=== PATIENT | female | born 1955 | race Caucasian/White ===

== ENCOUNTER 2017-01-07 10:55 | Inpatient (IN) | payer MEDICAID, MEDICARE ==
--- NOTE | 2017-01-07 12:43 | RAD ---
HISTORY: Weakness COMPARISONS: May 29, 2015 VIEWS:1: Single frontal portable view of the chest at 12:20 PM FINDINGS: LINES AND TUBES: None. CARDIOMEDIASTINAL SILHOUETTE: The cardiomediastinal silhouette is normal for portable technique. PLEURA: The costophrenic angles are sharp. No pleural abnormalities are noted. LUNG PARENCHYMA: There is minimal linear opacification of the right lung base ABDOMEN: The upper abdomen is clear. There is no subphrenic gas. BONES AND SOFT TISSUES: No bone or soft tissue abnormalities are noted. IMPRESSION: MINIMAL LINEAR ATELECTASIS OF THE RIGHT LUNG BASE
--- NOTE | 2017-01-07 12:48 | ED ---
Micky Childress Rebecca, scribed for Axel Bañuelos MD on 01/07/17 at 1130 . Complex/Multi-Sys Presentation - HPI Summary HPI Summary: Pt is a 61 y/o F BIBA who presents to ED after being [place] [facility] [place]. Karoline Capellan to r/o malnourishment. Pt reports she has been experiencing generalized weakness since July which has been worsening. Denies fever, chills. Pt believes her sx may have been aggravated by her decreased PO intake, alleviated by nothing. Pt reports that she has been hardly eating and reports spending "about 99% of my time in my hospital bed at home." Pt lives with 2 of her daughters. PMHx lymphedema, DM. - History Of Current Complaint Chief Complaint: EDWeakness Time Seen by Provider: 01/07/17 11:10 Hx Obtained From: Patient Onset/Duration: Lasting Weeks - Since July, Still Present Aggravating Factor(s): Decreased PO intake. Alleviating Factor(s): Nothing Associated Signs And Symptoms: Positive: Weakness - generalized. Negative: Fever - Allergies/Home Medications Allergies/Adverse Reactions: Allergies Allergy/AdvReac Type Severity Reaction Status Date / Time Ibuprofen Allergy Severe Anaphylatic Verified 05/11/16 14:17 Shock Levofloxacin [From Levaquin] Allergy Severe Joint Pain Verified 05/11/16 14:17 Sulfamethoxazole Allergy Severe Anaphylatic Verified 05/11/16 14:17 w/Trimethoprim Shock [From Bactrim] Ceftriaxone [From Rocephin] Allergy Intermediate Swelling Verified 05/11/16 14: 17 Ondansetron [From Zofran] Allergy Intermediate Nausea And Verified 05/11/16 14: 17 Vomiting Adhesive Tape Allergy Rash Verified 05/11/16 14:17 Morphine [From MS Contin] Allergy See Comment Verified 05/11/16 14:17 neo Allergy Mild Rash Uncoded 05/28/15 16:47 PMH/Surg Hx/FS Hx/Imm Hx Endocrine/Hematology History: Reports: Hx Blood Disorders - Factor V Leiden, Hx Diabetes, Hx Thyroid Disease, Other Endocrine/Hematological Disorders Denies: Hx Anticoagulant Therapy, Hx Blood Transfusions, Hx Bone Marrow Disease, Hx Systemic Lupus Erythematosus, Hx Sickle Cell Disease, Hx Anemia, Hx Unexplained Bleeding Cardiovascular History: Reports: Hx Deep Vein Thrombosis, Hx Embolism - PE, Hx Hypercholesterolemia, Hx Hypertension, Other Cardiovascular Problems/Disorders - Idiopathic Thrombocytopenia; Factor 5 Leiden, lymphedema Denies: Hx Aneurysm, Hx Angina, Hx Angioplasty, Hx Auto Implanted Cardiovert Defib, Hx Cardiac Arrest, Hx Cardiomegaly, Hx Congenital Heart Disease, Hx Congestive Heart Failure, Hx Coronary Artery Disease, Hx Hypotension, Hx Pacemaker/ICD, Hx Peripheral Vascular Disease, Hx Rheumatic Fever, Hx Syncope, Hx Valvular Heart Disease Respiratory History: Reports: Hx Chronic Bronchitis, Hx Chronic Obstructive Pulmonary Disease (COPD), Hx Pneumonia, Hx Pulmonary Edema, Hx Pulmonary Embolism, Hx Sleep Apnea - obstructive sleep apnea (does not use CPAP), Other Respiratory Problems/Disorders - h/o pneumonia, HX PE Denies: Hx Seasonal Allergies Comment Only: Hx Asthma - denies but uses Albuterol GI History: Reports: Hx Gastroesophageal Reflux Disease, Hx Hiatal Hernia - 2006 HAD SURGERY, repair with mesh, Other GI Disorders - Hernia repair with mesh , pt reports acid reflux Denies: Hx Jaundice History: Reports: Hx Kidney Infection - severe when 11 years old, Hx Kidney Stones, Other Problems/Disorders - recurrent UTIs Denies: Hx Dialysis, Hx Renal Disease Musculoskeletal History: Reports: Hx Arthritis - hands, lower joints, Hx Back Problems, Hx Bursitis - RIGHT SHOULDER, Other Musculoskeletal History - bursitis right shoulder Sensory History: Reports: Hx Cataracts - 2012, Hx Contacts or Glasses, Hx Vision Problem Denies: Hx Eye Injury, Hx Eye Prosthesis, Hx Glaucoma, Hx Macular Degeneration, Hx Deafness, Hx Hearing Aid, Hx Hearing Problem, Other Sensory Impairments Opthamlomology History: Reports: Hx Cataracts - 2013, Hx Contacts or Glasses, Hx Vision Problem Denies: Hx Eye Injury, Hx Eye Prosthesis, Hx Glaucoma, Hx Macular Degeneration, Other Sensory Impairments Neurological History: Reports: Hx Migraine - once in a while Denies: Hx Dementia, Hx Developmental Delay, Hx Headaches, Hx Seizures, Hx Spinal Cord Injury, Hx Transient Ischemic Attacks (TIA), Other Neuro Impairments /Disorders Psychiatric History: Reports: Hx Depression Denies: Hx Anxiety, Hx Attention Deficit Hyperactivity Disorder, Hx Autism, Hx Eating Disorder, Hx Oppositional [place] Disorder, Hx Panic Disorder, Hx Post Traumatic Stress Disorder, Hx Community Mental Health Tx, Hx Schizophrenia , Hx Bipolar Disorder, Hx Substance Abuse, Other Psychiatric Issues/Disorders - Surgical History Surgery Procedure, Year, and Place: hernia repair, vena cava filter placement, r /t wound in left lower extremity (Leg debridement). 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 MD Fartun Capellan denies Hx 11/17/15, Traveled Outside the [place] in Last 30 Days - Family History Known Family History: Positive: Hypertension, Diabetes - Social History Alcohol Use: None Hx Substance Use: No Substance Use Type: Reports: None Hx Tobacco Use: Yes Smoking Status (MU): Former Smoker Type: eCigarettes Length of Time of Smoking/Using Tobacco: off and on 40 years (probably a total of 15 years) Have You Smoked in the Last Year: No Review of Systems Negative: Fever, Chills Positive: Weakness - generalized All Other Systems Reviewed And Are Negative: Yes Physical Exam - Summary Physical Exam Summary: General: well-appearing, no pain distress Skin: warm, color reflects adequate perfusion, dry Head: normal Eyes: EOMI, LUCI ENT: normal Neck: supple, nontender Respiratory: CTA, breath sounds present Cardiovascular: RRR Abdomen: soft, nontender Bowel: present Musculoskeletal: bilateral edema and is able to move the lower extremities, she has generalized weakness Neurological: normal, A&O x3, generalized weakness Psychological: affect/mood appropriate Triage Information Reviewed: Yes Vital Signs On Initial Exam: Initial Vitals Temp Pulse Resp BP Pulse Ox 97.6 F 108 18 107/82 96 01/07/17 11:09 01/07/17 11:09 01/07/17 11:09 01/07/17 11:09 01/07/17 11:09 Vital Signs Reviewed: Yes - Max Coma Scale Coma Scale Total: 15 Diagnostics - Vital Signs Vital Signs Temp Pulse Resp BP Pulse Ox 01/07/17 11:09 97.6 F 108 18 107/82 96 - Laboratory Lab Statement: Any lab studies that have been ordered have been reviewed, and results considered in the medical decision making process. Complex Multi-Symp Course/Dx Course Of Treatment: ADMIT DR CAPELLAN - Diagnoses Provider Diagnoses: Weakness Discharge - Discharge Plan Condition: Stable Disposition: ADMITTED TO [facility] Referrals: Karoline Capellan MD [Primary Care Provider] - The documentation as recorded by the Micky tao Rebecca accurately reflects the service I personally performed and the decisions made by me, Axel Bañuelos MD.
[2017-01-07 13:27] LABS: Hematocrit 45 % (35-47); Hemoglobin 15.2 g/dl (12.0-16.0); Mean Corpuscular HGB Conc 34 g/dl (31-36); Mean Corpuscular Hemoglobin 32 pg (27-31); Mean Corpuscular Volume 95 fL (80-97); Mean Platelet Volume 11 um3 (7.4-10.4); Red Blood Count 4.74 10^6/ul (4.0-5.4); Red Cell Distribution Width 13 % (10.5-15); White Blood Count 7.1 10^3/ul (3.5-10.8)
[2017-01-07 13:29] LABS: Comments Flag Yes
[2017-01-07 13:30] LABS: Add Diff/Slide Review? Slide Review Added
[2017-01-07 13:41] LABS: Albumin 3.5 g/dL (3.2-5.2); BUN/Creatinine Ratio 17.8 (8-20); C Reactive Protein 2.29 mg/L (< 5.00); Calcium 10.2 mg/dL (8.6-10.3); EGFR African American 104.9 (>60); EGFR Non-African American 81.6 (>60); Globulin 3.2 g/dL (2-4); Magnesium 1.9 mg/dL (1.9-2.7); Phosphorus 4.3 mg/dL (2.5-5.0); Potassium 4.3 mmol/L (3.5-5.0); Total Bilirubin 0.5 mg/dL (0.2-1.0); Total Protein 6.7 g/dL (6.4-8.9)
[2017-01-07] MEDS ORDERED: oxyCODONE TAB* 5 MG TAB PO ONE (13:49)
[2017-01-07 14:29] LABS: TSH (Thyroid Stimulating Horm) 0.05 mcIU/mL (0.34-5.60)
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
[2017-01-07] MEDS: oxyCODONE TAB* 5 MG TAB PO PRN ×2 (16:49→21:26)
[2017-01-07] MEDS: Gabapentin CAP(*) 300 MG PO SCH ×3 (16:49→23:51)
[2017-01-07] MEDS ORDERED: HYDROmorphone* 1 MG/ML 1 ML SYR IV PRN (17:29)
[2017-01-07 18:02] LABS: Urine Bacteria 2+ (Absent); Urine Bilirubin Negative (Negative); Urine Glucose Negative (Negative); Urine Nitrite Negative (Negative)
[2017-01-07] MEDS: DULoxetine DR CAP* 30 MG CAP.DR PO SCH (21:10)
[2017-01-07] MEDS: oxyCODONE SR TAB(*) 20 MG TAB.SR PO SCH (21:12)
[2017-01-07] MEDS: Oxybutynin XL TAB* 5 MG PO SCH (21:12)
[2017-01-08] MEDS ORDERED: HYDROmorphone* 1 MG/ML 1 ML SYR IV PRN (04:41)
[2017-01-08] MEDS: Atorvastatin* 40 MG TAB PO SCH (07:52)
[2017-01-08] MEDS: DULoxetine DR CAP* 30 MG CAP.DR PO SCH ×2 (07:52→21:11)
[2017-01-08] MEDS: Gabapentin CAP(*) 300 MG PO SCH ×4 (07:52→21:35)
[2017-01-08] MEDS: Cholecalciferol TAB* 1000 UNITS PO SCH (07:52)
[2017-01-08] MEDS: Potassium Chloride LIQUID* 20 MEQ PACKET PO SCH (07:53)
[2017-01-08] MEDS: oxyCODONE SR TAB(*) 20 MG TAB.SR PO SCH (07:54)
[2017-01-08] MEDS: oxyCODONE TAB* 5 MG TAB PO PRN (07:55)
[2017-01-08] MEDS ORDERED: predniSONE TAB* 10 MG PO SCH (09:00)
[2017-01-08] MEDS ORDERED: Methimazole TAB* 5 MG PO SCH (09:00)
[2017-01-08 10:01] LABS: Free T3 3.6 pg/mL (2.5-3.9); Free T4 0.8 ng/dL (0.61-1.12)
[2017-01-08] MEDS ORDERED: NS 0.9% 500 ML BAG* 500 ML IV ONE (12:00)
[2017-01-08] MEDS ORDERED: Methimazole TAB* 5 MG PO ONE (12:00)
[2017-01-08] MEDS ORDERED: Naloxone* 0.4 MG/ML 1 ML VIAL ONE ×2 (13:26→15:02)
[2017-01-08] MEDS ORDERED: PROCHLORPERAZINE INJ 5 MG/ML 2 ML VIAL ONE (13:48)
[2017-01-08] MEDS ORDERED: PROCHLORPERAZINE INJ 5 MG/ML 2 ML VIAL IV PRN (14:05)
[2017-01-08] MEDS: Nitrofurantoin Macrocrystals* 100 MG CAP PO SCH ×2 (14:06→22:51)
[2017-01-08] MEDS ORDERED: Naloxone* 0.4 MG/ML 1 ML VIAL IV ONE (15:00)
[2017-01-08] MEDS: Oxybutynin XL TAB* 5 MG PO SCH (16:13)
[2017-01-09] MEDS: Gabapentin CAP(*) 300 MG PO SCH ×6 (04:50→21:55)
[2017-01-09 05:37] LABS: Hematocrit 37 % (35-47); Hemoglobin 12.4 g/dl (12.0-16.0); Mean Corpuscular HGB Conc 33 g/dl (31-36); Mean Corpuscular Hemoglobin 32 pg (27-31); Mean Corpuscular Volume 95 fL (80-97); Mean Platelet Volume 10 um3 (7.4-10.4); Red Blood Count 3.89 10^6/ul (4.0-5.4); Red Cell Distribution Width 13 % (10.5-15); White Blood Count 7.6 10^3/ul (3.5-10.8)
[2017-01-09 05:45] LABS: Comments Flag Yes
[2017-01-09] MEDS: Acetaminophen TAB* 325 MG PO PRN (05:46)
[2017-01-09 05:58] LABS: Calcium 8.8 mg/dL (8.6-10.3); EGFR African American 94.4 (>60); EGFR Non-African American 73.4 (>60); Globulin 2.8 g/dL (2-4); Potassium 4.3 mmol/L (3.5-5.0); Total Bilirubin 0.5 mg/dL (0.2-1.0); Total Protein 5.8 g/dL (6.4-8.9)
[2017-01-09 06:08] LABS: TSH (Thyroid Stimulating Horm) 0.04 mcIU/mL (0.34-5.60)
[2017-01-09] MEDS ORDERED: predniSONE TAB* 5 MG PO SCH (09:00)
[2017-01-09] MEDS: Potassium Chloride LIQUID* 20 MEQ PACKET PO SCH (09:49)
[2017-01-09] MEDS: Methimazole TAB* 5 MG PO SCH (09:51)
[2017-01-09] MEDS: Cholecalciferol TAB* 1000 UNITS PO SCH (09:51)
[2017-01-09] MEDS: Atorvastatin* 40 MG TAB PO SCH (09:51)
[2017-01-09] MEDS: DULoxetine DR CAP* 30 MG CAP.DR PO SCH ×2 (09:51→21:57)
[2017-01-09] MEDS: Nitrofurantoin Macrocrystals* 100 MG CAP PO SCH ×2 (09:52→21:57)
[2017-01-09] MEDS: oxyCODONE TAB* 5 MG TAB PO PRN ×4 (09:56→22:39)
--- NOTE | 2017-01-09 14:28 | RAD ---
INDICATION: Urinary tract infection evaluate for urinary retention. COMPARISON: Comparison is made with a prior renal ultrasound from October 03, [address] of the abdomen and pelvis from January 14, 2015. TECHNIQUE: Multiple real-time images of the kidneys and urinary bladder were obtained. FINDINGS: The kidneys are normal in size shape and echogenicity. The right kidney measured 12.2 x 4.7 x 5.1 cm and the left kidney measured 9.1 x 4.8 x 3.9 cm. No significant focal abnormality or hydronephrosis was present. The bladder is normal in contour. No intraluminal abnormalities are seen. No bladder wall thickening is noted. There are bilateral ureteral jets present within the urinary bladder. The bladder volume measured 218 mL. The patient was unable to void. IMPRESSION: 1. NORMAL EXAM OF THE KIDNEYS. 2. THE BLADDER VOLUME WAS 218 ML, THE PATIENT WAS UNABLE TO VOID AT THE END OF THE STUDY.
[2017-01-09] MEDS: Oxybutynin XL TAB* 5 MG PO SCH (16:46)
--- NOTE | 2017-01-09 18:24 | PN ---
Progress Note - Progress Note Date of Service: 01/09/17 SOAP: Subjective: []Had not been seen in clinic since June. Has been bed bound essentially after breakdown of family support and function. Lives with daughter who has ADHD and Asperger's syndrome. Had been bed bound for several months. Incontinent with no clean sheets, limited aces to food. Found at home when Dr. Ruiz's BULLET MAKER went for home visit. Weight loss of approximately 150 lbs over past year in a half. Has been taking Prednisone 5 mg M-F and 10 mg [place] for ITP. Pain remains sever, decreased strength and mobility over time. Acetaminophen (Tylenol Tab*) 650 mg PO Q4H PRN PRN Reason: PAIN Last Admin: 01/09/17 05:46 Dose: 650 mg Atorvastatin Calcium (Lipitor*) 40 mg PO DAILY [facility] Last Admin: 01/09/17 09:51 Dose: 40 mg Cholecalciferol (Vitamin D Tab*) 1,000 units PO DAILY [facility] Last Admin: 01/09/17 09:51 Dose: 1,000 units Duloxetine HCl (Cymbalta Cap*) 30 mg PO BID [facility] Last Admin: 01/09/17 09:51 Dose: 30 mg Gabapentin (Neurontin Cap(*)) 600 mg PO Q4H [facility] Last Admin: 01/09/17 16:46 Dose: 600 mg Methimazole (Tapazole Tab*) 5 mg PO DAILY [facility] Last Admin: 01/09/17 09:51 Dose: 5 mg Nitrofurantoin Macrocrystals (Macrodantin*) 100 mg PO BID [facility] Last Admin: 01/09/17 09:52 Dose: 100 mg Oxybutynin Chloride (Ditropan Xl Tab*) 10 mg PO 1800 [facility] Last Admin: 01/09/17 16:46 Dose: 10 mg Oxycodone HCl (Roxycodone Tab*) 10 mg PO Q4H PRN PRN Reason: PAIN - SEVERE Oxycodone HCl (Roxycodone Tab*) 5 mg PO Q4H PRN PRN Reason: PAIN - MODERATE Last Admin: 01/09/17 14:21 Dose: 5 mg Potassium Chloride (Klor-Con Liquid*) 40 meq PO DAILY [facility] Last Admin: 01/09/17 09:49 Dose: 40 meq Prednisone (Deltasone Tab*) 5 mg PO DAILY [facility] Prochlorperazine Edisylate (Compazine Inj*) 10 mg IV Q6H PRN PRN Reason: NAUSEA/VOMITING Objective: [] Vital Signs Temp Pulse Resp BP Pulse Ox 97.5 F 88 12 103/56 97 01/09/17 15:29 01/09/17 15:29 01/09/17 16:46 01/09/17 15:29 01/09/17 16:00 Limited exam HEENT - no thrush, poor dentition. CTA RRR S1S2 +BS and obese but sitting up, could not feel for spleen Ext with less edema, no infection, improved skin from June, did not look at toes Laboratory Results - last 24 hr 01/08/17 01/09/17 01/09/17 20:54 05:23 05:23 WBC 7.6 RBC 3.89 L Hgb 12.4 Hct 37 MCV 95 MCH 32 H MCHC 33 RDW 13 Plt Count 67 L MPV 10 Neut % (Auto) 69.1 Lymph % (Auto) 20.2 L Moody % (Auto) 9.0 Eos % (Auto) 1.2 Baso % (Auto) 0.5 Absolute Neuts (auto) 5.2 Absolute Lymphs (auto) 1.5 Absolute Monos (auto) 0.7 Absolute Eos (auto) 0.1 Absolute Basos (auto) 0 Absolute Nucleated RBC 0 Nucleated RBC % 0 Sodium Potassium Chloride Carbon Dioxide Anion Gap BUN Creatinine Est GFR ( Amer) Est GFR (Non-Af Amer) BUN/Creatinine Ratio Glucose POC Glucose (mg/dL) 77 Hemoglobin A1c 5.4 Calcium Total Bilirubin AST ALT Alkaline Phosphatase Total Protein Albumin Globulin Albumin/Globulin Ratio TSH 01/09/17 01/09/17 01/09/17 05:24 07:25 16:45 WBC RBC Hgb Hct MCV MCH MCHC RDW Plt Count MPV Neut % (Auto) Lymph % (Auto) Moody % (Auto) Eos % (Auto) Baso % (Auto) Absolute Neuts (auto) Absolute Lymphs (auto) Absolute Monos (auto) Absolute Eos (auto) Absolute Basos (auto) Absolute Nucleated RBC Nucleated RBC % Sodium 133 Potassium 4.3 Chloride 102 Carbon Dioxide 28 Anion Gap 3 BUN 24 Creatinine 0.80 Est GFR ( Amer) 94.4 Est GFR (Non-Af Amer) 73.4 BUN/Creatinine Ratio 30.0 H Glucose 94 POC Glucose (mg/dL) 104 H 124 H Hemoglobin A1c Calcium 8.8 Total Bilirubin 0.50 AST 12 L ALT 6 L Alkaline Phosphatase 55 Total Protein 5.8 L Albumin 3.0 L Globulin 2.8 Albumin/Globulin Ratio 1.1 TSH 0.04 L Assessment: []61 year old with multiple medical problems including chronic ZACHARY, chronic pain syndrome. Has been on Prednisone for ITP wit platelet harini under 20K in past. Plan: []1. Will be working with discharge planning for NH with Rehab. 2. Social work consult for assistance to children. 3. Platelets stable, decrease Prednisone to 5 mg daily and follow.
[2017-01-10] MEDS: Gabapentin CAP(*) 300 MG PO SCH ×6 (02:10→21:30)
[2017-01-10] MEDS: oxyCODONE TAB* 5 MG TAB PO PRN ×5 (06:06→21:31)
[2017-01-10] MEDS: Atorvastatin* 40 MG TAB PO SCH (10:17)
[2017-01-10] MEDS: predniSONE TAB* 5 MG PO SCH (10:17)
[2017-01-10] MEDS: Potassium Chloride LIQUID* 20 MEQ PACKET PO SCH (10:17)
[2017-01-10] MEDS: DULoxetine DR CAP* 30 MG CAP.DR PO SCH ×2 (10:17→21:30)
[2017-01-10] MEDS: Nitrofurantoin Macrocrystals* 100 MG CAP PO SCH ×2 (10:18→21:31)
[2017-01-10] MEDS: Methimazole TAB* 5 MG PO SCH (10:18)
[2017-01-10] MEDS: Cholecalciferol TAB* 1000 UNITS PO SCH (10:19)
--- NOTE | 2017-01-10 15:38 | RAD ---
INDICATION: Pain and swelling. COMPARISON: None TECHNIQUE: Duplex interrogation of the Lowerextremity was performed. FINDINGS: Deep veins: The common femoral, great saphenous, profunda femoris, proximal, mid, and distal deep femoral, popliteal, and posterior tibial veins are patent. The peroneal veins are not seen. This is likely technical in nature related to the dependent edema. There is normal compressibility, augmentation, and phasic flow. Superficial veins: There are no findings of superficial thrombophlebitis. Popliteal fossa:There is no evidence of a popliteal cyst. Soft tissues: There is subcutaneous edema.. IMPRESSION: NONVISUALIZATION OF THE PERONEAL VEINS LIKELY RELATED TO TECHNICAL FACTORS/DEPENDENT EDEMA. NO EVIDENCE OF DEEP VENOUS THROMBOSIS
[2017-01-10] MEDS: Oxybutynin XL TAB* 5 MG PO SCH (16:43)
--- NOTE | 2017-01-10 22:32 | CONS ---
INPATIENT PAIN CONSULTATION: DATE OF CONSULT: 01/10/17 REASON FOR REFERRAL: Pain in legs and arms. HISTORY OF PRESENT ILLNESS: Saima Juares is a 61-year-old female. She has a medical history significant for type 2 diabetes mellitus and has a painful peripheral neuropathy. In addition, the patient has a history of chronic immune thrombocytopenia. She was treated with a drug called Promacta, which caused her to have severe limb pain. In addition, she has a history of chronic lymphedema in her lower extremities. She has had a history of wound infections in both legs. She also has a history of factor V Leiden. The patient, because of her chronic pain, had been managed with OxyContin 20 mg twice a day and oxycodone 20 mg every 4 hours. This was prescribed by her primary care doctor. The patient, however, missed several appointments with her primary care doctor. Her OxyContin and oxycodone prescriptions ran out and were not refilled because of the missed appointment. Eventually, a nurse practitioner was sent into the home to visit with the patient, because the patient felt like she could not get into the office. The patient was found to be living in a situation where she was having difficulty getting out of b+ed and had not been washed or cleaned in several weeks. Her mattress in her hospital bed appeared to have been ruined because of incontinence. The patient was admitted to the hospital. She had a medical workup. Over the weekend, her pain medications were resumed, but the patient had to get Narcan because her respiratory rate went down to 4. The patient is now on oxycodone 5 to 10 mg every 4 hours as needed. She states she is still in pain. I am asked to see her in consultation. PAST MEDICAL HISTORY: As noted above. In addition, she has obstructive sleep apnea. She has had a [place] filter placed. She has chronic low back pain, depression, hypertension. MEDICATIONS: Current medications include: 1. Lipitor. 2. Cymbalta 30 mg twice a day. 3. Neurontin 600 mg 6 times a day. 4. She is on Tapazole. 5. Macrodantin for urinary tract infection. 6. Ditropan. 7. Oxycodone. 8. Potassium. 9. Prednisone for her ITP. ALLERGIES: The patient has allergies listed to IBUPROFEN, LEVAQUIN, and BACTRIM. SOCIAL HISTORY: She is a nonsmoker. Does not drink alcohol. She is a previous smoker and uses nicotine cartridges. PHYSICAL EXAM: In brief, the patient's temperature is 99.5, blood pressure is 116/43, pulse is 100, respirations 22. HEENT: Her extraocular movements are intact. Tongue is midline. Lungs: Sounded clear to auscultation bilaterally. Heart sounds are regular. S1 and S2 are audible. Abdomen is soft and nontender. Her extremities were examined. She had lymphedema in both lower extremities which appears to be chronic. No open wounds were seen. Muscle strength in her upper extremities appear to be 4/5, lower extremities was about 3/5. ASSESSMENT: Chronic pain secondary to a combination of peripheral neuropathy and lymphedema. PLAN: At present, I would avoid long-acting opioids given the events of last weekend. I would continue her on oxycodone 10 mg every 4 hours. If she continues to tolerate this fairly well, we could increase it to oxycodone 15 mg every 4 hours as needed. I will continue to follow her periodically while she is here in the hospital. It seems like she will not be going back home and will need to go to a subacute rehab setting for ongoing strengthening. Thank you for the consultation. [id number]/[facility]IN[facility] #: [id number] WHITNEY
[2017-01-11] MEDS: Gabapentin CAP(*) 300 MG PO SCH ×6 (04:17→20:33)
[2017-01-11] MEDS: Cholecalciferol TAB* 1000 UNITS PO SCH (08:13)
[2017-01-11] MEDS: Potassium Chloride LIQUID* 20 MEQ PACKET PO SCH (08:13)
[2017-01-11] MEDS: DULoxetine DR CAP* 30 MG CAP.DR PO SCH ×2 (08:13→20:33)
[2017-01-11] MEDS: Atorvastatin* 40 MG TAB PO SCH (08:14)
[2017-01-11] MEDS: Nitrofurantoin Macrocrystals* 100 MG CAP PO SCH ×2 (08:15→20:34)
[2017-01-11] MEDS: Acetaminophen TAB* 325 MG PO PRN ×2 (08:15→12:54)
[2017-01-11] MEDS: predniSONE TAB* 5 MG PO SCH (08:15)
[2017-01-11] MEDS: Methimazole TAB* 5 MG PO SCH (08:24)
[2017-01-11] MEDS ORDERED: ZOSYN 3.375 GM x ONE DOSE over 30 miuntes IVPB ×2 (11:00)
[2017-01-11 11:18] LABS: ALT 5 U/L (7-52); Albumin 3.4 g/dL (3.2-5.2); Alkaline Phosphatase 65 U/L (34-104); BUN/Creatinine Ratio 21.3 (8-20); Blood Urea Nitrogen 13 mg/dL (6-24); C Reactive Protein 96.41 mg/L (< 5.00); CO2 Carbon Dioxide 24 mmol/L (22-32); Calcium 9.5 mg/dL (8.6-10.3); Chloride 104 mmol/L (101-111); EGFR African American 129.1 (>60); EGFR Non-African American 100.4 (>60); Globulin 3.6 g/dL (2-4); Glucose 151 mg/dL (70-100); Sodium 134 mmol/L (133-145)
[2017-01-11 11:31] LABS: Anion Gap 6 mmol/L (2-11)
[2017-01-11 11:34] LABS: Comments Flag Yes; Hematocrit 43 % (35-47); Hemoglobin 14.3 g/dl (12.0-16.0); Mean Corpuscular HGB Conc 33 g/dl (31-36); Mean Corpuscular Hemoglobin 32 pg (27-31); Mean Corpuscular Volume 97 fL (80-97); Mean Platelet Volume 10 um3 (7.4-10.4); Red Blood Count 4.43 10^6/ul (4.0-5.4); Red Cell Distribution Width 14 % (10.5-15); White Blood Count 6.8 10^3/ul (3.5-10.8)
[2017-01-11] MEDS: Cyanocobalamin INJ * 1,000 MCG/ML VIAL 1 ML VIAL IM SCH (13:13)
[2017-01-11] MEDS: ZOSYN 3.375 GM Q8H per EXTENDED INFUSION IVPB SCH ×2 (16:12)
[2017-01-11] MEDS: oxyCODONE TAB* 5 MG TAB PO PRN ×2 (16:16→20:36)
[2017-01-12] MEDS: ZOSYN 3.375 GM Q8H per EXTENDED INFUSION IVPB SCH ×6 (00:02→16:36)
[2017-01-12] MEDS: oxyCODONE TAB* 5 MG TAB PO PRN ×6 (00:40→21:00)
[2017-01-12] MEDS: Gabapentin CAP(*) 300 MG PO SCH ×6 (00:40→21:00)
[2017-01-12 05:17] LABS: Comments Flag Yes; Hematocrit 35 % (35-47); Hemoglobin 11.9 g/dl (12.0-16.0); Mean Corpuscular HGB Conc 34 g/dl (31-36); Mean Corpuscular Hemoglobin 32 pg (27-31); Mean Corpuscular Volume 95 fL (80-97); Mean Platelet Volume 10 um3 (7.4-10.4); Red Blood Count 3.69 10^6/ul (4.0-5.4); Red Cell Distribution Width 13 % (10.5-15); White Blood Count 5.1 10^3/ul (3.5-10.8)
[2017-01-12] MEDS: Atorvastatin* 40 MG TAB PO SCH (08:25)
[2017-01-12] MEDS: Nitrofurantoin Macrocrystals* 100 MG CAP PO SCH ×2 (08:25→21:00)
[2017-01-12] MEDS: DULoxetine DR CAP* 30 MG CAP.DR PO SCH ×2 (08:25→21:00)
[2017-01-12] MEDS: Cyanocobalamin INJ * 1,000 MCG/ML VIAL 1 ML VIAL IM SCH (08:26)
[2017-01-12] MEDS: Cholecalciferol TAB* 1000 UNITS PO SCH (08:26)
[2017-01-12] MEDS: Methimazole TAB* 5 MG PO SCH (08:26)
[2017-01-12] MEDS: predniSONE TAB* 5 MG PO SCH (08:26)
[2017-01-12] MEDS: Potassium Chloride LIQUID* 20 MEQ PACKET PO SCH (08:26)
[2017-01-12 09:04] LABS: Albumin 2.9 g/dL (3.2-5.2); BUN/Creatinine Ratio 24.6 (8-20); Calcium 8.7 mg/dL (8.6-10.3); EGFR African American 129.1 (>60); EGFR Non-African American 100.4 (>60); Globulin 3.1 g/dL (2-4); Potassium 3.7 mmol/L (3.5-5.0); Total Bilirubin 0.4 mg/dL (0.2-1.0)
[2017-01-13] MEDS: Gabapentin CAP(*) 300 MG PO SCH ×6 (01:02→22:18)
[2017-01-13] MEDS: ZOSYN 3.375 GM Q8H per EXTENDED INFUSION IVPB SCH ×6 (01:05→16:15)
[2017-01-13 05:41] LABS: Comments Flag Yes; Hematocrit 36 % (35-47); Hemoglobin 12.1 g/dl (12.0-16.0); Mean Corpuscular HGB Conc 34 g/dl (31-36); Mean Corpuscular Hemoglobin 32 pg (27-31); Mean Corpuscular Volume 95 fL (80-97); Mean Platelet Volume 10 um3 (7.4-10.4); Red Blood Count 3.79 10^6/ul (4.0-5.4); Red Cell Distribution Width 13 % (10.5-15); White Blood Count 5.2 10^3/ul (3.5-10.8)
[2017-01-13 05:55] LABS: BUN/Creatinine Ratio 25.5 (8-20); C Reactive Protein 32.14 mg/L (< 5.00); Calcium 9.1 mg/dL (8.6-10.3); EGFR African American 145.5 (>60); EGFR Non-African American 113.1 (>60); Potassium 3.7 mmol/L (3.5-5.0)
[2017-01-13] MEDS: Potassium Chloride LIQUID* 20 MEQ PACKET PO SCH (08:38)
[2017-01-13] MEDS: predniSONE TAB* 5 MG PO SCH (08:39)
[2017-01-13] MEDS: Nitrofurantoin Macrocrystals* 100 MG CAP PO SCH ×2 (08:39→22:19)
[2017-01-13] MEDS: Atorvastatin* 40 MG TAB PO SCH (08:39)
[2017-01-13] MEDS: Methimazole TAB* 5 MG PO SCH (08:39)
[2017-01-13] MEDS: oxyCODONE TAB* 5 MG TAB PO PRN ×4 (08:39→22:18)
[2017-01-13] MEDS: DULoxetine DR CAP* 30 MG CAP.DR PO SCH ×2 (08:39→22:19)
[2017-01-13] MEDS: Cholecalciferol TAB* 1000 UNITS PO SCH (08:39)
[2017-01-13] MEDS: Cyanocobalamin INJ * 1,000 MCG/ML VIAL 1 ML VIAL IM SCH (08:41)
[2017-01-13] MEDS: Polyethylene Glycol 3350* 17 GM PACKET PO PRN (11:51)
[2017-01-13] MEDS: Senna TAB PO PRN (11:51)
[2017-01-13] MEDS: Acetaminophen TAB* 325 MG PO PRN (11:51)
[2017-01-14] MEDS: ZOSYN 3.375 GM Q8H per EXTENDED INFUSION IVPB SCH ×4 (00:30→08:34)
[2017-01-14] MEDS: Gabapentin CAP(*) 300 MG PO SCH ×6 (01:06→21:00)
[2017-01-14] MEDS: oxyCODONE TAB* 5 MG TAB PO PRN ×5 (02:46→22:27)
[2017-01-14] MEDS: Methimazole TAB* 5 MG PO SCH (09:45)
[2017-01-14] MEDS: Polyethylene Glycol 3350* 17 GM PACKET PO PRN (09:45)
[2017-01-14] MEDS: Cholecalciferol TAB* 1000 UNITS PO SCH (09:46)
[2017-01-14] MEDS: predniSONE TAB* 5 MG PO SCH (09:46)
[2017-01-14] MEDS: DULoxetine DR CAP* 30 MG CAP.DR PO SCH ×2 (09:46→21:00)
[2017-01-14] MEDS: Nitrofurantoin Macrocrystals* 100 MG CAP PO SCH (09:46)
[2017-01-14] MEDS: Atorvastatin* 40 MG TAB PO SCH (09:46)
[2017-01-14] MEDS: Senna TAB PO PRN (09:47)
[2017-01-14] MEDS: Cyanocobalamin INJ * 1,000 MCG/ML VIAL 1 ML VIAL IM SCH (09:47)
[2017-01-14] MEDS: Potassium Chloride LIQUID* 20 MEQ PACKET PO SCH (09:49)
[2017-01-14] MEDS: Amoxicillin/Clavulanate TAB* 875 MG PO SCH ×2 (13:31→21:01)
[2017-01-15] MEDS: Gabapentin CAP(*) 300 MG PO SCH ×4 (01:43→13:26)
[2017-01-15] MEDS: oxyCODONE TAB* 5 MG TAB PO PRN ×3 (03:08→13:26)
[2017-01-15 06:43] LABS: Comments Flag Yes; Hematocrit 36 % (35-47); Hemoglobin 12.2 g/dl (12.0-16.0); Mean Corpuscular HGB Conc 34 g/dl (31-36); Mean Corpuscular Hemoglobin 32 pg (27-31); Mean Corpuscular Volume 96 fL (80-97); Mean Platelet Volume 11 um3 (7.4-10.4); Red Blood Count 3.79 10^6/ul (4.0-5.4); Red Cell Distribution Width 13 % (10.5-15); White Blood Count 5.4 10^3/ul (3.5-10.8)
[2017-01-15] MEDS: Atorvastatin* 40 MG TAB PO SCH (09:10)
[2017-01-15] MEDS: predniSONE TAB* 5 MG PO SCH (09:10)
[2017-01-15] MEDS: Cholecalciferol TAB* 1000 UNITS PO SCH (09:10)
[2017-01-15] MEDS: DULoxetine DR CAP* 30 MG CAP.DR PO SCH (09:10)
[2017-01-15] MEDS: Amoxicillin/Clavulanate TAB* 875 MG PO SCH (09:10)
[2017-01-15] MEDS: Potassium Chloride LIQUID* 20 MEQ PACKET PO SCH (09:11)
[2017-01-15] MEDS: Acetaminophen TAB* 325 MG PO PRN (09:11)
[2017-01-15] MEDS: Methimazole TAB* 5 MG PO SCH (09:20)
[2017-01-15] MEDS: Cyanocobalamin INJ * 1,000 MCG/ML VIAL 1 ML VIAL IM SCH (09:21)
--- NOTE | 2017-01-15 13:07 | TRS ---
CC: Dr. Janice Santos; Dr. Venkata Bustamante; [facility] TRANSFER SUMMARY: DATE OF ADMISSION: 01/07/17 DATE OF TRANSFER: 01/15/17 DISCHARGE DIAGNOSES: 1. Weakness due to inactivity. 2. Cellulitis, right lower leg. 3. Urinary tract infection. 4. Chronic lymphedema. 5. Immune thrombocytopenia. 6. Type 2 diabetes mellitus with peripheral neuropathy. 7. Morbid obesity. 8. History of factor V Leiden mutation. 9. History of [place] filter. 10. Osteoarthritis. 11. Depression. 12. History of hypertension. 13. History of sleep apnea, not currently using CPAP. 14. Gastroesophageal reflux disease. 15. History of DVT and pulmonary emboli. 16. History of MRSA. 17. Hyperthyroidism with thyroid nodule, on methimazole. 18. Lumbar spondylosis and levoscoliosis with history of low back pain and sciatica. 19. History of nonobstructing kidney stone, left kidney. 20. Chronic steroid therapy for thrombocytopenia. 21. Poor personal hygiene due to living circumstances. 22. Urinary retention, resolved. 23. B12 deficiency. 24. Oversedation due to hydromorphone and long-acting opioids during the hospitalization. 25. IV phlebitis due to midline catheter. 26. B12 deficiency with low normal B12, elevated homocysteine and methylmalonic acid. HISTORY: Saima Juares is a 61-year-old female admitted because of weakness, not getting out of bed at home, poor personal hygiene, not eating properly. Please see the dictated admission note for details of the present illness, past medical history, family history, social and personal history, review of systems , and physical examination. DIAGNOSTIC STUDIES/LABORATORY DATA: CBC on admission, WBC 7.1, H and H 15.2/45 , MCV 95, PLT 79K, MCV 95, ESR 5. Subsequent white count remained normal, was 5.4 on 01/15/17. Platelet count stayed low, ranged from 67-80, was 78 on . Laboratory on 01/07/17, sodium 132, potassium 4.3, chloride 100, CO2 of 27, BUN and creatinine 13/0.73, glucose 100. Comprehensive metabolic panel within normal limits. Hemoglobin A1c was 5.5%, phosphorus 4.3, magnesium 1.9. Lipids , triglycerides 214, cholesterol 152, LDL 72, HDL 37. Methylmalonic acid was elevated at 0.51. TSH was low at 0.05 on 01/07/17, was 0.4 on 01/09/17. Free T4 0.80 (normal), free T3 normal at 3.60. B12 level was low normal at 231. 25 - hydroxyvitamin D was normal at 33.4. Homocysteine was elevated at 15. Urinalysis: Yellow, clear, specific gravity 1.005, dipstick is positive for trace leukocyte esterase, epithelial cells present, bacteria 2+, hyaline casts present on admission. Microbiology showed urine culture positive for E. coli on 01/07/17, sensitive to all antibiotics tested. C-reactive protein 2.29 on , 96.41 on 01/11/17, 73.22 on 01/12/17, 32.14 on 01/13/17, and 13.90 on . Point-of- care glucoses ranged from 51 to 138. Imaging: Chest x-ray on 01/07/17 showed minimal linear atelectasis of the right lung base. Kidney and bladder ultrasound on 01/09/17 showed normal exam of the kidneys, bladder volume was 218 with the patient being unable to void at the end of the study. Venous Doppler study on 01/10/17 was negative for DVT of the right lower extremity. It was a difficult study technically. The peroneal veins were not seen. EKG on 01/07/17 showed sinus tachycardia, borderline LAD, axis more leftward compared to previous EKG of 11/16/15. CONSULTATIONS: 1. Dr. Khang Mireles for inpatient pain consultation. He felt that she had a combination of peripheral neuropathy and lymphedema. He recommended avoiding long- acting opioids. He recommended rehab after acute hospitalization. 2. Hematology, Dr. Venkata Bustamante, recommended decreasing her chronic steroids from 5 mg 5 days a week and 10 mg 2 days a week to 5 mg daily. HOSPITAL COURSE: The patient was initially admitted. It was felt that she had extreme weakness in a socially poor setting. She had not been eating properly and not getting out of bed. She had been lying on wet sheets. Her urinary tract infection was treated with nitrofurantoin. During her hospitalization, she developed cellulitis of her right leg, which was treated initially with Zosyn. When she developed a phlebitis and infiltration of the midline catheter, she was switched to Augmentin. This is improving. During her hospitalization, she had urinary retention, required intermittent straight catheterization. This appears to be resolving at this point. She had a physical therapy evaluation while she was here. She initially was not walking. She did take some steps with a walker prior to discharge. I ordered an occupational therapy evaluation. This did not occur during her hospitalization, however. I had also ordered a social work consultation. She was seen by social work for intermediate placement. Social work consultation will need to continue in order to provide a safe discharge for her with regards to her home situation after she leaves the intermediate which is the plan. We discussed possibly getting meals delivered by [employer] With regards to her diabetes, her metformin was initially stopped, but as she is eating better, I will be resuming it to prevent worsening of her diabetes in view of her peripheral neuropathy. With regards to her hyperthyroidism, with the suppressed TSH, I increased her methimazole from 2.5 to 5 mg daily and this will need to be followed as an outpatient. She was a full code. Because of her chronic thrombocytopenia, heparin was not used for DVT prophylaxis. She has a [place] filter. During her hospitalization, she was on a consistent carbohydrate diet, ate well. Her weights did go up during her hospitalization. I am not sure how accurate they were. They were initially bed weights. On 01/08/17, her weight was 194 pounds 9 ounces. On 01/15/17, her weight was 206 pounds 12.8 ounces, which was on a regular scale. Her BMI is 40.4. She has lost a considerable amount of weight, however, from what she was a few years ago when she was more than 100 pounds more than what she is now. At the time of discharge, she has cleaned up considerably well from admission when she was quite dirty. She has been having daily baths or showers. PHYSICAL EXAMINATION: She is alert, oriented. Her chest is clear. Heart is regular. She is complaining of some pain in the right leg due to the cellulitis , some pain in the left buttock and leg due to sciatic pain and her right arm remains sore with swelling of the right cephalic vein. Vital signs are blood pressure 123/82, pulse 84, respirations 16, temperature 97.7, O2 sat 97% on room air. Labs: CBC, WBC 5.2, H and H 12.1/36, MCV 95, PLT 77K. Chemistries, CRP is 13.9. DIET: At the time of discharge, her diet is consistent carbohydrate. ALLERGIES: ADHESIVE TAPE, IBUPROFEN, LEVOFLOXACIN, PROMACTA, SULFA, CEFTRIAXONE , MORPHINE, NICKEL, ZOFRAN. DISCHARGE MEDICATIONS: 1. Acetaminophen 650 p.o. q.4 h. p.r.n. mild pain. 2. Atorvastatin 40 mg p.o. daily. 3. Vitamin D3 1000 units daily. 4. Duloxetine 30 mg b.i.d. 5. Gabapentin 600 mg q.4 h. 6. KCl packets 40 mEq daily. 7. Methimazole 5 mg daily. 8. Oxycodone 5-10 mg q.4 h. p.r.n. pain, 5 mg for moderate, 10 mg for severe. 9. Prednisone 5 mg p.o. daily. 10. Vitamin B12 1000 mcg IM daily x4, weekly x4, then monthly. 11. Metformin 500 mg p.o. b.i.d. 12. Augmentin 875 mg p.o. b.i.d. for 3 more days. DISCHARGE INSTRUCTIONS: It should be noted that when she was first admitted, she requested strong pain medication, requested Dilaudid. She was put back on a regimen of oxycodone, which she had been previously, but had not been taking consistently recently. She became oversedated. Long-acting opiates should be avoided in her and she does not want them at this time. If she needs increase in pain medication, consideration could be given to increasing her oxycodone dose to 15 mg. Lab orders have been written, should be done in 2 weeks, free T4, free T3, TSH, CBC, CRP, BMP. She should have physical therapy, occupational therapy. Please call me if you have any questions. [id number]/[facility] #: [id number] [facility] CENTERMima
[2017-01-15 13:33] VITALS: BP 108/61
== END 2017-01-15 14:40 | DRG 690 ==
LOC: ED 10:55 → MED 13:00 → OBSVTOIN 01-09 09:30
PROVIDERS: ADMIT Internal Medicine Geriatric Medicine; ATTEND Internal Medicine Geriatric Medicine
DX: N39.0 Urinary tract infection, site not specified (principal); D68.51 Activated protein C resistance; T82.898A Other specified complication of vascular prosthetic devices, implants and grafts, initial encounter; E11.42 Type 2 diabetes mellitus with diabetic polyneuropathy; D69.6 Thrombocytopenia, unspecified; L03.115 Cellulitis of right lower limb; R33.9 Retention of urine, unspecified; E03.9 Hypothyroidism, unspecified; G89.29 Other chronic pain; G47.33 Obstructive sleep apnea (adult) (pediatric); F32.9 Major depressive disorder, single episode, unspecified; E53.8 Deficiency of other specified B group vitamins; E66.01 Morbid (severe) obesity due to excess calories; I89.0 Lymphedema, not elsewhere classified; B96.20 Unspecified Escherichia coli [E. coli] as the cause of diseases classified elsewhere; K21.9 Gastro-esophageal reflux disease without esophagitis; X58.XXXA Exposure to other specified factors, initial encounter; I10 Essential (primary) hypertension; F17.290 Nicotine dependence, other tobacco product, uncomplicated; M17.0 Bilateral primary osteoarthritis of knee; M19.012 Primary osteoarthritis, left shoulder; M19.011 Primary osteoarthritis, right shoulder; M19.042 Primary osteoarthritis, left hand; M19.041 Primary osteoarthritis, right hand; E04.1 Nontoxic single thyroid nodule; Z68.39 Body mass index [BMI] 39.0-39.9, adult; Z79.84 Long term (current) use of oral hypoglycemic drugs; Z86.711 Personal history of pulmonary embolism; Z86.718 Personal history of other venous thrombosis and embolism; Z79.52 Long term (current) use of systemic steroids; Z79.891 Long term (current) use of opiate analgesic; Z79.899 Other long term (current) drug therapy; Z88.6 Allergy status to analgesic agent; Z88.1 Allergy status to other antibiotic agents; Z88.5 Allergy status to narcotic agent; Z88.2 Allergy status to sulfonamides; Z88.8 Allergy status to other drugs, medicaments and biological substances; Z91.048 Other nonmedicinal substance allergy status; Z83.2 Family history of diseases of the blood and blood-forming organs and certain disorders involving the immune mechanism
CPT/HCPCS: 36415; 71010; 76770; 80048; 80053; 80061; 81003; 81015; 82306; 82550; 82607; 83036; 83090; 83735; 83921; 84100; 84439; 84443; 84481; 85025; 85027; 85652; 86140; 87077; 87086; 87186; 87641; 93005; 99232; A9270-GY; G0378; G8978-GP-CM; G8979-GP-CK; J0780; J1170; J2310; J2543; J3420; J7512

== ENCOUNTER 2017-02-21 21:35 | Inpatient (IN) | payer MEDICARE ==
[2017-02-21] MEDS ORDERED: NS 0.9% 1000 ML* 1,000 ML IV ONE (22:36)
[2017-02-21 23:04] LABS: Hematocrit 43 % (35-47); Mean Corpuscular HGB Conc 32 g/dl (31-36); Mean Corpuscular Hemoglobin 31 pg (27-31); Mean Corpuscular Volume 94 fL (80-97); Mean Platelet Volume 12 um3 (7.4-10.4); Red Blood Count 4.59 10^6/ul (4.0-5.4); Red Cell Distribution Width 14 % (10.5-15); White Blood Count 14.9 10^3/ul (3.5-10.8)
[2017-02-21 23:12] LABS: Comments Flag Yes
[2017-02-21 23:13] LABS: Add Diff/Slide Review? Slide Review Added
[2017-02-21 23:17] LABS: Albumin 3.4 g/dL (3.2-5.2); C Reactive Protein 3.31 mg/L (< 5.00); Calcium 9.9 mg/dL (8.6-10.3); EGFR African American 54.4 (>60); EGFR Non-African American 42.3 (>60); Globulin 3.4 g/dL (2-4); Potassium 4.1 mmol/L (3.5-5.0); Total Bilirubin 0.4 mg/dL (0.2-1.0); Total Protein 6.8 g/dL (6.4-8.9)
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
[2017-02-21] MEDS ORDERED: NS 0.9% 1000 ML* 2,000 ML IV ONE (23:43)
--- NOTE | 2017-02-22 00:42 | ED ---
Nasir Childress Alfonso, scribed for Nicolette Babb MD on 02/21/17 at 2248 . Lower Extremity - HPI Summary HPI Summary: This patient is a 61 year old obese F BIBA BLS to [facility] with a chief complaint of LLE injuries earlier today. The first injury was getting her leg between a motor scooter and wall. The second injury made her left big toe bleed when her left foot got caught under a shelf at [facility]. The third injury was from hitting her LLE again. She hit her left leg against a table in a [employer] restaurant. The patient rates the pain 9/10 in severity. Symptoms aggravated by touch. Symptoms alleviated by nothing. Patient reports dizziness, LLE swelling, LLE bruising, left big toe bleeding, and SOB. EMS reports a pressure of 132/78. Pressure on arrival to ED was 73/40 with pulse 85, BP later confirmed with a second monitor, and manually. Pt was sitting upright, alert, giving a coherent , detailed history with this blood pressure. Reports her usual BP is 112 systolic. Pt is morbidly obese, DM and has difficulty ambulating, has a scooter and uses a hospital bed at home. EMS reports she takes oxycodone (20 mg), gabapentin, Lisinopril, metformin, prednisone, and Ditropan. PMHx includes DM, PE, HTN, HLD, DVT, and Factor V Leiden. - History of Current Complaint Chief Complaint: EDExtremityLower Stated Complaint: BRUISED LT LEG Hx Obtained From: Patient, EMS Mechanism Of Injury: Blunt Trauma - crush injury between scooter and wall of van for left thigh, contusion to left foot. Onset of Pain: Prior to Arrival Onset/Duration: Still Present Severity Initially: Moderate Severity Currently: Severe Pain Intensity: 9 Pain Scale Used: 0-10 Numeric Timing: Constant Location: Is Discrete @ - LLE Character Of Pain: Aching Associated Signs And Symptoms: Positive: Other - dizziness, LLE swelling, LLE bruising, left big toe bleeding now resolved, and SOB. Aggravating Factor(s): Other - touch Alleviating Factor(s): Nothing Able to Bear Weight: No - Risk Factors DVT Risk Factors: Prior DVT, Recent Trauma - Allergies/Home Medications Allergies/Adverse Reactions: Allergies Allergy/AdvReac Type Severity Reaction Status Date / Time Ibuprofen Allergy Severe Anaphylatic Verified 05/11/16 14:17 Shock Levofloxacin [From Levaquin] Allergy Severe Joint Pain Verified 05/11/16 14:17 Sulfamethoxazole Allergy Severe Anaphylatic Verified 05/11/16 14:17 w/Trimethoprim Shock [From Bactrim] Ceftriaxone [From Rocephin] Allergy Intermediate Swelling Verified 05/11/16 14: 17 Adhesive Tape Allergy Rash Verified 05/11/16 14:17 Eltrombopag Allergy See Comment Verified 01/11/17 10:28 Morphine [From MS Contin] Allergy See Comment Verified 05/11/16 14:17 Nickel Allergy Rash Verified 01/08/17 11:54 Ondansetron [From Zofran] AdvReac Intermediate Nausea And Verified 01/08/17 11: 53 Vomiting PMH/Surg Hx/FS Hx/Imm Hx Endocrine/Hematology History: Reports: Hx Blood Disorders - Factor V Leiden, Hx Diabetes, Hx Thyroid Disease Denies: Hx Anticoagulant Therapy, Hx Blood Transfusions, Hx Bone Marrow Disease, Hx Systemic Lupus Erythematosus, Hx Sickle Cell Disease, Hx Anemia, Hx Unexplained Bleeding Cardiovascular History: Reports: Hx Deep Vein Thrombosis, Hx Embolism - PE, Hx Hypercholesterolemia, Hx Hypertension, Other Cardiovascular Problems/Disorders - Idiopathic Thrombocytopenia; Factor 5 Leiden, lymphedema Denies: Hx Aneurysm, Hx Angina, Hx Angioplasty, Hx Auto Implanted Cardiovert Defib, Hx Cardiac Arrest, Hx Cardiomegaly, Hx Congenital Heart Disease, Hx Congestive Heart Failure, Hx Coronary Artery Disease, Hx Hypotension, Hx Pacemaker/ICD, Hx Peripheral Vascular Disease, Hx Rheumatic Fever, Hx Syncope, Hx Valvular Heart Disease Respiratory History: Reports: Hx Chronic Bronchitis, Hx Chronic Obstructive Pulmonary Disease (COPD), Hx Pneumonia, Hx Pulmonary Edema, Hx Pulmonary Embolism, Hx Sleep Apnea - obstructive sleep apnea (does not use CPAP) Denies: Hx Seasonal Allergies Comment Only: Hx Asthma - denies but uses Albuterol GI History: Reports: Hx Gastroesophageal Reflux Disease, Hx Hiatal Hernia - 2006 HAD SURGERY, repair with mesh Denies: Hx Jaundice History: Reports: Hx Kidney Infection - severe when 11 years old, Hx Kidney Stones, Other Problems/Disorders - recurrent UTIs Denies: Hx Dialysis, Hx Renal Disease Musculoskeletal History: Reports: Hx Arthritis - hands, lower joints, Hx Back Problems, Hx Bursitis - RIGHT SHOULDER Sensory History: Reports: Hx Cataracts - 2013, Hx Contacts or Glasses, Hx Vision Problem Denies: Hx Eye Injury, Hx Eye Prosthesis, Hx Glaucoma, Hx Macular Degeneration, Hx Deafness, Hx Hearing Aid, Hx Hearing Problem, Other Sensory Impairments Opthamlomology History: Reports: Hx Cataracts - 2013, Hx Contacts or Glasses, Hx Vision Problem Denies: Hx Eye Injury, Hx Eye Prosthesis, Hx Glaucoma, Hx Macular Degeneration, Other Sensory Impairments Neurological History: Reports: Hx Migraine - once in a while Denies: Hx Dementia, Hx Developmental Delay, Hx Headaches, Hx Seizures, Hx Spinal Cord Injury, Hx Transient Ischemic Attacks (TIA), Other Neuro Impairments /Disorders Psychiatric History: Reports: Hx Depression Denies: Hx Anxiety, Hx Attention Deficit Hyperactivity Disorder, Hx Autism, Hx Eating Disorder, Hx Oppositional [place] Disorder, Hx Panic Disorder, Hx Post Traumatic Stress Disorder, Hx Community Mental Health Tx, Hx Schizophrenia , Hx Bipolar Disorder, Hx Substance Abuse, Other Psychiatric Issues/Disorders - Surgical History Surgery Procedure, Year, and Place: hernia repair, vena cava filter placement, r /t wound in left lower extremity (Leg debridement). Hx Anesthesia Reactions: No - Immunization History Date of Tetanus Vaccine: unsure Date of Influenza Vaccine: 2011 Infectious Disease History: No Infectious Disease History: Reports: Hx Shingles Denies: Hx Clostridium Difficile, Hx Hepatitis, Hx Human Immunodeficiency Virus (HIV), Hx of Known/Suspected MRSA - MRSA neg swab 11/17/15, Hx Tuberculosis , Hx Known/Suspected VRE - records indicated Yes per PCP office. MD Fartun Ruiz denies Hx 11/17/15, Traveled Outside the [place] in Last 30 Days - Family History Known Family History: Positive: Hypertension, Diabetes - Social History Occupation: Disabled Lives: With Family Alcohol Use: None Hx Substance Use: No Substance Use Type: Reports: None Hx Tobacco Use: Yes Smoking Status (MU): Former Smoker Type: eCigarettmoe Length of Time of Smoking/Using Tobacco: off and on 40 years (probably a total of 15 years) Have You Smoked in the Last Year: No Review of Systems Negative: Fever Positive: Shortness Of Breath Positive: Other - LLE injuries, LLE swelling, LLE bruising Positive: Other - left big toe bleeding now resolved, ecchymosis and hematoma left thigh and left foot Neurological: Other - dizziness Psychological: Normal All Other Systems Reviewed And Are Negative: Yes Physical Exam Triage Information Reviewed: Yes Vital Signs On Initial Exam: Initial Vitals Temp Pulse Resp BP Pulse Ox 97.9 F 85 16 73/40 82 02/21/17 22:03 02/21/17 22:03 02/21/17 22:03 02/21/17 22:03 02/21/17 22:03 Vital Signs Reviewed: Yes Appearance: Positive: No Pain Distress, Ill-Appearing, Obese Skin: Positive: Warm, Skin Color Reflects Adequate Perfusion, Other - Dried blood under the left great toe nail. Fish scaling chronic changes of the RLE. chronic bilat lymphedema, brawny changes, hematoma left thigh, ecchymosis ( purple) dorsum left foot. Head/Face: Positive: Normal Head/Face Inspection Eyes: Positive: Conjunctiva Clear ENT: Positive: Normal ENT inspection Neck: Positive: Supple Respiratory/Lung Sounds: Positive: Clear to Auscultation, Breath Sounds Present , Other - No respiratory distress Cardiovascular: Positive: RRR, Pulses are Symmetrical in both Upper and Lower Extremities, Other - Brisk capillary refill. Negative: Murmur Abdomen Description: Positive: Nontender, Soft, Other: - Large ventral hernia Bowel Sounds: Positive: Present Musculoskeletal: Positive: Other - Marked swelling and ecchymosis of her lower LLE. Hematoma 13 cm in diameter, tender to touch. Ecchymosis and swelling at dorsum of left foot 9 cm x 7 cm. Chronic venous stasis changes at bilateral LE. Neurological: Positive: Sensory/Motor Intact, Alert, Oriented to Person Place, Time, Facial Symmetry, Speech Normal Psychiatric: Positive: Normal Diagnostics - Vital Signs Vital Signs Temp Pulse Resp BP Pulse Ox 02/21/17 22:03 97.9 F 85 16 73/40 82 - Laboratory Lab Results: Lab Results 02/21/17 02/21/17 02/21/17 Range/Units 22:52 22:52 22:52 WBC 14.9 H (3.5-10.8) 10^3/ul RBC 4.59 (4.0-5.4) 10^6/ul Hgb 14.0 (12.0-16.0) g/dl Hct 43 (35-47) % MCV 94 (80-97) fL MCH 31 (27-31) pg MCHC 32 (31-36) g/dl RDW 14 (10.5-15) % Plt Count 62 L (150-450) 10^3/ul MPV 12 H (7.4-10.4) um3 Neut % (Auto) 82.5 (38-83) % Lymph % (Auto) 8.9 L (25-47) % [place] % (Auto) 8.0 (1-9) % Eos % (Auto) 0.1 (0-6) % Baso % (Auto) 0.5 (0-2) % Absolute Neuts (auto) 12.3 H (1.5-7.7) 10^3/ul Absolute Lymphs (auto) 1.3 (1.0-4.8) 10^3/ul Absolute Monos (auto) 1.2 H (0-0.8) 10^3/ul Absolute Eos (auto) 0 (0-0.6) 10^3/ul Absolute Basos (auto) 0.1 (0-0.2) 10^3/ul Absolute Nucleated RBC 0.04 10^3/ul Nucleated RBC % 0.3 INR (Anticoag Therapy) 0.88 L (0.89-1.11) Sodium 135 (133-145) mmol/L Potassium 4.1 (3.5-5.0) mmol/L Chloride 100 L (101-111) mmol/L Carbon Dioxide 29 (22-32) mmol/L Anion Gap 6 (2-11) mmol/L BUN 18 (6-24) mg/dL Creatinine 1.29 H (0.51-0.95) mg/dL Est GFR ( Amer) 54.4 (>60) Est GFR (Non-Af Amer) 42.3 (>60) BUN/Creatinine Ratio 14.0 (8-20) Glucose 91 (70-100) mg/dL Lactic Acid (0.5-2.0) mmol/L Calcium 9.9 (8.6-10.3) mg/dL Total Bilirubin 0.40 (0.2-1.0) mg/dL AST 14 (13-39) U/L ALT 7 (7-52) U/L Alkaline Phosphatase 73 (34-104) U/L C-Reactive Protein 3.31 (< 5.00) mg/L Total Protein 6.8 (6.4-8.9) g/dL Albumin 3.4 (3.2-5.2) g/dL Globulin 3.4 (2-4) g/dL Albumin/Globulin Ratio 1.0 (1-3) 02/21/17 Range/Units 22:52 WBC (3.5-10.8) 10^3/ul RBC (4.0-5.4) 10^6/ul Hgb (12.0-16.0) g/dl Hct (35-47) % MCV (80-97) fL MCH (27-31) pg MCHC (31-36) g/dl RDW (10.5-15) % Plt Count (150-450) 10^3/ul MPV (7.4-10.4) um3 Neut % (Auto) (38-83) % Lymph % (Auto) (25-47) % [place] % (Auto) (1-9) % Eos % (Auto) (0-6) % Baso % (Auto) (0-2) % Absolute Neuts (auto) (1.5-7.7) 10^3/ul Absolute Lymphs (auto) (1.0-4.8) 10^3/ul Absolute Monos (auto) (0-0.8) 10^3/ul Absolute Eos (auto) (0-0.6) 10^3/ul Absolute Basos (auto) (0-0.2) 10^3/ul Absolute Nucleated RBC 10^3/ul Nucleated RBC % INR (Anticoag Therapy) (0.89-1.11) Sodium (133-145) mmol/L Potassium (3.5-5.0) mmol/L Chloride (101-111) mmol/L Carbon Dioxide (22-32) mmol/L Anion Gap (2-11) mmol/L BUN (6-24) mg/dL Creatinine (0.51-0.95) mg/dL Est GFR ( Amer) (>60) Est GFR (Non-Af Amer) (>60) BUN/Creatinine Ratio (8-20) Glucose (70-100) mg/dL Lactic Acid 2.6 H* (0.5-2.0) mmol/L Calcium (8.6-10.3) mg/dL Total Bilirubin (0.2-1.0) mg/dL AST (13-39) U/L ALT (7-52) U/L Alkaline Phosphatase (34-104) U/L C-Reactive Protein (< 5.00) mg/L Total Protein (6.4-8.9) g/dL Albumin (3.2-5.2) g/dL Globulin (2-4) g/dL Albumin/Globulin Ratio (1-3) Result Diagrams: 02/21/17 22:52 02/21/17 22:52 Lab Statement: Any lab studies that have been ordered have been reviewed, and results considered in the medical decision making process. - Radiology VL LOWER EXT VEINS Radiology Interpretation Completed By: Radiologist - pending at this time - CT CT lower extremity CT Interpretation Completed By: Radiologist - pending at this time Re-Evaluation - Re-Evaluation First Eval Re-Evaluation Time: 23:00 - Pt is still mentating. BP's remain below 80 systolic. IV infusing. Change: Unchanged Lower Extremity Course/Dx - Course Assessment/Plan: This patient is a 61 year old F BIBA to [facility] with a chief complaint of LLE injuries earlier today. The first injury was getting her leg between a motor scooter and wall. The second injury made her left big toe bleed and occured when her foot got caught under a shelf at [employer]. The third injury was from hitting her LLE against a table in a [employer] restaurant. The patient rates the pain 9/10 in severity. Symptoms aggravated by touch. Symptoms alleviated by nothing. Patient reports dizziness, LLE swelling, LLE bruising, left big toe bleeding, and SOB. EMS reports a pressure of 132/78. EMS reports she takes oxycodone (20 mg), gabapentin, Lisinopril, metformin, prednisone, and Ditropan. PMHx includes DM, PE, HTN, HLD, DVT, and Factor V Leiden. Patient was laid flat in the stretcher and IV access was obtained with difficulty. CT lower extremity pending at this time. VL LOWER EXT VEINS pending at this time. Patient will be signed out a shift change to Dr. Samaniego. CT lower extremity was done without IV contrast due to pt's hx anaphylaxis to ibuprofen and hx DM. - Diagnoses Differential Diagnosis/HQI/PQRI: Positive: Compartment Syndrome, Contusion, DVT , Fracture (Closed), Other - hematoma, arterial injury Provider Diagnoses: Traumatic hematoma of left lower leg, Contusion of left foot, initial encounter Discharge - Discharge Plan Condition: Stable Disposition: OTHER Discharge Disposition Comment: Patient is signed out to Dr. Samaniego at shift change at 2300 02/21/17. The documentation as recorded by the Nasir tao Alfonso accurately reflects the service I personally performed and the decisions made by me, Nicolette Babb MD.
[2017-02-22] MEDS ORDERED: HYDROmorphone INJ* 1 MG/ML CARPUJECT SYRINGE IV SLOW PU ONE (01:14)
[2017-02-22 01:54] LABS: Urine Bacteria 2+ (Absent); Urine Bilirubin Negative (Negative); Urine Glucose Negative (Negative); Urine Nitrite Negative (Negative)
[2017-02-22 02:04] LABS: Troponin I 0.01 ng/mL (<0.04)
[2017-02-22 02:23] LABS: Magnesium 1.9 mg/dL (1.9-2.7)
[2017-02-22] MEDS ORDERED: NS 0.9% 1000 ML* 1,000 ML IV ONE (03:06)
[2017-02-22] MEDS ORDERED: methylPREDNISolone 125 MG* 2 ML VIAL IV ONE (03:08)
[2017-02-22] MEDS ORDERED: Ondansetron INJ* 2 MG/ML VIAL IV PRN (03:13)
[2017-02-22] MEDS: Amoxicillin/Clavulanate TAB* 875 MG PO SCH ×3 (04:27→22:55)
[2017-02-22] MEDS: oxyCODONE TAB* 5 MG TAB PO PRN ×4 (06:22→20:34)
--- NOTE | 2017-02-22 06:26 | HP ---
CC: Karoline Ruiz MD * HISTORY AND PHYSICAL: DATE OF ADMISSION: 02/21/17 PRIMARY CARE PROVIDER: Karoline Ruiz MD SOURCE OF INFORMATION: History obtained from interview with the patient and review of past medical records. RELIABILITY: Fair. CHIEF COMPLAINT: Injury to the left lower leg. HISTORY OF PRESENT ILLNESS: This is a 62-year-old female, recent hospital stay from 01/07/17 to 01/15/17, who had been in her usual state of health, went to [facility] [place], used a scooter for mobilization and felt that she "squashed my left leg " between her scooter and the [employer] van upon arrival. She noticed immediate pain and swelling. She proceeded into the store where she caught her left foot under a shelf in the electronics section. On the way out to meet her daughter, she again got stuck and had a table fall on her left leg for a third time. She was seen by [facility] [place] staff who encouraged her to present to the emergency room via an ambulance; however, she declined out of fear that she will lose her scooter or that it would be left at [facility] [place] unattended. When she returned home , she had continued pain and therefore activated the EMS and presented to the hospital. She denies any shortness of breath, cough, recent fevers, chills, nausea, vomiting, although does report dysuria several days prior that has since resolved. In the emergency room, she was found on presentation with a blood pressure of 73/40, which improved to 110/62, status post 2 L of normal saline. When seen by this author, however, she was reporting lightheadedness if she attempts to sit up, although no chest pain, shortness of breath, or other symptoms other than pain on her left leg. PAST MEDICAL HISTORY: Includes: 1. Type 2 diabetes. 2. Peripheral neuropathy. 3. Stress incontinence. 4. Frequent urinary tract infection. 5. Osteoarthritis. 6. Hypertension. 7. Depression. 8. Chronic immune thrombocytopenia, on chronic steroids. 9. Chronic lymphedema of the lower extremities. 10. Hyperthyroidism. 11. Obstructive sleep apnea, not on CPAP. 12. Factor V Leiden. 13. History of DVT and PE, status post [place] filter. 14. GERD. 15. Thyroid nodule noted to be benign on previous FNA. 16. Chronic lower back pain. 17. History of abdominal hernia repair. 18. . 19. Cataract extraction. SOCIAL HISTORY: Lives at home. Denies current tobacco and alcohol. FAMILY HISTORY: Positive for past venous thromboembolism including pulmonary embolism and lymphedema. Positive family history of factor V Leiden. ALLERGIES: Include IBUPROFEN, LEVAQUIN, BACTRIM, CEFTRIAXONE, ADHESIVE TAPE, ELTROMBOPAG, MORPHINE, NICKEL, and ZOFRAN. MEDICATIONS: 1. Prednisone 5 mg daily. 2. Metformin 500 mg twice daily. 3. Oxybutynin 10 mg daily. 4. Methimazole 2.5 mg daily. 5. Atorvastatin 40 mg daily. 6. Acetaminophen 500 mg every 8 hours as needed for pain. 7. Gabapentin 600 mg 6 times a day. 8. Esomeprazole 40 mg daily. 9. Cymbalta 30 mg twice daily. 10. Potassium chloride 40 mEq daily. 11. Oxycodone 20 mg every 4 hours as needed for pain. Please note, medication reconciliation taken from the chart. The patient unable to adequately confirm. REVIEW OF SYSTEMS: As per HPI. Otherwise, all other systems negative. PHYSICAL EXAMINATION GENERAL: Obese female, sitting up 30 degrees in bed, interactive, in no apparent distress. VITAL SIGNS: When seen by this author, 83/41, heart rate 105, respiratory rate is 14, 95% on room air, T-max in the emergency room 97.9. HEENT: Oropharynx is clear. She has dry mucous membranes. She has poor dentition. NECK: She has non-elevated JVD. No cervical or supraclavicular lymphadenopathy. LUNGS: Her lungs are decreased in the bases with trace rales in the bases. HEART: Tachycardic heart rate with a regular rhythm. ABDOMEN: Soft, nontender, nondistended. EXTREMITIES: Warm, less than 2-second cap refill in the hands. She has lymphedema in the legs. There is an area over the left medial calf, an area of swelling, exquisitely tender to palpation. NEUROLOGIC: She is alert and oriented x3. Cranial nerves are intact. DIAGNOSTIC STUDIES/LAB DATA: Data reviewed. Sodium 135, potassium 4.1, chloride 100, bicarb 29, BUN 18, creatinine 1.29. Glucose 91, lactic acid 2.6, troponin I 0.01. CRP 3.31. White blood cell count 14.9, 82% neutrophils, hemoglobin 14, platelets 62. Urine is positive for 2+ blood, leuk esterase, white blood cells, red blood cells, and urine bacteria, also present is squamous epithelial cells. Data reviewed. Preliminary read per ultrasound, lower extremity venous Doppler. There is no deep venous thrombosis; however, present is 10.4 x 3.[address] lower extremity, again present is hematoma and subcutaneous fat, medial calf , left leg. EKG: Normal sinus rhythm on presentation, normal limit and axis. Normal R- wave progression. No ST or T-wave changes. ASSESSMENT AND PLAN: This is a 62-year-old female with complex past medical history, presenting with increased pain on the left leg after 3 traumatic incidents while shopping at [employer] complicated by hypotension in the emergency room. 1. Hypotension. There is concern for hypovolemic etiology in the setting of blood loss as well as evidence of dehydration based on acute kidney injury. The patient received 2 L of normal saline, given another liter of normal saline now and check, repeat hemoglobin and hematocrit. If there is evidence of continued blood loss, we will treat with packed red blood cells. Additionally, she is experiencing stress in the setting of chronic long-term steroid use with a suspected adrenal insufficiency. We will give 125 mg of methylprednisolone now, can reevaluate for continued need of increased doses tomorrow. There is also the potential of superimposed infection, in the form of recurrent urinary tract infection, which the patient is susceptible to. She tolerated oral antibiotics during her last hospital stay despite noted CEPHALOSPORIN allergy. We will give Augmentin now, continue b.i.d. 2. Injured left leg. Pain control, no evidence of compartment syndrome. At this time, total CK is 82, continue to monitor. Follow hemoglobin and hematocrit as indicated above. 3. Increased lactic acidosis in the setting of injury. Repeat now with a repeat hemoglobin and hematocrit. 4. Concern for urinary tract infection based on urinalysis. Urinalysis is also noted to be dirty, contaminant was squamous epithelial cells. However, in the setting of hypotension as noted above, we will treat with Augmentin now, reevaluate after culture returns. 5. Chronic thrombocytopenia. Continue steroids at home doses. 6. Diabetes, continue metformin. 7. DVT prophylaxis. Brooke filter is present. Hold on heparin products in the setting of chronic thrombocytopenia. [id number]/[facility] #: [id number] [facility]
--- NOTE | 2017-02-22 07:40 | RAD ---
INDICATION: Screening COMPARISON: January 07, 2017 TECHNIQUE: An AP supine portable view obtained at 2318 hours is submitted. FINDINGS: Bones/Soft Tissues: There are no acute bony findings. Cardiomediastinal: The cardiomediastinal silhouette is normal. Interstitium is mildly prominent. This could be related to supine technique. Lungs: There is mild linear change in both lung bases most consistent with atelectasis. The findings are left are new. On the right findings are unchanged.. Pleura: There are no pleural effusions. Other: None IMPRESSION: SUSPECT MILD BIBASILAR ATELECTASIS.
--- NOTE | 2017-02-22 07:43 | RAD ---
INDICATION: Crush injury, large hematoma left lower leg. COMPARISON: There are no prior studies available for comparison. TECHNIQUE: Contiguous axial sections were obtained of the left lower leg. Images were reconstructed in the sagittal and coronal planes. FINDINGS: There is diffuse soft tissue swelling with stranding and fluid tracking in the subcutaneous tissues. In addition there is a large hyperdense lesion present within the subcutaneous tissues present along the medial aspect of the mid calf. This measures 10.7 x 4.6 x 10.0 cm in size and would be most consistent with a hematoma. No fracture is seen. IMPRESSION: FINDINGS MOST CONSISTENT WITH A LARGE HEMATOMA PRESENT IN THE SUBCUTANEOUS TISSUES IN THE MEDIAL ASPECT OF THE LEFT CALF.
--- NOTE | 2017-02-22 07:47 | RAD ---
INDICATION: Hematoma left lower extremity, crush injury, history of DVT. COMPARISON: Comparison is made with a prior study from April 04, 2005. TECHNIQUE: Multiple real-time, color flow and Doppler tracings of the left lower extremity were obtained. FINDINGS: The common femoral, femoral, profunda femoral and popliteal veins all demonstrate normal compressibility, augmentation with compression and phasic response with respiration. The posterior tibial veins demonstrate normal compressibility and augmentation with compression. The peroneal veins were not visualized. The study is limited due to edema in the patient's body habitus. There is a large area of decreased echogenicity present in the medial mid calf measuring 10.4 x 3.5 x 9.5 cm most consistent with a hematoma. IMPRESSION: 1. NO EVIDENCE FOR DEEP VENOUS THROMBOSIS. 2. LARGE HEMATOMA IN THE MEDIAL CALF.
[2017-02-22 08:08] LABS: Hematocrit 39 % (35-47); Hemoglobin 12.6 g/dl (12.0-16.0); Mean Corpuscular HGB Conc 33 g/dl (31-36); Mean Corpuscular Hemoglobin 31 pg (27-31); Mean Corpuscular Volume 94 fL (80-97); Mean Platelet Volume 11 um3 (7.4-10.4); Red Blood Count 4.13 10^6/ul (4.0-5.4); Red Cell Distribution Width 14 % (10.5-15); White Blood Count 8.9 10^3/ul (3.5-10.8)
[2017-02-22 08:11] LABS: Comments Flag Yes
[2017-02-22 08:13] LABS: BUN/Creatinine Ratio 22.2 (8-20); Calcium 8.6 mg/dL (8.6-10.3); EGFR African American 106.3 (>60); EGFR Non-African American 82.6 (>60)
[2017-02-22 08:53] LABS: TSH (Thyroid Stimulating Horm) 0.26 mcIU/mL (0.34-5.60)
[2017-02-22] MEDS ORDERED: Methimazole TAB* 5 MG PO SCH (09:00)
[2017-02-22] MEDS: Potassium Chloride LIQUID* 20 MEQ PACKET PO SCH (09:08)
[2017-02-22] MEDS: Omeprazole CAP* 20 MG PO SCH (09:10)
[2017-02-22] MEDS: Atorvastatin* 40 MG TAB PO SCH (09:11)
[2017-02-22] MEDS: DULoxetine DR CAP* 30 MG CAP.DR PO SCH ×2 (09:12→22:55)
[2017-02-22] MEDS: metFORMIN* 500 MG TAB PO SCH ×2 (09:13→22:55)
[2017-02-22] MEDS: predniSONE TAB* 5 MG PO SCH (09:13)
[2017-02-22] MEDS: Oxybutynin XL TAB* 5 MG PO SCH (09:13)
[2017-02-22] MEDS: Gabapentin CAP(*) 300 MG PO SCH ×6 (09:14→22:55)
[2017-02-23] MEDS: oxyCODONE TAB* 5 MG TAB PO PRN ×7 (01:13→23:16)
[2017-02-23] MEDS: Amoxicillin/Clavulanate TAB* 875 MG PO SCH ×2 (09:40→20:51)
[2017-02-23] MEDS: metFORMIN* 500 MG TAB PO SCH ×2 (09:40→20:51)
[2017-02-23] MEDS: Oxybutynin XL TAB* 5 MG PO SCH (09:40)
[2017-02-23] MEDS: Atorvastatin* 40 MG TAB PO SCH (09:40)
[2017-02-23] MEDS: Methimazole TAB* 5 MG PO SCH (09:41)
[2017-02-23] MEDS: predniSONE TAB* 5 MG PO SCH (09:41)
[2017-02-23] MEDS: Omeprazole CAP* 20 MG PO SCH (09:41)
[2017-02-23] MEDS: DULoxetine DR CAP* 30 MG CAP.DR PO SCH ×2 (09:41→20:51)
[2017-02-23] MEDS: Potassium Chloride LIQUID* 20 MEQ PACKET PO SCH (09:44)
[2017-02-23] MEDS: Gabapentin CAP(*) 300 MG PO SCH ×6 (09:49→23:15)
[2017-02-23] MEDS ORDERED: HYDROmorphone TAB* 2 MG PO PRN (13:30)
[2017-02-23 14:55] LABS: Hematocrit 36 % (35-47); Hemoglobin 11.6 g/dl (12.0-16.0); Mean Corpuscular HGB Conc 33 g/dl (31-36); Mean Corpuscular Hemoglobin 31 pg (27-31); Mean Corpuscular Volume 94 fL (80-97); Mean Platelet Volume 11 um3 (7.4-10.4); Red Blood Count 3.79 10^6/ul (4.0-5.4); Red Cell Distribution Width 14 % (10.5-15); White Blood Count 8.2 10^3/ul (3.5-10.8)
[2017-02-23 14:56] LABS: Comments Flag Yes
[2017-02-23 15:08] LABS: BUN/Creatinine Ratio 24.3 (8-20); C Reactive Protein 4.52 mg/L (< 5.00); Calcium 8.6 mg/dL (8.6-10.3); EGFR Non-African American 80.1 (>60); Potassium 4.8 mmol/L (3.5-5.0)
[2017-02-24 09:31] LABS: Hematocrit 40 % (35-47); Hemoglobin 12.6 g/dl (12.0-16.0); Mean Corpuscular HGB Conc 32 g/dl (31-36); Mean Corpuscular Hemoglobin 31 pg (27-31); Mean Corpuscular Volume 97 fL (80-97); Mean Platelet Volume 10 um3 (7.4-10.4); Red Blood Count 4.12 10^6/ul (4.0-5.4); Red Cell Distribution Width 14 % (10.5-15); White Blood Count 7.4 10^3/ul (3.5-10.8)
[2017-02-24 09:33] LABS: Comments Flag Yes
[2017-02-24 09:46] LABS: BUN/Creatinine Ratio 25.4 (8-20); Calcium 8.5 mg/dL (8.6-10.3); EGFR Non-African American 96.4 (>60); Potassium 4.2 mmol/L (3.5-5.0)
[2017-02-24] MEDS: Atorvastatin* 40 MG TAB PO SCH (10:25)
[2017-02-24] MEDS: DULoxetine DR CAP* 30 MG CAP.DR PO SCH ×2 (10:26→20:18)
[2017-02-24] MEDS: Oxybutynin XL TAB* 5 MG PO SCH (10:26)
[2017-02-24] MEDS: metFORMIN* 500 MG TAB PO SCH ×2 (10:26→20:19)
[2017-02-24] MEDS: Omeprazole CAP* 20 MG PO SCH (10:26)
[2017-02-24] MEDS: Methimazole TAB* 5 MG PO SCH (10:27)
[2017-02-24] MEDS: Amoxicillin/Clavulanate TAB* 875 MG PO SCH ×2 (10:27→20:19)
[2017-02-24] MEDS: oxyCODONE TAB* 5 MG TAB PO PRN ×3 (10:27→20:17)
[2017-02-24] MEDS: Potassium Chloride LIQUID* 20 MEQ PACKET PO SCH (10:27)
[2017-02-24] MEDS: predniSONE TAB* 5 MG PO SCH (10:28)
[2017-02-24] MEDS: Gabapentin CAP(*) 300 MG PO SCH ×6 (11:04→23:25)
[2017-02-25] MEDS: oxyCODONE TAB* 5 MG TAB PO PRN ×5 (02:49→20:15)
[2017-02-25] MEDS ORDERED: Influenza VAC *QUAD* 2017-18* 0.5 ML SYRINGE IM ONE (08:00)
[2017-02-25] MEDS: Omeprazole CAP* 20 MG PO SCH (09:23)
[2017-02-25] MEDS: predniSONE TAB* 5 MG PO SCH (09:23)
[2017-02-25] MEDS: Amoxicillin/Clavulanate TAB* 875 MG PO SCH ×2 (09:23→20:15)
[2017-02-25] MEDS: Atorvastatin* 40 MG TAB PO SCH (09:23)
[2017-02-25] MEDS: DULoxetine DR CAP* 30 MG CAP.DR PO SCH ×2 (09:23→20:15)
[2017-02-25] MEDS: Oxybutynin XL TAB* 5 MG PO SCH (09:23)
[2017-02-25] MEDS: Potassium Chloride LIQUID* 20 MEQ PACKET PO SCH (09:23)
[2017-02-25] MEDS: metFORMIN* 500 MG TAB PO SCH ×2 (09:24→20:15)
[2017-02-25] MEDS: Methimazole TAB* 5 MG PO SCH (09:24)
[2017-02-25] MEDS: Gabapentin CAP(*) 300 MG PO SCH ×6 (09:27→23:14)
[2017-02-26] MEDS: oxyCODONE TAB* 5 MG TAB PO PRN ×5 (01:21→21:41)
[2017-02-26] MEDS: Potassium Chloride LIQUID* 20 MEQ PACKET PO SCH (09:59)
[2017-02-26] MEDS: Amoxicillin/Clavulanate TAB* 875 MG PO SCH ×2 (10:00→21:41)
[2017-02-26] MEDS: Atorvastatin* 40 MG TAB PO SCH (10:00)
[2017-02-26] MEDS: Omeprazole CAP* 20 MG PO SCH (10:00)
[2017-02-26] MEDS: Oxybutynin XL TAB* 5 MG PO SCH (10:00)
[2017-02-26] MEDS: Gabapentin CAP(*) 300 MG PO SCH ×6 (10:01→22:57)
[2017-02-26] MEDS: predniSONE TAB* 5 MG PO SCH (10:01)
[2017-02-26] MEDS: Methimazole TAB* 5 MG PO SCH (10:01)
[2017-02-26] MEDS: DULoxetine DR CAP* 30 MG CAP.DR PO SCH ×2 (10:01→21:41)
[2017-02-26] MEDS: metFORMIN* 500 MG TAB PO SCH ×2 (10:02→21:41)
[2017-02-27] MEDS: oxyCODONE TAB* 5 MG TAB PO PRN ×2 (01:19→14:06)
[2017-02-27 06:54] LABS: Hematocrit 39 % (35-47); Hemoglobin 12.8 g/dl (12.0-16.0); Mean Corpuscular HGB Conc 33 g/dl (31-36); Mean Corpuscular Hemoglobin 31 pg (27-31); Mean Corpuscular Volume 93 fL (80-97); Mean Platelet Volume 11 um3 (7.4-10.4); Red Blood Count 4.17 10^6/ul (4.0-5.4); Red Cell Distribution Width 14 % (10.5-15); White Blood Count 5.6 10^3/ul (3.5-10.8)
[2017-02-27 06:56] LABS: C Reactive Protein 24.2 mg/L (< 5.00)
[2017-02-27] MEDS: Atorvastatin* 40 MG TAB PO SCH (07:30)
[2017-02-27] MEDS: Amoxicillin/Clavulanate TAB* 875 MG PO SCH (07:30)
[2017-02-27] MEDS: DULoxetine DR CAP* 30 MG CAP.DR PO SCH (07:30)
[2017-02-27] MEDS: metFORMIN* 500 MG TAB PO SCH (07:30)
[2017-02-27] MEDS: predniSONE TAB* 5 MG PO SCH (07:30)
[2017-02-27] MEDS: Methimazole TAB* 5 MG PO SCH (07:30)
[2017-02-27] MEDS: Omeprazole CAP* 20 MG PO SCH (07:30)
[2017-02-27] MEDS: Potassium Chloride LIQUID* 20 MEQ PACKET PO SCH (07:31)
[2017-02-27] MEDS: Oxybutynin XL TAB* 5 MG PO SCH (07:31)
[2017-02-27 07:35] LABS: TSH (Thyroid Stimulating Horm) 1.2 mcIU/mL (0.34-5.60)
[2017-02-27] MEDS: Gabapentin CAP(*) 300 MG PO SCH ×3 (07:35→14:01)
[2017-02-27 07:36] LABS: Free T3 3.4 pg/mL (2.5-3.9)
[2017-02-27 07:37] LABS: Free T4 0.66 ng/dL (0.61-1.12)
[2017-02-27] MEDS ORDERED: Clindamycin CAP* 150 MG PO ONE (11:00)
[2017-02-27] MEDS ORDERED: Cyanocobalamin INJ * 1,000 MCG/ML VIAL 1 ML VIAL IM ONE (11:00)
[2017-02-27 11:27] VITALS: BP 136/60
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
== END 2017-02-27 14:25 | DRG 605 ==
LOC: ED 21:35 → MED 02-22 03:13 → OBSVTOIN 02-23 12:50
PROVIDERS: ADMIT Internal Medicine; ATTEND Internal Medicine Geriatric Medicine
DX: S80.12XA Contusion of left lower leg, initial encounter (principal); N17.9 Acute kidney failure, unspecified; D68.51 Activated protein C resistance; D69.6 Thrombocytopenia, unspecified; E11.42 Type 2 diabetes mellitus with diabetic polyneuropathy; I95.9 Hypotension, unspecified; E66.01 Morbid (severe) obesity due to excess calories; L03.116 Cellulitis of left lower limb; E87.2 Acidosis; Z68.41 Body mass index [BMI] 40.0-44.9, adult; G89.29 Other chronic pain; M19.90 Unspecified osteoarthritis, unspecified site; M54.5 Low back pain; G47.33 Obstructive sleep apnea (adult) (pediatric); K21.9 Gastro-esophageal reflux disease without esophagitis; I10 Essential (primary) hypertension; I89.0 Lymphedema, not elsewhere classified; S90.32XA Contusion of left foot, initial encounter; E55.9 Vitamin D deficiency, unspecified; M47.9 Spondylosis, unspecified; M54.30 Sciatica, unspecified side; M41.9 Scoliosis, unspecified; E86.0 Dehydration; E86.1 Hypovolemia; E05.90 Thyrotoxicosis, unspecified without thyrotoxic crisis or storm; E78.00 Pure hypercholesterolemia, unspecified; J44.9 Chronic obstructive pulmonary disease, unspecified; M13.0 Polyarthritis, unspecified; G43.909 Migraine, unspecified, not intractable, without status migrainosus; F32.9 Major depressive disorder, single episode, unspecified; Z86.711 Personal history of pulmonary embolism; Z88.6 Allergy status to analgesic agent; Z88.1 Allergy status to other antibiotic agents; Z88.2 Allergy status to sulfonamides; Z88.8 Allergy status to other drugs, medicaments and biological substances; Y93.89 Activity, other specified; Z98.42 Cataract extraction status, left eye; Z98.41 Cataract extraction status, right eye; Z87.442 Personal history of urinary calculi; Z86.19 Personal history of other infectious and parasitic diseases; Z86.718 Personal history of other venous thrombosis and embolism; Z82.49 Family history of ischemic heart disease and other diseases of the circulatory system; Z83.3 Family history of diabetes mellitus; Z87.891 Personal history of nicotine dependence; Z23 Encounter for immunization; Y93.I9 Activity, other involving external motion; Z86.14 Personal history of Methicillin resistant Staphylococcus aureus infection; Z79.84 Long term (current) use of oral hypoglycemic drugs; Z79.52 Long term (current) use of systemic steroids
CPT/HCPCS: 36415; 71010; 80048; 80053; 81003; 81015; 82550; 83605; 83735; 84439; 84443; 84481; 84484; 85025; 85027; 85610; 86140; 87086; 90686; 93005; A9270-GY; G0378; G8978-GP-CN; G8979-GP-CL; G8979-GP-CM; J1170; J2930; J3420; J7512

== ENCOUNTER 2017-08-07 12:52 | Observation (INO) | payer MEDICARE, MEDICAID ==
[2017-08-07] MEDS ORDERED: oxyCODONE TAB* 5 MG TAB PO ONE ×2 (14:04→19:30)
[2017-08-07] MEDS ORDERED: NS 0.9% 1000 ML* 1,000 ML IV ONE (14:04)
[2017-08-07 17:53] LABS: ABS Basophils 0 10^3/ul (0-0.2); ABS Eosinophils 0 10^3/ul (0-0.6); ABS Lymphocytes 1.2 10^3/ul (1.0-4.8); ABS Monocytes 0.6 10^3/ul (0-0.8); ABS Neutrophils 2.7 10^3/ul (1.5-7.7); ABS Nucleated RBC 0 10^3/ul; Eosinophil % 0.5 % (0-6); Hematocrit 40 % (35-47); Hemoglobin 13.2 g/dl (12.0-16.0); Lymphocyte % 27.1 % (25-47); Mean Corpuscular HGB Conc 33 g/dl (31-36); Mean Corpuscular Hemoglobin 29 pg (27-31); Mean Corpuscular Volume 89 fL (80-97); Mean Platelet Volume 10 um3 (7.4-10.4); Nucleated Red Blood Cells % 0; Platelet Count 68 10^3/ul (150-450); Red Blood Count 4.52 10^6/ul (4.0-5.4); Red Cell Distribution Width 15 % (10.5-15); White Blood Count 4.5 10^3/ul (3.5-10.8)
[2017-08-07 18:02] LABS: EGFR Non-African American 91.4 (>60)
[2017-08-07 18:06] LABS: INR 0.94 (0.77-1.02)
[2017-08-07 19:29] LABS: Urine Appearance Clear; Urine Blood Negative (Negative); Urine Color Yellow; Urine Ketones 1+ (Negative); Urine Protein Negative (Negative); Urine Specific Gravity 1.006 (1.010-1.030); Urine Urobilinogen Negative (Negative)
--- NOTE | 2017-08-07 19:36 | ED ---
Shorty Childress Angela, scribed for Axel Bañuelos MD on 08/07/17 at 1318 . Complex/Multi-Sys Presentation - HPI Summary HPI Summary: This pt is a 62 y/o female presenting to [facility] via EMS c/o generalized illness for the past week. Pt reports she is just not feeling well. Pt states diarrhea, nausea, decreased PO intake, body aches. She describes diarrhea as watery, non- bloody. Pt notes she has had 6-7 episodes of diarrhea a day. The last time she had diarrhea was last night. The last time she had a bowel movement was today and notes it was small. Denies vomiting, fever, sore throat, rhinorrhea, chest congestion, cough, abd pain. She believes she is dehydrated. Pt notes she has baseline body aches. She uses a scooter to get around due to chronic lymphaedema and kyphoscoliosis. PMHx includes frequent cellulitis. Pt reports she hurt her left leg in 2016 and since then it "has not healed." Denies hx of CHF. She does not take any diuretics. Pt's allergies include ibrupofen. Pt takes 20 mg oxycodone [id number] with Tylenol. - History Of Current Complaint Chief Complaint: EDGeneral Time Seen by Provider: 08/07/17 13:07 Hx Obtained From: Patient Onset/Duration: Lasting Days, Still Present Timing: Days Severity Initially: Moderate Location: Pain At: - generalized, all over body Aggravating Factor(s): nothing Alleviating Factor(s): nothing Associated Signs And Symptoms: Positive: Edema - chronic, Nausea, Diarrhea, Other - POS: body aches, decreased PO intake. NEG: chest congestion, sore throat.. Negative: Cough, Vomiting, Abdominal Pain - Allergies/Home Medications Allergies/Adverse Reactions: Allergies Allergy/AdvReac Type Severity Reaction Status Date / Time MS Ibuprofen [Ibuprofen] Allergy Severe Anaphylatic Verified 05/11/16 14:17 Shock MS Levofloxacin Allergy Severe Joint Pain Verified 05/11/16 14:17 [From Levaquin] MS Sulfamethoxazole Allergy Severe Anaphylatic Verified 05/11/16 14:17 w/Trimethoprim Shock [From Bactrim] MS Ceftriaxone Allergy Intermediate Swelling Verified 05/11/16 14:17 [From Rocephin] Adhesive Tape Allergy Rash Verified 05/11/16 14:17 MS Eltrombopag [Eltrombopag] Allergy See Comment Verified 01/11/17 10:28 MS Morphine [From MS Contin] Allergy See Comment Verified 05/11/16 14:17 MS Nickel [Nickel] Allergy Rash Verified 01/08/17 11:54 MS Ondansetron [From Zofran] AdvReac Intermediate Nausea And Verified 01/08/17 11:53 Vomiting PMH/Surg Hx/FS Hx/Imm Hx Endocrine/Hematology History: Reports: Hx Blood Disorders - Factor V Leiden, Hx Diabetes, Hx Thyroid Disease, Other Endocrine/Hematological Disorders Denies: Hx Anticoagulant Therapy, Hx Blood Transfusions, Hx Bone Marrow Disease, Hx Systemic Lupus Erythematosus, Hx Sickle Cell Disease, Hx Anemia, Hx Unexplained Bleeding Cardiovascular History: Reports: Hx Deep Vein Thrombosis, Hx Embolism - PE, Hx Hypercholesterolemia, Hx Hypertension, Other Cardiovascular Problems/Disorders - Idiopathic Thrombocytopenia; Factor V Leiden, lymphedema, thrombocytopenia Denies: Hx Aneurysm, Hx Angina, Hx Angioplasty, Hx Auto Implanted Cardiovert Defib, Hx Cardiac Arrest, Hx Cardiomegaly, Hx Congenital Heart Disease, Hx Congestive Heart Failure, Hx Coronary Artery Disease, Hx Hypotension, Hx Pacemaker/ICD, Hx Peripheral Vascular Disease, Hx Rheumatic Fever, Hx Syncope, Hx Valvular Heart Disease Respiratory History: Reports: Hx Chronic Bronchitis, Hx Chronic Obstructive Pulmonary Disease (COPD), Hx Pneumonia, Hx Pulmonary Edema, Hx Pulmonary Embolism, Hx Sleep Apnea - obstructive sleep apnea (does not use CPAP), Other Respiratory Problems/Disorders - h/o pneumonia, HX PE Denies: Hx Seasonal Allergies Comment Only: Hx Asthma - denies but uses Albuterol GI History: Reports: Hx Gastroesophageal Reflux Disease, Hx Hiatal Hernia - 2006 HAD SURGERY, repair with mesh, Other GI Disorders - Hernia repair with mesh , pt reports acid reflux Denies: Hx Jaundice History: Reports: Hx Kidney Infection - severe when 11 years old, Hx Kidney Stones, Other Problems/Disorders - recurrent UTIs Denies: Hx Dialysis, Hx Renal Disease Musculoskeletal History: Reports: Hx Arthritis - hands, lower joints, Hx Back Problems, Hx Bursitis - RIGHT SHOULDER, Hx Scoliosis, Other Musculoskeletal History - spinal spondylosis Sensory History: Reports: Hx Cataracts - 2013, Hx Contacts or Glasses, Hx Vision Problem Denies: Hx Eye Injury, Hx Eye Prosthesis, Hx Glaucoma, Hx Macular Degeneration, Hx Deafness, Hx Hearing Aid, Hx Hearing Problem, Other Sensory Impairments Opthamlomology History: Reports: Hx Cataracts - 2013, Hx Contacts or Glasses, Hx Vision Problem Denies: Hx Eye Injury, Hx Eye Prosthesis, Hx Glaucoma, Hx Macular Degeneration, Other Sensory Impairments Neurological History: Reports: Hx Migraine - once in a while, Other Neuro Impairments/Disorders - scoliosis, kyposcoliosis Denies: Hx Dementia, Hx Developmental Delay, Hx Headaches, Hx Seizures, Hx Spinal Cord Injury, Hx Transient Ischemic Attacks (TIA) Psychiatric History: Reports: Hx Anxiety, Hx Depression Denies: Hx Attention Deficit Hyperactivity Disorder, Hx Autism, Hx Eating Disorder, Hx Oppositional [place] Disorder, Hx Panic Disorder, Hx Post Traumatic Stress Disorder, Hx Community Mental Health Tx, Hx Schizophrenia, Hx Bipolar Disorder, Hx Substance Abuse, Other Psychiatric Issues/Disorders - Surgical History Surgery Procedure, Year, and Place: hernia repair, vena cava filter placement, r /t wound in left lower extremity (Leg debridement). 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 MD Fartun Ruiz denies Hx 11/17/15, Traveled Outside the [place] in Last 30 Days - Family History Known Family History: Positive: Hypertension, Diabetes - Social History Alcohol Use: None Hx Substance Use: No Substance Use Type: Reports: None Hx Tobacco Use: Yes Smoking Status (MU): Former Smoker Type: eCigarettmoe Length of Time of Smoking/Using Tobacco: off and on 40 years (probably a total of 15 years) Have You Smoked in the Last Year: No Review of Systems Constitutional: Other - decreased PO intake Negative: Fever ENT: Other - chest congestion Negative: Sore Throat, Nasal Discharge Negative: Cough Positive: Diarrhea, Nausea. Negative: Abdominal Pain, Vomiting Positive: Myalgia, Edema - chronic All Other Systems Reviewed And Are Negative: Yes Physical Exam - Summary Physical Exam Summary: General: well-appearing, no pain distress Skin: warm, color reflects adequate perfusion, dry Head: normal Eyes: EOMI, LUCI ENT: Oral mucosa is dry Neck: supple, nontender Respiratory: CTA, breath sounds present Cardiovascular: RRR Abdomen: soft, nontender Bowel: present Musculoskeletal: strength/ROM intact. Bilateral pedal edema. Chronic looking erythema in both lower extremities. Neurological: normal, sensory/motor intact, A&O x3 Psychological: affect/mood appropriate Triage Information Reviewed: Yes Vital Signs On Initial Exam: Initial Vitals Temp Pulse Resp BP Pulse Ox 97.6 F 86 18 160/93 95 08/07/17 12:58 08/07/17 12:58 08/07/17 12:58 08/07/17 12:58 08/07/17 12:58 Vital Signs Reviewed: Yes Diagnostics - Vital Signs Vital Signs Temp Pulse Resp BP Pulse Ox 08/07/17 12:58 97.6 F 86 18 160/93 95 - Laboratory Lab Results: Lab Results 08/07/17 08/07/17 08/07/17 Range/Units 17:36 17:36 17:36 WBC (3.5-10.8) 10^3/ul RBC (4.0-5.4) 10^6/ul Hgb (12.0-16.0) g/dl Hct (35-47) % MCV (80-97) fL MCH (27-31) pg MCHC (31-36) g/dl RDW (10.5-15) % Plt Count (150-450) 10^3/ul MPV (7.4-10.4) um3 Neut % (Auto) (38-83) % Lymph % (Auto) (25-47) % [place] % (Auto) (0-7) % Eos % (Auto) (0-6) % Baso % (Auto) (0-2) % Absolute Neuts (auto) (1.5-7.7) 10^3/ul Absolute Lymphs (auto) (1.0-4.8) 10^3/ul Absolute Monos (auto) (0-0.8) 10^3/ul Absolute Eos (auto) (0-0.6) 10^3/ul Absolute Basos (auto) (0-0.2) 10^3/ul Absolute Nucleated RBC 10^3/ul Nucleated RBC % INR (Anticoag Therapy) 0.94 (0.77-1.02) APTT 31.8 (26.0-36.3) seconds Sodium 133 (133-145) mmol/L Potassium 3.4 L (3.5-5.0) mmol/L Chloride 101 (101-111) mmol/L Carbon Dioxide 27 (22-32) mmol/L Anion Gap 5 (2-11) mmol/L BUN 7 (6-24) mg/dL Creatinine 0.66 (0.51-0.95) mg/dL Est GFR ( Amer) 117.5 (>60) Est GFR (Non-Af Amer) 91.4 (>60) BUN/Creatinine Ratio 10.6 (8-20) Glucose 126 H (70-100) mg/dL Lactic Acid (0.5-2.0) mmol/L Calcium 9.2 (8.6-10.3) mg/dL Magnesium 1.9 (1.9-2.7) mg/dL Total Bilirubin 0.50 (0.2-1.0) mg/dL AST 13 (13-39) U/L ALT 8 (7-52) U/L Alkaline Phosphatase 83 (34-104) U/L C-Reactive Protein 3.81 (< 5.00) mg/L B-Natriuretic Peptide 49 ( - 100) pg/mL Total Protein 6.7 (6.4-8.9) g/dL Albumin 3.5 (3.2-5.2) g/dL Globulin 3.2 (2-4) g/dL Albumin/Globulin Ratio 1.1 (1-3) Lipase < 10 L (11.0-82.0) U/L Urine Color Urine Appearance Urine pH (5-9) Ur Specific [place] (1.010-1.030) Urine Protein (Negative) Urine Ketones (Negative) Urine Blood (Negative) Urine Nitrate (Negative) Urine Bilirubin (Negative) Urine Urobilinogen (Negative) Ur Leukocyte Esterase (Negative) Urine WBC (Auto) (Absent) Urine RBC (Auto) (Absent) Ur Squamous Epith Cells (Absent) Urine Bacteria (Absent) Urine Glucose (Negative) Acetaminophen < 15 mcg/mL 08/07/17 08/07/17 08/07/17 Range/Units 17:36 17:36 19:11 WBC 4.5 (3.5-10.8) 10^3/ul RBC 4.52 (4.0-5.4) 10^6/ul Hgb 13.2 (12.0-16.0) g/dl Hct 40 (35-47) % MCV 89 (80-97) fL MCH 29 (27-31) pg MCHC 33 (31-36) g/dl RDW 15 (10.5-15) % Plt Count 68 L (150-450) 10^3/ul MPV 10 (7.4-10.4) um3 Neut % (Auto) 58.6 (38-83) % Lymph % (Auto) 27.1 (25-47) % [place] % (Auto) 12.7 H (0-7) % Eos % (Auto) 0.5 (0-6) % Baso % (Auto) 1.1 (0-2) % Absolute Neuts (auto) 2.7 (1.5-7.7) 10^3/ul Absolute Lymphs (auto) 1.2 (1.0-4.8) 10^3/ul Absolute Monos (auto) 0.6 (0-0.8) 10^3/ul Absolute Eos (auto) 0 (0-0.6) 10^3/ul Absolute Basos (auto) 0 (0-0.2) 10^3/ul Absolute Nucleated RBC 0 10^3/ul Nucleated RBC % 0 INR (Anticoag Therapy) (0.77-1.02) APTT (26.0-36.3) seconds Sodium (133-145) mmol/L Potassium (3.5-5.0) mmol/L Chloride (101-111) mmol/L Carbon Dioxide (22-32) mmol/L Anion Gap (2-11) mmol/L BUN (6-24) mg/dL Creatinine (0.51-0.95) mg/dL Est GFR ( Amer) (>60) Est GFR (Non-Af Amer) (>60) BUN/Creatinine Ratio (8-20) Glucose (70-100) mg/dL Lactic Acid 1.3 (0.5-2.0) mmol/L Calcium (8.6-10.3) mg/dL Magnesium (1.9-2.7) mg/dL Total Bilirubin (0.2-1.0) mg/dL AST (13-39) U/L ALT (7-52) U/L Alkaline Phosphatase (34-104) U/L C-Reactive Protein (< 5.00) mg/L B-Natriuretic Peptide ( - 100) pg/mL Total Protein (6.4-8.9) g/dL Albumin (3.2-5.2) g/dL Globulin (2-4) g/dL Albumin/Globulin Ratio (1-3) Lipase (11.0-82.0) U/L Urine Color Yellow Urine Appearance Clear Urine pH 7.0 (5-9) Ur Specific [place] 1.006 L (1.010-1.030) Urine Protein Negative (Negative) Urine Ketones 1+ A (Negative) Urine Blood Negative (Negative) Urine Nitrate Negative (Negative) Urine Bilirubin Negative (Negative) Urine Urobilinogen Negative (Negative) Ur Leukocyte Esterase Trace A (Negative) Urine WBC (Auto) Trace(0-5/hpf) (Absent) Urine RBC (Auto) Trace(0-2/hpf) (Absent) Ur Squamous Epith Cells Present A (Absent) Urine Bacteria 1+ A (Absent) Urine Glucose Negative (Negative) Acetaminophen mcg/mL Result Diagrams: 08/07/17 17:36 08/07/17 17:36 Lab Statement: Any lab studies that have been ordered have been reviewed, and results considered in the medical decision making process. Re-Evaluation - Re-Evaluation First Eval Re-Evaluation Time: 17:30 Comment: ash pit worker in with pt. Complex Multi-Symp Course/Dx Course Of Treatment: Medications reviewed. Allergies noted. ash pit worker consulted with pt. DISCUSSED RESULTS WITH PATIENT. PATIENT DOES NOT FEEL SAFE GOING HOME. ADMIT HOSPITALIST. - Diagnoses Provider Diagnoses: Weakness, Diarrhea, Dehydration Discharge - Discharge Plan Condition: Stable Disposition: HOME Referrals: Karoline Ruiz MD [Primary Care Provider] - The documentation as recorded by the Shorty tao Angela accurately reflects the service I personally performed and the decisions made by me, Axel Bañuelos MD.
[2017-08-07] MEDS ORDERED: Heparin VIAL(*) 5000 UNITS/ML VIAL (FIVE THOUSAND) SUBCUT SCH (22:00)
[2017-08-07] MEDS: Gabapentin CAP(*) 300 MG PO SCH (23:34)
--- NOTE | 2017-08-07 23:48 | HP ---
CC: Dr. Karoline Ruiz * HISTORY AND PHYSICAL: DATE OF ADMISSION: 08/07/17 PRIMARY CARE PHYSICIAN: Dr. Karoline Ruiz. ATTENDING FOR THIS ADMISSION: Dr. Donna Adnrade.* (DICTATED BY ZAHRA GODINEZ, TEX0 CHIEF COMPLAINT: Weakness and failure to thrive. HISTORY OF PRESENT ILLNESS: This is a 62-year-old female patient who came to the emergency department via EMS services with a complaint of generalized weakness and diarrhea for a week. The patient states that she is just feeling ill. She has had some anorexia and body aches. She does seem to have chronic pain at baseline; however, she states she is feeling more achy. She thinks she is dehydrated because she is unable to take care of herself at home. She has significant chronic lymphedema and some wounds on the left lower extremity for which she received nursing services. She has had many bouts of cellulitis in the past. She denies any history of infection in that wound. She just has regular wound care. She denies any MRSA in the past. Essentially, her main complaint is that she is unable to take care of herself and she has weakness along with this, report of new onset diarrhea. PAST MEDICAL HISTORY: Significant for diabetes mellitus type 2; peripheral neuropathy; incontinence; asymptomatic bacteriuria; osteoarthritis of the spine ; hypertension; depression; chronic immune thrombocytopenia, on steroid treatment; chronic lymphedema of the bilateral lower extremities with a left leg wound; hyperthyroidism; obstructive sleep apnea, does not use CPAP; factor V Leiden deficiency; history of DVT and PE, currently with [place] filter; GERD; chronic pain. PAST SURGICAL HISTORY: Abdominal hernia repair, x2, and cataracts. MEDICATIONS: At home include: 1. Prednisone 5 mg daily. 2. Metformin 500 mg 2 times a day. 3. Oxybutynin 10 mg daily. 4. Methimazole 2.5 mg daily. 5. Atorvastatin 40 mg daily. 6. Acetaminophen 500 mg extra strength every 8 hours p.r.n. 7. Gabapentin 600 mg 3 times a day. 8. Nexium 40 mg daily. 9. Cymbalta 30 mg twice a day. 10. K-Chlor 40 mEq daily. 11. Oxycodone 20 mg every 4 hours as needed for pain. ALLERGIES: Include ZOFRAN, LEVAQUIN, BACTRIM, CEFTRIAXONE, IBUPROFEN, MORPHINE , ADHESIVE TAPE, NICKEL and NICKEL-BASED PRODUCTS, and ELTROMBOPAG. FAMILY HISTORY: Has positive family history for factor V Leiden. SOCIAL HISTORY: The patient lives at home with her 2 daughters, aged 18 and 23. She is not working. She denies any current tobacco use or any current alcohol use or drug use. REVIEW OF SYSTEMS: The patient is complaining of weakness. She is complaining of inability to care for herself and diarrhea. She denies any chest pain. No fever, no headache. No nausea, no vomiting. No urinary complaints. She has chronic wide spread pain particularly in the spine and the lower extremities. This is her baseline and she has no further constitutional complaints. PHYSICAL EXAMINATION GENERAL: The patient is alert, appears tired and disheveled. VITAL SIGNS: Currently, blood pressure 144/69, heart rate 76, respiratory rate 18, satting at 95% on room air, temperature is 97.6. HEENT: The patient is atraumatic and normocephalic. PERRLA with nonicteric sclerae. Extraocular movements are intact. Oral mucosa is moist. Dentition is extremely poor. NECK: Supple, nontender. No carotid bruits auscultated. No thyromegaly appreciated. LUNGS: Clear bilaterally to auscultation with no wheezing, rhonchi, or rales. CARDIOVASCULAR: S1, S2 are present. Rate and rhythm are regular. No murmurs, gallops, or rubs. ABDOMEN: Soft, nontender, nondistended. Positive bowel sounds in all 4 quadrants, slightly hypoactive in nature. : Deferred. MUSCULOSKELETAL: There is no clubbing and no cyanosis. She has significant lymphedema bilaterally of the lower extremities with a wound in the left lateral calf currently dressed. NEUROLOGIC: She is grossly intact with no focal deficits, although she does appear to be somewhat of a poor historian. PSYCHIATRIC: She is cooperative and appropriate but does appear to have a flat affect. LABORATORY DATA/DIAGNOSTIC STUDIES: WBC 4.5, RBC 4.52, hemoglobin 13.2, hematocrit 40, platelets 68. Chemistries: Sodium 133, potassium 3.4, chloride 101, CO2 27, BUN 7, creatinine 0.66, GFR is 91.4, glucose 126, lactic acid 1.3 , calcium 9.2, magnesium 1.9, bilirubin 0.5. AST 13, ALT 8, alk phos 83. CRP 3.81. BNP 49. Protein 6.7, albumin 3.5, globulin 3.2, lipase is less than 10. Urinalysis shows 1+ bacteria with some squamous epithelial cells, negative for nitrites, negative for blood, negative for protein and it is clear and yellow. Toxicology: Acetaminophen level is less than 15. Coags: INR is 0.94 and APTT is 31.8. She has not had a chest x-ray for this admission. No recent imaging noted. IMPRESSION: This is a 62-year-old female with some comorbidities; however, no clear diagnosis today other than some weakness and inability to ambulate secondary to her lymphedema, also subjective history of diarrhea, although she has not had diarrhea here in the emergency department. PLAN: Apparently, social service assistant has already been involved in this case and discussed usp admission with the patient as she did not meet criteria for admission or observation admission. The plan I guess at this time is to see if she can be placed in some sort of either skilled rehab or halfway facility. The patient did tell me that APS is involved. She has a daughter with Asperger's, who is 23 years old and another daughter, who is 18 years old. She is concerned for the plan of care for them as well as for her herself, so essentially I think oncology social work needs to be involved to employee resources for rehabilitative or halfway care for this patient and ensure that her daughters even though they are of legal age, her one daughter is still in high school and she is concerned about her care at this point. The patient has a chronically low potassium. She is getting her K-Chlor every day, this will be continued. We will continue her regular home medications. She has received a liter of fluid in the emergency department and she has responded well to that. She can have a diabetic diet. I do not feel she needs to be on insulin sliding scale. The patient states her glucose is well controlled at home with diet and metformin, these will be continued. The rest of the patient's course will be determined by further diagnostics, laboratories, or any other input from other providers as warranted during this admission. I have discussed this plan of care with both the emergency physician and Dr. Andrade. They are both in agreement with this plan of care. The patient should be seen by her primary care provider, Dr. Karoline Ruiz, tomorrow to further define what would be best and safest for her. Of note, the patient is a full code and DVT prophylaxis will be with heparin subcu 5000 units every 8 hours. ZAHRA GODINEZ, SOFTWARE ADMINISTRATOR [id number]/[facility] #: [id number] [place]
[2017-08-08] MEDS: oxyCODONE TAB* 5 MG TAB PO PRN ×5 (00:01→21:32)
[2017-08-08] MEDS: Potassium Chloride LIQUID* 20 MEQ PACKET PO SCH (07:58)
[2017-08-08] MEDS: Oxybutynin XL TAB* 5 MG PO SCH (07:58)
[2017-08-08] MEDS: Gabapentin CAP(*) 300 MG PO SCH ×6 (07:58→23:47)
[2017-08-08] MEDS: DULoxetine DR CAP* 30 MG CAP.DR PO SCH ×2 (07:58→21:31)
[2017-08-08] MEDS: Omeprazole CAP* 20 MG PO SCH (07:59)
[2017-08-08] MEDS: Methimazole TAB* 5 MG PO SCH (07:59)
[2017-08-08] MEDS: metFORMIN* 500 MG TAB PO SCH ×2 (07:59→21:31)
[2017-08-08] MEDS: predniSONE TAB* 5 MG PO SCH (07:59)
[2017-08-09] MEDS: oxyCODONE TAB* 5 MG TAB PO PRN ×2 (01:29→10:23)
[2017-08-09 07:06] LABS: ABS Basophils 0.1 10^3/ul (0-0.2); ABS Eosinophils 0.1 10^3/ul (0-0.6); ABS Lymphocytes 1.7 10^3/ul (1.0-4.8); ABS Neutrophils 3.7 10^3/ul (1.5-7.7); ABS Nucleated RBC 0 10^3/ul; Eosinophil % 1.4 % (0-6); Hematocrit 41 % (35-47); Hemoglobin 13.5 g/dl (12.0-16.0); Lymphocyte % 26.4 % (25-47); Mean Corpuscular HGB Conc 33 g/dl (31-36); Mean Corpuscular Hemoglobin 30 pg (27-31); Mean Corpuscular Volume 91 fL (80-97); Mean Platelet Volume 10 um3 (7.4-10.4); Nucleated Red Blood Cells % 0; Platelet Count 60 10^3/ul (150-450); Red Blood Count 4.53 10^6/ul (4.0-5.4); Red Cell Distribution Width 15 % (10.5-15); White Blood Count 6.5 10^3/ul (3.5-10.8)
[2017-08-09 07:18] LABS: EGFR Non-African American 60.7 (>60)
[2017-08-09 07:55] VITALS: BP 129/66
[2017-08-09] MEDS: DULoxetine DR CAP* 30 MG CAP.DR PO SCH (10:24)
[2017-08-09] MEDS: Potassium Chloride LIQUID* 20 MEQ PACKET PO SCH (10:24)
[2017-08-09] MEDS: Methimazole TAB* 5 MG PO SCH (10:24)
[2017-08-09] MEDS: Gabapentin CAP(*) 300 MG PO SCH ×3 (10:24→13:13)
[2017-08-09] MEDS: metFORMIN* 500 MG TAB PO SCH (10:24)
[2017-08-09] MEDS: Oxybutynin XL TAB* 5 MG PO SCH (10:24)
[2017-08-09] MEDS: predniSONE TAB* 5 MG PO SCH (10:24)
[2017-08-09] MEDS: Omeprazole CAP* 20 MG PO SCH (10:24)
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
[2017-08-09 12:53] LABS: Urine Appearance Clear; Urine Blood Negative (Negative); Urine Color Yellow; Urine Ketones Negative (Negative); Urine Protein Negative (Negative); Urine Specific Gravity 1.016 (1.010-1.030); Urine Urobilinogen Negative (Negative)
== END 2017-08-09 14:47 ==
LOC: ED 12:52 → MED 20:59
PROVIDERS: ADMIT Nurse Practitioner Adult Health; ATTEND Internal Medicine Geriatric Medicine
DX: R53.1 Weakness (principal); R62.7 Adult failure to thrive; E11.9 Type 2 diabetes mellitus without complications; I10 Essential (primary) hypertension; D69.6 Thrombocytopenia, unspecified; E05.90 Thyrotoxicosis, unspecified without thyrotoxic crisis or storm; G47.33 Obstructive sleep apnea (adult) (pediatric); D68.51 Activated protein C resistance; Z86.711 Personal history of pulmonary embolism; Z86.718 Personal history of other venous thrombosis and embolism; G89.29 Other chronic pain; M47.9 Spondylosis, unspecified; G62.9 Polyneuropathy, unspecified; Z79.84 Long term (current) use of oral hypoglycemic drugs; Z79.899 Other long term (current) drug therapy; Z88.1 Allergy status to other antibiotic agents; Z88.5 Allergy status to narcotic agent; Z88.8 Allergy status to other drugs, medicaments and biological substances; Z79.52 Long term (current) use of systemic steroids; R19.7 Diarrhea, unspecified
CPT/HCPCS: 36415; 80048; 80053; 80329; 81003; 81015; 82550; 82728; 83605; 83690; 83735; 83880; 85025; 85610; 85730; 86140; 87077; 87086; 96360; 96372; 99285; A9270-GY; G0378; G0480; G8978-GP-CI; G8979-GP-CI; G8980-GP-CI; G8987-GO-CJ; G8988-GO-CI; J1644; J7512

== ENCOUNTER 2017-12-26 23:38 | Inpatient (IN) | payer MEDICAID, MEDICARE ==
[2017-12-27] MEDS ORDERED: HYDROmorphone INJ* 1 MG/ML CARPUJECT SYRINGE IV ONE (00:30)
[2017-12-27] MEDS ORDERED: NS 0.9% 1000 ML* 1,000 ML IV ONE (00:30)
--- NOTE | 2017-12-27 00:38 | ED ---
Abdominal Pain/Female - HPI Summary HPI Summary: Patient has multiple complaints. Complains of intermittent bilateral lower abdominal pain, diarrhea, chills, sweats 2 weeks. Complains of wound to left medial leg with foul odor and redness to left lower extremity x a couple days. Patient wound has been followed by wound care, but patient has not been seen for 2 weeks, has been changing the dressing herself. Not currently on antibiotics. Also complains of running out of her oxycodone prescription 2 days ago. Patient normally takes oxycodone 20 mg every 4H for chronic pain.. Denies fever, cough, sore throat, CP, SOB, N/V, change in urine, vaginal symptoms. Medical history is DM 2, diabetic neuropathy, lymph edema, sleep apnea, factor V Leiden, ITP, vena cava filter, urinary incontinence, venous insufficiency. Abdominal/pelvic surgical history , hernia repair 2. - History of Current Complaint Chief Complaint: EDAbdPain Stated Complaint: N/V Time Seen by Provider: 12/26/17 23:49 Hx Obtained From: Patient Onset/Duration: Gradual Onset Timing: Intermittent Episode Lasting Severity Initially: Moderate Severity Currently: Moderate Pain Intensity: 8 Pain Scale Used: 0-10 Numeric Location: Diffuse, Discrete At: RLQ, Discrete At: LLQ Radiates: No Character: Sharp, Dull, Cramping Aggravating Factor(s): Nothing Alleviating Factor(s): Nothing Associated Signs and Symptoms: Positive: Diarrhea Allergies/Adverse Reactions: Allergies Allergy/AdvReac Type Severity Reaction Status Date / Time ibuprofen Allergy Severe Anaphylatic Verified 08/07/17 21:22 Shock sulfamethoxazole Allergy Severe Anaphylatic Verified 08/07/17 21:23 [From Bactrim] Shock trimethoprim [From Bactrim] Allergy Severe Anaphylatic Verified 08/07/17 21:23 Shock ceftriaxone Allergy Intermediate Swelling Verified 08/07/17 21:23 Adhesive Tape Allergy Rash Verified 05/11/16 14:17 eltrombopag Allergy Unknown Verified 08/07/17 21:25 Reaction Details morphine Allergy sedation/hypoxia Verified 12/27/17 03:31 >16H after 30mg MS Contin nickel Allergy Rash Verified 08/07/17 21:25 levofloxacin AdvReac Joint Pain Verified 12/27/17 03:30 ondansetron AdvReac Nausea And Verified 12/27/17 03:30 Vomiting PMH/Surg Hx/FS Hx/Imm Hx Endocrine/Hematology History: Reports: Hx Blood Disorders - Factor V Leiden, Hx Diabetes - peripheral neuropathy, Hx Thyroid Disease, Other Endocrine/ Hematological Disorders Denies: Hx Anticoagulant Therapy, Hx Blood Transfusions, Hx Bone Marrow Disease, Hx Systemic Lupus Erythematosus, Hx Sickle Cell Disease, Hx Anemia, Hx Unexplained Bleeding Cardiovascular History: Reports: Hx Deep Vein Thrombosis, Hx Embolism - PE, Hx Hypercholesterolemia, Hx Hypertension, Other Cardiovascular Problems/Disorders - Idiopathic Thrombocytopenia; Factor V Leiden, lymphedema, thrombocytopenia Denies: Hx Aneurysm, Hx Angina, Hx Angioplasty, Hx Auto Implanted Cardiovert Defib, Hx Cardiac Arrest, Hx Cardiomegaly, Hx Congenital Heart Disease, Hx Congestive Heart Failure, Hx Coronary Artery Disease, Hx Hypotension, Hx Pacemaker/ICD, Hx Peripheral Vascular Disease, Hx Rheumatic Fever, Hx Syncope, Hx Valvular Heart Disease Respiratory History: Reports: Hx Chronic Bronchitis, Hx Chronic Obstructive Pulmonary Disease (COPD), Hx Pneumonia, Hx Pulmonary Edema, Hx Pulmonary Embolism, Hx Sleep Apnea - obstructive sleep apnea (does not use CPAP), Other Respiratory Problems/Disorders - h/o pneumonia, HX PE Denies: Hx Seasonal Allergies Comment Only: Hx Asthma - denies but uses Albuterol GI History: Reports: Hx Gastroesophageal Reflux Disease, Hx Hiatal Hernia - 2006 HAD SURGERY, repair with mesh, Other GI Disorders - Hernia repair with mesh , pt reports acid reflux Denies: Hx Jaundice History: Reports: Hx Kidney Infection - severe when 11 years old, Hx Kidney Stones, Other Problems/Disorders - recurrent UTIs Denies: Hx Dialysis, Hx Renal Disease Musculoskeletal History: Reports: Hx Arthritis - hands, lower joints, Hx Back Problems, Hx Bursitis - RIGHT SHOULDER, Hx Scoliosis, Other Musculoskeletal History - spinal spondylosis Sensory History: Reports: Hx Cataracts - 2012, Hx Contacts or Glasses, Hx Vision Problem Denies: Hx Eye Injury, Hx Eye Prosthesis, Hx Glaucoma, Hx Macular Degeneration, Hx Deafness, Hx Hearing Aid, Hx Hearing Problem, Other Sensory Impairments Opthamlomology History: Reports: Hx Cataracts - 2012, Hx Contacts or Glasses, Hx Vision Problem Denies: Hx Eye Injury, Hx Eye Prosthesis, Hx Glaucoma, Hx Macular Degeneration, Other Sensory Impairments Neurological History: Reports: Hx Migraine - once in a while, Other Neuro Impairments/Disorders - scoliosis, kyposcoliosis Denies: Hx Dementia, Hx Developmental Delay, Hx Headaches, Hx Seizures, Hx Spinal Cord Injury, Hx Transient Ischemic Attacks (TIA) Psychiatric History: Reports: Hx Anxiety, Hx Depression Denies: Hx Attention Deficit Hyperactivity Disorder, Hx Autism, Hx Eating Disorder, Hx Oppositional [place] Disorder, Hx Panic Disorder, Hx Post Traumatic Stress Disorder, Hx Community Mental Health Tx, Hx Schizophrenia, Hx Bipolar Disorder, Hx Substance Abuse, Other Psychiatric Issues/Disorders - Surgical History Surgery Procedure, Year, and Place: hernia repair, vena cava filter placement, r /t wound in left lower extremity (Leg debridement). Hx Anesthesia Reactions: No - Immunization History Date of Tetanus Vaccine: unsure Date of Influenza Vaccine: 2011 Infectious Disease History: Yes Infectious Disease History: Reports: Hx of Known/Suspected MRSA - MRSA neg swab 11/17/15, Hx Shingles Denies: Hx Clostridium Difficile, Hx Hepatitis, Hx Human Immunodeficiency Virus (HIV), Hx Tuberculosis, Hx Known/Suspected VRE - records indicated Yes per PCP office. MD Fartun Ruiz denies Hx 11/17/15, Traveled Outside the [place] in Last 30 Days - Family History Known Family History: Positive: Hypertension, Diabetes - Social History Alcohol Use: None Hx Substance Use: No Substance Use Type: Reports: None Hx Tobacco Use: Yes Smoking Status (MU): Former Smoker Type: eCigarettes Length of Time of Smoking/Using Tobacco: off and on 40 years (probably a total of 15 years) Have You Smoked in the Last Year: No Review of Systems Positive: Chills Eyes: Negative ENT: Negative Cardiovascular: Negative Respiratory: Negative Positive: Abdominal Pain, Diarrhea Genitourinary: Negative Musculoskeletal: Negative Skin: Other Neurological: Negative Psychological: Normal All Other Systems Reviewed And Are Negative: Yes Physical Exam - Summary Physical Exam Summary: Patient abdomen diffusely tender. Wound on left medial lower extremity likely necrotic ulcer, has foul odor with purulent discharge. No evidence of crepitus. Circumferential erythema and extra warmth on left lower extremity from ankle to knee. Bilateral lymphedema. Triage Information Reviewed: Yes Vital Signs On Initial Exam: Initial Vitals Temp Pulse Resp BP Pulse Ox 98.3 F 67 18 140/86 95 12/26/17 23:44 12/26/17 23:44 12/26/17 23:44 12/26/17 23:44 12/26/17 23:44 Vital Signs Reviewed: Yes Appearance: Positive: Well-Appearing Skin: Positive: Warm Head/Face: Positive: Normal Head/Face Inspection Eyes: Positive: Normal Neck: Positive: Supple Respiratory/Lung Sounds: Positive: Clear to Auscultation Cardiovascular: Positive: Normal Abdomen Description: Positive: Other: Musculoskeletal: Positive: Normal Neurological: Positive: Normal Psychiatric: Positive: Normal AVPU Assessment: Alert - [place] Coma Scale Best Eye Response: 4 - Spontaneous Best Motor Response: 6 - Obeys Commands Best Verbal Response: 5 - Oriented Coma Scale Total: 15 Diagnostics - Vital Signs Vital Signs Temp Pulse Resp BP Pulse Ox 12/26/17 23:44 98.3 F 67 18 140/86 95 - Laboratory Result Diagrams: 12/27/17 01:03 12/27/17 01:03 Lab Statement: Any lab studies that have been ordered have been reviewed, and results considered in the medical decision making process. Abdominal Pain Fem Course/Dx - Course Course Of Treatment: Patient has multiple complaints. Complains of intermittent bilateral lower abdominal pain, diarrhea, chills, sweats 2 weeks. Complains of wound to left medial leg with foul odor and redness to left lower extremity x a couple days. Patient wound has been followed by wound care, but patient has not been seen for 2 weeks, has been changing the dressing herself. Not currently on antibiotics. Also complains of running out of her oxycodone prescription 2 days ago. Patient normally takes oxycodone 20 mg every 4H for chronic pain.. Denies fever, cough, sore throat, CP, SOB, N/V, change in urine, vaginal symptoms. Medical history is DM 2, diabetic neuropathy , lymph edema, sleep apnea, factor V Leiden, ITP, vena cava filter, urinary incontinence, venous insufficiency. Abdominal/pelvic surgical history , hernia repair 2. Physical exam: Patient abdomen diffusely tender. Wound on left medial lower extremity likely gangrenous, purulent discharge. Circumferential erythema and extra warmth on left lower extremity from ankle to knee. Bilateral lymphedema. Vital signs within normal limits and stable. Low platelets at 88. Elevated CRP. Labs otherwise unremarkable. Discussed patient with Dr. Valle hospitalist. Admission for IV antibiotics for cellulitis and gangrene. - Diagnoses Provider Diagnoses: Cellulitis, Gangrene, Diarrhea, Abdominal pain Discharge - Sign-Out/Discharge Documenting (check all that apply): Patient Departure - Discharge Plan Condition: Fair Disposition: ADMITTED TO [facility] Referrals: Karoline Ruiz MD [Primary Care Provider] - - Billing Disposition and Condition Condition: FAIR Disposition: Admitted to [facility]
[2017-12-27] MEDS ORDERED: Vancomycin(*) 1,000 MG in NS 0.9% 250 ML* 250 ML IVPB ONE (01:22)
[2017-12-27 01:27] LABS: ABS Basophils 0 10^3/ul (0-0.2); ABS Eosinophils 0.1 10^3/ul (0-0.6); ABS Lymphocytes 1.2 10^3/ul (1.0-4.8); ABS Monocytes 0.6 10^3/ul (0-0.8); ABS Neutrophils 5.9 10^3/ul (1.5-7.7); ABS Nucleated RBC 0 10^3/ul; Eosinophil % 0.9 % (0-6); Hematocrit 42 % (35-47); Hemoglobin 13.8 g/dl (12.0-16.0); Mean Corpuscular HGB Conc 33 g/dl (31-36); Mean Corpuscular Hemoglobin 30 pg (27-31); Mean Corpuscular Volume 92 fL (80-97); Mean Platelet Volume 10.6 um3 (7.4-10.4); Nucleated Red Blood Cells % 0; Platelet Count 88 10^3/ul (150-450); Red Blood Count 4.59 10^6/ul (4.00-5.40); Red Cell Distribution Width 15 % (10.5-15); White Blood Count 7.8 10^3/ul (3.5-10.8)
[2017-12-27 01:33] LABS: EGFR Non-African American 96.4 (>60)
[2017-12-27] MEDS ORDERED: Iodixanol* (CONTRAST) 320 MG/ML 100 ML SDV IV ONE (01:49)
--- NOTE | 2017-12-27 02:50 | HP ---
H&P (Free Text) History and Physical: PCP: Carmela Ruiz MD Date/Time: 12/27/2017 0245 CC: malaise HPI: Mrs Juares is 62YO morbidly obese female HX DM2, HTN, chronic immune thrombocytopenia, chronic BLE lymphedema, chronic LLE wound, hyperthyroidism, EMMANUEL, factor V leiden deficiency, DVT/PE, chronic pain syndrome who reports malaise w/ intermittent F/C, sweats, lethargy, and N/V for the past 2 weeks which came to include watery diarrhea with fecal incontinence starting last . She denies black or bloody content to either emesis or diarrhea. She reports increased generalize pain "everywhere, even my eyes". She has had no N/ V for several days. She has had poor PO intake for the past 2 days related to fear of fecal incontinence. She has been following weekly with her PCP for a chronic LLE wound until she fell ill. Her PCP has been contacting her encouraging presentation for evaluation to which she conceded tonight. ED work up is most notable for an unstageable anterior LLE wound with necrotic ulcer associated with circumferential erythema and warmth. The leg is tender, but not more so than the right. There is a scant amount of bleeding from the ulcer base. At the end of the visit despite not appearing to be in any objective pain at baseline, she requests to only receive IV pain medications during her stay. She was informed that I planned to continue her outpatient pain regimen with the exception of IV dosing prior to any procedures such as debridement. PMedHx DM2 w/ neuropathy DVT/PE s/p IVC filter HTN chronic immune thombocytopenia chronic primary BLE lymphedema chronic LLE wound arising from an injury 02/2017 hyperthyroidism EMMANUEL non-adherent with CPAP factor V leiden deficiency urolithiasis GERD urinary incontinence chronic pain syndrome depression generalized OA Ambulatory Orders DULoxetine DR CAP* [Cymbalta CAP*] 30 mg PO BID 05/28/15 Gabapentin CAP(*) [Neurontin CAP(*)] 600 mg PO .SIX TIMES DAILY 05/28/15 Methimazole TAB* [Tapazole TAB*] 5 mg PO DAILY 11/17/15 metFORMIN* [Glucophage*] 500 mg PO BID 11/17/15 predniSONE TAB* [Deltasone TAB*] 5 mg PO DAILY 11/17/15 Oxycodone TAB(NF) [Oxycodone HCl 10 MG] 20 mg PO Q4HR PRN 01/07/17 Acetaminophen [Acetaminophen Extra Strength] 500 mg PO Q8H PRN MDD 6 tablets Calcium Carbonate [Tums] 300 mg PO DAILY PRN 12/27/17 Allergies ibuprofen Allergy (Severe, Verified 08/07/17 21:22) Anaphylatic Shock sulfamethoxazole [From Bactrim] Allergy (Severe, Verified 08/07/17 21:23) Anaphylatic Shock trimethoprim [From Bactrim] Allergy (Severe, Verified 08/07/17 21:23) Anaphylatic Shock ceftriaxone Allergy (Intermediate, Verified 08/07/17 21:23) Swelling Adhesive Tape Allergy (Verified 05/11/16 14:17) Rash eltrombopag Allergy (Verified 08/07/17 21:25) Unknown Reaction Details morphine Allergy (Verified 12/27/17 03:31) sedation/hypoxia >16H after 30mg MS Contin nickel Allergy (Verified 08/07/17 21:25) Rash levofloxacin Adverse Reaction (Verified 12/27/17 03:30) Joint Pain ondansetron Adverse Reaction (Verified 12/27/17 03:30) Nausea And Vomiting PSurgHx abdominal hernia repair hiatal hernia repair section x2 cataract extraction IVC filter placement SocHx: no tobacco, alcohol, or recreational drugs; , lives with 2 daughters; unemployed; full FamHx: strongly positive for DVT/PE; positive for factor V leiden deficiency & lymphedema ROS: as above, otherwise reviewed and all were negative vitals: Vital Signs Temp 36.8 C 12/26/17 23:44 Pulse 67 12/26/17 23:44 Resp 18 12/27/17 01:23 BP 140/86 12/26/17 23:44 Pulse Ox 95 12/26/17 23:44 Intake & Output 12/26/17 12/26/17 12/27/17 11:59 23:59 11:59 Weight 90.718 kg 90.718 kg Constitutional: NAD, normally developed, malodorous morbidly obese white female appearing much older than her reported age HEENM: atraumatic; sclera/conjunctiva: anicteric/clear; hearing: clinically intact; oropharynx: clear, mucosa tacky Neck: soft tissue: non-tender; thyroid: non-tender Pulmonary: diminished 2nd body habitus, fair to good aeration, no accessory muscle use CV: RR/RR, normal S1S2, no carotid bruit, no jugular venous distention, 2+ B DP/ PT, severe LE lymphedema Abdominal: soft, non-distended, non-tender, no rebound/guarding/rigidity, normoactive bowel sounds, no hepatosplenomegaly or masses, no costovertebral angle tenderness Musculoskeletal: general: grossly intact, tender to palpation BLE Integumental: BLE with severe lymphedema; LLE anterior mid-gonzalez with ~6cm black eschar covered unstageable ulcer with associated circumferential erythema, warmth, & edema; trace amount of fresh blood in center of eschar, no purulence Psychiatric orientation: AA&O to PPS affect: calm mood: cooperative eye contact: fair to good content: reliable responses: tangential insight: poor Testing: Lab Results 12/27/17 12/27/17 12/27/17 Range/Units 01:03 01:03 01:03 WBC 7.8 (3.5-10.8) 10^3/ul RBC 4.59 (4.00-5.40) 10^6/ul Hgb 13.8 (12.0-16.0) g/dl Hct 42 (35-47) % MCV 92 (80-97) fL MCH 30 (27-31) pg MCHC 33 (31-36) g/dl RDW 15 (10.5-15) % Plt Count 88 L (150-450) 10^3/ul MPV 10.6 H (7.4-10.4) um3 Neut % (Auto) 75.9 (38-83) % Lymph % (Auto) 15.0 L (25-47) % [place] % (Auto) 7.8 H (0-7) % Eos % (Auto) 0.9 (0-6) % Baso % (Auto) 0.4 (0-2) % Absolute Neuts (auto) 5.9 (1.5-7.7) 10^3/ul Absolute Lymphs (auto) 1.2 (1.0-4.8) 10^3/ul Absolute Monos (auto) 0.6 (0-0.8) 10^3/ul Absolute Eos (auto) 0.1 (0-0.6) 10^3/ul Absolute Basos (auto) 0 (0-0.2) 10^3/ul Absolute Nucleated RBC 0 10^3/ul Nucleated RBC % 0 Large Platelets Present Sodium 137 (135-145) mmol/L Potassium 3.4 L (3.5-5.0) mmol/L Chloride 105 (101-111) mmol/L Carbon Dioxide 24 (22-32) mmol/L Anion Gap 8 (2-11) mmol/L BUN 9 (6-24) mg/dL Creatinine 0.63 (0.51-0.95) mg/dL Est GFR ( Amer) 116.6 (>60) Est GFR (Non-Af Amer) 96.4 (>60) BUN/Creatinine Ratio 14.3 (8-20) Glucose 75 (70-100) mg/dL Lactic Acid 1.0 (0.5-2.0) mmol/L Calcium 9.6 (8.6-10.3) mg/dL Total Bilirubin 0.70 (0.2-1.0) mg/dL AST 11 L (13-39) U/L ALT 3 L (7-52) U/L Alkaline Phosphatase 80 (34-104) U/L C-Reactive Protein 149.01 H (<8.01) mg/L Total Protein 7.4 (6.4-8.9) g/dL Albumin 3.8 (3.2-5.2) g/dL Globulin 3.6 (2-4) g/dL Albumin/Globulin Ratio 1.1 (1-3) Lipase 13 (11.0-82.0) U/L CT abd/pel, personally reviewed: IMPRESSION: No CT findings to correlate with patient's symptomotology Impression: 62F HX DM2, HTN, chronic immune thrombocytopenia, chronic BLE lymphedema, chronic LLE wound, hyperthyroidism, EMMANUEL, factor V leiden deficiency , DVT/PE, chronic pain syndrome presents with 2 weeks generalized malaise w/ cellulitis chronic LLE unstageable ulcer DIAGNOSIS & PLAN Primary chronic LLE ulcer w/ acute cellulitis, CRP 149 chronic primary BLE lymphedema : consider referral to lymphedema clinic upon discharge : IV vancomycin started in ED, will continue pending further bacterial characterization : blood & wound CXs : consider surgical consult in AM for debridement : will likely need correction placement upon discharge as she has not been managing well at home : supportive care Secondary DM2 w/ neuropathy : update A1c : continue metformin, duloxetine, & gabapentin : consistent carb diet : correctional lispro w/ ACHS glucometry HX DVT/PE : s/p IVC filter : SCD to RLE : no heparin 2nd thrombocytopenia HTN : not on anti-hypertensive meds, monitor chronic immune thombocytopenia : continue prednisone hyperthyroidism : continue methimazole EMMANUEL : non-adherent with CPAP factor V leiden deficiency : not acute issues GERD : omeprazole chronic pain syndrome : continue acetaminophen, oxycodone, gabapentin, & duloxetine depression : continue duloxetine generalized OA : continue oxycodone Admission Rational: inpatient for for LLE chronic ulcer w/ acute cellulitis requiring ABX & IVFs failed outpatient management DVTp: SCD to RLE, no heparin 2nd thrombocytopenia Code Status: full
[2017-12-27] MEDS ORDERED: Vancomycin per Pharmacy* NOTE FOLLOW UP SCH (05:00)
[2017-12-27] MEDS: oxyCODONE TAB* 5 MG TAB PO PRN (06:39)
[2017-12-27] MEDS: Acetaminophen TAB* 325 MG PO PRN ×3 (06:41→19:33)
[2017-12-27] MEDS: Omeprazole CAP* 20 MG PO SCH (06:44)
[2017-12-27] MEDS: Gabapentin CAP(*) 300 MG PO SCH ×5 (06:51→21:17)
[2017-12-27] MEDS: NS 0.9% 1000 ML* 1,000 ML IV SCH (07:03)
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
[2017-12-27 08:12] LABS: ABS Basophils 0 10^3/ul (0-0.2); ABS Eosinophils 0.1 10^3/ul (0-0.6); ABS Lymphocytes 1.2 10^3/ul (1.0-4.8); ABS Monocytes 0.6 10^3/ul (0-0.8); ABS Neutrophils 3.5 10^3/ul (1.5-7.7); ABS Nucleated RBC 0 10^3/ul; Eosinophil % 2.4 % (0-6); Hematocrit 38 % (35-47); Hemoglobin 12.7 g/dl (12.0-16.0); Lymphocyte % 21.8 % (25-47); Mean Corpuscular HGB Conc 34 g/dl (31-36); Mean Corpuscular Hemoglobin 31 pg (27-31); Mean Corpuscular Volume 91 fL (80-97); Mean Platelet Volume 10.3 um3 (7.4-10.4); Nucleated Red Blood Cells % 0.1; Platelet Count 67 10^3/ul (150-450); Red Blood Count 4.18 10^6/ul (4.00-5.40); Red Cell Distribution Width 15 % (10.5-15); White Blood Count 5.5 10^3/ul (3.5-10.8)
[2017-12-27 09:05] LABS: Urine Appearance Clear; Urine Blood Negative (Negative); Urine Color Yellow; Urine Ketones Trace (Negative); Urine Protein Negative (Negative); Urine Specific Gravity 1.054 (1.010-1.030); Urine Urobilinogen Negative (Negative)
[2017-12-27] MEDS: Vancomycin(*) 750 MG in NS 0.9% 250 ML* 250 ML IVPB SCH ×2 (09:12→16:00)
[2017-12-27] MEDS: DULoxetine DR CAP* 30 MG CAP.DR PO SCH (09:16)
[2017-12-27] MEDS: Methimazole TAB* 5 MG PO SCH (09:16)
[2017-12-27] MEDS: metFORMIN* 500 MG TAB PO SCH ×2 (09:16→19:34)
[2017-12-27] MEDS: predniSONE TAB* 5 MG PO SCH (09:16)
[2017-12-27] MEDS: Docusate CAP* 100 MG PO SCH ×2 (09:18→19:34)
[2017-12-27] MEDS: HYDROmorphone INJ* 0.5 MG/0.5 ML SYRINGE IV SLOW PU PRN ×4 (09:20→21:15)
[2017-12-27] MEDS: ZOSYN 3.375 GM Q8H per EXTENDED INFUSION IVPB SCH ×4 (11:06→17:58)
[2017-12-27] MEDS ORDERED: Piperacillin/Tazobactam VIAL*) 3.375 GM/15 ML VIAL IVPB SCH (12:00)
--- NOTE | 2017-12-27 18:26 | CONS ---
CC: Dr. Lauro Nair; [facility]; Dr. Karoline Ruiz; [facility] * SURGICAL CONSULTATION REPORT AND PROCEDURE NOTE: DATE OF CONSULT: The patient was seen in room at 04:14, on 12/27/17. HISTORY OF PRESENT ILLNESS: I was contacted by Dr. Nair to evaluate Ms. Juares , a 62-year-old female known to me for bilateral lower extremity lymphedema and chronic cellulitis, who had undergone wound care in the past, who was admitted to the emergency room earlier today with a chief complaint of malaise and complaints of diarrhea. She was admitted, noted to have cellulitis in the left lower extremity along with a wound. She was treated with antibiotics and admitted for observation. The patient states she has had a wound at the left lower leg since February when she suffered a trauma to the site. The patient initially underwent evaluation at the wound center on multiple visits along with debridement with Dr. York, she did ultimately stopped going and followed up with her primary care physician on an intermittent basis where she underwent serial debridement there as well. The patient had not followed up in the course of the last couple of weeks with regards to that because she was having diarrhea and malaise. The patient was evaluated by Dr. Nair, his covering physician today, and was noted to have persistent left lower leg pain along with a wound. Antibiotics were continued and an MRI was considered along with leg elevation. The patient had vancomycin and Zosyn running. When I saw her, the patient is complaining of pain at the lower extremities, but this is a typical thing, as long as the areas are not touched, she is okay. She cannot get up. She does need a walker. She does describe losing approximately 100 pounds in the course of the last 2 or 3 years, certainly I have not seen her for about 3 years and she lost a significant amount of weight. PHYSICAL EXAM: Focussed examination of her left lower extremity reveals the dermatitis and skin changes consistent with her chronic lymphedema. It is mostly dry with mild cellulitis and a 2.5 x 2.5 cm irregular-shaped, almost parallelogram shaped wound, that consists of necrotic skin with a small patch of scant drainage. It is tender to the touch, but so is her feet, posterior legs , bilateral legs and even lower thighs. IMPRESSION: Longstanding left lower leg wound, complicated with lymphedema, obesity, and likely stasis disease. RECOMMENDATIONS: My recommendation is lifting off the eschar and better assessing this unstageable ulcer at this time. I outlined the details of the procedure to Ms. Juares. She agreed and signed consent. PROCEDURE NOTE: The area was prepped and time-out was performed. Sharply, I lifted up the necrotic skin to explore the underlying wound. Almost 40% of the underlying wound was actually intact skin leaving the final wound a mixed partial thickness/full thickness wound that was only about 2 cm x 1.5 cm x 0.1 cm deep. It did not tunnel. I was not able to take any cultures as there was no drainage, no fluctuance. It is all intact with some expose of cutaneous fat that is minimally granulating. A wet-to-dry dressing was applied. The patient tolerated the procedure well. PLAN: Wet-to-dry dressing while hospitalized. She can go home on every other day collagen dressing and she can follow up with the wound center or with her primary care doctor. [id number]/CPS #: [id number] [place]
[2017-12-27] MEDS: Melatonin 3 MG TAB PO PRN (21:17)
[2017-12-27] MEDS ORDERED: Heparin VIAL(*) 5000 UNITS/ML VIAL (FIVE THOUSAND) SUBCUT SCH (22:00)
[2017-12-28] MEDS: Vancomycin(*) 750 MG in NS 0.9% 250 ML* 250 ML IVPB SCH ×2 (01:23→08:52)
[2017-12-28] MEDS: HYDROmorphone INJ* 0.5 MG/0.5 ML SYRINGE IV SLOW PU PRN ×6 (01:23→21:31)
[2017-12-28] MEDS: Gabapentin CAP(*) 300 MG PO SCH ×6 (01:32→21:33)
[2017-12-28] MEDS: ZOSYN 3.375 GM Q8H per EXTENDED INFUSION IVPB SCH ×6 (04:50→17:18)
[2017-12-28] MEDS: Omeprazole CAP* 20 MG PO SCH (05:04)
[2017-12-28] MEDS ORDERED: Vancomycin Trough Check NOTE FOLLOW UP ONE (06:00)
--- NOTE | 2017-12-28 07:33 | PN ---
Subjective - Subjective Reason for Note: Progress Note History: She has had good relief of pain with the IV hydromorphone. Her left leg remains painful and she has difficulty moving. She tolerated the debridement yesterday. She has had no return of the diarrhea that first bought her to the ED, and her appetite has returned. Thus far, she has had no untoward effects from the antibacterial therapy. SH: Her 24 year old daughter has moved out of her trailer, something planned for the end of this month, leaving Saima Juares uncertain about how she is going to manage without her primary caregiver. She spoke to the social worker psychiatric yesterday. Active Problems: Active Problems Cellulitis of left lower leg (Acute) L03.116 Diarrhea (Acute) R19.7 Leg pain (Acute 12/27/17) Ulcer of left lower leg (Acute) L97.929 Depression (Chronic) F32.9 Diabetes mellitus type 2 in obese (Chronic) E11.9, E66.9 Essential hypertension (Chronic) I10 Factor V Leiden mutation (Chronic) D68.51 History of MRSA infection (Chronic) Z86.14 History of pulmonary embolism (Chronic) Z86.711 Hyperthyroidism, subclinical (Chronic) E05.90 Idiopathic thrombocytopenic purpura (Chronic) D69.3 Kidney stone on left side (Chronic) N20.0 Lymphedema of both lower extremities (Chronic) I89.0 Multinodular goiter (Chronic) E04.2 Osteoarthritis of both knees (Chronic) M17.0 Osteoarthritis of shoulders, bilateral (Chronic) M19.011, M19.012 Osteoarthritis, hip, bilateral (Chronic) M16.0 S/P IVC filter (Chronic) Z95.828 Sleep apnea (Chronic) G47.30 Urinary incontinence (Chronic) R32 Current Medications: Current Medications Acetaminophen (Tylenol Tab*) 650 mg PO Q6H PRN PRN Reason: FEVER/PAIN Last Admin: 12/27/17 19:33 Dose: 650 mg Docusate Sodium (Colace Cap*) 200 mg PO BID [facility] Last Admin: 12/27/17 19:34 Dose: Not Given Duloxetine HCl (Cymbalta Cap*) 30 mg PO DAILY [facility] Last Admin: 12/27/17 09:16 Dose: 30 mg Gabapentin (Neurontin Cap(*)) 600 mg PO Q4H [facility] Last Admin: 12/28/17 06:39 Dose: 600 mg Hydromorphone HCl (Dilaudid Inj*) 1 mg IV SLOW PU Q4H PRN PRN Reason: PAIN Last Admin: 12/28/17 05:25 Dose: 1 mg Sodium Chloride (Ns 0.9% 1000 Ml*) 1,000 mls @ 75 mls/hr IV PER RATE [facility] Last Admin: 12/27/17 07:03 Dose: 75 mls/hr Vancomycin HCl 750 mg/ Sodium (Chloride) 250 mls @ 166.667 mls/hr IVPB Q8H [facility] Last Admin: 12/28/17 01:23 Dose: 166.667 mls/hr Piperacillin Sod/Tazobactam (Sod 3.375 gm/ Sodium Chloride) 100 mls @ 25 mls/ hr IVPB Q8H [facility] Last Admin: 12/28/17 04:50 Dose: 25 mls/hr Melatonin (Melatonin) 3 mg PO BEDTIME PRN; Protocol PRN Reason: Sleep Last Admin: 12/27/17 21:17 Dose: 3 mg Metformin HCl (Glucophage*) 500 mg PO BID [facility] Last Admin: 12/27/17 19:34 Dose: 500 mg Methimazole (Tapazole Tab*) 5 mg PO DAILY [facility] Last Admin: 12/27/17 09:16 Dose: 5 mg Omeprazole (Prilosec Cap*) 20 mg PO DAILY@0600 [facility] Last Admin: 12/28/17 05:04 Dose: Not Given Oxycodone HCl (Roxycodone Tab*) 20 mg PO Q4HR PRN PRN Reason: PAIN Last Admin: 12/27/17 06:39 Dose: 20 mg Pharmacy Consult (Vancomycin Per Pharmacy*) 1 note FOLLOW UP .VANC PER PHARMACY [facility] Prednisone (Deltasone Tab*) 5 mg PO DAILY [facility] Last Admin: 12/27/17 09:16 Dose: 5 mg Home Medications: Home Medications Medication Instructions Recorded Confirmed Type DULoxetine DR CAP* [Cymbalta CAP*] 30 mg PO DAILY 05/28/15 12/27/17 History Gabapentin CAP(*) [Neurontin 600 mg PO .SIX TIMES DAILY 05/28/15 12/27/17 History CAP(*)] Methimazole TAB* [Tapazole TAB*] 5 mg PO DAILY 11/17/15 12/27/17 History metFORMIN* [Glucophage*] 500 mg PO BID 11/17/15 12/27/17 History predniSONE TAB* [Deltasone TAB*] 5 mg PO DAILY 11/17/15 12/27/17 History Oxycodone TAB(NF) [Oxycodone HCl 20 mg PO Q4HR PRN 01/07/17 12/27/17 History 10 MG] Acetaminophen [Acetaminophen Extra 500 mg PO Q8H PRN MDD 6 tablets 08/07/1701/06 History Strength] Calcium Carbonate [Tums] 300 mg PO DAILY PRN 12/27/17 12/27/17 History Allergies: Allergies Allergy/AdvReac Type Severity Reaction Status Date / Time ibuprofen Allergy Severe Anaphylatic Verified 12/27/17 04:15 Shock sulfamethoxazole Allergy Severe Anaphylatic Verified 12/27/17 04:15 [From Bactrim] Shock trimethoprim [From Bactrim] Allergy Severe Anaphylatic Verified 12/27/17 04:15 Shock ceftriaxone Allergy Intermediate Swelling Verified 12/27/17 04:15 Adhesive Tape Allergy Rash Verified 12/27/17 04:15 eltrombopag Allergy Unknown Verified 12/27/17 04:15 Reaction Details morphine Allergy sedation/hypoxia Verified 12/27/17 04:15 >16H after 30mg MS Contin nickel Allergy Rash Verified 12/27/17 04:15 levofloxacin AdvReac Joint Pain Verified 12/27/17 04:15 ondansetron AdvReac Nausea And Verified 12/27/17 04:15 Vomiting Objective - Vital Signs Vital Signs: Vital Signs 12/27/17 12/27/17 12/27/17 07:32 08:00 09:18 Temperature 98.1 F Pulse Rate 64 Respiratory 18 18 16 Rate Blood Pressure 127/73 (mmHg) O2 Sat by Pulse 98 Oximetry 12/27/17 12/27/17 12/27/17 09:20 10:15 11:06 Temperature 98.0 F Pulse Rate 62 Respiratory 16 16 18 Rate Blood Pressure 107/56 (mmHg) O2 Sat by Pulse 98 Oximetry 12/27/17 12/27/17 12/27/17 13:28 14:15 14:55 Temperature Pulse Rate Respiratory 18 18 18 Rate Blood Pressure (mmHg) O2 Sat by Pulse Oximetry 08/08/18 08/08/18 08/08/18 15:19 17:00 18:36 Temperature 98.0 F 98.0 F Pulse Rate 76 69 Respiratory 18 18 16 Rate Blood Pressure 106/62 118/65 (mmHg) O2 Sat by Pulse 97 95 Oximetry 12/27/17 12/27/17 12/27/17 18:58 20:00 21:14 Temperature Pulse Rate Respiratory 18 16 16 Rate Blood Pressure (mmHg) O2 Sat by Pulse Oximetry 12/27/17 12/27/17 12/27/17 21:15 21:17 22:18 Temperature Pulse Rate Respiratory 16 16 16 Rate Blood Pressure (mmHg) O2 Sat by Pulse Oximetry 12/27/17 12/27/17 12/28/17 22:19 23:05 01:23 Temperature 98.0 F Pulse Rate 58 Respiratory 16 16 18 Rate Blood Pressure 120/65 (mmHg) O2 Sat by Pulse 98 Oximetry 12/28/17 12/28/17 12/28/17 01:32 05:03 05:25 Temperature Pulse Rate Respiratory 18 18 18 Rate Blood Pressure (mmHg) O2 Sat by Pulse Oximetry 12/28/17 12/28/17 06:39 06:45 Temperature Pulse Rate Respiratory 16 16 Rate Blood Pressure (mmHg) O2 Sat by Pulse Oximetry - Intake and Output Intake and Output: Intake & Output 12/25/17 12/26/17 12/27/17 12/28/17 11:59 11:59 11:59 11:59 Intake Total 1370 3321 Output Total 500 850 Balance 870 2471 Weight 224 lb 12.8 oz 225 lb 6.4 oz Intake: IV Fluids 1250 IVPB 2241 ABX - VANCOMYCIN 2141 ABX - ZOSYN 100 Oral 120 1080 Output: Urine 500 850 Other: Estimated Void Medium # Bowel Movements 0 # Voids 0 ADLs: Meal Record Start: 12/27/17 05: 31 Freq: DAILY@0900,1400,1800 Status: Active Protocol: Created 12/27/17 05:31 System (Rec: 12/27/17 05:31 System [id number]) Document 12/27/17 09:00 [id number] (Rec: 12/27/17 09:31 [id number] MED-C02) Document 12/27/17 14:00 [id number] (Rec: 12/27/17 14:15 [id number] MED-C02) Document 12/27/17 15:47 [id number] (Rec: 12/27/17 15:47 [id number] MED-C09) Document 12/27/17 18:00 [id number] (Rec: 12/27/17 19:11 [id number] MED-C26) Intake and Output Start: 12/26/17 23: 55 Freq: Status: Active Protocol: Created 12/26/17 23:55 System (Rec: 12/26/17 23:55 System [id number]) Intake and Output Start: 12/27/17 05: 31 Freq: DAILY@0600,1400,2200 Status: Active Protocol: Created 12/27/17 05:31 System (Rec: 12/27/17 05:31 System MED-C42) Document 12/27/17 14:00 [id number] (Rec: 12/27/17 14:15 [id number] MED-C02) Document 12/27/17 16:10 [id number] (Rec: 12/27/17 16:10 [id number] MED-C09) Document 12/27/17 22:00 [id number] (Rec: 12/27/17 22:27 [id number] MED-C11) Document 12/28/17 06:00 [id number] (Rec: 12/28/17 06:02 [id number] MED-C11) - Physical Exam General Physical Exam Comment: Left lower leg has a dressing - the areas exposed of the cellulitis are less red and hot. General: No Cyanosis, No Anemia, No Jaundice, No Clubbing Skin: Abnormal: Rash - left lower leg. Lungs and Chest: Yes: Chest Expansion Full, Chest Expansion Symetrica, Percussion Note Resonant, Vessicular Breath Sounds. No: Crackles, Wheezes Heart Rate and Rhythm: Regular Additional Cardiovascular: Yes: Normal Heart Sounds. No: Heart Murmur Abdominal Exam: Yes: Soft, Bowel Sounds Present. No: Distention, Abdominal Tenderness Results - Results Lab Results: Laboratory Results - last 24 hr 12/27/17 12/27/17 12/27/17 00:54 01:03 07:54 WBC RBC Hgb Hct MCV MCH MCHC RDW Plt Count MPV Neut % (Auto) Lymph % (Auto) [place] % (Auto) Eos % (Auto) Baso % (Auto) Absolute Neuts (auto) Absolute Lymphs (auto) Absolute Monos (auto) Absolute Eos (auto) Absolute Basos (auto) Absolute Nucleated RBC Nucleated RBC % Sodium 138 Potassium 3.3 L Chloride 107 Carbon Dioxide 26 Anion Gap 5 BUN 9 Creatinine 0.61 Est GFR ( Amer) 121.1 Est GFR (Non-Af Amer) 100.0 BUN/Creatinine Ratio 14.8 Glucose 110 H POC Glucose (mg/dL) Hemoglobin A1c 5.2 Calcium 8.8 TSH 0.64 Urine Color Urine Appearance Urine pH Ur Specific Mccall Urine Protein Urine Ketones Urine Blood Urine Nitrate Urine Bilirubin Urine Urobilinogen Ur Leukocyte Esterase Urine Glucose 12/27/17 12/27/17 12/28/17 07:54 08:52 00:02 WBC 5.5 RBC 4.18 Hgb 12.7 Hct 38 MCV 91 MCH 31 MCHC 34 RDW 15 Plt Count 67 L MPV 10.3 Neut % (Auto) 63.5 Lymph % (Auto) 21.8 L [place] % (Auto) 11.6 H Eos % (Auto) 2.4 Baso % (Auto) 0.7 Absolute Neuts (auto) 3.5 Absolute Lymphs (auto) 1.2 Absolute Monos (auto) 0.6 Absolute Eos (auto) 0.1 Absolute Basos (auto) 0 Absolute Nucleated RBC 0 Nucleated RBC % 0.1 Sodium Potassium Chloride Carbon Dioxide Anion Gap BUN Creatinine Est GFR ( Amer) Est GFR (Non-Af Amer) BUN/Creatinine Ratio Glucose POC Glucose (mg/dL) 80 Hemoglobin A1c Calcium TSH Urine Color Yellow Urine Appearance Clear Urine pH 5.0 Ur Specific Mccall 1.054 H Urine Protein Negative Urine Ketones Trace A Urine Blood Negative Urine Nitrate Negative Urine Bilirubin Negative Urine Urobilinogen Negative Ur Leukocyte Esterase Negative Urine Glucose Negative Assessment - Problem List Assessment: Patient Problems Cellulitis of left lower leg (Acute) Diarrhea (Acute) Leg pain (Acute 12/27/17) Ulcer of left lower leg (Acute) Depression (Chronic) Diabetes mellitus type 2 in obese (Chronic) Essential hypertension (Chronic) Factor V Leiden mutation (Chronic) History of MRSA infection (Chronic) History of pulmonary embolism (Chronic) Hyperthyroidism, subclinical (Chronic) Idiopathic thrombocytopenic purpura (Chronic) Kidney stone on left side (Chronic) Lymphedema of both lower extremities (Chronic) Multinodular goiter (Chronic) Osteoarthritis of both knees (Chronic) Osteoarthritis of shoulders, bilateral (Chronic) Osteoarthritis, hip, bilateral (Chronic) S/P IVC filter (Chronic) Sleep apnea (Chronic) Urinary incontinence (Chronic) Family history of VRE (vancomycin resistant Enterococcus) infection (Chronic) Plan: Cellulitis of left lower leg (Acute) Leg pain (Acute 12/27/17) Ulcer of left lower leg (Acute) I spoke with Dr. Ricardo Kim and read his note. The ulcer beneath the eschar is much smaller and less infected than expected. There was no evidence of any deeper infection. The primary aim of treatment is to manage the cellulitis. She appears to be responding to IV antibacterials. I will add probiotics. Her pain control is adequate Diarrhea (Acute) This is resolved Depression (Chronic) stable Diabetes mellitus type 2 in obese (Chronic) A1c 5.2% - she has lost weight over the past year or so and this has contributed to a great improvement in her glycemic control Essential hypertension (Chronic) Her BP is on target Secondary diagnoses. Factor V Leiden mutation (Chronic) History of MRSA infection (Chronic) History of pulmonary embolism (Chronic) Idiopathic thrombocytopenic purpura (Chronic) Kidney stone on left side (Chronic) Lymphedema of both lower extremities (Chronic) Multinodular goiter (Chronic) Hyperthyroidism, subclinical (Chronic) Her TSH is on target. Osteoarthritis of both knees (Chronic) Osteoarthritis of shoulders, bilateral (Chronic) Osteoarthritis, hip, bilateral (Chronic) S/P IVC filter (Chronic) Sleep apnea (Chronic) Urinary incontinence (Chronic) Family history of VRE (vancomycin resistant Enterococcus) infection (Chronic) I spoke with the patient about the above and she agrees with further IV antibacterial treatment. I am concerned about her developing a decubitus ulcer and will have the nursing staff consider an air mattress. I have read the meeting planner's note - clearly she will need a safe plan of discharge. Given she has lost her primary caregiver has left home and her home is considered a hazard, we will have to decide upon a plan.
[2017-12-28 07:40] LABS: ABS Basophils 0 10^3/ul (0-0.2); ABS Eosinophils 0.1 10^3/ul (0-0.6); ABS Monocytes 0.5 10^3/ul (0-0.8); ABS Nucleated RBC 0 10^3/ul; Eosinophil % 3.1 % (0-6); Hematocrit 41 % (35-47); Hemoglobin 13.5 g/dl (12.0-16.0); Lymphocyte % 21.6 % (25-47); Mean Corpuscular HGB Conc 33 g/dl (31-36); Mean Corpuscular Hemoglobin 31 pg (27-31); Mean Corpuscular Volume 92 fL (80-97); Mean Platelet Volume 10.4 um3 (7.4-10.4); Nucleated Red Blood Cells % 0.1; Platelet Count 75 10^3/ul (150-450); Red Blood Count 4.44 10^6/ul (4.00-5.40); Red Cell Distribution Width 15 % (10.5-15); White Blood Count 4.7 10^3/ul (3.5-10.8)
[2017-12-28 07:41] LABS: EGFR Non-African American 88.3 (>60)
[2017-12-28 08:07] LABS: Vancomycin Trough 14.1 mcg/mL
[2017-12-28] MEDS: Acetaminophen TAB* 325 MG PO PRN ×2 (08:26→20:04)
[2017-12-28] MEDS ORDERED: NS 0.9% 250 ML* 250 ML ONE (08:41)
[2017-12-28] MEDS: Docusate CAP* 100 MG PO SCH ×2 (08:45→20:06)
[2017-12-28] MEDS: Methimazole TAB* 5 MG PO SCH (08:45)
[2017-12-28] MEDS: Lactobacillus Acidophilus* 1 TAB PO SCH ×2 (08:47→20:05)
[2017-12-28] MEDS: predniSONE TAB* 5 MG PO SCH (08:47)
[2017-12-28] MEDS: metFORMIN* 500 MG TAB PO SCH ×2 (08:48→20:05)
[2017-12-28] MEDS: DULoxetine DR CAP* 30 MG CAP.DR PO SCH (08:48)
--- NOTE | 2017-12-28 12:21 | PN ---
Progress Note - Progress Note Date of Service: 12/28/17 Note: Surgery Progress: S: still some pain LLE, but less. O: dressing changed: wound is clean without evidence of active infection ( serous drainage only on dsg). Measures ~ 2.5 x 2 cm; no sig depth. Saline moistened dsg replaced. A/P: LLE anterior gonzalez wound; improved s/p debridement Per Dr. Kim, cont NS moist dsg q day while inpatient; may change to Santyl q other day upon discharge, with f/u in wound clinic.
--- NOTE | 2017-12-28 16:45 | RAD ---
Indication: Abdominal pain. Contrast: Administered 100.0 ml of VISIPAQUE 320 mg/ml CT of the abdomen and pelvis was performed after IV contrast administration. Coronal and sagittal reconstructed images were obtained. No oral contrast was administered. The lung bases demonstrate atelectasis. No pleural fluid, pneumonia or pneumothorax. The heart demonstrates no pericardial effusion. The liver is normal in size. No focal lesions or intrahepatic duct dilatation is noted. The gallbladder demonstrates no calcified gallstones. No pericholecystic fluid or wall thickening is identified. The common duct is not dilated. The pancreas demonstrates no mass or pancreatic duct dilatation, although appears to be somewhat atrophic. The spleen is normal in size without focal lesions. No adrenal masses are noted. The kidneys demonstrate symmetric nephrograms without hydronephrosis or focal masses. Small bowel demonstrates no abnormal dilatation. The appendix is visualized and demonstrates no evidence of appendicitis. The urinary bladder is unremarkable. The uterus and ovaries are grossly unremarkable. There is marked levoscoliosis of the lower thoracic spine. No fracture is identified. Multilevel degenerative disc disease is noted. There is an inferior vena cava filter in place. The aorta demonstrates no evidence of aneurysmal dilatation. No pelvic adenopathy is noted. IMPRESSION: Marked scoliosis is noted. Inferior vena cava filter is in place. No abnormal masses or fluid collections are noted.
[2017-12-28] MEDS: Melatonin 3 MG TAB PO PRN (21:33)
[2017-12-29] MEDS: HYDROmorphone INJ* 0.5 MG/0.5 ML SYRINGE IV SLOW PU PRN ×6 (01:48→22:01)
[2017-12-29] MEDS: Gabapentin CAP(*) 300 MG PO SCH ×6 (01:49→22:00)
[2017-12-29] MEDS: ZOSYN 3.375 GM Q8H per EXTENDED INFUSION IVPB SCH ×6 (01:51→18:07)
[2017-12-29] MEDS: NS 0.9% 1000 ML* 1,000 ML IV SCH (02:00)
[2017-12-29] MEDS: Omeprazole CAP* 20 MG PO SCH (05:29)
[2017-12-29] MEDS: Acetaminophen TAB* 325 MG PO PRN (05:31)
[2017-12-29 06:49] LABS: ABS Basophils 0.1 10^3/ul (0-0.2); ABS Eosinophils 0.2 10^3/ul (0-0.6); ABS Lymphocytes 1.2 10^3/ul (1.0-4.8); ABS Monocytes 0.6 10^3/ul (0-0.8); ABS Neutrophils 2.9 10^3/ul (1.5-7.7); ABS Nucleated RBC 0 10^3/ul; Eosinophil % 3.3 % (0-6); Hematocrit 38 % (35-47); Hemoglobin 12.7 g/dl (12.0-16.0); Lymphocyte % 23.8 % (25-47); Mean Corpuscular HGB Conc 34 g/dl (31-36); Mean Corpuscular Hemoglobin 31 pg (27-31); Mean Corpuscular Volume 92 fL (80-97); Nucleated Red Blood Cells % 0.1; Platelet Count 93 10^3/ul (150-450); Red Blood Count 4.12 10^6/ul (4.00-5.40); Red Cell Distribution Width 15 % (10.5-15)
[2017-12-29 07:09] LABS: EGFR Non-African American 88.3 (>60)
--- NOTE | 2017-12-29 07:33 | PN ---
Subjective - Subjective Reason for Note: Progress Note History: She continues to have pain in her left lower leg from the cellulitis. She is tolerating the zosyn - we stopped the vancomycin as PCR revealed no Staph aureus on her wound. She has a perineal yeast infection, but no diarrhea from her broad spectrum IV antibacterials. The pain is severe enough to require parenteral opioid. She has no clear plan for discharge. She denies cough, sputum or dyspnea. She has no chest pain or palpitations. Her appetited is good. Active Problems: Active Problems Cellulitis of left lower leg (Acute) L03.116 Leg pain (Acute 12/27/17) Ulcer of left lower leg (Acute) L97.929 Depression (Chronic) F32.9 Diabetes mellitus type 2 in obese (Chronic) E11.9, E66.9 Essential hypertension (Chronic) I10 Factor V Leiden mutation (Chronic) D68.51 History of MRSA infection (Chronic) Z86.14 History of pulmonary embolism (Chronic) Z86.711 Hyperthyroidism, subclinical (Chronic) E05.90 Idiopathic thrombocytopenic purpura (Chronic) D69.3 Kidney stone on left side (Chronic) N20.0 Lymphedema of both lower extremities (Chronic) I89.0 Multinodular goiter (Chronic) E04.2 Osteoarthritis of both knees (Chronic) M17.0 Osteoarthritis of shoulders, bilateral (Chronic) M19.011, M19.012 Osteoarthritis, hip, bilateral (Chronic) M16.0 S/P IVC filter (Chronic) Z95.828 Sleep apnea (Chronic) G47.30 Urinary incontinence (Chronic) R32 Current Medications: Current Medications Acetaminophen (Tylenol Tab*) 650 mg PO Q6H PRN PRN Reason: FEVER/PAIN Last Admin: 12/29/17 05:31 Dose: 650 mg Docusate Sodium (Colace Cap*) 200 mg PO BID [facility] Last Admin: 12/28/17 20:06 Dose: Not Given Duloxetine HCl (Cymbalta Cap*) 30 mg PO DAILY [facility] Last Admin: 12/28/17 08:48 Dose: 30 mg Gabapentin (Neurontin Cap(*)) 600 mg PO Q4H [facility] Last Admin: 12/29/17 05:28 Dose: 600 mg Hydromorphone HCl (Dilaudid Inj*) 1 mg IV SLOW PU Q4H PRN PRN Reason: PAIN Last Admin: 12/29/17 05:58 Dose: 1 mg Sodium Chloride (Ns 0.9% 1000 Ml*) 1,000 mls @ 75 mls/hr IV PER RATE [facility] Last Admin: 12/29/17 02:00 Dose: 75 mls/hr Piperacillin Sod/Tazobactam (Sod 3.375 gm/ Sodium Chloride) 100 mls @ 25 mls/ hr IVPB Q8H [facility] Last Admin: 12/29/17 01:51 Dose: 25 mls/hr Lactobacillus Rhamnosus (Lactobacillus Acidophilus*) 1 tab PO BID [facility] Last Admin: 12/28/17 20:05 Dose: 1 tab Melatonin (Melatonin) 3 mg PO BEDTIME PRN; Protocol PRN Reason: Sleep Last Admin: 12/28/17 21:33 Dose: 3 mg Metformin HCl (Glucophage*) 500 mg PO BID [facility] Last Admin: 12/28/17 20:05 Dose: 500 mg Methimazole (Tapazole Tab*) 5 mg PO DAILY [facility] Last Admin: 12/28/17 08:45 Dose: 5 mg Omeprazole (Prilosec Cap*) 20 mg PO DAILY@0600 [facility] Last Admin: 12/29/17 05:29 Dose: Not Given Oxycodone HCl (Roxycodone Tab*) 20 mg PO Q4HR PRN PRN Reason: PAIN Last Admin: 12/27/17 06:39 Dose: 20 mg Prednisone (Deltasone Tab*) 5 mg PO DAILY [facility] Last Admin: 12/28/17 08:47 Dose: 5 mg Home Medications: Home Medications Medication Instructions Recorded Confirmed Type DULoxetine DR CAP* [Cymbalta CAP*] 30 mg PO DAILY 05/28/15 12/27/17 History Gabapentin CAP(*) [Neurontin 600 mg PO .SIX TIMES DAILY 05/28/15 12/27/17 History CAP(*)] Methimazole TAB* [Tapazole TAB*] 5 mg PO DAILY 11/17/15 12/27/17 History metFORMIN* [Glucophage*] 500 mg PO BID 11/17/15 12/27/17 History predniSONE TAB* [Deltasone TAB*] 5 mg PO DAILY 11/17/15 12/27/17 History Oxycodone TAB(NF) [Oxycodone HCl 20 mg PO Q4HR PRN 01/07/17 12/27/17 History 10 MG] Acetaminophen [Acetaminophen Extra 500 mg PO Q8H PRN MDD 6 tablets 08/07/1701/06 History Strength] Calcium Carbonate [Tums] 300 mg PO DAILY PRN 12/27/17 12/27/17 History Allergies: Allergies Allergy/AdvReac Type Severity Reaction Status Date / Time ibuprofen Allergy Severe Anaphylatic Verified 12/27/17 04:15 Shock sulfamethoxazole Allergy Severe Anaphylatic Verified 12/27/17 04:15 [From Bactrim] Shock trimethoprim [From Bactrim] Allergy Severe Anaphylatic Verified 12/27/17 04:15 Shock ceftriaxone Allergy Intermediate Swelling Verified 12/27/17 04:15 Adhesive Tape Allergy Rash Verified 12/27/17 04:15 eltrombopag Allergy Unknown Verified 12/27/17 04:15 Reaction Details morphine Allergy sedation/hypoxia Verified 12/27/17 04:15 >16H after 30mg MS Contin nickel Allergy Rash Verified 12/27/17 04:15 levofloxacin AdvReac Joint Pain Verified 12/27/17 04:15 ondansetron AdvReac Nausea And Verified 12/27/17 04:15 Vomiting Objective - Vital Signs Vital Signs: Vital Signs 12/28/17 12/28/17 12/28/17 07:27 08:00 09:28 Temperature 98.0 F Pulse Rate 78 Respiratory 18 16 16 Rate Blood Pressure 106/60 (mmHg) O2 Sat by Pulse 99 Oximetry 12/28/17 12/28/17 12/28/17 10:50 10:51 11:35 Temperature Pulse Rate Respiratory 18 16 16 Rate Blood Pressure (mmHg) O2 Sat by Pulse Oximetry 12/28/17 12/28/17 12/28/17 11:36 12:40 12:55 Temperature 97.6 F Pulse Rate 63 Respiratory 16 16 16 Rate Blood Pressure 118/64 (mmHg) O2 Sat by Pulse 98 Oximetry 12/28/17 12/28/17 12/28/17 13:29 13:30 15:01 Temperature Pulse Rate Respiratory 16 16 16 Rate Blood Pressure (mmHg) O2 Sat by Pulse Oximetry 12/28/17 12/28/17 12/28/17 15:50 17:19 17:34 Temperature 99.0 F Pulse Rate 70 Respiratory 16 16 16 Rate Blood Pressure 137/65 (mmHg) O2 Sat by Pulse 98 Oximetry 12/28/17 12/28/17 12/28/17 18:49 20:00 20:03 Temperature 98.1 F Pulse Rate 69 Respiratory 18 16 16 Rate Blood Pressure 123/70 (mmHg) O2 Sat by Pulse 99 Oximetry 12/28/17 12/28/17 12/28/17 20:05 21:31 21:33 Temperature 98.1 F Pulse Rate 72 Respiratory 16 16 16 Rate Blood Pressure 105/68 (mmHg) O2 Sat by Pulse 99 Oximetry 12/28/17 12/29/17 12/29/17 23:32 01:48 01:49 Temperature 97.7 F Pulse Rate 66 Respiratory 18 16 16 Rate Blood Pressure 130/66 (mmHg) O2 Sat by Pulse 99 Oximetry 12/29/17 12/29/17 12/29/17 02:31 03:48 03:49 Temperature 98.1 F Pulse Rate 64 Respiratory 16 16 16 Rate Blood Pressure 130/81 (mmHg) O2 Sat by Pulse 99 Oximetry 12/29/17 12/29/17 05:28 05:58 Temperature Pulse Rate Respiratory 18 16 Rate Blood Pressure (mmHg) O2 Sat by Pulse Oximetry - Intake and Output Intake and Output: Intake & Output 12/26/17 12/27/17 12/28/17 12/29/17 11:59 11:59 11:59 11:59 Intake Total 1370 3801 2915 Output Total 500 1250 2200 Balance 870 2551 715 Weight 224 lb 12.8 oz 225 lb 6.4 oz 243 lb 14.4 oz Intake: IV Fluids 1250 690 ABX - ZOSYN 72 NS (0.9%) 618 IVPB 2241 475 ABX - VANCOMYCIN 2141 250 ABX - ZOSYN 100 225 Oral 120 1560 1750 Output: Urine 500 1250 2200 Other: Estimated Void Large Medium # Bowel Movements 0 0 # Voids 1 2 ADLs: Meal Record Start: 12/27/17 05: 31 Freq: DAILY@0900,1400,1800 Status: Active Protocol: Created 12/27/17 05:31 System (Rec: 12/27/17 05:31 System MED-C42) Document 12/27/17 09:00 [id number] (Rec: 12/27/17 09:31 [id number] MED-C02) Document 12/27/17 14:00 [id number] (Rec: 12/27/17 14:15 [id number] MED-C02) Document 12/27/17 15:47 [id number] (Rec: 12/27/17 15:47 [id number] MED-C09) Document 12/27/17 18:00 [id number] (Rec: 12/27/17 19:11 [id number] MED-C26) Document 12/28/17 09:00 [id number] (Rec: 12/28/17 09:32 [id number] MED-C09) Document 12/28/17 13:29 [id number] (Rec: 12/28/17 13:30 [id number] MED-C09) Document 12/28/17 18:00 [id number] (Rec: 12/28/17 18:43 [id number] MED-C11) Intake and Output Start: 12/26/17 23: 55 Freq: Status: Active Protocol: Created 12/26/17 23:55 System (Rec: 12/26/17 23:55 System [id number]) Intake and Output Start: 12/27/17 05: 31 Freq: DAILY@0600,1400,2200 Status: Active Protocol: Created 12/27/17 05:31 System (Rec: 12/27/17 05:31 System MED-C42) Document 12/27/17 14:00 [id number] (Rec: 12/27/17 14:15 [id number] MED-C02) Document 12/27/17 16:10 [id number] (Rec: 12/27/17 16:10 [id number] MED-C09) Document 12/27/17 22:00 [id number] (Rec: 12/27/17 22:27 [id number] MED-C11) Document 12/28/17 06:00 [id number] (Rec: 12/28/17 06:02 [id number] MED-C11) Document 12/28/17 13:29 [id number] (Rec: 12/28/17 13:30 [id number] MED-C09) Document 12/28/17 22:00 [id number] (Rec: 12/28/17 22:14 [id number] MED-C11) Document 12/28/17 22:48 [id number] (Rec: 12/28/17 22:48 [id number] MED-C11) Document 12/29/17 06:00 [id number] (Rec: 12/29/17 06:10 [id number] MED-C11) - Physical Exam General Physical Exam Comment: Left lower leg - She continues to have erythema and tenderness, warmth General: No Cyanosis, No Anemia, No Jaundice, No Clubbing Skin: Abnormal: Rash Lungs and Chest: Yes: Chest Expansion Full, Chest Expansion Symetrica, Percussion Note Resonant, Vessicular Breath Sounds, Wheezes. No: Crackles Heart Rate and Rhythm: Regular Additional Cardiovascular: Yes: Normal Heart Sounds. No: Heart Murmur Abdominal Exam: Yes: Soft, Bowel Sounds Present. No: Distention, Abdominal Tenderness Results - Results Lab Results: Laboratory Results - last 24 hr 12/28/17 12/28/17 12/28/17 06:56 06:56 07:24 WBC 4.7 RBC 4.44 Hgb 13.5 Hct 41 MCV 92 MCH 31 MCHC 33 RDW 15 Plt Count 75 L MPV 10.4 Neut % (Auto) 63.7 Lymph % (Auto) 21.6 L [place] % (Auto) 10.9 H Eos % (Auto) 3.1 Baso % (Auto) 0.7 Absolute Neuts (auto) 3.0 Absolute Lymphs (auto) 1.0 Absolute Monos (auto) 0.5 Absolute Eos (auto) 0.1 Absolute Basos (auto) 0 Absolute Nucleated RBC 0 Nucleated RBC % 0.1 Sodium 142 Potassium 3.9 Chloride 107 Carbon Dioxide 30 Anion Gap 5 BUN 16 Creatinine 0.68 Est GFR ( Amer) 106.8 Est GFR (Non-Af Amer) 88.3 BUN/Creatinine Ratio 23.5 H Glucose 88 POC Glucose (mg/dL) 83 Calcium 9.2 C-Reactive Protein 83.23 H Vancomycin Trough 14.1 12/28/17 12/29/17 12/29/17 21:31 06:30 06:30 WBC 5.0 RBC 4.12 Hgb 12.7 Hct 38 MCV 92 MCH 31 MCHC 34 RDW 15 Plt Count 93 L MPV 10.0 Neut % (Auto) 59.1 Lymph % (Auto) 23.8 L [place] % (Auto) 12.7 H Eos % (Auto) 3.3 Baso % (Auto) 1.1 Absolute Neuts (auto) 2.9 Absolute Lymphs (auto) 1.2 Absolute Monos (auto) 0.6 Absolute Eos (auto) 0.2 Absolute Basos (auto) 0.1 Absolute Nucleated RBC 0 Nucleated RBC % 0.1 Sodium 140 Potassium 4.3 Chloride 108 Carbon Dioxide 29 Anion Gap 3 BUN 23 Creatinine 0.68 Est GFR ( Amer) 106.8 Est GFR (Non-Af Amer) 88.3 BUN/Creatinine Ratio 33.8 H Glucose 95 POC Glucose (mg/dL) 113 H Calcium 8.8 C-Reactive Protein 36.09 H Vancomycin Trough Assessment - Problem List Assessment: Patient Problems Cellulitis of left lower leg (Acute) Leg pain (Acute 12/27/17) Ulcer of left lower leg (Acute) Depression (Chronic) Diabetes mellitus type 2 in obese (Chronic) Essential hypertension (Chronic) Factor V Leiden mutation (Chronic) History of MRSA infection (Chronic) History of pulmonary embolism (Chronic) Hyperthyroidism, subclinical (Chronic) Idiopathic thrombocytopenic purpura (Chronic) Kidney stone on left side (Chronic) Lymphedema of both lower extremities (Chronic) Multinodular goiter (Chronic) Osteoarthritis of both knees (Chronic) Osteoarthritis of shoulders, bilateral (Chronic) Osteoarthritis, hip, bilateral (Chronic) S/P IVC filter (Chronic) Sleep apnea (Chronic) Urinary incontinence (Chronic) Family history of VRE (vancomycin resistant Enterococcus) infection (Chronic) Plan: Her cellulitis is improving dramatically. Her CRP has come down from 149 to 36. She requires further parenteral antibacterials owing to the lymphedema/ venous insufficiency in her legs. Her hypertension and diabetes are under control She needs a safe plan of discharge. She is not keen on the idea of a SNF. She will continue to receive PT/OT.
[2017-12-29] MEDS: DULoxetine DR CAP* 30 MG CAP.DR PO SCH (10:12)
[2017-12-29] MEDS: Lactobacillus Acidophilus* 1 TAB PO SCH ×2 (10:12→20:28)
[2017-12-29] MEDS: metFORMIN* 500 MG TAB PO SCH ×2 (10:12→20:28)
[2017-12-29] MEDS: predniSONE TAB* 5 MG PO SCH (10:12)
[2017-12-29] MEDS: Methimazole TAB* 5 MG PO SCH (10:12)
[2017-12-29] MEDS: Docusate CAP* 100 MG PO SCH ×2 (11:11→20:28)
[2017-12-29] MEDS: Melatonin 3 MG TAB PO PRN (22:01)
[2017-12-29] MEDS: Nystatin CREAM* 15 GM TUBE TOPICAL SCH ×2 (23:23→23:34)
[2017-12-30] MEDS: NS 0.9% 1000 ML* 1,000 ML IV SCH (02:03)
[2017-12-30] MEDS: ZOSYN 3.375 GM Q8H per EXTENDED INFUSION IVPB SCH ×6 (02:03→17:00)
[2017-12-30] MEDS: HYDROmorphone INJ* 0.5 MG/0.5 ML SYRINGE IV SLOW PU PRN ×5 (03:20→21:26)
[2017-12-30] MEDS: Gabapentin CAP(*) 300 MG PO SCH ×6 (03:20→21:35)
[2017-12-30] MEDS: Acetaminophen TAB* 325 MG PO PRN (05:24)
[2017-12-30] MEDS: Omeprazole CAP* 20 MG PO SCH (05:27)
[2017-12-30] MEDS: metFORMIN* 500 MG TAB PO SCH ×2 (08:04→21:35)
[2017-12-30] MEDS: Docusate CAP* 100 MG PO SCH ×2 (08:04→21:36)
[2017-12-30] MEDS: predniSONE TAB* 5 MG PO SCH (08:05)
[2017-12-30] MEDS: Lactobacillus Acidophilus* 1 TAB PO SCH ×2 (08:05→21:36)
[2017-12-30] MEDS: DULoxetine DR CAP* 30 MG CAP.DR PO SCH (08:05)
[2017-12-30] MEDS: Methimazole TAB* 5 MG PO SCH (08:05)
[2017-12-30] MEDS: Nystatin CREAM* 15 GM TUBE TOPICAL SCH ×2 (08:06→22:21)
--- NOTE | 2017-12-30 09:51 | PN ---
Subjective - Subjective Reason for Note: Progress Note History: She continues to have 8/10 pain in her left leg. She has been out of bed and using a chair. Her appetite is good and the antibiotics have not caused her diarrhea. She is aware she is improving, but she is not ready for independence. Active Problems: Active Problems Cellulitis of left lower leg (Acute) L03.116 Leg pain (Acute 12/27/17) Ulcer of left lower leg (Acute) L97.929 Depression (Chronic) F32.9 Diabetes mellitus type 2 in obese (Chronic) E11.9, E66.9 Essential hypertension (Chronic) I10 Factor V Leiden mutation (Chronic) D68.51 History of MRSA infection (Chronic) Z86.14 History of pulmonary embolism (Chronic) Z86.711 Hyperthyroidism, subclinical (Chronic) E05.90 Idiopathic thrombocytopenic purpura (Chronic) D69.3 Kidney stone on left side (Chronic) N20.0 Lymphedema of both lower extremities (Chronic) I89.0 Multinodular goiter (Chronic) E04.2 Osteoarthritis of both knees (Chronic) M17.0 Osteoarthritis of shoulders, bilateral (Chronic) M19.011, M19.012 Osteoarthritis, hip, bilateral (Chronic) M16.0 S/P IVC filter (Chronic) Z95.828 Sleep apnea (Chronic) G47.30 Urinary incontinence (Chronic) R32 Current Medications: Current Medications Acetaminophen (Tylenol Tab*) 650 mg PO Q6H PRN PRN Reason: FEVER/PAIN Last Admin: 12/30/17 05:24 Dose: 650 mg Docusate Sodium (Colace Cap*) 200 mg PO BID [facility] Last Admin: 12/30/17 08:04 Dose: 100 mg Duloxetine HCl (Cymbalta Cap*) 30 mg PO DAILY [facility] Last Admin: 12/30/17 08:05 Dose: 30 mg Gabapentin (Neurontin Cap(*)) 600 mg PO Q4H [facility] Last Admin: 12/30/17 09:40 Dose: 600 mg Hydromorphone HCl (Dilaudid Inj*) 1 mg IV SLOW PU Q4H PRN PRN Reason: PAIN Last Admin: 12/30/17 08:08 Dose: 1 mg Sodium Chloride (Ns 0.9% 1000 Ml*) 1,000 mls @ 75 mls/hr IV PER RATE [facility] Last Admin: 12/30/17 02:03 Dose: 75 mls/hr Piperacillin Sod/Tazobactam (Sod 3.375 gm/ Sodium Chloride) 100 mls @ 25 mls/ hr IVPB Q8H [facility] Last Admin: 12/30/17 09:40 Dose: 25 mls/hr Lactobacillus Rhamnosus (Lactobacillus Acidophilus*) 1 tab PO BID [facility] Last Admin: 12/30/17 08:05 Dose: 1 tab Melatonin (Melatonin) 3 mg PO BEDTIME PRN; Protocol PRN Reason: Sleep Last Admin: 12/29/17 22:01 Dose: 3 mg Metformin HCl (Glucophage*) 500 mg PO BID [facility] Last Admin: 12/30/17 08:04 Dose: 500 mg Methimazole (Tapazole Tab*) 5 mg PO DAILY [facility] Last Admin: 12/30/17 08:05 Dose: 5 mg Nystatin (Nystatin Cream*) 1 applic TOPICAL BID [facility] Last Admin: 12/30/17 08:06 Dose: 1 applic Omeprazole (Prilosec Cap*) 20 mg PO DAILY@0600 [facility] Last Admin: 12/30/17 05:27 Dose: Not Given Oxycodone HCl (Roxycodone Tab*) 20 mg PO Q4HR PRN PRN Reason: PAIN Last Admin: 12/27/17 06:39 Dose: 20 mg Prednisone (Deltasone Tab*) 5 mg PO DAILY [facility] Last Admin: 12/30/17 08:05 Dose: 5 mg Home Medications: Home Medications Medication Instructions Recorded Confirmed Type DULoxetine DR CAP* [Cymbalta CAP*] 30 mg PO DAILY 05/28/15 12/27/17 History Gabapentin CAP(*) [Neurontin 600 mg PO .SIX TIMES DAILY 05/28/15 12/27/17 History CAP(*)] Methimazole TAB* [Tapazole TAB*] 5 mg PO DAILY 11/17/15 12/27/17 History metFORMIN* [Glucophage*] 500 mg PO BID 11/17/15 12/27/17 History predniSONE TAB* [Deltasone TAB*] 5 mg PO DAILY 11/17/15 12/27/17 History Oxycodone TAB(NF) [Oxycodone HCl 20 mg PO Q4HR PRN 01/07/17 12/27/17 History 10 MG] Acetaminophen [Acetaminophen Extra 500 mg PO Q8H PRN MDD 6 tablets 08/07/1701/06 History Strength] Calcium Carbonate [Tums] 300 mg PO DAILY PRN 12/27/17 12/27/17 History Allergies: Allergies Allergy/AdvReac Type Severity Reaction Status Date / Time ibuprofen Allergy Severe Anaphylatic Verified 12/27/17 04:15 Shock sulfamethoxazole Allergy Severe Anaphylatic Verified 12/27/17 04:15 [From Bactrim] Shock trimethoprim [From Bactrim] Allergy Severe Anaphylatic Verified 12/27/17 04:15 Shock ceftriaxone Allergy Intermediate Swelling Verified 12/27/17 04:15 Adhesive Tape Allergy Rash Verified 12/27/17 04:15 eltrombopag Allergy Unknown Verified 12/27/17 04:15 Reaction Details morphine Allergy sedation/hypoxia Verified 12/27/17 04:15 >16H after 30mg MS Contin nickel Allergy Rash Verified 12/27/17 04:15 levofloxacin AdvReac Joint Pain Verified 12/27/17 04:15 ondansetron AdvReac Nausea And Verified 12/27/17 04:15 Vomiting Objective - Vital Signs Vital Signs: Vital Signs 12/29/17 12/29/17 12/29/17 10:11 10:12 12:09 Temperature 98.1 F Pulse Rate 66 Respiratory 16 16 16 Rate Blood Pressure 113/59 (mmHg) O2 Sat by Pulse 96 Oximetry 12/29/17 12/29/17 12/29/17 12:27 13:42 14:10 Temperature Pulse Rate Respiratory 18 16 20 Rate Blood Pressure (mmHg) O2 Sat by Pulse Oximetry 12/29/17 12/29/17 12/29/17 14:11 15:35 15:49 Temperature 97.5 F Pulse Rate 70 Respiratory 20 16 18 Rate Blood Pressure 119/62 (mmHg) O2 Sat by Pulse 100 Oximetry 12/29/17 12/29/17 12/29/17 18:06 18:07 19:17 Temperature 98.1 F Pulse Rate 74 Respiratory 18 18 20 Rate Blood Pressure 120/69 (mmHg) O2 Sat by Pulse 98 Oximetry 12/29/17 12/29/17 12/29/17 19:29 19:30 19:38 Temperature Pulse Rate Respiratory 18 18 18 Rate Blood Pressure (mmHg) O2 Sat by Pulse Oximetry 12/29/17 12/29/17 12/29/17 20:00 22:00 22:01 Temperature Pulse Rate Respiratory 12 18 14 Rate Blood Pressure (mmHg) O2 Sat by Pulse Oximetry 12/29/17 12/29/17 12/30/17 22:53 23:35 00:00 Temperature 98.0 F Pulse Rate 65 Respiratory 20 15 15 Rate Blood Pressure 133/72 (mmHg) O2 Sat by Pulse 99 Oximetry 12/30/17 12/30/17 12/30/17 02:50 03:20 05:25 Temperature 97.4 F Pulse Rate 71 Respiratory 20 15 15 Rate Blood Pressure 140/89 (mmHg) O2 Sat by Pulse 100 Oximetry 12/30/17 12/30/17 12/30/17 05:27 05:52 07:16 Temperature 98.0 F Pulse Rate 70 Respiratory 15 15 16 Rate Blood Pressure 111/63 (mmHg) O2 Sat by Pulse 97 Oximetry 12/30/17 12/30/17 08:08 09:40 Temperature Pulse Rate Respiratory 16 16 Rate Blood Pressure (mmHg) O2 Sat by Pulse Oximetry - Intake and Output Intake and Output: Intake & Output 12/27/17 12/28/17 12/29/17 12/30/17 11:59 11:59 11:59 11:59 Intake Total 1370 3801 2915 3557 Output Total 500 1250 2200 3325 Balance 870 2551 715 232 Weight 224 lb 12.8 oz 225 lb 6.4 oz 243 lb 14.4 oz 230 lb 3.2 oz Intake: IV Fluids 1250 690 686 ABX - VANCOMYCIN 100 ABX - ZOSYN 72 NS (0.9%) 618 586 IVPB 2241 475 211 ABX - VANCOMYCIN 2141 250 ABX - ZOSYN 100 225 NS (0.9%) 211 Oral 120 1560 1750 2660 Output: Urine 500 1250 2200 3325 Other: Estimated Void Large Medium # Bowel Movements 0 0 0 # Voids 1 2 ADLs: Meal Record Start: 12/27/17 05: 31 Freq: DAILY@0900,1400,1800 Status: Active Protocol: Created 12/27/17 05:31 System (Rec: 12/27/17 05:31 System MED-C42) Document 12/27/17 09:00 [id number] (Rec: 12/27/17 09:31 [id number] MED-C02) Document 12/27/17 14:00 [id number] (Rec: 12/27/17 14:15 [id number] MED-C02) Document 12/27/17 15:47 [id number] (Rec: 12/27/17 15:47 [id number] MED-C09) Document 12/27/17 18:00 [id number] (Rec: 12/27/17 19:11 [id number] MED-C26) Document 12/28/17 09:00 [id number] (Rec: 12/28/17 09:32 [id number] MED-C09) Document 12/28/17 13:29 [id number] (Rec: 12/28/17 13:30 [id number] MED-C09) Document 12/28/17 18:00 [id number] (Rec: 12/28/17 18:43 [id number] MED-C11) Document 12/29/17 09:00 [id number] (Rec: 12/29/17 12:55 [id number] MED-C11) Document 12/29/17 14:00 [id number] (Rec: 12/29/17 14:24 [id number] MED-C11) Document 12/29/17 18:00 [id number] (Rec: 12/29/17 18:21 [id number] MED-C09) Document 12/30/17 09:00 [id number] (Rec: 12/30/17 09:34 [id number] MED-C11) Intake and Output Start: 12/26/17 23: 55 Freq: Status: Active Protocol: Created 12/26/17 23:55 System (Rec: 12/26/17 23:55 System EDRM-C03) Intake and Output Start: 12/27/17 05: 31 Freq: DAILY@0600,1400,2200 Status: Active Protocol: Created 12/27/17 05:31 System (Rec: 12/27/17 05:31 System MED-C42) Document 12/27/17 14:00 [id number] (Rec: 12/27/17 14:15 [id number] MED-C02) Document 12/27/17 16:10 [id number] (Rec: 12/27/17 16:10 [id number] MED-C09) Document 12/27/17 22:00 [id number] (Rec: 12/27/17 22:27 [id number] MED-C11) Document 12/28/17 06:00 [id number] (Rec: 12/28/17 06:02 [id number] MED-C11) Document 12/28/17 13:29 [id number] (Rec: 12/28/17 13:30 [id number] MED-C09) Document 12/28/17 22:00 [id number] (Rec: 12/28/17 22:14 [id number] MED-C11) Document 12/28/17 22:48 [id number] (Rec: 12/28/17 22:48 [id number] MED-C11) Document 12/29/17 06:00 [id number] (Rec: 12/29/17 06:10 [id number] MED-C11) Document 12/29/17 13:52 [id number] (Rec: 12/29/17 13:52 [id number] MED-C11) Document 12/29/17 20:54 [id number] (Rec: 12/29/17 20:55 [id number] MED-C11) Document 12/30/17 04:13 [id number] (Rec: 12/30/17 04:14 [id number] MED-C11) - Physical Exam General: No Cyanosis, No Anemia, No Jaundice, No Clubbing Lungs and Chest: Yes: Chest Expansion Full, Chest Expansion Symetrica, Percussion Note Resonant, Vessicular Breath Sounds. No: Crackles, Wheezes Heart Rate and Rhythm: Regular Additional Cardiovascular: Yes: Normal Heart Sounds. No: Heart Murmur Assessment - Problem List Assessment: Patient Problems Cellulitis of left lower leg (Acute) Leg pain (Acute 12/27/17) Ulcer of left lower leg (Acute) Depression (Chronic) Diabetes mellitus type 2 in obese (Chronic) Essential hypertension (Chronic) Factor V Leiden mutation (Chronic) History of MRSA infection (Chronic) History of pulmonary embolism (Chronic) Hyperthyroidism, subclinical (Chronic) Idiopathic thrombocytopenic purpura (Chronic) Kidney stone on left side (Chronic) Lymphedema of both lower extremities (Chronic) Multinodular goiter (Chronic) Osteoarthritis of both knees (Chronic) Osteoarthritis of shoulders, bilateral (Chronic) Osteoarthritis, hip, bilateral (Chronic) S/P IVC filter (Chronic) Sleep apnea (Chronic) Urinary incontinence (Chronic) Family history of VRE (vancomycin resistant Enterococcus) infection (Chronic) Plan: She is afebrile. Her left leg is improving. She requires prolonged IV antibacterials in view of her severe lymphedema/venous insufficiency. Her diabetes and hypertension are under control. SH: She needs a safe plan of discharge. I discussed this with her at length. Short term, she does not want to be in a chcf facility, but her home situation is unstable. Snf, I discussed assisted living - she is open to the idea. The main barriers are her 19 year old daughter who is completing her high school certificate and also cost. The social studies teacher needs to discuss this with her.
[2017-12-30] MEDS: Melatonin 3 MG TAB PO PRN (21:41)
[2017-12-31] MEDS: HYDROmorphone INJ* 0.5 MG/0.5 ML SYRINGE IV SLOW PU PRN ×6 (01:34→22:12)
[2017-12-31] MEDS: ZOSYN 3.375 GM Q8H per EXTENDED INFUSION IVPB SCH ×6 (01:43→18:10)
[2017-12-31] MEDS: Gabapentin CAP(*) 300 MG PO SCH ×6 (01:52→22:12)
[2017-12-31] MEDS: Acetaminophen TAB* 325 MG PO PRN (03:58)
[2017-12-31] MEDS: Omeprazole CAP* 20 MG PO SCH (04:49)
--- NOTE | 2017-12-31 07:48 | PN ---
Subjective - Subjective Reason for Note: Progress Note History: She had some pain in her lower leg overnight - her dressing hasn't been changed yet. She is sweaty at night, but this is usual for her. She only slept 4 hours and woke early, unable to return to sleep. She took colace and had x 2 bowel formed bowel movements. Active Problems: Active Problems Cellulitis of left lower leg (Acute) L03.116 Leg pain (Acute 12/27/17) Ulcer of left lower leg (Acute) L97.929 Depression (Chronic) F32.9 Diabetes mellitus type 2 in obese (Chronic) E11.9, E66.9 Essential hypertension (Chronic) I10 Factor V Leiden mutation (Chronic) D68.51 History of MRSA infection (Chronic) Z86.14 History of pulmonary embolism (Chronic) Z86.711 Hyperthyroidism, subclinical (Chronic) E05.90 Idiopathic thrombocytopenic purpura (Chronic) D69.3 Kidney stone on left side (Chronic) N20.0 Lymphedema of both lower extremities (Chronic) I89.0 Multinodular goiter (Chronic) E04.2 Osteoarthritis of both knees (Chronic) M17.0 Osteoarthritis of shoulders, bilateral (Chronic) M19.011, M19.012 Osteoarthritis, hip, bilateral (Chronic) M16.0 S/P IVC filter (Chronic) Z95.828 Sleep apnea (Chronic) G47.30 Urinary incontinence (Chronic) R32 Current Medications: Current Medications Acetaminophen (Tylenol Tab*) 650 mg PO Q6H PRN PRN Reason: FEVER/PAIN Last Admin: 12/31/17 03:58 Dose: 650 mg Docusate Sodium (Colace Cap*) 200 mg PO BID SHAGGY Last Admin: 12/30/17 21:36 Dose: 100 mg Duloxetine HCl (Cymbalta Cap*) 30 mg PO DAILY [facility]AG[facility] Last Admin: 12/30/17 08:05 Dose: 30 mg Gabapentin (Neurontin Cap(*)) 600 mg PO Q4H [facility]AGGY Last Admin: 12/31/17 05:41 Dose: 600 mg Hydromorphone HCl (Dilaudid Inj*) 1 mg IV SLOW PU Q4H PRN PRN Reason: PAIN Last Admin: 12/31/17 05:41 Dose: 1 mg Sodium Chloride (Ns 0.9% 1000 Ml*) 1,000 mls @ 75 mls/hr IV PER RATE [facility] Last Admin: 12/30/17 02:03 Dose: 75 mls/hr Piperacillin Sod/Tazobactam (Sod 3.375 gm/ Sodium Chloride) 100 mls @ 25 mls/ hr IVPB Q8H [facility] Last Admin: 12/31/17 01:43 Dose: 25 mls/hr Lactobacillus Rhamnosus (Lactobacillus Acidophilus*) 1 tab PO BID [facility] Last Admin: 12/30/17 21:36 Dose: 1 tab Melatonin (Melatonin) 3 mg PO BEDTIME PRN; Protocol PRN Reason: Sleep Last Admin: 12/30/17 21:41 Dose: 3 mg Metformin HCl (Glucophage*) 500 mg PO BID [facility] Last Admin: 12/30/17 21:35 Dose: 500 mg Methimazole (Tapazole Tab*) 5 mg PO DAILY [facility] Last Admin: 12/30/17 08:05 Dose: 5 mg Nystatin (Nystatin Cream*) 1 applic TOPICAL BID [facility] Last Admin: 12/30/17 22:21 Dose: 1 applic Omeprazole (Prilosec Cap*) 20 mg PO DAILY@0600 [facility] Last Admin: 12/31/17 04:49 Dose: Not Given Oxycodone HCl (Roxycodone Tab*) 20 mg PO Q4HR PRN PRN Reason: PAIN Last Admin: 12/27/17 06:39 Dose: 20 mg Prednisone (Deltasone Tab*) 5 mg PO DAILY [facility] Last Admin: 12/30/17 08:05 Dose: 5 mg Home Medications: Home Medications Medication Instructions Recorded Confirmed Type DULoxetine DR CAP* [Cymbalta CAP*] 30 mg PO DAILY 05/28/15 12/27/17 History Gabapentin CAP(*) [Neurontin 600 mg PO .SIX TIMES DAILY 05/28/15 12/27/17 History CAP(*)] Methimazole TAB* [Tapazole TAB*] 5 mg PO DAILY 11/17/15 12/27/17 History metFORMIN* [Glucophage*] 500 mg PO BID 11/17/15 12/27/17 History predniSONE TAB* [Deltasone TAB*] 5 mg PO DAILY 11/17/15 12/27/17 History Oxycodone TAB(NF) [Oxycodone HCl 20 mg PO Q4HR PRN 01/07/17 12/27/17 History 10 MG] Acetaminophen [Acetaminophen Extra 500 mg PO Q8H PRN MDD 6 tablets 08/07/1701/06 History Strength] Calcium Carbonate [Tums] 300 mg PO DAILY PRN 12/27/17 12/27/17 History Allergies: Allergies Allergy/AdvReac Type Severity Reaction Status Date / Time ibuprofen Allergy Severe Anaphylatic Verified 12/27/17 04:15 Shock sulfamethoxazole Allergy Severe Anaphylatic Verified 12/27/17 04:15 [From Bactrim] Shock trimethoprim [From Bactrim] Allergy Severe Anaphylatic Verified 12/27/17 04:15 Shock ceftriaxone Allergy Intermediate Swelling Verified 12/27/17 04:15 Adhesive Tape Allergy Rash Verified 12/27/17 04:15 eltrombopag Allergy Unknown Verified 12/27/17 04:15 Reaction Details morphine Allergy sedation/hypoxia Verified 12/27/17 04:15 >16H after 30mg MS Contin nickel Allergy Rash Verified 12/27/17 04:15 levofloxacin AdvReac Joint Pain Verified 12/27/17 04:15 ondansetron AdvReac Nausea And Verified 12/27/17 04:15 Vomiting Objective - Vital Signs Vital Signs: Vital Signs 12/30/17 12/30/17 12/30/17 07:52 08:00 08:08 Temperature Pulse Rate Respiratory 16 16 16 Rate Blood Pressure (mmHg) O2 Sat by Pulse Oximetry 12/30/17 12/30/17 12/30/17 09:08 09:40 10:08 Temperature Pulse Rate Respiratory 16 16 14 Rate Blood Pressure (mmHg) O2 Sat by Pulse Oximetry 12/30/17 12/30/17 12/30/17 11:07 11:40 13:07 Temperature 98.0 F Pulse Rate 73 Respiratory 16 16 16 Rate Blood Pressure 99/77 (mmHg) O2 Sat by Pulse 95 Oximetry 12/30/17 12/30/17 12/30/17 13:08 14:07 15:08 Temperature Pulse Rate Respiratory 16 16 16 Rate Blood Pressure (mmHg) O2 Sat by Pulse Oximetry 12/30/17 12/30/17 12/30/17 15:21 17:00 17:01 Temperature 97.3 F Pulse Rate 68 Respiratory 18 14 16 Rate Blood Pressure 131/77 (mmHg) O2 Sat by Pulse 99 Oximetry 12/30/17 12/30/17 12/30/17 18:01 19:31 20:00 Temperature 98.1 F Pulse Rate 87 Respiratory 16 16 12 Rate Blood Pressure 138/80 (mmHg) O2 Sat by Pulse 96 Oximetry 12/30/17 12/30/17 12/30/17 21:26 21:35 22:22 Temperature Pulse Rate Respiratory 12 12 12 Rate Blood Pressure (mmHg) O2 Sat by Pulse Oximetry 12/30/17 12/30/17 12/30/17 23:11 23:27 23:28 Temperature 98.2 F Pulse Rate 87 Respiratory 18 14 14 Rate Blood Pressure 127/75 (mmHg) O2 Sat by Pulse 95 Oximetry 12/31/17 12/31/17 12/31/17 01:34 01:52 03:30 Temperature 98.0 F Pulse Rate 68 Respiratory 16 16 16 Rate Blood Pressure 150/68 (mmHg) O2 Sat by Pulse 97 Oximetry 12/31/17 12/31/17 12/31/17 03:55 04:00 05:41 Temperature Pulse Rate Respiratory 15 14 15 Rate Blood Pressure (mmHg) O2 Sat by Pulse Oximetry - Intake and Output Intake and Output: Intake & Output 12/28/17 12/29/17 12/30/17 12/31/17 11:59 11:59 11:59 11:59 Intake Total 3801 2915 3557 3535 Output Total 1250 2200 3325 3275 Balance 2551 715 232 260 Weight 225 lb 6.4 oz 243 lb 14.4 oz 230 lb 3.2 oz 235 lb 4.8 oz Intake: IV Fluids 690 686 765 ABX - VANCOMYCIN 100 ABX - ZOSYN 72 NS (0.9%) 618 586 765 IVPB 2241 475 211 430 ABX - VANCOMYCIN 2141 250 ABX - ZOSYN 100 225 430 NS (0.9%) 211 Oral 1560 1750 2660 2340 Output: Urine 1250 2200 3325 3275 Other: Estimated Void Large Medium Date of Last Bowel 12/27/17 Movement # Bowel Movements 0 0 0 0 Estimated Stool Amount Large # Voids 1 2 2 ADLs: Meal Record Start: 12/27/17 05: 31 Freq: DAILY@0900,1400,1800 Status: Active Protocol: Created 12/27/17 05:31 System (Rec: 12/27/17 05:31 System MED-C42) Document 12/27/17 09:00 [id number] (Rec: 12/27/17 09:31 [id number] MED-C02) Document 12/27/17 14:00 [id number] (Rec: 12/27/17 14:15 [id number] MED-C02) Document 12/27/17 15:47 [id number] (Rec: 12/27/17 15:47 [id number] MED-C09) Document 12/27/17 18:00 [id number] (Rec: 12/27/17 19:11 [id number] MED-C26) Document 12/28/17 09:00 [id number] (Rec: 12/28/17 09:32 [id number] MED-C09) Document 12/28/17 13:29 [id number] (Rec: 12/28/17 13:30 [id number] MED-C09) Document 12/28/17 18:00 [id number] (Rec: 12/28/17 18:43 [id number] MED-C11) Document 12/29/17 09:00 [id number] (Rec: 12/29/17 12:55 [id number] MED-C11) Document 12/29/17 14:00 [id number] (Rec: 12/29/17 14:24 [id number] MED-C11) Document 12/29/17 18:00 [id number] (Rec: 12/29/17 18:21 [id number] MED-C09) Document 12/30/17 09:00 [id number] (Rec: 12/30/17 09:34 [id number] MED-C11) Document 12/30/17 13:46 [id number] (Rec: 12/30/17 13:47 [id number] MED-C09) Document 12/30/17 17:45 [id number] (Rec: 12/30/17 17:45 GKT1788 MED-C11) Intake and Output Start: 12/26/17 23: 55 Freq: Status: Active Protocol: Created 12/26/17 23:55 System (Rec: 12/26/17 23:55 System [id number]) Intake and Output Start: 12/27/17 05: 31 Freq: DAILY@0600,1400,2200 Status: Active Protocol: Created 12/27/17 05:31 System (Rec: 12/27/17 05:31 System MED-C42) Document 12/27/17 14:00 [id number] (Rec: 12/27/17 14:15 [id number] MED-C02) Document 12/27/17 16:10 [id number] (Rec: 12/27/17 16:10 [id number] MED-C09) Document 12/27/17 22:00 [id number] (Rec: 12/27/17 22:27 [id number] MED-C11) Document 12/28/17 06:00 [id number] (Rec: 12/28/17 06:02 [id number] MED-C11) Document 12/28/17 13:29 [id number] (Rec: 12/28/17 13:30 [id number] MED-C09) Document 12/28/17 22:00 [id number] (Rec: 12/28/17 22:14 [id number] MED-C11) Document 12/28/17 22:48 [id number] (Rec: 12/28/17 22:48 [id number] MED-C11) Document 12/29/17 06:00 [id number] (Rec: 12/29/17 06:10 [id number] MED-C11) Document 12/29/17 13:52 [id number] (Rec: 12/29/17 13:52 [id number] MED-C11) Document 12/29/17 20:54 [id number] (Rec: 12/29/17 20:55 [id number] MED-C11) Document 12/30/17 04:13 [id number] (Rec: 12/30/17 04:14 [id number] MED-C11) Document 12/30/17 14:00 [id number] (Rec: 12/30/17 14:03 [id number] MED-C09) Document 12/30/17 22:00 [id number] (Rec: 12/30/17 22:07 [id number] MED-C11) Document 12/31/17 00:11 [id number] (Rec: 12/31/17 00:11 [id number] MED-C11) Document 12/31/17 06:00 [id number] (Rec: 12/31/17 06:16 [id number] MED-C11) - Physical Exam General: No Cyanosis, No Anemia, No Jaundice, No Clubbing Lungs and Chest: Yes: Chest Expansion Full, Chest Expansion Symetrica, Percussion Note Resonant, Vessicular Breath Sounds. No: Crackles, Wheezes Heart Rate and Rhythm: Regular Additional Cardiovascular: Yes: Normal Heart Sounds, Pedal Edema. No: Heart Murmur Abdominal Exam: Yes: Soft. No: Distention, Abdominal Tenderness Results - Results Lab Results: Laboratory Results - last 24 hr 12/30/17 12/30/17 11:05 22:05 POC Glucose (mg/dL) 125 H 98 Assessment - Problem List Assessment: Patient Problems Cellulitis of left lower leg (Acute) Leg pain (Acute 12/27/17) Ulcer of left lower leg (Acute) Depression (Chronic) Diabetes mellitus type 2 in obese (Chronic) Essential hypertension (Chronic) Factor V Leiden mutation (Chronic) History of MRSA infection (Chronic) History of pulmonary embolism (Chronic) Hyperthyroidism, subclinical (Chronic) Idiopathic thrombocytopenic purpura (Chronic) Kidney stone on left side (Chronic) Lymphedema of both lower extremities (Chronic) Multinodular goiter (Chronic) Osteoarthritis of both knees (Chronic) Osteoarthritis of shoulders, bilateral (Chronic) Osteoarthritis, hip, bilateral (Chronic) S/P IVC filter (Chronic) Sleep apnea (Chronic) Urinary incontinence (Chronic) Family history of VRE (vancomycin resistant Enterococcus) infection (Chronic) Plan: Cellulitis - She continues to have significant pain in her leg - she rates it only slight less than at admission. I will continue her antibacterials and recheck in the morning her labs. Pain management - I am concerned that we use proportionate pain control. By tomorrow I think it is pain control and her social situation that is keeping her in the [facility]. I think she will require weaning from the IV hydromorphone. She needs to keep the legs elevated - she was sitting in a regular arm chair with the cardiac chair pushed to the sides - I explained the reasons to Saima. T2D - this is controlled Hypertension - BP 150/80 - we will watch this. Hx DVT/PE - she has a IVC filter owing to previous hemorrhage on anticoagulation. The new pain in her lower leg could be a DVT. I will await inspection by the nursing staff today. 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
[2017-12-31] MEDS: Docusate CAP* 100 MG PO SCH ×2 (10:07→22:13)
[2017-12-31] MEDS: DULoxetine DR CAP* 30 MG CAP.DR PO SCH (10:19)
[2017-12-31] MEDS: Lactobacillus Acidophilus* 1 TAB PO SCH ×2 (10:19→22:11)
[2017-12-31] MEDS: metFORMIN* 500 MG TAB PO SCH ×2 (10:19→22:11)
[2017-12-31] MEDS: predniSONE TAB* 5 MG PO SCH (10:20)
[2017-12-31] MEDS: Methimazole TAB* 5 MG PO SCH (10:25)
[2017-12-31] MEDS: Nystatin CREAM* 15 GM TUBE TOPICAL SCH ×2 (10:25→22:13)
[2017-12-31] MEDS: NS 0.9% 1000 ML* 1,000 ML IV SCH (18:10)
[2018-01-01] MEDS: Gabapentin CAP(*) 300 MG PO SCH ×6 (02:23→21:35)
[2018-01-01] MEDS: HYDROmorphone INJ* 0.5 MG/0.5 ML SYRINGE IV SLOW PU PRN ×5 (02:24→23:58)
[2018-01-01] MEDS: ZOSYN 3.375 GM Q8H per EXTENDED INFUSION IVPB SCH ×4 (02:25→10:20)
[2018-01-01] MEDS: Omeprazole CAP* 20 MG PO SCH (06:32)
[2018-01-01 07:24] LABS: ABS Basophils 0.1 10^3/ul (0-0.2); ABS Eosinophils 0.2 10^3/ul (0-0.6); ABS Lymphocytes 1.3 10^3/ul (1.0-4.8); ABS Monocytes 0.8 10^3/ul (0-0.8); ABS Neutrophils 3.4 10^3/ul (1.5-7.7); ABS Nucleated RBC 0 10^3/ul; Eosinophil % 2.8 % (0-6); Hematocrit 44 % (35-47); Hemoglobin 14.7 g/dl (12.0-16.0); Mean Corpuscular HGB Conc 34 g/dl (31-36); Mean Corpuscular Hemoglobin 31 pg (27-31); Mean Corpuscular Volume 91 fL (80-97); Mean Platelet Volume 9.6 um3 (7.4-10.4); Nucleated Red Blood Cells % 0.1; Platelet Count 94 10^3/ul (150-450); Red Cell Distribution Width 14 % (10.5-15); White Blood Count 5.8 10^3/ul (3.5-10.8)
[2018-01-01 07:37] LABS: EGFR Non-African American 68.2 (>60)
[2018-01-01] MEDS: metFORMIN* 500 MG TAB PO SCH ×2 (10:20→21:38)
[2018-01-01] MEDS: Lactobacillus Acidophilus* 1 TAB PO SCH ×2 (10:20→21:38)
[2018-01-01] MEDS: predniSONE TAB* 5 MG PO SCH (10:20)
[2018-01-01] MEDS: Methimazole TAB* 5 MG PO SCH (10:20)
[2018-01-01] MEDS: DULoxetine DR CAP* 30 MG CAP.DR PO SCH (10:20)
[2018-01-01] MEDS: Nystatin CREAM* 15 GM TUBE TOPICAL SCH ×2 (10:21→21:41)
[2018-01-01] MEDS: Docusate CAP* 100 MG PO SCH ×2 (10:21→21:40)
--- NOTE | 2018-01-01 14:09 | RAD ---
INDICATION: Pain and swelling. COMPARISON: February 21, 2017 TECHNIQUE: Duplex interrogation of the Lowerextremity was performed. FINDINGS: Deep veins: The common femoral, great saphenous, profunda femoris, proximal, mid, and distal deep femoral, popliteal, posterior tibial veins are patent. (The peroneal veins not identified which is likely related to the patient's body habitus and dependent edema). There is normal compressibility, augmentation, and phasic flow. Superficial veins: There are no findings of superficial thrombophlebitis. Popliteal fossa:There is no evidence of a popliteal cyst. Soft tissues:There are no soft tissue abnormalities. IMPRESSION: MILDLY LIMITED EVALUATION OF TIBIAL VESSELS. NO EVIDENCE OF DEEP VENOUS THROMBOSIS.
[2018-01-01] MEDS: oxyCODONE TAB* 5 MG TAB PO PRN ×2 (14:17→21:36)
[2018-01-01] MEDS: Acetaminophen TAB* 325 MG PO PRN ×2 (14:20→21:36)
--- NOTE | 2018-01-01 16:35 | RAD ---
Indication: LEFT lower extremity cellulitis with necrotic ulcer. Wound in the LEFT lower leg /debridement. Comparison: December 30, 2012 CT. Technique: Noncontrast CT from the level of the distal metaphysis of the LEFT femur through the talocrural joint. Multiplanar reformation. Report: Marked dermal, subcutaneous tissue plane, and skeletal muscle compartment edema throughout the [id number] without evidence for a loculated soft tissue plane abscess collection. Narrow cephalocaudal ulcer at the posterior and posterior medial aspects of the ankle extends down to the posterior surface of the distal noninsertional segment of the Achilles tendon new compared with the prior exam. No infiltrative subcutaneous emphysema evident. No periosteal reaction or focal osteolysis evident. Negative for fracture or malalignment. Severe osteoarthritis at the knee. Small associated joint effusion. IMPRESSION: #. Large soft tissue ulcer extending down to the distal insertional segment of the Achilles tendon. No loculated soft tissue plane fluid collection evident to indicate abscess. #. No CT stigmata of osteomyelitis however if this remains a clinical concern consider MRI or in setting of contraindication to MRI 3 phase bone scan for further assessment.
[2018-01-01] MEDS: Amoxicillin/Clavulanate TAB* 875 MG PO SCH (21:37)
[2018-01-01] MEDS: Melatonin 3 MG TAB PO PRN (21:37)
[2018-01-02] MEDS: Gabapentin CAP(*) 300 MG PO SCH ×5 (02:05→18:00)
[2018-01-02] MEDS: oxyCODONE TAB* 5 MG TAB PO PRN ×3 (02:06→18:00)
[2018-01-02] MEDS: HYDROmorphone INJ* 0.5 MG/0.5 ML SYRINGE IV SLOW PU PRN ×3 (05:01→15:41)
[2018-01-02] MEDS: Omeprazole CAP* 20 MG PO SCH (06:23)
[2018-01-02] MEDS: Methimazole TAB* 5 MG PO SCH (08:18)
[2018-01-02] MEDS: predniSONE TAB* 5 MG PO SCH (08:18)
[2018-01-02] MEDS: DULoxetine DR CAP* 30 MG CAP.DR PO SCH (08:18)
[2018-01-02] MEDS: Lactobacillus Acidophilus* 1 TAB PO SCH (08:18)
[2018-01-02] MEDS: metFORMIN* 500 MG TAB PO SCH (08:18)
[2018-01-02] MEDS: Amoxicillin/Clavulanate TAB* 875 MG PO SCH (08:18)
[2018-01-02] MEDS: Docusate CAP* 100 MG PO SCH (08:19)
[2018-01-02] MEDS: Nystatin CREAM* 15 GM TUBE TOPICAL SCH (08:20)
[2018-01-02] MEDS ORDERED: oxyCODONE SR TAB(*) 10 MG TAB.SR PO SCH (09:30)
[2018-01-02 15:54] VITALS: BP 138/83
[2018-01-02] MEDS: Acetaminophen TAB* 325 MG PO PRN (18:11)
== END 2018-01-02 19:00 | disposition home health service (06) | DRG 603 ==
LOC: ED 23:38 → MED 12-27 03:16
PROVIDERS: ADMIT Hospitalist; ATTEND Internal Medicine Geriatric Medicine
PROC: 0H9LXZZ Drainage of Left Lower Leg Skin, External Approach (ICD-10-PCS; principal; 2017-12-27)
DX: L03.116 Cellulitis of left lower limb (principal); L97.929 Non-pressure chronic ulcer of unspecified part of left lower leg with unspecified severity; D68.51 Activated protein C resistance; D69.3 Immune thrombocytopenic purpura; Z68.42 Body mass index [BMI] 45.0-49.9, adult; B96.89 Other specified bacterial agents as the cause of diseases classified elsewhere; E11.622 Type 2 diabetes mellitus with other skin ulcer; F32.9 Major depressive disorder, single episode, unspecified; E05.90 Thyrotoxicosis, unspecified without thyrotoxic crisis or storm; N20.0 Calculus of kidney; I89.0 Lymphedema, not elsewhere classified; E05.20 Thyrotoxicosis with toxic multinodular goiter without thyrotoxic crisis or storm; M17.0 Bilateral primary osteoarthritis of knee; M19.012 Primary osteoarthritis, left shoulder; M19.011 Primary osteoarthritis, right shoulder; R32 Unspecified urinary incontinence; E66.01 Morbid (severe) obesity due to excess calories; G47.33 Obstructive sleep apnea (adult) (pediatric); G89.4 Chronic pain syndrome; E11.40 Type 2 diabetes mellitus with diabetic neuropathy, unspecified; Z86.711 Personal history of pulmonary embolism; Z86.14 Personal history of Methicillin resistant Staphylococcus aureus infection; Z79.84 Long term (current) use of oral hypoglycemic drugs; Z79.1 Long term (current) use of non-steroidal anti-inflammatories (NSAID); Z79.891 Long term (current) use of opiate analgesic; Z79.52 Long term (current) use of systemic steroids; Z79.899 Other long term (current) drug therapy; Z88.6 Allergy status to analgesic agent; Z88.5 Allergy status to narcotic agent; Z88.2 Allergy status to sulfonamides; Z88.8 Allergy status to other drugs, medicaments and biological substances; Z91.048 Other nonmedicinal substance allergy status; Z83.2 Family history of diseases of the blood and blood-forming organs and certain disorders involving the immune mechanism; Z84.89 Family history of other specified conditions
CPT/HCPCS: 36415; 74177; 80048; 80053; 80202; 81003; 83036; 83605; 83690; 84443; 85025; 86140; 87040; 87070; 87077; 87186; 87205; 87640; 87641; 99283; A9270-GY; G8978-GP-CK; G8979-GP-CI; G8987-GO-CJ; G8988-GO-CJ; G8989-GO-CJ; J1170; J2543; J3370; J7512; Q9967

== ENCOUNTER 2018-04-04 22:11 | Inpatient (IN) | payer MEDICARE, MEDICAID ==
[2018-04-04] MEDS ORDERED: Tetan/Diph/Pertus SYR(Tdap)* 0.5 ML SYR(BOOSTRIX) use SYR IM ONE (22:37)
[2018-04-04] MEDS ORDERED: NS 0.9% 1000 ML* 1,000 ML IV ONE (22:38)
[2018-04-04] MEDS ORDERED: HYDROmorphone INJ* 2 MG/ML CARPUJECT SYRINGE IV SLOW PU ONE (22:38)
[2018-04-04] MEDS ORDERED: Ondansetron INJ* 2 MG/ML VIAL IV ONE (22:40)
[2018-04-04] MEDS ORDERED: HYDROmorphone INJ* 0.5 MG/0.5 ML SYRINGE ONE (22:47)
[2018-04-04] MEDS ORDERED: HYDROmorphone INJ* 0.5 MG/0.5 ML SYRINGE IV SLOW PU ONE (22:51)
[2018-04-04 23:00] LABS: ABS Basophils 0 10^3/ul (0-0.2); ABS Eosinophils 0.1 10^3/ul (0-0.6); ABS Lymphocytes 1.1 10^3/ul (1.0-4.8); ABS Monocytes 0.9 10^3/ul (0-0.8); ABS Neutrophils 5.4 10^3/ul (1.5-7.7); ABS Nucleated RBC 0 10^3/ul; Eosinophil % 0.8 % (0-6); Hematocrit 39 % (35-47); Hemoglobin 12.9 g/dl (12.0-16.0); Lymphocyte % 14.2 % (25-47); Mean Corpuscular HGB Conc 33 g/dl (31-36); Mean Corpuscular Hemoglobin 31 pg (27-31); Mean Corpuscular Volume 93 fL (80-97); Mean Platelet Volume 9.8 fL (7.4-10.4); Nucleated Red Blood Cells % 0.1; Platelet Count 67 10^3/ul (150-450); Red Blood Count 4.21 10^6/ul (4.00-5.40); Red Cell Distribution Width 15 % (10.5-15); White Blood Count 7.5 10^3/ul (3.5-10.8)
[2018-04-04 23:16] LABS: EGFR Non-African American 69.9 (>60)
[2018-04-04] MEDS ORDERED: Lidocaine 2% EPI 1:200000 MPF*10-20 ML VIAL ONE (23:17)
[2018-04-05] MEDS ORDERED: HYDROmorphone INJ* 2 MG/ML CARPUJECT SYRINGE IV SLOW PU ONE (00:35)
[2018-04-05] MEDS ORDERED: Vancomycin(*) 1,000 MG in NS 0.9% 250 ML* 250 ML IVPB ONE (01:08)
--- NOTE | 2018-04-05 01:58 | ED ---
Laceration/Wound HPI - HPI Summary HPI Summary: Patient is a 63 y/o F brought in by ambulance w/ c/o laceration to her left leg that is bleeding profusely. She reports that she has a "clotting" problem. Patient claims that she got out of bed and had a mechanical fall. She is unsure of exactly what caused the laceration. She notes that she typically uses a walker or cane to ambulate. Patient reports dizziness as well. PMHx of left leg injury in 2017 with [address] in [address]. She states she is on oxycodone for chronic leg pain. PMHx of lymphedema. On triage, pain is rated 9/10, nothing is noted to aggravate/alleviate Sx. Home medications and allergies are reviewed. - History of Current Complaint Stated Complaint: LT LEG LAC Time Seen by Provider: 04/04/18 22:31 Hx Obtained From: Patient Onset/Duration: Sudden Onset, Still Present Aggravating: Nothing Alleviating: Nothing Timing: Constant Current Severity: Severe - 9/10 Pain Intensity: 9 Pain Scale Used: 0-10 Numeric - 9/10 Associated Signs & Symptoms: Pain - Additional Pertinent History Primary Care Physician: [id number] - Allergy/Home Medications Allergies/Adverse Reactions: Allergies Allergy/AdvReac Type Severity Reaction Status Date / Time ibuprofen Allergy Severe Anaphylatic Verified 12/27/17 04:15 Shock sulfamethoxazole Allergy Severe Anaphylatic Verified 12/27/17 04:15 [From Bactrim] Shock trimethoprim [From Bactrim] Allergy Severe Anaphylatic Verified 12/27/17 04:15 Shock ceftriaxone Allergy Intermediate Swelling Verified 12/27/17 04:15 Adhesive Tape Allergy Rash Verified 12/27/17 04:15 eltrombopag Allergy Unknown Verified 12/27/17 04:15 Reaction Details morphine Allergy sedation/hypoxia Verified 12/27/17 04:15 >16H after 30mg MS Contin nickel Allergy Rash Verified 12/27/17 04:15 levofloxacin AdvReac Joint Pain Verified 12/27/17 04:15 ondansetron AdvReac Nausea And Verified 12/27/17 04:15 Vomiting Home Medications: Home Medications Nystatin 1 applic TOPICAL DAILY PRN 04/05/18 [History Confirmed 04/05/18] Nystatin TOP POWDER* 1 applic TOPICAL DAILY PRN 04/05/18 [History Confirmed ] Oxybutynin Chloride [Oxybutynin Chloride ER] 10 mg PO QPM 04/05/18 [History Confirmed 04/05/18] PMH/Surg Hx/FS Hx/Imm Hx Endocrine/Hematology History: Reports: Hx Blood Disorders - Factor V Leiden, Hx Diabetes - peripheral neuropathy, Hx Thyroid Disease, Other Endocrine/ Hematological Disorders Denies: Hx Anticoagulant Therapy, Hx Blood Transfusions, Hx Bone Marrow Disease, Hx Systemic Lupus Erythematosus, Hx Sickle Cell Disease, Hx Anemia, Hx Unexplained Bleeding Cardiovascular History: Reports: Hx Deep Vein Thrombosis, Hx Embolism - PE, Hx Hypercholesterolemia, Hx Hypertension, Other Cardiovascular Problems/Disorders - Idiopathic Thrombocytopenia; Factor V Leiden, lymphedema, thrombocytopenia Denies: Hx Aneurysm, Hx Angina, Hx Angioplasty, Hx Auto Implanted Cardiovert Defib, Hx Cardiac Arrest, Hx Cardiomegaly, Hx Congenital Heart Disease, Hx Congestive Heart Failure, Hx Coronary Artery Disease, Hx Hypotension, Hx Pacemaker/ICD, Hx Peripheral Vascular Disease, Hx Rheumatic Fever, Hx Syncope, Hx Valvular Heart Disease Respiratory History: Reports: Hx Chronic Bronchitis, Hx Chronic Obstructive Pulmonary Disease (COPD), Hx Pneumonia, Hx Pulmonary Edema, Hx Pulmonary Embolism, Hx Sleep Apnea - obstructive sleep apnea (does not use CPAP), Other Respiratory Problems/Disorders - h/o pneumonia, HX PE Denies: Hx Seasonal Allergies Comment Only: Hx Asthma - denies but uses Albuterol GI History: Reports: Hx Gastroesophageal Reflux Disease, Hx Hiatal Hernia - 2006 HAD SURGERY, repair with mesh, Other GI Disorders - Hernia repair with mesh , pt reports acid reflux Denies: Hx Jaundice History: Reports: Hx Kidney Infection - severe when 11 years old, Hx Kidney Stones, Other Problems/Disorders - recurrent UTIs Denies: Hx Dialysis, Hx Renal Disease Musculoskeletal History: Reports: Hx Arthritis - hands, lower joints, Hx Back Problems, Hx Bursitis - RIGHT SHOULDER, Hx Scoliosis, Other Musculoskeletal History - spinal spondylosis Sensory History: Reports: Hx Cataracts - 2012, Hx Contacts or Glasses, Hx Vision Problem Denies: Hx Eye Injury, Hx Eye Prosthesis, Hx Glaucoma, Hx Macular Degeneration, Hx Deafness, Hx Hearing Aid, Hx Hearing Problem, Other Sensory Impairments Opthamlomology History: Reports: Hx Cataracts - 2012, Hx Contacts or Glasses, Hx Vision Problem Denies: Hx Eye Injury, Hx Eye Prosthesis, Hx Glaucoma, Hx Macular Degeneration, Other Sensory Impairments Neurological History: Reports: Hx Migraine - once in a while, Other Neuro Impairments/Disorders - scoliosis, kyposcoliosis Denies: Hx Dementia, Hx Developmental Delay, Hx Headaches, Hx Seizures, Hx Spinal Cord Injury, Hx Transient Ischemic Attacks (TIA) Psychiatric History: Reports: Hx Anxiety, Hx Depression Denies: Hx Attention Deficit Hyperactivity Disorder, Hx Autism, Hx Eating Disorder, Hx Oppositional [place] Disorder, Hx Panic Disorder, Hx Post Traumatic Stress Disorder, Hx Community Mental Health Tx, Hx Schizophrenia, Hx Bipolar Disorder, Hx Substance Abuse, Other Psychiatric Issues/Disorders - Surgical History Surgery Procedure, Year, and Place: hernia repair, vena cava filter placement, r /t wound in left lower extremity (Leg debridement). 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 MD Fartun Ruiz denies Hx 11/17/15, Traveled Outside the [place] in Last 30 Days - Family History Known Family History: Positive: Hypertension, Diabetes - Social History Alcohol Use: None Hx Substance Use: No Substance Use Type: Reports: Prescribed Substance Use Comment - Amount & Last Used: oxycotin and oxycodone - pt has rx for these Hx Tobacco Use: Yes Smoking Status (MU): Former Smoker Type: eCigarettes Length of Time of Smoking/Using Tobacco: off and on 40 years (probably a total of 15 years) Have You Smoked in the Last Year: No Review of Systems Positive: Other - POSITIVE - LEFT LEG LACERATION Neurological: Other - POSITIVE - DIZZINESS All Other Systems Reviewed And Are Negative: Yes Physical Exam - Summary Physical Exam Summary: VITAL SIGNS: Reviewed. GENERAL: Patient is a well-developed and nourished female who is lying comfortable in the stretcher. Patient is not in any acute respiratory distress. HEAD AND FACE: No signs of trauma. No ecchymosis, hematomas or skull depressions. No sinus tenderness. EYES: PERRLA, EOMI x 2, No injected conjunctiva, no nystagmus. EARS: Hearing grossly intact. Ear canals and tympanic membranes are within normal limits. MOUTH: Oropharynx within normal limits. NECK: Supple, trachea is midline, no adenopathy, no JVD, no carotid bruit, no c- spine tenderness, neck with full ROM. CHEST: Symmetric, no tenderness at palpation LUNGS: Clear to auscultation bilaterally. No wheezing or crackles. CVS: Regular rate and rhythm, S1 and S2 present, no murmurs or gallops appreciated. ABDOMEN: Soft, non-tender. No signs of distention. No rebound no guarding, and no masses palpated. Bowel sounds are normal. EXTREMITIES: FROM in all major joints, no edema, no cyanosis or clubbing. pulses cannot be felt due to patient's size. NEURO: Alert and oriented x 3. No acute neurological deficits. Speech is normal and follows commands. SKIN: Dry and warm; L-shaped 1.5 cm by 1.5 cm puncture wound to left leg, chronic bilateral skin changes Triage Information Reviewed: Yes Vital Signs On Initial Exam: Initial Vitals Temp Pulse Resp BP Pulse Ox 98.4 F 90 16 84/55 94 04/04/18 22:22 04/04/18 22:22 04/04/18 22:22 04/04/18 22:22 04/04/18 22:22 Vital Signs Reviewed: Yes Procedures - Procedure Summary Procedure Summary: 1.5 by 1.5 cm L-shaped laceration cleaned with 50 cc saline, lido 2% with epi used, 3 2.0 prolene stitches applied, single layer, closed, no complications - Laceration/Wound Repair 1 Location: lower extremity - left Description: Irregular - L-shaped Anesthesia: 2.0%, Lido, Epi Length, Depth and Shape: L-shaped, 1.5 cm by 1.5 cm Irrigated w/ Saline (ccs): 50 Laceration/Wound Explored: clean Closure: Single Layer Suture Type: Prolene - 2.0 Number of Sutures: 3 Layer Closure?: Yes Diagnostics - Vital Signs Vital Signs Temp Pulse Resp BP Pulse Ox 04/05/18 01:00 81 96 04/05/18 00:57 82 126/76 97 04/05/18 00:48 16 04/05/18 00:36 78 95 04/05/18 00:27 82 95/63 95 04/05/18 00:00 84 89 04/04/18 23:56 76 106/63 91 04/04/18 23:27 75 96/59 96 04/04/18 23:07 78 88/57 95 04/04/18 23:00 84 95 04/04/18 22:53 84 16 95/57 97 04/04/18 22:36 92 90/50 95 04/04/18 22:22 98.4 F 90 16 84/55 94 - Laboratory Lab Results: Lab Results 04/04/18 04/04/18 04/04/18 Range/Units 22:50 22:50 22:50 WBC 7.5 (3.5-10.8) 10^3/ul RBC 4.21 (4.00-5.40) 10^6/ul Hgb 12.9 (12.0-16.0) g/dl Hct 39 (35-47) % MCV 93 (80-97) fL MCH 31 (27-31) pg MCHC 33 (31-36) g/dl RDW 15 (10.5-15) % Plt Count 67 L (150-450) 10^3/ul MPV 9.8 (7.4-10.4) fL Neut % (Auto) 72.2 (38-83) % Lymph % (Auto) 14.2 L (25-47) % [place] % (Auto) 12.2 H (0-7) % Eos % (Auto) 0.8 (0-6) % Baso % (Auto) 0.6 (0-2) % Absolute Neuts (auto) 5.4 (1.5-7.7) 10^3/ul Absolute Lymphs (auto) 1.1 (1.0-4.8) 10^3/ul Absolute Monos (auto) 0.9 H (0-0.8) 10^3/ul Absolute Eos (auto) 0.1 (0-0.6) 10^3/ul Absolute Basos (auto) 0 (0-0.2) 10^3/ul Absolute Nucleated RBC 0 10^3/ul Nucleated RBC % 0.1 INR (Anticoag Therapy) 1.00 (0.77-1.02) APTT 28.7 (26.0-36.3) seconds Sodium 138 (135-145) mmol/L Potassium 4.4 (3.5-5.0) mmol/L Chloride 104 (101-111) mmol/L Carbon Dioxide 31 (22-32) mmol/L Anion Gap 3 (2-11) mmol/L BUN 13 (6-24) mg/dL Creatinine 0.83 (0.51-0.95) mg/dL Est GFR ( Amer) 84.6 (>60) Est GFR (Non-Af Amer) 69.9 (>60) BUN/Creatinine Ratio 15.7 (8-20) Glucose 124 H (70-100) mg/dL Calcium 8.5 L (8.6-10.3) mg/dL Total Bilirubin 0.40 (0.2-1.0) mg/dL AST 12 L (13-39) U/L ALT 6 L (7-52) U/L Alkaline Phosphatase 59 (34-104) U/L Total Protein 5.4 L (6.4-8.9) g/dL Albumin 2.7 L (3.2-5.2) g/dL Globulin 2.7 (2-4) g/dL Albumin/Globulin Ratio 1.0 (1-3) Blood Type Antibody Screen 04/04/18 Range/Units 22:50 WBC (3.5-10.8) 10^3/ul RBC (4.00-5.40) 10^6/ul Hgb (12.0-16.0) g/dl Hct (35-47) % MCV (80-97) fL MCH (27-31) pg MCHC (31-36) g/dl RDW (10.5-15) % Plt Count (150-450) 10^3/ul MPV (7.4-10.4) fL Neut % (Auto) (38-83) % Lymph % (Auto) (25-47) % [place] % (Auto) (0-7) % Eos % (Auto) (0-6) % Baso % (Auto) (0-2) % Absolute Neuts (auto) (1.5-7.7) 10^3/ul Absolute Lymphs (auto) (1.0-4.8) 10^3/ul Absolute Monos (auto) (0-0.8) 10^3/ul Absolute Eos (auto) (0-0.6) 10^3/ul Absolute Basos (auto) (0-0.2) 10^3/ul Absolute Nucleated RBC 10^3/ul Nucleated RBC % INR (Anticoag Therapy) (0.77-1.02) APTT (26.0-36.3) seconds Sodium (135-145) mmol/L Potassium (3.5-5.0) mmol/L Chloride (101-111) mmol/L Carbon Dioxide (22-32) mmol/L Anion Gap (2-11) mmol/L BUN (6-24) mg/dL Creatinine (0.51-0.95) mg/dL Est GFR ( Amer) (>60) Est GFR (Non-Af Amer) (>60) BUN/Creatinine Ratio (8-20) Glucose (70-100) mg/dL Calcium (8.6-10.3) mg/dL Total Bilirubin (0.2-1.0) mg/dL AST (13-39) U/L ALT (7-52) U/L Alkaline Phosphatase (34-104) U/L Total Protein (6.4-8.9) g/dL Albumin (3.2-5.2) g/dL Globulin (2-4) g/dL Albumin/Globulin Ratio (1-3) Blood Type A Negative Antibody Screen Negative Result Diagrams: 04/09/18 05:23 04/07/18 06:13 Lab Statement: Any lab studies that have been ordered have been reviewed, and results considered in the medical decision making process. Re-Evaluation - Re-Evaluation First Eval Re-Evaluation Time: 12:40 Comment: laceration repair performed with no complications. Second Eval Re-Evaluation Time: 01:10 Comment: Discussed admission of patient, patient is agreeable. Laceration Repair Course/Dx - Course Course Of Treatment: Patient is a 63 y/o F brought in by ambulance w/ c/o laceration to her left leg that is bleeding profusely. She reports that she has a "clotting" problem. Patient claims that she got out of bed and had a mechanical fall. She is unsure of exactly what caused the laceration. She notes that she typically uses a walker or cane to ambulate. Patient reports dizziness as well. PMHx of left leg injury in 2017 with dressing already in place. She states she is on oxycodone for chronic leg pain. PMHx of lymphedema. On physical exam, patient is noted to have 1.5 by 1.5 cm L-shaped puncture wound to left leg with severe bleeding. Bleeding was controlled by compression. Patient has chronic BLE skin changes. Senses intact at BLE, pulses cannot be felt at BLE due to patients size. During ED course, patient received tetanus shot, fluids, dilaudid 0.5 mg IV x2. For laceration repair, lido 2% with epi was used. 50 cc saline was used to irrigate. 2.0 prolone, three stitches, single layer, closed. No complications with laceration repair. Labs showed albumin 2.7, total protein 5.4, ALT 6, AST 12, calcium 8.5, glucose 124, INR 1, absolute monos 0.9, mono% 12.2, lymph% 14.2, Plt count 67. Plt count is consistent with previous results reported on 03/30/18. Patient is A negative blood type. Patients case was discussed with Dr. Andrade, Dr. Andrade accepts patient for admission. Dx of BLE edema, puncture wound. - Clinical Impression Provider Diagnoses: Puncture wound, Bilateral edema of lower extremity - Physician Notifications Discussed Care Of Patient With: Donna Andrade Time Discussed With Above Provider: 01:05 Instructed by Provider To: Other - Patients case was discussed with Dr. Andrade, Dr. Andrade accepts patient for admission Discharge - Sign-Out/Discharge Documenting (check all that apply): Patient Departure - admit - Discharge Plan Condition: Good Disposition: ADMITTED TO [facility] - Billing Disposition and Condition Condition: GOOD Disposition: Admitted to [facility] - Attestation Statements Document Initiated by Sandra: Yes Documenting Scribe: MARILYNN MCBRIDE Provider For Whom Sandra is Documenting (Include Credential): CJ BURDICK MD Scribe Attestation: MARILYNN Childress, scribed for CJ BURDICK MD on 04/12/18 at 0608. Scribe Documentation Reviewed: Yes Provider Attestation: The documentation as recorded by the sakshiibMARILYNN brown accurately reflects the service I personally performed and the decisions made by me, CJ BURDICK MD
[2018-04-05] MEDS ORDERED: Docusate CAP* 100 MG PO PRN (02:01)
[2018-04-05] MEDS ORDERED: Al Hydrox/Mg Hydrox/Simet LIQ* 30 ML UDC PO PRN (02:01)
[2018-04-05] MEDS ORDERED: Ondansetron INJ* 2 MG/ML VIAL IV PRN (02:01)
[2018-04-05] MEDS ORDERED: Senna TAB PO PRN (02:01)
[2018-04-05] MEDS ORDERED: Acetaminophen TAB* 325 MG PO PRN (02:01)
[2018-04-05] MEDS ORDERED: Dextrose 50% Syringe 50 ML* 25 GM/50 ML SYRINGE IV PUSH PRN (02:08)
[2018-04-05] MEDS: HYDROmorphone INJ1* 1 MG/ML SYRINGE IV SLOW PU PRN ×5 (03:43→21:50)
--- NOTE | 2018-04-05 06:39 | HP ---
CC: Karoline Ruiz MD * HISTORY AND PHYSICAL: DATE OF ADMISSION: 04/05/18 TIME OF EVALUATION: 0200 PRIMARY CARE PHYSICIAN: Karoline Ruiz MD CHIEF COMPLAINT: Fall and lower extremity wound. HISTORY OF PRESENT ILLNESS: This is a 63-year-old female with past medical history of significant chronic lower extremity lymphedema, morbidly obese who is minimally ambulatory, who states she was getting up to her commode when she fell to the floor and she was bleeding profusely from her left lower extremity. She was brought in by EMS, significant amount of blood was noted. Dr. Pepper placed compression on and put in 3 sutures and hemostasis was achieved. The concern was with the most significant blood loss and the thrombocytopenia and her limited ability to care for herself, the decision was made to bring her in for observation. The patient denies any chest pain. No shortness of breath. No nausea, vomiting, or diarrhea. No abdominal pain. She states she is not managing well at home at all. Her daughter wants to leave for college and she will be living alone. She is interested in assisted living. She states she just switched antibiotics for a new right lower extremity wound from Augmentin to doxycycline, took 1 dose of that. No fevers, no chills. Otherwise, review of systems negative. In the emergency room as mentioned, the patient had labs, she had sutures placed on the left lower extremity. She was given Dilaudid which she states works for her, 1 L of fluid and vancomycin and referred to the hospitalist service for further evaluation. PAST MEDICAL HISTORY: 1. Chronic lymphedema of the lower extremities, chronic lower extremity wound on the left lower extremity. 2. Hypertension. 3. Idiopathic thrombocytopenia. 4. Morbid obesity. 5. Diabetes. 6. Chronic pain due to peripheral neuropathy. 7. Hyperthyroidism. 8. History of B12 deficiency. 9. History of nonobstructing kidney stones. 10. Chronic steroid therapy for her thrombocytopenia. 11. History of factor V Leiden deficiency. 12. History of [place] filter. 13. Osteoarthritis. 14. Depression. 15. History of sleep apnea, not on CPAP. 16. GERD. 17. History of a DVT and PE. 18. History of MRSA. 19. Lumbar spondylosis and levoscoliosis with history of low back pain and sciatica. 20. History of urinary incontinence. MEDICATIONS: According to the med rec. 1. Nystatin topical daily as needed. 2. Potassium chloride 20 mEq p.o. daily. 3. Nystatin topical powder daily as needed. 4. Doxycycline 100 mg p.o. b.i.d. 5. Oxybutynin 10 mg q.p.m. 6. Calcium carbonate 300 mg p.o. daily as needed. 7. Tylenol 500 mg q.8 hours as needed. 8. Metformin 500 mg p.o. b.i.d. 9. Oxycodone 20 mg q.4 hours as needed. 10. Methimazole 5 mg p.o. daily. 11. Gabapentin 600 mg p.o. 6 times daily. 12. Cymbalta 30 mg daily. 13. Prednisone 5 mg daily. ALLERGIES: IBUPROFEN, BACTRIM, CEFTRIAXONE, ADHESIVE TAPE, ELTROMBOPAG, MORPHINE, NICKEL, LEVOFLOXACIN, and ZOFRAN. FAMILY HISTORY: Reviewed and noncontributory. SOCIAL HISTORY: The patient lives at home with her daughter who is planning to be moving out soon to start college, has 3 daughters in total. She would designate them to be her healthcare proxy. She has limited mobility and needs assistance with her ADLs. Quit smoking 6 years ago, smokes a pack per day for unknown duration. No alcohol use. No illicit drug use. Code status is full code. REVIEW OF SYSTEMS: A 14-point review of systems as mentioned in the HPI, otherwise negative. PHYSICAL EXAMINATION GENERAL: In no acute distress, resting comfortably. VITAL SIGNS: Temp 98.4, pulse rate 81, respiratory rate 16, oxygen saturation 97% on room air, and blood pressure 126/76. HEENT: Head: Normocephalic. Pupils are equal and reactive. Anicteric. Oropharynx: Significant dental caries, poor dentition. NECK: Supple. No lymphadenopathy. No nuchal rigidity. RESPIRATORY: Diminished breath sounds. No wheezes, rhonchi or rales. CARDIAC: Regular rate and rhythm. Soft systolic murmur heard throughout. ABDOMEN: Soft, nontender, nondistended. EXTREMITIES: Significant chronic lower extremity edema with lower extremity erythema, dry flaking peeling skin with chronic wound on her left lower extremity, about 3 mm, circular in size. She has 3 sutures in her left lower lateral extremity. No active bleeding at this time. She has significant edema with skin thickening. Unable to appreciate any pulses. Extremities are warm. No other significant wounds noted. NEUROLOGIC: Alert and oriented x3. No gross focal neurologic deficits. LABORATORY DATA: White count 7.5, hemoglobin 12.9, hematocrit 39, platelets 67 ,000. INR is 1. Sodium 138, potassium 4.4, chloride 104, bicarb 31, BUN 13, creatinine 0.83, glucose 124, albumin is 2.7. ASSESSMENT: This is a 63-year-old female with past medical history of chronic lymphedema, morbid obesity with limited mobility who presented to the emergency room after falling causing a laceration of the left lower extremity. Fall. Assessment: The patient appears to be declining at home and needs more assistance and is interested in assisted living. She suffered a left lower extremity laceration that had significant amount of bleeding, no longer bleeding but with her thrombocytopenia, decision was made to observe her overnight to monitor for any further bleeding. Plan will be to repeat her labs in the morning. Follow up with Dr. Ruiz regarding suture removal. I put in for a PT evaluation for home safety eval and possible rehab with transition to assisted living. Chronic medical problems: Chronic wounds. I put in for a wound care consult and a wound culture. It appears that she has been started on doxycycline, we will continue this. Diabetes. Hold her oral and just start her on lispro sliding scale. Continue her prednisone for her idiopathic thrombocytopenia. Continue her remaining medications as prescribed. FEN. Diabetic diet. DVT prophylaxis. The patient does score high risk. However, her thrombocytopenia is contraindicated for chemical anticoagulation as well as her SCDs due to her chronic lymphedema. We will try to encourage frequent transferring. Code status. Full code. TIME SPENT: Greater than 60 minutes were spent doing the history and physical, more than half the time spent in direct patient contact. [id number]/CPS #: [id number] [place]
[2018-04-05] MEDS: Nystatin OINT* 15 GM TOPICAL PRN (08:04)
[2018-04-05] MEDS: Methimazole TAB* 5 MG PO SCH (08:05)
[2018-04-05] MEDS: Potassium Chloride LIQUID* 20 MEQ PACKET PO SCH (08:05)
[2018-04-05] MEDS: DULoxetine DR CAP* 30 MG CAP.DR PO SCH (08:06)
[2018-04-05] MEDS: predniSONE TAB* 5 MG PO SCH (08:06)
[2018-04-05] MEDS: DOXYcycline CAP(*) 100 MG PO SCH ×2 (08:06→21:45)
[2018-04-05] MEDS: Nystatin TOP POWDER* 15 GM BTL TOPICAL PRN (08:06)
[2018-04-05] MEDS: Gabapentin CAP(*) 300 MG PO SCH ×6 (08:28→21:45)
[2018-04-05 09:03] LABS: ABS Basophils 0 10^3/ul (0-0.2); ABS Eosinophils 0.1 10^3/ul (0-0.6); ABS Lymphocytes 0.9 10^3/ul (1.0-4.8); ABS Monocytes 0.7 10^3/ul (0-0.8); ABS Neutrophils 3.1 10^3/ul (1.5-7.7); ABS Nucleated RBC 0 10^3/ul; Eosinophil % 1.6 % (0-6); Hematocrit 37 % (35-47); Hemoglobin 12.2 g/dl (12.0-16.0); Lymphocyte % 19.2 % (25-47); Mean Corpuscular HGB Conc 33 g/dl (31-36); Mean Corpuscular Hemoglobin 31 pg (27-31); Mean Corpuscular Volume 93 fL (80-97); Mean Platelet Volume 10.2 fL (7.4-10.4); Nucleated Red Blood Cells % 0.1; Platelet Count 58 10^3/ul (150-450); Red Blood Count 3.93 10^6/ul (4.00-5.40); Red Cell Distribution Width 15 % (10.5-15); White Blood Count 4.8 10^3/ul (3.5-10.8)
[2018-04-05] MEDS: Insulin LISPRO* 1 UNITS UNIT SUBCUT SCH ×3 (10:35→18:37)
[2018-04-05] MEDS: Oxybutynin XL TAB* 5 MG PO SCH (18:37)
[2018-04-05] MEDS: metFORMIN* 500 MG TAB PO SCH (21:44)
[2018-04-06] MEDS: HYDROmorphone INJ1* 1 MG/ML SYRINGE IV SLOW PU PRN ×5 (03:48→21:04)
[2018-04-06] MEDS: DOXYcycline CAP(*) 100 MG PO SCH ×2 (08:02→20:58)
[2018-04-06] MEDS: DULoxetine DR CAP* 30 MG CAP.DR PO SCH (08:09)
[2018-04-06] MEDS: Potassium Chloride LIQUID* 20 MEQ PACKET PO SCH (08:09)
[2018-04-06] MEDS: predniSONE TAB* 5 MG PO SCH (08:09)
[2018-04-06] MEDS: Gabapentin CAP(*) 300 MG PO SCH ×6 (08:09→23:44)
[2018-04-06] MEDS: Methimazole TAB* 5 MG PO SCH (08:10)
[2018-04-06] MEDS: metFORMIN* 500 MG TAB PO SCH ×2 (08:11→20:58)
[2018-04-06] MEDS ORDERED: LORazepam TAB(*) 0.5 MG PO ONE (09:48)
[2018-04-06] MEDS: Insulin LISPRO* 1 UNITS UNIT SUBCUT SCH ×3 (10:30→18:16)
[2018-04-06] MEDS: Oxybutynin XL TAB* 5 MG PO SCH (18:23)
[2018-04-07] MEDS: HYDROmorphone INJ1* 1 MG/ML SYRINGE IV SLOW PU PRN ×6 (01:33→22:05)
[2018-04-07] MEDS: Nystatin OINT* 15 GM TOPICAL PRN ×2 (01:41→09:33)
[2018-04-07 06:55] LABS: EGFR Non-African American 110.1 (>60)
[2018-04-07 06:56] LABS: ABS Basophils 0 10^3/ul (0-0.2); ABS Eosinophils 0.1 10^3/ul (0-0.6); ABS Lymphocytes 1.2 10^3/ul (1.0-4.8); ABS Monocytes 0.6 10^3/ul (0-0.8); ABS Neutrophils 2.3 10^3/ul (1.5-7.7); ABS Nucleated RBC 0 10^3/ul; Eosinophil % 3.1 % (0-6); Hematocrit 33 % (35-47); Lymphocyte % 28.7 % (25-47); Mean Corpuscular HGB Conc 33 g/dl (31-36); Mean Corpuscular Hemoglobin 31 pg (27-31); Mean Corpuscular Volume 93 fL (80-97); Mean Platelet Volume 10.4 fL (7.4-10.4); Nucleated Red Blood Cells % 0.1; Platelet Count 47 10^3/ul (150-450); Red Blood Count 3.55 10^6/ul (4.00-5.40); Red Cell Distribution Width 15 % (10.5-15); White Blood Count 4.2 10^3/ul (3.5-10.8)
[2018-04-07] MEDS: Insulin LISPRO* 1 UNITS UNIT SUBCUT SCH ×2 (09:13→12:53)
[2018-04-07] MEDS: Potassium Chloride LIQUID* 20 MEQ PACKET PO SCH (09:19)
[2018-04-07] MEDS: DOXYcycline CAP(*) 100 MG PO SCH ×2 (09:20→22:06)
[2018-04-07] MEDS: metFORMIN* 500 MG TAB PO SCH ×2 (09:20→22:06)
[2018-04-07] MEDS: DULoxetine DR CAP* 30 MG CAP.DR PO SCH (09:20)
[2018-04-07] MEDS: Methimazole TAB* 5 MG PO SCH (09:20)
[2018-04-07] MEDS: predniSONE TAB* 5 MG PO SCH (09:20)
[2018-04-07] MEDS: Gabapentin CAP(*) 300 MG PO SCH ×6 (09:27→22:06)
[2018-04-07] MEDS: Nystatin TOP POWDER* 15 GM BTL TOPICAL PRN (09:32)
[2018-04-07] MEDS: Oxybutynin XL TAB* 5 MG PO SCH (16:38)
[2018-04-07] MEDS: Morphine TAB Extended Release (*) 15 MG TAB.ER PO SCH (19:54)
[2018-04-08] MEDS: HYDROmorphone INJ1* 1 MG/ML SYRINGE IV SLOW PU PRN ×5 (02:07→21:05)
--- NOTE | 2018-04-08 08:34 | PN ---
Subjective - Subjective Reason for Note: Progress Note History: Dr. Karoline Ruiz signed Juma Albert out to me. I also gathered the history of her current presentation from the patient and her EHR. She fell at her home and sustained a laceration to her left lower leg, requiring 3 sutures. She continues to have pain in her left leg and shoulder. Otherwise, today she no new complaints. Active Problems: Active Problems Cellulitis of left lower leg (Acute) L03.116 Fall (Acute) Laceration of left foot (Acute) S91.312A Left shoulder pain (Acute) M25.512 Leg pain (Acute 12/27/17) Diabetes mellitus type 2 in obese (Chronic) E11.9, E66.9 Essential hypertension (Chronic) I10 History of pulmonary embolism (Chronic) Z86.711 Kidney stone on left side (Chronic) N20.0 Lymphedema of both lower extremities (Chronic) I89.0 Multinodular goiter (Chronic) E04.2 Problem related to social environment (Chronic) Z60.9 S/P IVC filter (Chronic) Z95.828 Sleep apnea (Chronic) G47.30 Current Medications: Current Medications Acetaminophen (Tylenol Tab*) 650 mg PO Q4H PRN PRN Reason: FEVER/PAIN Al Hydrox/Mg Hydrox/Simethicone (Maalox Plus*) 30 ml PO Q6H PRN PRN Reason: INDIGESTION Dextrose (D50w Syringe 50 Ml*) 12.5 gm IV PUSH .FOR FS < 60 - SS PRN PRN Reason: FS < 60 Docusate Sodium (Colace Cap*) 100 mg PO BID PRN PRN Reason: CONSTIPATION Doxycycline Hyclate (Vibramycin Cap(*)) 100 mg PO BID [facility] Last Admin: 04/07/18 22:06 Dose: 100 mg Duloxetine HCl (Cymbalta Cap*) 30 mg PO DAILY [facility] Last Admin: 04/07/18 09:20 Dose: 30 mg Gabapentin (Neurontin Cap(*)) 600 mg PO 0800,1100,1300 [facility] Last Admin: 04/07/18 14:17 Dose: 600 mg Gabapentin (Neurontin Cap(*)) 600 mg PO 1600,1930,2200 [facility] Last Admin: 04/07/18 22:06 Dose: 600 mg Hydromorphone HCl (Dilaudid Inj1s*) 1 mg IV SLOW PU Q4H PRN PRN Reason: PAIN Last Admin: 04/08/18 02:07 Dose: 1 mg Influenza Virus Vaccine (Fluarix *Quad* 2017-*) 0.5 ml IM .ONCE ONE Stop: 04/08/18 09:01 Metformin HCl (Glucophage*) 500 mg PO BID [facility] Last Admin: 04/07/18 22:06 Dose: 500 mg Methimazole (Tapazole Tab*) 5 mg PO DAILY [facility] Last Admin: 04/07/18 09:20 Dose: 5 mg Morphine Sulfate (Ms Contin(*)) 15 mg PO Q12H [facility] Last Admin: 04/07/18 19:54 Dose: 15 mg Nystatin (Nystatin Oint*) 1 applic TOPICAL DAILY PRN PRN Reason: RASH Last Admin: 04/07/18 09:33 Dose: 1 applic Nystatin (Nystatin Top Powder*) 1 applic TOPICAL DAILY PRN PRN Reason: rash Last Admin: 04/07/18 09:32 Dose: 1 applic Oxybutynin Chloride (Ditropan Xl Tab*) 10 mg PO QPM [facility] Last Admin: 04/07/18 16:38 Dose: 10 mg Oxycodone HCl (Roxycodone Tab*) 20 mg PO Q4H PRN PRN Reason: PAIN Potassium Chloride (Klor-Con Liquid*) 20 meq PO DAILY [facility] Last Admin: 04/07/18 09:19 Dose: 20 meq Prednisone (Deltasone Tab*) 5 mg PO DAILY [facility] Last Admin: 04/07/18 09:20 Dose: 5 mg Senna (Senokot Tab*) 1 tab PO BID PRN PRN Reason: CONSTIPATION - Review of Systems Constitutional Symptoms: No: Fever, Night Sweats Pulmonary: Negative: Cough, Sputum, Respiratory Distress, Shortness of Breath Cardiology: Negative: Chest Pain, Palpitations Gastroenterology: Negative: Abdominal Pain, Nausea, Vomiting, Change in Bowel Habits Genital - Urinary: Positive: Other - history of incontinence Home Medications: Home Medications Medication Instructions Recorded Confirmed Type DULoxetine CAP* [Cymbalta CAP*] 30 mg PO DAILY 05/28/15 04/05/18 History Gabapentin CAP(*) [Neurontin 600 mg PO .SIX TIMES DAILY 05/28/15 04/05/18 History CAP(*)] Methimazole TAB* [Tapazole TAB*] 5 mg PO DAILY 11/17/15 04/05/18 History metFORMIN* [Glucophage*] 500 mg PO BID 11/17/15 04/05/18 History predniSONE TAB* [Deltasone TAB*] 5 mg PO DAILY 11/17/15 04/05/18 History Oxycodone TAB(NF) [Oxycodone HCl 20 mg PO Q4HR PRN 01/07/17 04/05/18 History 10 MG] Acetaminophen [Acetaminophen Extra 500 mg PO Q8H PRN MDD 6 tablets 08/07/17 History Strength] Calcium Carbonate [Tums] 300 mg PO DAILY PRN 12/27/17 04/05/18 History DOXYcycline CAP(*) [DOXYcycline 100 mg PO BID 04/05/18 04/05/18 History 100MG CAP(*)] Nystatin 1 applic TOPICAL DAILY PRN 04/05/18 04/05/18 History Nystatin TOP POWDER* 1 applic TOPICAL DAILY PRN 04/05/18 04/05/18 History Oxybutynin Chloride [Oxybutynin 10 mg PO QPM 04/05/18 04/05/18 History Chloride ER] Potassium Chloride LIQUID* 20 meq PO DAILY 04/05/18 04/05/18 History [Klor-Con LIQUID*] Allergies: Allergies Allergy/AdvReac Type Severity Reaction Status Date / Time ibuprofen Allergy Severe Anaphylatic Verified 12/27/17 04:15 Shock sulfamethoxazole Allergy Severe Anaphylatic Verified 12/27/17 04:15 [From Bactrim] Shock trimethoprim [From Bactrim] Allergy Severe Anaphylatic Verified 12/27/17 04:15 Shock ceftriaxone Allergy Intermediate Swelling Verified 12/27/17 04:15 Adhesive Tape Allergy Rash Verified 12/27/17 04:15 eltrombopag Allergy Unknown Verified 12/27/17 04:15 Reaction Details morphine Allergy sedation/hypoxia Verified 12/27/17 04:15 >16H after 30mg MS Contin nickel Allergy Rash Verified 12/27/17 04:15 levofloxacin AdvReac Joint Pain Verified 12/27/17 04:15 ondansetron AdvReac Nausea And Verified 12/27/17 04:15 Vomiting - Social History Social History: She lives with her 19 year old daughter in a trailer. She doesn't feel safe at home and would like to move to assisted living. Objective - Vital Signs Vital Signs: Vital Signs 04/07/18 04/07/18 04/07/18 09:27 09:47 10:45 Temperature Pulse Rate Respiratory 16 16 17 Rate Blood Pressure (mmHg) O2 Sat by Pulse Oximetry 04/07/18 04/07/18 04/07/18 11:50 12:11 12:18 Temperature 97.8 F Pulse Rate 76 Respiratory 16 16 17 Rate Blood Pressure 119/62 (mmHg) O2 Sat by Pulse 97 Oximetry 04/07/18 04/07/18 04/07/18 13:53 14:17 14:18 Temperature Pulse Rate Respiratory 17 16 16 Rate Blood Pressure (mmHg) O2 Sat by Pulse Oximetry 04/07/18 04/07/18 04/07/18 14:53 16:10 16:35 Temperature 98.4 F Pulse Rate 79 Respiratory 16 16 20 Rate Blood Pressure 120/61 (mmHg) O2 Sat by Pulse 99 Oximetry 04/07/18 04/07/18 04/07/18 16:37 17:53 18:10 Temperature Pulse Rate Respiratory 16 16 16 Rate Blood Pressure (mmHg) O2 Sat by Pulse Oximetry 04/07/18 04/07/18 04/07/18 18:57 19:52 19:54 Temperature Pulse Rate Respiratory 16 16 16 Rate Blood Pressure (mmHg) O2 Sat by Pulse Oximetry 04/07/18 04/07/18 04/07/18 20:00 20:25 22:05 Temperature 97.9 F Pulse Rate 90 Respiratory 20 20 16 Rate Blood Pressure 135/67 (mmHg) O2 Sat by Pulse 97 Oximetry 04/07/18 04/07/18 04/07/18 22:06 22:46 23:25 Temperature 97.9 F Pulse Rate 80 Respiratory 16 16 18 Rate Blood Pressure 127/59 (mmHg) O2 Sat by Pulse 96 Oximetry 04/08/18 04/08/18 04/08/18 00:20 02:07 03:09 Temperature Pulse Rate Respiratory 16 16 16 Rate Blood Pressure (mmHg) O2 Sat by Pulse Oximetry 04/08/18 03:19 Temperature 97.5 F Pulse Rate 85 Respiratory 17 Rate Blood Pressure 103/57 (mmHg) O2 Sat by Pulse 100 Oximetry - Intake and Output Intake and Output: Intake & Output 04/05/18 04/06/18 04/07/18 04/08/18 11:59 11:59 11:59 11:59 Intake Total 1000 1180 1310 1106 Output Total 220 Balance 1000 1180 1310 886 Weight 268 lb 12.8 oz 268 lb 12.8 oz Intake: IV Fluids 1000 IVPB 10 ns 10 Oral 1180 1310 1096 Output: Urine 220 Other: Estimated Void Medium Medium Medium Small Date of Last Bowel 04/06/18 Movement # Bowel Movements 0 0 0 # Voids 1 1 2 1 ADLs: Meal Record Start: 04/05/18 03: 37 Freq: DAILY@0900,1400,1800 Status: Active Protocol: Created 04/05/18 03:37 System (Rec: 04/05/18 03:37 System MED-M18) Document 04/05/18 14:00 [id number] (Rec: 04/05/18 14:36 [id number] MED-M21) Document 04/05/18 18:00 [id number] (Rec: 04/05/18 20:05 [id number] MED-M16) Document 04/06/18 14:00 [id number] (Rec: 04/06/18 16:56 [id number] MED-C11) Document 04/06/18 18:00 [id number] (Rec: 04/06/18 18:54 [id number] MED-C09) Document 04/07/18 09:00 [id number] (Rec: 04/07/18 09:19 [id number] MED-C11) Document 04/07/18 14:00 [id number] (Rec: 04/07/18 14:37 [id number] MED-C09) Document 04/07/18 18:00 [id number] (Rec: 04/07/18 19:24 [id number] MED-C11) Intake and Output Start: 04/04/18 22: 26 Freq: Status: Active Protocol: Created 04/04/18 22:26 System (Rec: 04/04/18 22:26 System [id number]) Intake and Output Start: 04/05/18 03: 37 Freq: DAILY@0600,1400,2200 Status: Active Protocol: Created 04/05/18 03:37 System (Rec: 04/05/18 03:37 System MED-M18) Document 04/05/18 06:00 [id number] (Rec: 04/05/18 06:54 [id number] MED-C16) Document 04/05/18 14:00 [id number] (Rec: 04/05/18 14:36 [id number] MED-M21) Document 04/05/18 16:00 [id number] (Rec: 04/05/18 16:09 [id number] MED-C11) Document 04/05/18 22:00 [id number] (Rec: 04/05/18 22:56 [id number] MED-C11) Document 04/06/18 14:00 [id number] (Rec: 04/06/18 16:58 [id number] MED-C11) Document 04/06/18 22:00 [id number] (Rec: 04/06/18 23:11 [id number] MED-C11) Document 04/07/18 05:45 [id number] (Rec: 04/07/18 05:47 [id number] MED-C11) Document 04/07/18 13:25 [id number] (Rec: 04/07/18 13:26 [id number] MED-C05) Document 04/07/18 21:47 [id number] (Rec: 04/07/18 21:59 [id number] MED-C09) Document 04/08/18 04:59 [id number] (Rec: 04/08/18 05:01 [id number] MED-C11) - Physical Exam General Physical Exam Comment: She has lymphedema of both legs. Left lower leg more erythematous than usual Results - Results Lab Results: Laboratory Results - last 24 hr 04/07/18 04/07/18 12:24 15:53 POC Glucose (mg/dL) 135 H 125 H Other Results/Reports: RUN DATE: 04/08/18 [facility] LAB LIVE PAGE 1 RUN TIME: [address] [place] [id number] Specimen Inquiry Name: JUMA LABERT : [address]: Karoline Ruiz MD Acct: [id number] Unit: [id number] AGE: 63 Location: [place] [address]01 Re04/05/18 SEX: F Status: ADM IN SPEC: [id number] NATE: 04/05/[address]: Karoline Ruiz MD REQ: [id number] RECD: 04/05/18 _ STATUS: COMP OTHR DR: Donna Andrade DO SOURCE: LEG,LEFT SPDESC: ORDERED: Culture & Stain Procedure Result Reported Site Wound/Misc Gram Stain Final 04/05/18- 27 ML 2+ Epithelial Cells 1+ Neutrophils No Organisms Seen Wound/Misc Culture Final 04/07/18- 1046 ML Organism 1 NORMAL ALVIN Quantity 1+ * ML - Main Lab . Assessment - Problem List Assessment: Patient Problems Cellulitis of left lower leg (Acute) Fall (Acute) Laceration of left foot (Acute) Left shoulder pain (Acute) Leg pain (Acute 12/27/17) Diabetes mellitus type 2 in obese (Chronic) Essential hypertension (Chronic) History of pulmonary embolism (Chronic) Kidney stone on left side (Chronic) Lymphedema of both lower extremities (Chronic) Multinodular goiter (Chronic) Problem related to social environment (Chronic) S/P IVC filter (Chronic) Sleep apnea (Chronic) Depression (Chronic) Factor V Leiden mutation (Chronic) Family history of VRE (vancomycin resistant Enterococcus) infection (Chronic) History of MRSA infection (Chronic) Hyperthyroidism, subclinical (Chronic) Idiopathic thrombocytopenic purpura (Chronic) Osteoarthritis of both knees (Chronic) Osteoarthritis of shoulders, bilateral (Chronic) Osteoarthritis, hip, bilateral (Chronic) Urinary incontinence (Chronic) Plan: Cellulitis of left lower leg (Acute)Leg pain (Acute 12/27/17)Laceration of left foot (Acute) She is keeping this elevated. she complains of pain, but is receiving adequate analgesia. She is tolerating the doxycycline hyclate. The wound culture is negative Fall (Acute) Left shoulder pain (Acute) She is recovering from her soft tissue injuries. I note she is a high risk of recurrent falls and requires rehabilitation. Diabetes mellitus type 2 in obese (Chronic) This is well controlled Essential hypertension (Chronic) This is controlled History of pulmonary embolism (Chronic) S/P IVC filter (Chronic) secondary diagnosis Kidney stone on left side (Chronic) inactive Lymphedema of both lower extremities (Chronic) She is at high risk of recurrent infection and this prevents her mobility Multinodular goiter (Chronic) secondary diagnosis Problem related to social environment (Chronic) Her 19 year daughter lives with her, but is leaving soon. She wishes to go to assisted living. However, Dr. Karoline Ruiz will consider whether she requires SNF for rehab
[2018-04-08] MEDS: metFORMIN* 500 MG TAB PO SCH ×2 (08:40→21:07)
[2018-04-08] MEDS: Potassium Chloride LIQUID* 20 MEQ PACKET PO SCH (08:40)
[2018-04-08] MEDS: DOXYcycline CAP(*) 100 MG PO SCH ×2 (08:40→21:06)
[2018-04-08] MEDS: DULoxetine DR CAP* 30 MG CAP.DR PO SCH (08:41)
[2018-04-08] MEDS: Morphine TAB Extended Release (*) 15 MG TAB.ER PO SCH ×2 (08:41→21:06)
[2018-04-08] MEDS: Gabapentin CAP(*) 300 MG PO SCH ×6 (08:48→21:59)
[2018-04-08] MEDS: predniSONE TAB* 5 MG PO SCH (09:05)
[2018-04-08] MEDS: Methimazole TAB* 5 MG PO SCH (09:05)
[2018-04-08] MEDS: Oxybutynin XL TAB* 5 MG PO SCH (16:51)
[2018-04-09] MEDS: HYDROmorphone INJ1* 1 MG/ML SYRINGE IV SLOW PU PRN ×5 (02:27→21:55)
[2018-04-09 05:59] LABS: ABS Basophils 0 10^3/ul (0-0.2); ABS Eosinophils 0.2 10^3/ul (0-0.6); ABS Lymphocytes 1.3 10^3/ul (1.0-4.8); ABS Monocytes 0.7 10^3/ul (0-0.8); ABS Neutrophils 2.6 10^3/ul (1.5-7.7); ABS Nucleated RBC 0 10^3/ul; Eosinophil % 3.5 % (0-6); Hematocrit 36 % (35-47); Hemoglobin 11.6 g/dl (12.0-16.0); Lymphocyte % 26.6 % (25-47); Mean Corpuscular HGB Conc 33 g/dl (31-36); Mean Corpuscular Hemoglobin 31 pg (27-31); Mean Corpuscular Volume 94 fL (80-97); Mean Platelet Volume 10.8 fL (7.4-10.4); Nucleated Red Blood Cells % 0.1; Platelet Count 79 10^3/ul (150-450); Red Blood Count 3.79 10^6/ul (4.00-5.40); Red Cell Distribution Width 15 % (10.5-15); White Blood Count 4.7 10^3/ul (3.5-10.8)
[2018-04-09] MEDS: predniSONE TAB* 5 MG PO SCH (08:25)
[2018-04-09] MEDS: DOXYcycline CAP(*) 100 MG PO SCH ×2 (08:25→21:55)
[2018-04-09] MEDS: Morphine TAB Extended Release (*) 15 MG TAB.ER PO SCH ×2 (08:25→20:39)
[2018-04-09] MEDS: metFORMIN* 500 MG TAB PO SCH ×2 (08:25→21:55)
[2018-04-09] MEDS: Potassium Chloride LIQUID* 20 MEQ PACKET PO SCH (08:25)
[2018-04-09] MEDS: DULoxetine DR CAP* 30 MG CAP.DR PO SCH (08:25)
[2018-04-09] MEDS: Methimazole TAB* 5 MG PO SCH (08:25)
[2018-04-09] MEDS: Gabapentin CAP(*) 300 MG PO SCH ×6 (08:25→22:03)
[2018-04-09] MEDS: oxyCODONE TAB* 5 MG TAB PO PRN (14:38)
[2018-04-09] MEDS: Oxybutynin XL TAB* 5 MG PO SCH (17:16)
--- NOTE | 2018-04-09 17:20 | ECHO ---
Patient: JUMA ALBERT [facility] Rec#: [id number] : 1955 Date: 04/09/2018 Age: 63y Height: 147 cm / 57.9 in Weight: 122 kg / 268.9 lbs Sex: F BSA: 2.1 Room#: 407 Admit Date#: 04/05/2018 Type: Inpatient Referring: Karoline Ruiz MD Reading: Ricky Nguyen MD Real Estate Office Manager: Scarlett Carpio RN RDCS Transthoracic Echocardiogram Indication: Cardiac murmur BP: 110/59 HR: 81 Rhythm: NSR Findings History: HTN, DM, morbid obesity, EMMANUEL, Factor V Leiden deficiency, idiopathic thrombcytopenia, thyroid disease, DVT, PE, [place] filter Technical Comments: The study quality is fair. The study is technically limited due to patient body habitus. The study was technically limited due to the patient's inability to lay in the left lateral decubitus position. Left Ventricle: The left ventricular chamber size is decreased. Mild to moderate concentric left ventricular hypertrophy is observed. Global left ventricular wall motion and contractility are within normal limits. There is normal left ventricular systolic function. The estimated ejection fraction is 60-65%. There is no consistent Doppler evidence of clinically significant diastolic dysfunction. Left Atrium: The left atrium is mildly dilated. Right Ventricle: The right ventricle is mildly dilated. The right ventricular global systolic function is normal. Right Atrium: The right atrium is mildly dilated. Aortic Valve: The aortic valve structure is not well visualized. The aortic valve leaflets are mildly thickened. Systolic excursion of the aortic valve cusps is reduced. There is no evidence of aortic regurgitation. There is mild aortic stenosis. The mean gradient of the aortic valve is 12 mmHg. The peak instantaneous gradient of the aortic valve is 23 mmHg. The aortic valve area, by peak velocities, is calculated at 2 cm2. The aortic valve area, by VTI's, is calculated at 2.1 cm2. Mitral Valve: There is mitral annular calcification. The mitral valve leaflets are mildly thickened. There is mild mitral regurgitation. There is no evidence of mitral stenosis. Tricuspid Valve: The tricuspid valve leaflets are normal. There is mild tricuspid regurgitation. There is evidence of mild pulmonary hypertension. There is no tricuspid stenosis. Pulmonic Valve: The pulmonic valve structure is not well visualized. Pericardium: There is no significant pericardial effusion. A pericardial fat pad is visualized. Aorta: The ascending aorta is not well visualized. There is no dilatation of the aortic arch. There is no dilation of the aortic root. Pulmonary Artery: The main pulmonary artery is not well visualized. Venous: The venous system is not well visualized. The inferior vena cava is not visualized. Conclusions Mild to moderate concentric left ventricular hypertrophy is observed. Global left ventricular wall motion and contractility are within normal limits. There is normal left ventricular systolic function. The estimated ejection fraction is 60-65%. Systolic excursion of the aortic valve cusps is reduced. There is mild aortic stenosis. The mean gradient of the aortic valve is 12 mmHg. There is mild mitral regurgitation. There is mild tricuspid regurgitation. There is no significant pericardial effusion. Compared to study of 06/2014, the Mild is new the LV funtion is the same Measurements Name Value Normal Range RVDdMajor (2D) 4.4 cm (2.2 - 4.4) RAd ISD 4CH 5.1 cm (3.4 - 4.9) RA (A4C)W 4.2 cm (2.9 - 4.6) IVSd (2D) 1.3 cm (0.6 - 1) LVPWd (2D) 1.3 cm (0.6 - 1) LVIDd (2D) 3.4 cm (3.6 - 5.4) LVIDs (2D) 2.2 cm - LV FS (2D) 35 % (25 - 45) Aortic Annulus 2 cm (1.4 - 2.6) Ao root diameter (2D) 3.1 cm (2.1 - 3.5) Aortic arch 1.9 cm (1.8 - 3.4) LA dimension (AP) 2D 3.8 cm (2.3 - 3.8) LAd ISD 4CH 5.7 cm (2.9 - 5.3) LA ISD 4CH W 4.1 cm (2.5 - 4.5) Name Value Normal Range LA ESV BP (A/L) index 24 ml/m2 - Name Value Normal Range MV E-wave Vmax 1.2 m/sec - MV deceleration time 303 msec - MV A-wave Vmax 1.4 m/sec - MV E:A ratio 0.8 ratio - LV septal e' Vmax 0.09 m/sec - LV lateral e' Vmax 0.14 m/sec - LV E:e' septal ratio 13.3 ratio - LV E:e' lateral ratio 8.6 ratio - Name Value Normal Range AV Vmax 2.4 m/sec - AV VTI 45 cm - AV peak gradient 23 mmHg - AV mean gradient 12 mmHg - LVOT diameter 2 cm - LVOT Vmax 1.5 m/sec - LVOT VTI 32.3 cm - LVOT peak gradient 9 mmHg - LVOT mean gradient 5 mmHg - DOI (VTI) 0.72 ratio - DOI (Vmax) 0.63 ratio - ELLIE (continuity Vmax) 2 cm2 - ELLIE (continuity VTI) 2.1 cm2 - YAMILETH Vmax 1.2 m/sec - Name Value Normal Range TR Vmax 2.7 m/sec - TR peak gradient 29 mmHg - RAP 8 mmHg - RVSP 37 mmHg - Name Value Normal Range PV Vmax 1.1 m/sec -
[2018-04-10] MEDS: HYDROmorphone INJ1* 1 MG/ML SYRINGE IV SLOW PU PRN ×5 (03:41→20:10)
[2018-04-10] MEDS: Morphine TAB Extended Release (*) 15 MG TAB.ER PO SCH ×2 (07:38→21:07)
[2018-04-10] MEDS: Gabapentin CAP(*) 300 MG PO SCH ×6 (07:39→21:07)
[2018-04-10] MEDS: Potassium Chloride LIQUID* 20 MEQ PACKET PO SCH (08:46)
[2018-04-10] MEDS: DOXYcycline CAP(*) 100 MG PO SCH ×2 (08:47→20:09)
[2018-04-10] MEDS: Methimazole TAB* 5 MG PO SCH (08:47)
[2018-04-10] MEDS: DULoxetine DR CAP* 30 MG CAP.DR PO SCH (08:47)
[2018-04-10] MEDS: metFORMIN* 500 MG TAB PO SCH ×2 (08:47→20:09)
[2018-04-10] MEDS: predniSONE TAB* 5 MG PO SCH (08:47)
[2018-04-10] MEDS: oxyCODONE TAB* 5 MG TAB PO PRN ×2 (10:20→17:52)
[2018-04-10] MEDS: Oxybutynin XL TAB* 5 MG PO SCH (17:51)
[2018-04-11] MEDS: oxyCODONE TAB* 5 MG TAB PO PRN ×3 (00:14→11:24)
[2018-04-11] MEDS: HYDROmorphone INJ1* 1 MG/ML SYRINGE IV SLOW PU PRN ×2 (00:22→06:37)
[2018-04-11] MEDS: Nystatin OINT* 15 GM TOPICAL PRN (01:37)
[2018-04-11 07:59] VITALS: BP 122/60
[2018-04-11] MEDS: DULoxetine DR CAP* 30 MG CAP.DR PO SCH (08:01)
[2018-04-11] MEDS: predniSONE TAB* 5 MG PO SCH (08:02)
[2018-04-11] MEDS: Methimazole TAB* 5 MG PO SCH (08:02)
[2018-04-11] MEDS: DOXYcycline CAP(*) 100 MG PO SCH (08:02)
[2018-04-11] MEDS: metFORMIN* 500 MG TAB PO SCH (08:02)
[2018-04-11] MEDS: Gabapentin CAP(*) 300 MG PO SCH ×2 (08:02→11:23)
[2018-04-11] MEDS: Morphine TAB Extended Release (*) 15 MG TAB.ER PO SCH (08:02)
[2018-04-11] MEDS: Potassium Chloride LIQUID* 20 MEQ PACKET PO SCH (08:03)
[2018-04-11] MEDS: Nystatin TOP POWDER* 15 GM BTL TOPICAL PRN (11:59)
--- NOTE | 2018-04-11 12:12 | TRS ---
CC: [facility] DATE OF ADMISSION: 04/04/2018. DATE OF TRANSFER: 04/11/2018. TRANSFER DIAGNOSES: 1. Generalized weakness, deconditioning. 2. Laceration to the left lower leg. 3. Status post fall. 4. Type 2 diabetes mellitus, controlled. 5. Chronic immune thrombocytopenia. 6. Morbid obesity. 7. Chronic lymphedema of the lower extremities. 8. Chronic pain due to peripheral neuropathy, osteoarthritis and low back pain. 9. Hyperthyroidism, treated with Methimazole. 10. History of B12 deficiency. 11. Poor living circumstances. 12. History of nonobstructing kidney stone, left kidney. 13. Chronic steroid therapy for thrombocytopenia. 14. History of Factor V Leiden. 15. History of [place] filter. 16. Osteoarthritis. 17. Depression. 18. History of hypertension. 19. History of sleep apnea, not currently using CPAP. 20. History of gastroesophageal reflux disease. 21. History of DVT and pulmonary emboli. 22. History of Methicillin resistant staph aureus. 23. Lumbar spondylosis and levoscoliosis with a history of low back pain and sciatica. 24. History of urinary incontinence. 25. Protein malnutrition. 26. Contusion left shoulder. 27. Mild aortic stenosis, new diagnosis. HISTORY: Saima Juares is a 63-year-old woman admitted with weakness after falling and getting a left lower leg laceration. This was sutured in the emergency room. Please see the dictated admission note for details of the present illness, past medical history, family history, social and personal history, review of systems and physical examination. LABORATORY DATA: CBC on admission: WBC 7.5, H and H 12.9/39, MCV 93, PLT 67k. CBC prior to discharge: WBC 4.7, H and H 11.6/36, MCV 94, PLT 79k. Platelet count during her admission was 47/79k. INR 1, PTT 28.7. Chemistries on admission: Sodium 138, potassium 4.4, chloride 104, CO2 31, BUN and creatinine 13/0.83, glucose 124, calcium 8.5, AST and ALT 12/6, total protein and albumin 5.4/2.7. CRP was 14.69 on admission, 13.35 the following day. BNP was 30. Prealbumin was 14 on April 06. Point of care glucoses during her admission ranged from 74 to 135. IMAGIN. Foot x-ray on 04/05/2018 showed severe soft tissue swelling, no bony abnormality seen. 2. Right lower extremity MRI on 04/06/2018 showed marked lymphedema, no evidence of loculated soft tissue plane abscess or osteomyelitis. 3. Shoulder x-ray, 04/07/2018: Left shoulder showed no fracture, normal acromioclavicular and glenohumeral joint alignment, minimal enthesophytes of the great tuberosity of the humerus versus a minimal focus of calcified tendinopathy. No arthritis. 4. Transthoracic echocardiogram, 04/07/2018 showed mild aortic stenosis, mild mitral regurgitation, mild tricuspid regurgitation. The mild is new. LV function was normal at 60 to 65 percent EF. She had mild to moderate concentric LVH. HOSPITAL COURSE: The patient was admitted. She was kept on Doxycycline which she had been taking for cellulitis of her lower extremities. This was continued until discharge. She received physical and occupational therapy. Imaging was performed. She had been having foot pain. This was thought to be due to abrasions of her feet. It turned out she has not been able to find her shoes. She was not given diuretics because they have not been useful in the past in helping resolve her lymphedema. She did have some decrease in her lymphedema with leg elevation. In physical therapy, she was able to ambulate from bedside to recliner. She was noted to be very forward flexed. It was felt that she could use continued physical therapy to improve her stamina. Her thyroid function was normal on Methimazole. Her diabetic control was good on Metformin. Her pain in her back and leg was managed with IV Hydromorphone and MS Contin was added. She had not liked taking OxyContin because it made her too sleepy. MS Contin made her somewhat sleepy, but not as sleepy as OxyContin. She said she would be willing to continue this to help with pain control. She also has Oxycodone ordered. Her cellulitis in her legs improved. At the time of discharge, she is going to be going to [facility]. The hope is that she will get social work to be involved in helping her find alternative living arrangements. At present, she is living in a trailer with her daughter, but it is not a good situation. She often does not have clean clothes. She is often in a wet bed. She cannot find her shoes. She does get meals delivered, but other than that does not eat properly. She is unable to access the tub or shower. She needs a higher level of care. The OT felt that she needed to maximize independence with ADL and ADL transfers. At the time of discharge, her diet is regular with an extra protein snack of cheese. MEDICATIONS: 1. Nystatin powder twice a day prn rash. 2. Potassium Chloride packets 40 mEq daily. 3. Oxybutynin XL 10 mg q.p.m. 4. Tums 300 mg daily prn. 5. Acetaminophen 500 mg q.8 hours prn. 6. Metformin 500 mg b.i.d. 7. Oxycodone 20 mg p.o. q.4 hours prn pain. 8. Methimazole 5 mg p.o. daily. 9. Gabapentin 600 mg every 4 hours. 10. Duloxetine 30 mg twice a day. 11. Prednisone 5 mg once a day. 12. MS Contin 15 mg q.12 hours. 13. B12 1,000 mcg daily. ACTIVITY: Up with assistance. She is to get physical therapy and occupational therapy. FOLLOW-UP: She will be following up with me after discharge from [facility]. At the time of transfer, the cellulitis of her lower legs is better. She still has sutures in her left lower leg which should be removed in three days. The discoloration at the bottom of her feet seems to be scabbing over and improving. She should get diabetic shoes while she is at [facility]. She is being discharge with temporary footwear. [id number]/[facility] #: [id number] [facility]
== END 2018-04-11 12:30 | DRG 605 ==
LOC: ED 22:11 → MED 04-05 02:01 → OBSVTOIN 04-05 11:00
PROVIDERS: ADMIT Pediatrics; ATTEND Internal Medicine Geriatric Medicine
PROC: 0HQLXZZ Repair Left Lower Leg Skin, External Approach (ICD-10-PCS; principal; 2018-04-05)
DX: S81.812A Laceration without foreign body, left lower leg, initial encounter (principal); D69.3 Immune thrombocytopenic purpura; L03.116 Cellulitis of left lower limb; D68.51 Activated protein C resistance; E46 Unspecified protein-calorie malnutrition; Z68.43 Body mass index [BMI] 50.0-59.9, adult; W18.30XA Fall on same level, unspecified, initial encounter; I89.0 Lymphedema, not elsewhere classified; E66.01 Morbid (severe) obesity due to excess calories; D69.6 Thrombocytopenia, unspecified; I10 Essential (primary) hypertension; E11.42 Type 2 diabetes mellitus with diabetic polyneuropathy; E05.90 Thyrotoxicosis, unspecified without thyrotoxic crisis or storm; G89.29 Other chronic pain; F32.9 Major depressive disorder, single episode, unspecified; K21.9 Gastro-esophageal reflux disease without esophagitis; M41.9 Scoliosis, unspecified; M47.816 Spondylosis without myelopathy or radiculopathy, lumbar region; J44.9 Chronic obstructive pulmonary disease, unspecified; G47.33 Obstructive sleep apnea (adult) (pediatric); M19.042 Primary osteoarthritis, left hand; M19.041 Primary osteoarthritis, right hand; G43.909 Migraine, unspecified, not intractable, without status migrainosus; F41.9 Anxiety disorder, unspecified; E04.2 Nontoxic multinodular goiter; R32 Unspecified urinary incontinence; M16.0 Bilateral primary osteoarthritis of hip; M19.012 Primary osteoarthritis, left shoulder; M19.011 Primary osteoarthritis, right shoulder; R53.1 Weakness; S40.012A Contusion of left shoulder, initial encounter; I08.3 Combined rheumatic disorders of mitral, aortic and tricuspid valves; Y93.9 Activity, unspecified; Z87.442 Personal history of urinary calculi; Z86.718 Personal history of other venous thrombosis and embolism; Z86.711 Personal history of pulmonary embolism; Z86.14 Personal history of Methicillin resistant Staphylococcus aureus infection; Z88.6 Allergy status to analgesic agent; Z88.1 Allergy status to other antibiotic agents; Z88.5 Allergy status to narcotic agent; Z88.8 Allergy status to other drugs, medicaments and biological substances; Z91.048 Other nonmedicinal substance allergy status; Z87.01 Personal history of pneumonia (recurrent); Z83.3 Family history of diabetes mellitus; Z82.49 Family history of ischemic heart disease and other diseases of the circulatory system; Z79.52 Long term (current) use of systemic steroids
CPT/HCPCS: 36415; 80053; 83880; 84134; 85025; 85610; 85730; 86140; 86850; 86900; 86901; 87070; 87077; 87205; 90686; 90715; 93306; 99284; A9270-GY; G8978-GP-CL; G8979-GP-CI; G8987-GO-CL; G8988-GO-CI; J1170; J3370; J7512

== ENCOUNTER 2018-06-30 07:16 | Inpatient (IN) | payer MEDICARE, MEDICAID ==
[2018-06-30] MEDS ORDERED: HYDROmorphone INJ1* 1 MG/ML SYRINGE IV ONE (07:55)
--- NOTE | 2018-06-30 08:06 | ED ---
Complex/Multi-Sys Presentation - HPI Summary HPI Summary: Pt. is a 63 y.o female who presents to the ER For increase in chronic pain and wound to right lower leg. Pt. has a hx of DM, diabetic neuropathy, lymphedema, sleep apnea, factor V Leiden, ITP, vena cava filter, urinary incontinence, venous insufficiency. Pt. is chronically on oxycodone and oxycontin. Pt. states she noticed pain to posterior RLE last week. She denies fever, chills, N/V/D, abd. pain, CP, SOB. Pt. denies recent falls or injury. Sxs are moderate in severity. Movement makes sxs worse. Nothing makes sxs better. Pt. states her pain medication has not been helping with her pain. Pt. states the only thing that helps at this point is iv dilaudid. Pt. states she did not take any narcotics today. Pt. notes she does not ambulate at baseline and only pivots to toilet and is otherwise bed bound. - History Of Current Complaint Chief Complaint: EDGeneral Time Seen by Provider: 06/30/18 07:30 Hx Obtained From: Patient - Allergies/Home Medications Allergies/Adverse Reactions: Allergies Allergy/AdvReac Type Severity Reaction Status Date / Time ibuprofen Allergy Severe Anaphylatic Verified 06/30/18 07:38 Shock sulfamethoxazole Allergy Severe Anaphylatic Verified 06/30/18 07:38 [From Bactrim] Shock trimethoprim [From Bactrim] Allergy Severe Anaphylatic Verified 06/30/18 07:38 Shock ceftriaxone Allergy Intermediate Swelling Verified 06/30/18 07:38 Adhesive Tape Allergy Rash Verified 06/30/18 07:38 eltrombopag Allergy Unknown Verified 06/30/18 07:38 Reaction Details morphine Allergy sedation/hypoxia Verified 06/30/18 07:38 >16H after 30mg MS Contin nickel Allergy Rash Verified 06/30/18 07:38 levofloxacin AdvReac Joint Pain Verified 06/30/18 07:38 ondansetron AdvReac Nausea And Verified 06/30/18 07:38 Vomiting PMH/Surg Hx/FS Hx/Imm Hx Previously Healthy: Yes Endocrine/Hematology History: Reports: Hx Blood Disorders - Factor V Leiden, Hx Diabetes - peripheral neuropathy, Hx Thyroid Disease, Other Endocrine/ Hematological Disorders Denies: Hx Anticoagulant Therapy, Hx Blood Transfusions, Hx Bone Marrow Disease, Hx Systemic Lupus Erythematosus, Hx Sickle Cell Disease, Hx Anemia, Hx Unexplained Bleeding Cardiovascular History: Reports: Hx Deep Vein Thrombosis, Hx Embolism - PE, Hx Hypercholesterolemia, Hx Hypertension, Other Cardiovascular Problems/Disorders - Idiopathic Thrombocytopenia; Factor V Leiden, lymphedema, thrombocytopenia Denies: Hx Aneurysm, Hx Angina, Hx Angioplasty, Hx Auto Implanted Cardiovert Defib, Hx Cardiac Arrest, Hx Cardiomegaly, Hx Congenital Heart Disease, Hx Congestive Heart Failure, Hx Coronary Artery Disease, Hx Hypotension, Hx Pacemaker/ICD, Hx Peripheral Vascular Disease, Hx Rheumatic Fever, Hx Syncope, Hx Valvular Heart Disease Respiratory History: Reports: Hx Chronic Bronchitis, Hx Chronic Obstructive Pulmonary Disease (COPD), Hx Pneumonia, Hx Pulmonary Edema, Hx Pulmonary Embolism, Hx Sleep Apnea - obstructive sleep apnea (does not use CPAP), Other Respiratory Problems/Disorders - h/o pneumonia, HX PE Denies: Hx Seasonal Allergies Comment Only: Hx Asthma - denies but uses Albuterol GI History: Reports: Hx Gastroesophageal Reflux Disease, Hx Hiatal Hernia - 2006 HAD SURGERY, repair with mesh, Other GI Disorders - Hernia repair with mesh , pt reports acid reflux Denies: Hx Jaundice History: Reports: Hx Kidney Infection - severe when 11 years old, Hx Kidney Stones, Other Problems/Disorders - recurrent UTIs Denies: Hx Dialysis, Hx Renal Disease Musculoskeletal History: Reports: Hx Arthritis - hands, lower joints, Hx Back Problems, Hx Bursitis - RIGHT SHOULDER, Hx Scoliosis, Other Musculoskeletal History - spinal spondylosis Sensory History: Reports: Hx Cataracts - 2012, Hx Contacts or Glasses, Hx Vision Problem Denies: Hx Eye Injury, Hx Eye Prosthesis, Hx Glaucoma, Hx Macular Degeneration, Hx Deafness, Hx Hearing Aid, Hx Hearing Problem, Other Sensory Impairments Opthamlomology History: Reports: Hx Cataracts - 2013, Hx Contacts or Glasses, Hx Vision Problem Denies: Hx Eye Injury, Hx Eye Prosthesis, Hx Glaucoma, Hx Macular Degeneration, Other Sensory Impairments Neurological History: Reports: Hx Migraine - once in a while, Other Neuro Impairments/Disorders - scoliosis, kyposcoliosis Denies: Hx Dementia, Hx Developmental Delay, Hx Headaches, Hx Seizures, Hx Spinal Cord Injury, Hx Transient Ischemic Attacks (TIA) Psychiatric History: Reports: Hx Anxiety, Hx Depression Denies: Hx Attention Deficit Hyperactivity Disorder, Hx Autism, Hx Eating Disorder, Hx Oppositional [place] Disorder, Hx Panic Disorder, Hx Post Traumatic Stress Disorder, Hx Community Mental Health Tx, Hx Schizophrenia, Hx Bipolar Disorder, Hx Substance Abuse, Other Psychiatric Issues/Disorders - Surgical History Surgery Procedure, Year, and Place: hernia repair, vena cava filter placement, r /t wound in left lower extremity (Leg debridement). 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 MD Fartun Ruiz denies Hx 11/17/15, Traveled Outside the [place] in Last 30 Days - Family History Known Family History: Positive: Hypertension, Diabetes - Social History Occupation: Disabled Lives: Alone Alcohol Use: None Hx Substance Use: No Substance Use Type: Reports: Prescribed Substance Use Comment - Amount & Last Used: oxycotin and oxycodone - pt has rx for these Hx Tobacco Use: Yes Smoking Status (MU): Former Smoker Type: eCigarettes Length of Time of Smoking/Using Tobacco: off and on 40 years (probably a total of 15 years) Have You Smoked in the Last Year: No Review of Systems Constitutional: Negative Negative: Fever, Chills Cardiovascular: Negative Negative: Chest Pain Respiratory: Negative Negative: Shortness Of Breath Gastrointestinal: Negative Positive: Other - bilateral leg and back pain Positive: Other - wound to posterior rll Neurological: Negative All Other Systems Reviewed And Are Negative: Yes Physical Exam Triage Information Reviewed: Yes Vital Signs On Initial Exam: Initial Vitals Temp Pulse Resp BP Pulse Ox 97.0 F 95 20 131/90 96 06/30/18 07:27 06/30/18 07:27 06/30/18 07:27 06/30/18 07:27 06/30/18 07:27 Vital Signs Reviewed: Yes Appearance: Positive: Well-Appearing - Pt. sitting up in bed in NAD. Morbidly obese. Skin: Positive: Warm, Dry Head/Face: Positive: Normal Head/Face Inspection Eyes: Positive: Normal, EOMI, LUCI Neck: Positive: Supple Respiratory/Lung Sounds: Positive: Clear to Auscultation, Breath Sounds Present Cardiovascular: Positive: Normal, RRR Musculoskeletal: Positive: Other - Lymphedema to bilateral LEs. Chronic statis dermatitis changes. Noted to pesterior right lower extremity there is a large area of erythema and tenderness. Mild skin break down in the central region with clearish/yellowish leakage. No induration or fluctuance. Mild breakdown of skin over sacral region without ulcer of wound. Chronic healing wound to anterior left LE. Neurological: Positive: Normal, CN Intact II-III Psychiatric: Positive: Affect/Mood Appropriate Diagnostics - Vital Signs Vital Signs Temp Pulse Resp BP Pulse Ox 06/30/18 07:29 98 94 06/30/18 07:27 97.0 F 95 20 131/90 96 - Laboratory Result Diagrams: 06/30/18 08:22 06/30/18 08:22 Lab Statement: Any lab studies that have been ordered have been reviewed, and results considered in the medical decision making process. Complex Multi-Symp Course/Dx Course Of Treatment: Pt. presenting for increase in chronic pain and wound to right LE. She is afebrile and nontoxic. Pt. on high doses of narcotics at home she states are not controlling her current pain. Will obtain labs for further evaluation of cellulitis. pt. given a dose of 1mg dilaudid. Labs are at pt/'s baseline. Mild elevation in CRP. Normal WBC. Will attempt outpt. treatment for cellulitis. Pt. is agreeable with dc. She has numerous drug allergies. Will start clindamycin--given IV dose in ED. Pt. very sleepy after IV pain medication. She is sleeping comfortably on O2, awakens to voice. To see pcp monday or monday for skin check. To elevate legs. To return to ER for fever, vomiting, increased pain, redness. 1420: Attempting to get pt. home via wheelchair van. Pt. now stating that she does not want to be discharged. Pt. states that her pain is too bad too go home and she has no help. Pt. states she use to be able to walk across the kitchen and now she cant over the last few days. Will discuss case with pt.'s PCP, Dr. Ruiz. I spoke with Dr. uRiz and Dr. Mccarthy who plans for [facility] admission. - Diagnoses Provider Diagnoses: Cellulitis, Chronic pain Discharge - Sign-Out/Discharge Documenting (check all that apply): Patient Departure Patient Received Moderate/Deep Sedation with Procedure: No - Discharge Plan Condition: Improved Disposition: ADMITTED TO [facility] - [facility] Disposition and Condition Condition: IMPROVED Disposition: Admitted to [facility]
[2018-06-30 08:31] LABS: ABS Basophils 0 10^3/ul (0-0.2); ABS Eosinophils 0 10^3/ul (0-0.6); ABS Lymphocytes 0.5 10^3/ul (1.0-4.8); ABS Monocytes 0.4 10^3/ul (0-0.8); ABS Neutrophils 5.1 10^3/ul (1.5-7.7); ABS Nucleated RBC 0 10^3/ul; Eosinophil % 0.3 %; Hematocrit 41 % (35-47); Hemoglobin 13.2 g/dl (12.0-16.0); Lymphocyte % 8.4 %; Mean Corpuscular HGB Conc 33 g/dl (31-36); Mean Corpuscular Hemoglobin 29 pg (27-31); Mean Corpuscular Volume 89 fL (80-97); Mean Platelet Volume 9.4 fL (7.4-10.4); Nucleated Red Blood Cells % 0; Platelet Count 111 10^3/ul (150-450); Red Blood Count 4.56 10^6/ul (4.00-5.40); Red Cell Distribution Width 16 % (10.5-15); White Blood Count 6.1 10^3/ul (3.5-10.8)
[2018-06-30 08:48] LABS: Albumin 3.1 g/dL (3.2-5.2); BUN/Creatinine Ratio 16.9 (8-20); C Reactive Protein 29.73 mg/L (<8.01); EGFR African American 112.1 (>60); EGFR Non-African American 92.7 (>60); Total Bilirubin 0.5 mg/dL (0.2-1.0); Total Protein 6.1 g/dL (6.4-8.9)
[2018-06-30] MEDS ORDERED: Clindamycin 600 MG/D5W BAG(*) 600 MG/50 ML BAG IV ONE (10:20)
[2018-06-30] MEDS ORDERED: Gabapentin CAP(*) 300 MG PO SCH (17:00)
[2018-06-30] MEDS: Oxybutynin XL TAB* 5 MG PO SCH (18:23)
[2018-06-30] MEDS: Clindamycin CAP* 150 MG PO SCH (18:23)
[2018-06-30] MEDS: oxyCODONE TAB* 5 MG TAB PO PRN ×2 (18:36→22:35)
--- NOTE | 2018-06-30 21:09 | HP ---
AMENDED REPORT NOW INCLUDES COSIGNER DESIGNATION HISTORY AND PHYSICAL: DATE OF ADMISSION: 06/30/18 ADMISSION STATUS: Detention. PROVIDER: Valentín Langston NP. ATTENDING PHYSICIAN: Dr. Mccarthy * (report dictated by Valetnín Langston NP). PRIMARY CARE PROVIDER: Karoline Ruiz MD CHIEF COMPLAINT: Right lower extremity redness. HISTORY OF PRESENT ILLNESS: Ms. Juares is a 63-year-old female with a past medical history of significant chronic lymphedema of the lower extremities, morbid obesity at baseline, is minimally ambulatory, hypertension, idiopathic thrombocytopenia, type 2 diabetes, chronic pain, who called the ambulance today for worsening right lower extremity redness and difficulty with ambulation. In the emergency department, the patient was found to have a right lower extremity cellulitis. She had no signs of sepsis and no leukocytosis. Stable vital signs. The emergency department was going to discharge her to home on oral antibiotic; however, the patient is stating she cannot care for herself at home. Hospital Medicine was asked to evaluate the patient for prison admission. I evaluated the patient in the emergency department and found her to be lying in bed. She does report she feels like she cannot care for herself at home, and at her baseline, is minimally ambulatory. She states she is able to take only a few steps at home, and over the last couple of days, this has been more difficult for her. She has been able to get up from her bed or chair to the commode. She reports that the right lower leg has been worsening over the past 3 to 4 days with increasing redness and pain. She spoke to her primary care provider this week who encouraged her to come into the office earlier this week ; however, the patient felt that she could not tolerate Gadabout. She denies any fevers or chills. No nausea, vomiting, diarrhea, or abdominal pain. Reports otherwise she has been feeling well. PAST MEDICAL HISTORY: 1. Hypertension. 2. Idiopathic thrombocytopenia. 3. Chronic lymphedema in the lower extremities with a history of chronic left lower extremity wound. 4. Morbid obesity. 5. Diabetes. 6. Chronic pain. 7. Peripheral neuropathy. 8. Hyperthyroidism. 9. B12 deficiency. 10. History of non-obstructing kidney stones. 11. Factor V Leiden deficiency. 12. Chronic steroid therapy for thrombocytopenia. 13. History of [place] filter. 14. Osteoarthritis 15. Hyperthyroidism, treated with methimazole. 16. History of depression. 17. Sleep apnea, not currently using CPAP. 18. GERD, 19. History of DVT and pulmonary embolism. 20. Lumbar spondylosis and levoscoliosis with a history of low back pain and sciatica 21. History of urinary incontinence. CURRENT MEDICATIONS: Please note these medications were reviewed by myself with the patient. 1. Calcium carbonate, Tums 300 mg p.o. daily, p.r.n. 2. Methimazole 5 mg p.o. daily. 3. Gabapentin 600 mg p.o. 6 times a day. 4. Cymbalta 30 mg p.o. b.i.d. 5. Vitamin B12 1000 mcg p.o. daily. 6. Acetaminophen extra strength 500 mg p.o. q.8 hours p.r.n. 7. Nystatin topical powder p.r.n. under breasts and abdominal folds. 8. Potassium chloride 40 mEq p.o. daily. 9. Oxycodone 20 mg p.o. q.4 hours p.r.n. (please note the patient reports that she takes this at home every 4 hours). 10. Oxybutynin 10 mg p.o. q.p.m. 11. Prednisone 5 mg p.o. daily. 12. Metformin 500 mg p.o. b.i.d. ALLERGIES: BACTRIM, IBUPROFEN, CEFTRIAXONE, ADHESIVE TAPE, MORPHINE, ELTROMBOPAG, NICKEL, LEVOFLOXACIN, ZOFRAN. FAMILY HISTORY: Reviewed and noncontributory. SOCIAL HISTORY: The patient lives at home with her 19-year-old daughter. She reports she is a total of 6 children, reporting 3 daughters and 3 sons. Her other 2 daughters were recently living in the house and moved out and now live in [place] near [place]. She states she is not able to list a healthcare proxy at this time. Reported by her primary care, she has poor living conditions, and discussing with the patient, she reports that she takes Gadabout to her doctor' s appointments and to the grocery store. She quit smoking approximately 6 years ago and smoked a pack a day. Denies alcohol use. She lists her code status as full. REVIEW OF SYSTEMS: A 14-point review of systems was performed. All the pertinent positives and negatives are mentioned in the history of present illness. Otherwise are negative. PHYSICAL EXAMINATION GENERAL APPEARANCE: Lying in the emergency department stretcher, alert and oriented x3, in no acute distress. VITAL SIGNS: Temperature 97.3, heart rate 83, respirations 16, O2 sat 98% on room air, blood pressure 119/70. HEENT: Head is normocephalic, atraumatic. Pupils equal and reactive to light. Oropharynx is clear. Poor dentition. NECK: Supple. LUNGS: Clear to auscultation bilaterally. No rhonchi or wheezes noted. CARDIAC: S1, S2. Regular rate and rhythm. 2/6 systolic murmur noted. ABDOMEN: Obese, soft, nontender. EXTREMITIES: Significant chronic lower extremity lymphedema with bilateral lower extremity erythema, worse on the right than the left. On her left gonzalez, there appears to be a healing wound with a noted scab, nondraining. On the right, the erythema appears much brighter, and the right lateral side of her lower extremity is sensitive to touch and is excoriated, weeping clear fluid. She has sensation to her lower extremities, unable to palpate pulses. SKIN: Warm. NEURO: Alert and oriented x3. No focal deficits noted. LABORATORY DATA AND DIAGNOSTIC STUDIES: Sodium 136, potassium 4.0, chloride 101, carbon dioxide 30, anion gap 5, BUN 11, creatinine 0.65, glucose 116, calcium 9.0, total bilirubin 0.50, AST 17, ALT 8, alkaline phosphatase 86, C- reactive protein 29.73, total protein 6.1, albumin 3.1. WBC 6.1, RBC 4.56, Hgb 13.2, HCT 41, MCV 89, MCH 29, MCHC 33, RDW 16, platelet count 111. ASSESSMENT AND PLAN: Ms. Juares is a 63-year-old morbidly obese female with significant chronic lower extremity lymphedema, who presents to the emergency department today with right lower extremity cellulitis without signs of sepsis, leukocytosis, or open wound requiring inpatient admission. The patient was going to be sent home; however, she has agreed to stay for prison care as she states she is unable to care for herself at home. I do think the patient would be best served in assisted living or long-term senior living care as she is quite limited due to her chronic comorbidities. I will have Physical Therapy evaluate her as well as have Social Work evaluate the patient. In regards to her home medications, these were reviewed with the patient by myself and we will continue her home medications. 1. Cellulitis. We will continue clindamycin oral. The patient should elevate her legs. We will repeat labs in the morning. We will ask Physical Therapy to evaluate the patient. 2. Chronic pain. Continue home medications of gabapentin and oxycodone. 3. Depression. Continue Cymbalta. 4. Hyperthyroidism. Continue methimazole 5 mg p.o. daily. 5. Vitamin B12 deficiency. Continue B12 1000 mcg p.o. daily. 6. Idiopathic thrombocytopenia, stable. Continue prednisone 5 mg p.o. daily. 7. Zls-nxrspfl-hjmbqjgaj type 2 diabetes. Continue metformin 500 mg p.o. b.i.d., check fingerstick blood glucose a.c. 8. Code status: Full code. The patient is unable to list her healthcare proxy , stating she needs time to think about this. 9. Hospital status: Detention. 10. Poor ambulatory status: secondary to chronic illnesses. PT beto. Social work consult. Supportive care. TIME SPENT: Approximately 60 minutes was spent on this admission. VALENTÍN LANGSTON NP [id number]/[facility] #: [id number] [place]
[2018-06-30] MEDS: Nystatin TOP POWDER* 15 GM BTL TOPICAL PRN (22:25)
[2018-06-30] MEDS: Gabapentin CAP(*) 300 MG PO SCH (22:32)
[2018-06-30] MEDS: Heparin VIAL(*) 5000 UNITS/ML VIAL (FIVE THOUSAND) SUBCUT SCH (22:32)
[2018-06-30] MEDS: DULoxetine DR CAP* 30 MG CAP.DR PO SCH (22:33)
[2018-06-30] MEDS: metFORMIN* 500 MG TAB PO SCH (22:33)
[2018-07-01] MEDS: Clindamycin CAP* 150 MG PO SCH ×5 (00:01→22:26)
[2018-07-01] MEDS: Gabapentin CAP(*) 300 MG PO SCH ×6 (02:18→22:26)
[2018-07-01] MEDS: oxyCODONE TAB* 5 MG TAB PO PRN ×6 (02:19→22:27)
[2018-07-01] MEDS: Heparin VIAL(*) 5000 UNITS/ML VIAL (FIVE THOUSAND) SUBCUT SCH ×3 (06:30→20:32)
[2018-07-01] MEDS ORDERED: Dextrose 50% Syringe 50 ML* 25 GM/50 ML SYRINGE IV PUSH PRN (09:00)
[2018-07-01] MEDS: Potassium Chloride LIQUID* 20 MEQ PACKET PO SCH (09:53)
[2018-07-01] MEDS: predniSONE TAB* 5 MG PO SCH (09:54)
[2018-07-01] MEDS: Methimazole TAB* 5 MG PO SCH (09:54)
[2018-07-01] MEDS: Cyanocobalamin TAB* 500 MCG PO SCH (09:54)
[2018-07-01] MEDS: DULoxetine DR CAP* 30 MG CAP.DR PO SCH ×2 (09:54→20:29)
[2018-07-01] MEDS: metFORMIN* 500 MG TAB PO SCH (10:11)
[2018-07-01] MEDS: Insulin LISPRO* 1 UNITS UNIT SUBCUT SCH ×3 (12:23→20:28)
--- NOTE | 2018-07-01 13:47 | PN ---
Subjective Date of Service: 07/01/18 Interval History: Pt seen and examined. Meds and labs reviewed. CC: 02/28 BL knee pain. ROS: Denied CARR/dizziness, F/C, N/V, CP, SOB, increased cough, sputum production , abd pain, diarrhea, constipation, dysuria, throat pain, and new skin lesions. The rest of the 14 point ROS are unremarkable. PHYSICAL EXAM: GEN APPEARANCE: Asleep, arousable and when awake answers questions appropriately , not in acute distress HEENT: NC/AT, PERRLA, moist oral mucosa, (-) throat erythema NECK: Soft, supple, (-) cervical LAD, (-)JVD HEART: S1S2 WNL, RRR, No MRG CHEST: CTA, BL, GAE, No W/R/R ABD: Soft, ND/NT, NABS 4x Q EXT: No C/C/BLLE 4(+) edema, tender knees, BL SKIN: Evidence of chronic venous stasis and superficial skin tears of BLLE, tender and warm to touch, slightly erythematous, BLLE +(4) edema PSYCH: No active psychosis, hallucinations, depression, SI/HI Objective Active Medications: Acetaminophen (Tylenol Tab*) 975 mg PO BID [facility] Clindamycin HCl (Cleocin Cap*) 300 mg PO Q6HR [facility] Last Admin: 07/01/18 13:25 Dose: 300 mg Cyanocobalamin (Vitamin B12 Tab*) 1,000 mcg PO DAILY [facility] Last Admin: 07/01/18 09:54 Dose: 1,000 mcg Dextrose (D50w Syringe 50 Ml*) 12.5 gm IV PUSH .FOR FS < 60 - SS PRN PRN Reason: FS < 60 Duloxetine HCl (Cymbalta Cap*) 30 mg PO BID [facility] Last Admin: 07/01/18 09:54 Dose: 30 mg Gabapentin (Neurontin Cap(*)) 600 mg PO Q4HR [facility] Last Admin: 07/01/18 10:32 Dose: 600 mg Heparin Sodium (Porcine) (Heparin Vial(*)) 5,000 units SUBCUT Q8HR [facility] Last Admin: 07/01/18 06:30 Dose: Not Given Insulin Human Lispro (Humalog*) 0 units SUBCUT [facility]; Protocol Last Admin: 07/01/18 12:23 Dose: Not Given Methimazole (Tapazole Tab*) 5 mg PO DAILY [facility] Last Admin: 07/01/18 09:54 Dose: 5 mg Nystatin (Nystatin Top Powder*) 1 applic TOPICAL DAILY PRN PRN Reason: rash Last Admin: 06/30/18 22:25 Dose: 1 applic Oxybutynin Chloride (Ditropan Xl Tab*) 10 mg PO QPM [facility] Last Admin: 06/30/18 18:23 Dose: 10 mg Oxycodone HCl (Roxycodone Tab*) 20 mg PO Q4HR PRN PRN Reason: PAIN Last Admin: 07/01/18 10:33 Dose: 20 mg Potassium Chloride (Klor-Con Liquid*) 40 meq PO DAILY [facility] Last Admin: 07/01/18 09:53 Dose: 40 meq Prednisone (Deltasone Tab*) 5 mg PO DAILY [facility] Last Admin: 07/01/18 09:54 Dose: 5 mg Vital Signs - 8 hr 07/01/18 07/01/18 07/01/18 06:20 06:22 08:00 Respiratory 18 18 16 Rate 07/01/18 07/01/18 07/01/18 10:32 10:33 10:58 Respiratory 18 18 16 Rate Oxygen Devices in Use Now: None Result Diagrams: 06/30/18 08:22 06/30/18 08:22 Microbiology and Other Data: Microbiology 06/30/18 07:45 Skin and Soft Tissue MRSA/MSSA (PCR - Final Leg Right Mrsa Negative S.aureus Negative Gram Stain - Final Assess/Plan/Problems-Billing Assessment: - Patient Problems (1) Cellulitis Current Visit: Yes Status: Acute Code(s): L03.90 - CELLULITIS, UNSPECIFIED SNOMED Code(s): 969625120 Comment: -Although admitted for cellulitis of RLE, there does not seem to be significant difference in appearance when compared to LLE; however both of them show evidence of chronic venous stasis and superficial skin tears, being warm to touch, and edematous -Given venous stasis discoloration, erythema may not be as pronounced and certainly received abx last night and currently on Clinda, day#2will continue this regimen (2) Knee pain, bilateral Current Visit: Yes Status: Acute Code(s): M25.561 - PAIN IN RIGHT KNEE; M25.562 - PAIN IN LEFT KNEE SNOMED Code(s): 65381330 Comment: -Mentioned she had been diagnosed w/severe OA ofBL knee, however, mentions that pain that led to her admission is much more severe -Given morbid obesity and chronic venous edema and discoloration, difficult to further examine knees -Consulted Dr. Kinney who ordered X-ray w/c supports above impression; however , given concern for cellulitis and significant increase in pain, will await for any subsequent input from Orthopedic Sx Dept -Will place pt on Tylenol BID as ordered in addition to PRN pain meds already ordered -Pt does have peripheral neuropathy but mentions pain is different in quality and quantity on this admisssion (3) Chronic pain Current Visit: Yes Status: Acute Code(s): G89.29 - OTHER CHRONIC PAIN SNOMED Code(s): 57532339 Comment: -Please see above discussion -Continue watchful waiting (4) Depression Current Visit: No Status: Chronic Priority: Low Code(s): F32.9 - MAJOR DEPRESSIVE DISORDER, SINGLE EPISODE, UNSPECIFIED SNOMED Code(s): 84624428 Comment: -Continue Duloxetine (5) Diabetes mellitus type 2 in obese Current Visit: No Status: Chronic Priority: Low Code(s): E11.9 - TYPE 2 DIABETES MELLITUS WITHOUT COMPLICATIONS; E66.9 - OBESITY, UNSPECIFIED SNOMED Code(s): 65018949 Comment: -Continue ISS -Continue to monitor FS as ordered (6) B12 deficiency Current Visit: Yes Status: Acute Code(s): E53.8 - DEFICIENCY OF OTHER SPECIFIED B GROUP VITAMINS SNOMED Code(s): 807858701 Comment: -Continue PO supplementations (7) Idiopathic thrombocytopenic purpura Current Visit: No Status: Chronic Priority: Low Code(s): D69.3 - IMMUNE THROMBOCYTOPENIC PURPURA SNOMED Code(s): 57034926 Comment: -Stable -Continue watchful waiting (8) Hyperthyroidism Current Visit: Yes Status: Acute Code(s): E05.90 - THYROTOXICOSIS, UNSP WITHOUT THYROTOXIC CRISIS OR STORM SNOMED Code(s): 11363845 Comment: -Continue Methimazole -TSH WNL (03/30/18) (9) DVT prophylaxis Current Visit: Yes Status: Acute Code(s): KMB0632 - SNOMED Code(s): 655760098 Comment: -Continue Heparin SQq8H Status and Disposition: -Awaiting PT eval
--- NOTE | 2018-07-01 16:57 | PN ---
Progress Note - Progress Note Date of Service: 07/01/18 SOAP: Subjective: 63 yo female, h/o lymphedema, minimal ambuator, presented to the ED yesterday c/o right leg pain. Points to inner side of the right leg. Taking 20 mg oxycodone 4 to 5 times daily as well as 10 mg extended release oxycodone twice daily. Minimal ambulator, has been in with the wound service due to a left calf wound. PMH includes HTN, morbid obesity, diabetes, chronic pain, factor V leiden with DVT/PE, Objective: Mature female, sleeping in the hospital. Quite drowsy, but arousable and does tend to drift off some as well. Right leg: impressive lymphedema. Does no move leg well. Diffusely tender, from mid thigh all the way down to the ankle. Knee no more tender than any other I palpate, and even with normal palpation reports pain. X-rays: Limited x-rays of the knees done earlier today show OA changes with spurs and sclerosis, but no evidence fracture. Assessment: Lymphedema with chronic pain Plan: I tried to discuss with her and show her that it was not just the knee that hurt, but rather the entire leg. With the impressive lymphedema, I am unsure if there is a cellulitis in addition or if this is just the lymphedema. An injection of the knee will not help all the other pain she has, and given that this might be an infection, a steroid is contraindicated. Toradol or other NSAID might be an option, as I believe she has hyperalgia and considering she is already sedated from the narcotics she is taking, so I do not believe additional pain medicine is appropriate. Consulting the lymphedema service to get her swelling down would likely be something that can help. Elevating the legs higher than her heart, compression stockings and other methods also might be useful, but I am unsure if she would be able to tolerate them. I re-assured her there is nothing broken and the x-rays showed OA, but also discussed with her I do not believe I have anything to offer her for her knee/ leg pain.
[2018-07-01] MEDS: Oxybutynin XL TAB* 5 MG PO SCH (18:30)
[2018-07-01] MEDS: Acetaminophen TAB* 325 MG PO SCH (20:29)
[2018-07-01] MEDS: Nystatin TOP POWDER* 15 GM BTL TOPICAL PRN (22:27)
[2018-07-02] MEDS: oxyCODONE TAB* 5 MG TAB PO PRN ×5 (02:50→23:35)
[2018-07-02] MEDS: Gabapentin CAP(*) 300 MG PO SCH ×6 (02:50→23:37)
[2018-07-02] MEDS: Clindamycin CAP* 150 MG PO SCH ×4 (06:52→23:56)
[2018-07-02] MEDS: Heparin VIAL(*) 5000 UNITS/ML VIAL (FIVE THOUSAND) SUBCUT SCH (07:12)
[2018-07-02] MEDS: Insulin LISPRO* 1 UNITS UNIT SUBCUT SCH ×4 (07:35→23:38)
[2018-07-02 07:39] LABS: Hematocrit 37 % (35-47); Hemoglobin 11.7 g/dl (12.0-16.0); Mean Corpuscular HGB Conc 32 g/dl (31-36); Mean Corpuscular Hemoglobin 29 pg (27-31); Mean Corpuscular Volume 90 fL (80-97); Mean Platelet Volume 9.3 fL (7.4-10.4); Platelet Count 84 10^3/ul (150-450); Red Blood Count 4.11 10^6/ul (4.00-5.40); Red Cell Distribution Width 16 % (10.5-15); White Blood Count 3.8 10^3/ul (3.5-10.8)
[2018-07-02 07:45] LABS: Albumin 2.6 g/dL (3.2-5.2); BUN/Creatinine Ratio 15.6 (8-20); Calcium 8.3 mg/dL (8.6-10.3); EGFR African American 114.1 (>60); EGFR Non-African American 94.3 (>60); Globulin 2.5 g/dL (2-4); Magnesium 1.7 mg/dL (1.9-2.7); Phosphorus 3.4 mg/dL (2.5-5.0); Potassium 3.8 mmol/L (3.5-5.0); Total Bilirubin 0.2 mg/dL (0.2-1.0); Total Protein 5.1 g/dL (6.4-8.9)
[2018-07-02 08:38] LABS: ABS Basophils 0 10^3/ul (0-0.2); ABS Eosinophils 0.1 10^3/ul (0-0.6); ABS Lymphocytes 1.1 10^3/ul (1.0-4.8); ABS Monocytes 0.5 10^3/ul (0-0.8); ABS Nucleated RBC 0 10^3/ul; Eosinophil % 2.6 %; Lymphocyte % 30.1 %; Nucleated Red Blood Cells % 0
[2018-07-02 08:58] LABS: C Reactive Protein 22.2 mg/L (<8.01)
[2018-07-02] MEDS: Potassium Chloride LIQUID* 20 MEQ PACKET PO SCH (09:19)
[2018-07-02] MEDS: Cyanocobalamin TAB* 500 MCG PO SCH (09:19)
[2018-07-02] MEDS: DULoxetine DR CAP* 30 MG CAP.DR PO SCH (09:20)
[2018-07-02] MEDS: Acetaminophen TAB* 325 MG PO SCH ×2 (09:20→23:36)
[2018-07-02] MEDS: predniSONE TAB* 5 MG PO SCH (09:21)
[2018-07-02] MEDS: Methimazole TAB* 5 MG PO SCH (09:21)
[2018-07-02 09:37] LABS: TSH (Thyroid Stimulating Horm) 0.59 mcIU/mL (0.34-5.60)
[2018-07-02] MEDS: Magnesium Oxide TAB* 400 MG PO SCH (11:35)
[2018-07-02] MEDS: Oxybutynin XL TAB* 5 MG PO SCH (18:17)
[2018-07-02] MEDS: Nystatin TOP POWDER* 15 GM BTL TOPICAL PRN ×2 (18:23→23:42)
[2018-07-02 18:52] LABS: Urine Appearance Clear; Urine Bilirubin Negative (Negative); Urine Blood Negative (Negative); Urine Color Straw; Urine Glucose Negative (Negative); Urine Ketones Negative (Negative); Urine Nitrite Negative (Negative); Urine Protein Negative (Negative); Urine Specific Gravity 1.009 (1.010-1.030); Urine Urobilinogen Negative (Negative)
--- NOTE | 2018-07-02 19:42 | CONS ---
CONSULTATION REPORT: DATE OF CONSULT: 07/02/18 ATTENDING PHYSICIAN: Dr. Karoline Ruiz. CONSULTING PHYSICIAN: Dr. Jigar Ward. REASON FOR CONSULT: Depression. SUBJECTIVE HISTORY: The patient is a 63-year-old white female with a history of depression, obesity and multiple medical comorbidities, who arrived at the hospital with a chief complaint of right lower extremity redness and pain and was subsequently admitted to the [address] [place] [address] Medical Unit with a diagnosis of cellulitis. My understanding is that she has had numerous similar hospitalizations in the past, typically followed by short-term subacute rehab and there is a concern from the primary team that the patient tends not to take adequate care of herself in the community; for example, she lives in a cramped, cluttered apartment and tends not to move around very much, resulting in worsening of her medical issues. There is a further concern that perhaps depression is complicating her clinical picture. Ms. Juares is slightly guarded, but otherwise cooperative on examination. I note immediately that her bilateral lower extremities are grossly edematous with lymphedema. Ms. Juares was made aware of my visit, but does not feel that depression is a strong contributor to her situation, instead she blames her situation on chronic pain and limited psychosocial support from her 3 daughters, one of which continues to live with her. She states that for years she has been trying to get into a more structured living arrangement such as what is available at either [facility] or [facility]. She states that because of her reputation as a hoarder which she partially attributes to holding many of her daughters belonging is preventing her from getting placed into a situation such as that. The patient does not feel particularly depressed , although she acknowledges having felt this way in the past. Mostly, she complains of chronic anxiety and worry such as about her financial situation, the well being of her children and whether she will be able to take care of herself. She states that she is frustrated that residential facilities do not tend to keep her long enough after she leaves the hospital and she would like to go to a chcf facility and stay longer. Thereafter, she is hopeful that she would be accepted at a [facility] setting here in [place]. I did screen her for neuro-vegetative symptoms of depression; however, she denies anhedonia, guilt, difficulty concentrating, appetite disturbance, psychomotor retardation, or suicidality. She does endorse energy and sleep disturbances again related to pain issues. The patient has been placed on duloxetine, which she has been taking for several years, which she states is helpful for depression, although she is reluctant to be on something that she will have to be on for the rest of her life. The patient is quite intelligent and she demonstrates an interest in subjects such as reading books, libraries and walking, although she has obviously had difficulty following these pursuits because of her health issues. She denies suicidal or homicidal ideations. She denies any history of manic symptoms. She denies any history of PTSD or psychotic illness. PAST PSYCHIATRIC HISTORY: The patient denies any history of psychiatric hospitalization. She states that duloxetine is the only antidepressant or psychiatric medication that she has been on as prescribed by her primary care provider, Dr. Karoline Ruiz. The patient states that she ones was in therapy and counseling through the [facility], but stopped going because she did not feel that this was helpful. She denies any previous history of suicide attempts. She denies any history of abuse. SUBSTANCE ABUSE HISTORY: The patient states that she used to smoke marijuana as a high school student in the 60s, but not since her early 20s. She states that she quit smoking cigarettes approximately 6-1/2 years ago. She denies abuse of alcohol. PAST MEDICAL HISTORY: Significant for chronic lymphedema, hypertension, idiopathic thrombocytopenia, morbid obesity, diabetes, chronic pain. Further medical history is for peripheral neuropathy, hyperthyroidism, B12 deficiency, renal calculi, factor V Leiden deficiency, history of Brooke filter, osteoarthritis, sleep apnea, gastroesophageal reflux disease, history of DVT and pulmonary embolism, lumbar spondylosis, history of urinary incontinence. CURRENT MEDICATIONS: Include: 1. Calcium carbonate. 2. Methimazole. 3. Gabapentin. 4. Cymbalta 30 mg p.o. b.i.d. 5. Vitamin B12. 6. Acetaminophen. 7. Nystatin. 8. Potassium chloride. 9. Oxycodone. 10. Oxybutynin. 11. Prednisone. 12. Metformin. ALLERGIES: Include BACTRIM, IBUPROFEN, CEFTRIAXONE, ADHESIVE TAPE, MORPHINE, NICKEL, LEVOFLOXACIN, ZOFRAN. FAMILY HISTORY: The patient states that she has depression on both sides of her family and several completed suicides in remote family members such as second cousins and aunts and uncles. SOCIAL HISTORY: The patient was born and raised in the [facility]. Currently , she resides in the [facility] in [place]. She did complete high school as long as some college. She has been 3 times with 2 divorces and her most recent 4 years ago. She has 6 total children including 3 daughters who live locally and 3 sons who live out of the area. Her 19-year- old daughter just graduated from high school and lives with her in her trailer. The patient self- identifies as spiritual, but not necessarily yazidism. She is not currently sexually active. She has no history of legal problems or service. MENTAL STATUS EXAM: The patient is a morbidly obese, short stature white female with grossly edematous bilateral lower extremities, who is lying in bed with her head propped up. She is dressed in a medical gown. Grooming appears to be fair. She is cooperative, making good eye contact, although initially guarded. Mood appears to be anxious with a slightly constricted affect. Thought process is linear, goal directed. Thought content is significant for her desire to get into a more structured living environment. She denies suicidal or homicidal ideations. She denies auditory or visual hallucinations. Insight and judgment are fair given her willingness to receive treatment. Cognitively, she is awake and alert with what would appear to be a high average intellect by virtue of her vocabulary and educational history. DIAGNOSES: [place] I: Major depressive disorder, single episode, mild; generalized anxiety disorder. [place] II: Dependent personality traits. ASSESSMENT: The patient is a 63-year-old white female with a history of depression and multiple medical comorbidities who arrives with complaints of swelling and pain in her lower extremities and has subsequently been diagnosed with cellulitis. The patient has frequently been admitted to the inpatient medical service only to briefly receive care in subacute rehab settings, returned home and not take care of herself, necessitating further hospitalization. The primary team is wondering whether undertreated depression might be contributing to this pattern. The patient herself is denying depressed mood, although she is endorsing chronic worry and anxiety and I do think that she meets criteria for generalized anxiety disorder in addition to major depressive disorder. She is on duloxetine, which is a good choice given her chronic pain issues. At this point since she continues to be on a low to middle dose, there would be a rationale for increasing this to 30 mg in the morning and 60 mg in the evening, which I have discussed with Dr. Ruiz and we will go ahead and put in an order for. The patient's dependent personality traits are less likely to be amenable to medication approaches. I do think that given her intelligence, she would be a good psychotherapy candidate, although she has limitations in transportation given her current living situation. Psychiatry would support the primary team looking to assist her into a chcf facility with the understanding that perhaps she could get into a structured care home arrangement preferably in [facility], which would make therapy options more viable. This would also likely increase her amount of self-directed activity given her interest in books and going to the library. RECOMMENDATIONS TO PRIMARY TEAM: Psychiatry will increase the patient's duloxetine as previously indicated. We will continue to follow the patient along with you. Thank you for the interesting consult. [id number]/CPS #: [id number] WHITNEY
[2018-07-02] MEDS: DULoxetine DR CAP* 60 MG CAP.DR PO SCH (23:34)
[2018-07-03] MEDS: Gabapentin CAP(*) 300 MG PO SCH ×6 (03:40→22:12)
[2018-07-03] MEDS: oxyCODONE TAB* 5 MG TAB PO PRN ×5 (03:41→22:13)
[2018-07-03] MEDS: Clindamycin CAP* 150 MG PO SCH ×4 (05:32→22:12)
[2018-07-03 06:49] LABS: Ferritin 21.8 ng/mL (11-307)
[2018-07-03] MEDS: Acetaminophen TAB* 325 MG PO SCH ×2 (08:01→22:10)
[2018-07-03] MEDS: Potassium Chloride LIQUID* 20 MEQ PACKET PO SCH (08:04)
[2018-07-03 08:08] LABS: BUN/Creatinine Ratio 22.2 (8-20); Calcium 8.5 mg/dL (8.6-10.3); EGFR African American 116.2 (>60); EGFR Non-African American 96.1 (>60); Potassium 4.1 mmol/L (3.5-5.0)
[2018-07-03] MEDS: DULoxetine DR CAP* 30 MG CAP.DR PO SCH (08:08)
[2018-07-03] MEDS: Magnesium Oxide TAB* 400 MG PO SCH (08:08)
[2018-07-03] MEDS: Cyanocobalamin TAB* 500 MCG PO SCH (08:08)
[2018-07-03] MEDS: predniSONE TAB* 5 MG PO SCH (08:08)
[2018-07-03] MEDS: Methimazole TAB* 5 MG PO SCH (08:08)
[2018-07-03] MEDS: Insulin LISPRO* 1 UNITS UNIT SUBCUT SCH ×4 (08:33→22:08)
[2018-07-03] MEDS: Oxybutynin XL TAB* 5 MG PO SCH (17:35)
[2018-07-03] MEDS: DULoxetine DR CAP* 60 MG CAP.DR PO SCH (22:11)
[2018-07-04] MEDS: Gabapentin CAP(*) 300 MG PO SCH ×6 (02:42→21:48)
[2018-07-04] MEDS: oxyCODONE TAB* 5 MG TAB PO PRN ×4 (02:42→21:47)
[2018-07-04] MEDS: Clindamycin CAP* 150 MG PO SCH ×4 (06:39→23:50)
[2018-07-04] MEDS: Insulin LISPRO* 1 UNITS UNIT SUBCUT SCH ×4 (08:07→20:04)
[2018-07-04] MEDS: DULoxetine DR CAP* 30 MG CAP.DR PO SCH (09:50)
[2018-07-04] MEDS: Magnesium Oxide TAB* 400 MG PO SCH (09:50)
[2018-07-04] MEDS: predniSONE TAB* 5 MG PO SCH (09:52)
[2018-07-04] MEDS: Potassium Chloride LIQUID* 20 MEQ PACKET PO SCH (10:02)
--- NOTE | 2018-07-04 10:53 | CONSULT ---
Identification - Patient Identification Reason for Psychiatric Consultation: Incapacitating Symptoms -: Patient is a 63 year old, F admitted on 06/30/18. - MHU Identification Employment Status: Disabled Hx Psychiatric Hospitalization: No History - Objective HPI: Samia is seen by psychiatry for follow up. She continues to have mild anxiety and ruminative worry about her residential situation, although she continues to deny SI or thoughts of self-harm. She has agreed to SNF placement and is hoping for a longer stay on this occasion, which is supported by the primary team. Saima is tolerating the slight adjustment in her duloxetine without untoward effects, is eating and drinking well, albeit with continued problems ambulating, bathing and toileting. She is in fairly good spirits and is thankful for the visit. Exam Appearance: Obese Hygiene: Normal Grooming: Disheveled Psychomotor Activities: Abnormal-Decreased Exhibits Abnormal Movement: No Attitude and Relatedness: Cooperative Eye Contact: Good - Speech Quality: Unpressured Latencies: Normal Quantity: Appropriate Patient's Decription of Mood: "Okay" Observed Affect: Fair Affect Consistent with: Euthymia Patient's Thought Process: Coherent Thought Content: No Passive Wish, No Suicidal Planning, No Homicidal Ideation, No Paranoid Ideation Experiencing Hallucinations: No, Sensorium is Clear Type of Hallucinations: Visual: No, Auditory: No, Command: No Level of Consciousness: Alert Orientation: Yes Intact, Yes Orientated to Time, Yes Orientated to Place, Yes Orientated to Person Impulse Control: Intact Insight and Judgement: Good Impression - Impression Clinical Impression: 63 y.o. , white, obese female with a history of depression, generalized anxiety and multiple medical comorbidities being evaluated by psychiatry due to problems with motivation, energy, anxiety and sleep. Inpatient DSM-V Dx: F41.1 Merits Inpatient Hospitalization: No BSU: Problem List - Patient Problems (1) Generalized anxiety disorder Current Visit: Yes Status: Acute Code(s): F41.1 - GENERALIZED ANXIETY DISORDER SNOMED Code(s): 15857147 Plan - Treatment Plan Treatment Plan: The patient's duloxetine has been increased from 30mg PO BID to 30mg AM and 60mg PM, which she is tolerating well. She is psychiatrically cleared and not requiring any further acute behavioral care. There are no psychiatric barriers to receiving retirement care and psychiatry is signing off. Thank you for the consult. Continued Medication Management: Different Medication Medications: Current Medications Acetaminophen (Tylenol Tab*) 975 mg PO BID [facility] Last Admin: 07/03/18 22:10 Dose: 975 mg Clindamycin HCl (Cleocin Cap*) 300 mg PO Q6HR [facility] Last Admin: 07/04/18 06:39 Dose: 300 mg Cyanocobalamin (Vitamin B12 Tab*) 1,000 mcg PO DAILY [facility] Last Admin: 07/03/18 08:08 Dose: 1,000 mcg Dextrose (D50w Syringe 50 Ml*) 12.5 gm IV PUSH .FOR FS < 60 - SS PRN PRN Reason: FS < 60 Duloxetine HCl (Cymbalta Cap*) 60 mg PO BEDTIME [facility] Last Admin: 07/03/18 22:11 Dose: 60 mg Duloxetine HCl (Cymbalta Cap*) 30 mg PO DAILY [facility] Last Admin: 07/04/18 09:50 Dose: 30 mg Gabapentin (Neurontin Cap(*)) 600 mg PO Q4HR [facility] Last Admin: 07/04/18 09:51 Dose: 600 mg Insulin Human Lispro (Humalog*) 0 units SUBCUT [facility]; Protocol Last Admin: 07/04/18 08:07 Dose: Not Given Magnesium Oxide (Magox 400 Tab*) 400 mg PO DAILY [facility] Last Admin: 07/04/18 09:50 Dose: 400 mg Methimazole (Tapazole Tab*) 5 mg PO DAILY [facility] Last Admin: 07/03/18 08:08 Dose: 5 mg Nystatin (Nystatin Top Powder*) 1 applic TOPICAL DAILY PRN PRN Reason: rash Last Admin: 07/02/18 23:42 Dose: 1 applic Oxybutynin Chloride (Ditropan Xl Tab*) 10 mg PO QPM [facility] Last Admin: 07/03/18 17:35 Dose: 10 mg Oxycodone HCl (Roxycodone Tab*) 20 mg PO Q4HR PRN PRN Reason: PAIN Last Admin: 07/04/18 09:49 Dose: 20 mg Potassium Chloride (Klor-Con Liquid*) 40 meq PO DAILY [facility] Last Admin: 07/04/18 10:02 Dose: 40 meq Prednisone (Deltasone Tab*) 5 mg PO DAILY [facility] Last Admin: 07/04/18 09:52 Dose: 5 mg
[2018-07-04] MEDS: Acetaminophen TAB* 325 MG PO SCH ×2 (11:03→21:48)
[2018-07-04] MEDS: Methimazole TAB* 5 MG PO SCH (11:03)
[2018-07-04] MEDS: Cyanocobalamin TAB* 500 MCG PO SCH (11:04)
--- NOTE | 2018-07-04 14:52 | CONSULT ---
Consult Consult: WOUND CONSULT NOTE Date of Service: 07/04/18 History: Interval History: Ms. Juares is a 63 yo female with PMH significant for chronic bilateral LE lymphedema, morbid obesity, HTN, ITP, DM 2, and chronic pain, who presented to the emergency room with complaints of right LE redness and difficulty ambulating. Ms. Juares was initially going to be discharged to home from the ED on oral antibiotics for right LE cellulitis, but she expressed concern about being able to care for herself at home. She was seen by the Hospitalists and admitted to the hospital. Ms. Juares denies fever, chills, pain in her LEs at this time. She states that her legs are chronically edematous. Past Medical/Family/Social History: Family History: Unchanged from Admission Social History: Unchanged from Admission Past Medical History: Unchanged from Admission Objective: Active Medications: Acetaminophen (Tylenol Tab*) 975 mg PO BID [facility] Magnesium Oxide (Magox 400 Tab*) 400 mg PO DAILY [facility] Clindamycin HCl (Cleocin Cap*) 300 mg PO Q6HR [facility] Cyanocobalamin (Vitamin B12 Tab*) 1,000 mcg PO DAILY [facility] Dextrose (D50w Syringe 50 Ml*) 12.5 gm IV PUSH .FOR FS < 60 - SS PRN Reason: FS < 60 Duloxetine HCl (Cymbalta Cap*) 60 mg PO BEDTIME [facility] Duloxetine HCl (Cymbalta Cap*) 30 mg PO DAILY [facility] Gabapentin (Neurontin Cap(*)) 600 mg PO Q4HR [facility] Insulin Human Lispro (Humalog*) 0 units SUBCUT ACHS [facility]; Protocol Methimazole (Tapazole Tab*) 5 mg PO DAILY [facility] Nystatin (Nystatin Top Powder*) 1 applic TOPICAL DAILY PRN Reason: rash Oxybutynin Chloride (Ditropan Xl Tab*) 10 mg PO QPM [facility] Oxycodone HCl (Roxycodone Tab*) 20 mg PO Q4HR PRN Reason: PAIN Potassium Chloride (Klor-Con Liquid*) 40 meq PO DAILY [facility] Prednisone (Deltasone Tab*) 5 mg PO DAILY [facility] Vital Signs: 07/03/18 20:06 Temperature 97.8 F Temperature Oral Source Pulse Rate 85 Respiratory 16 Rate Blood Pressure 120/55 (mmHg) Blood Pressure 71 Mean O2 Sat by Pulse 94 Oximetry Patient on Room Yes Air Exam: General: NAD, laying in bed. Neuro: Alert and Oriented Skin: Left medial lower leg - Healing wound with scabbed area. Scabbed area measures 3 cm x 4.5 cm x 0.1 cm. Surrounding skin is intact without erythema. Right posterior lower leg - Multiple superficial open areas. Largest open area is 6.5 cm x 2.2 cm x 0.1 cm. Surrounding skin with venous stasis color changes. Right foot (plantar aspect) - No open areas noted. Area of discoloration and skin pealing is a total of 10 cm x 4 cm. Left posterior/lateral lower leg. Open wound -1.2 cm x 0.7 cm x 0.1 cm Not pictured (Patient declined photograph) - Buttocks. Superficial open area - 0.9 cm x 0.2 cm x 0.1 cm Data: Labs: 07/02/18 07/02/18 07/03/18 07:15 07:15 05:36 WBC 3.8 Hgb 11.7 L Hct 37 Plt Count 84 L Sodium 141 Potassium 4.1 Chloride 105 Anion Gap 4 BUN 14 Creatinine 0.63 Est GFR (Non-Af Amer) 96.1 Glucose 87 Total Protein 5.1 L Albumin 2.6 L Assessment/Plan: Ms. Partida is a 63 yo female with PMH significant for chronic bilateral LE lymphedema, DM2, morbid obesity, HTN, ITP, and chronic pain who presented to the emergency room with right LE redness and was admitted with right LE cellulitis. 1. Bilateral LE open wounds. Suspect secondary to a combination of chronic venous stasis and chronic lympedema. Recommend washing the legs with soap and water followed by a dry dressing daily. Apply hydrogel to open areas, gauze, kerlix, followed by MARYSE wraps. Wrap the LEs in MARYSE wraps from toes to thighs. This should be in place for 12 hours and off for 12 hours. Keep the legs elevated. 2. Buttocks wound. I suspect this is a shearing injury and skin tearing. Apply a barrier cream, try to avoid sliding up in bed without an assistive device to prevent further. Caution should be used with bathing and incontinence care as to not pull skin folds aggressively as this can lead to skin tears. 3. Diabetes. Continue to monitor glucose and keep good glycemic control to allow for wound healing. VTE PPX: SQ heparin Diet: Consistent carbohydrate Code Status: Full Code Status Disposition: Inpatient with disposition per the Primary Medical team. Plans for discharge to a SNF. Time Spent: Attending: Dr. Florecita Alva MD
[2018-07-04] MEDS: Oxybutynin XL TAB* 5 MG PO SCH (18:04)
[2018-07-04] MEDS: DULoxetine DR CAP* 60 MG CAP.DR PO SCH (21:48)
[2018-07-05] MEDS: Gabapentin CAP(*) 300 MG PO SCH ×3 (02:02→11:23)
[2018-07-05] MEDS: oxyCODONE TAB* 5 MG TAB PO PRN ×3 (02:02→11:21)
[2018-07-05] MEDS: Nystatin TOP POWDER* 15 GM BTL TOPICAL PRN (02:34)
[2018-07-05] MEDS: Clindamycin CAP* 150 MG PO SCH ×2 (05:59→11:22)
[2018-07-05 06:23] LABS: ABS Basophils 0 10^3/ul (0-0.2); ABS Eosinophils 0.1 10^3/ul (0-0.6); ABS Lymphocytes 1.3 10^3/ul (1.0-4.8); ABS Monocytes 0.6 10^3/ul (0-0.8); ABS Neutrophils 2.2 10^3/ul (1.5-7.7); ABS Nucleated RBC 0 10^3/ul; Eosinophil % 2.6 %; Hematocrit 39 % (35-47); Hemoglobin 12.5 g/dl (12.0-16.0); Lymphocyte % 30.5 %; Mean Corpuscular HGB Conc 32 g/dl (31-36); Mean Corpuscular Hemoglobin 29 pg (27-31); Mean Corpuscular Volume 89 fL (80-97); Mean Platelet Volume 9.6 fL (7.4-10.4); Nucleated Red Blood Cells % 0.1; Platelet Count 86 10^3/ul (150-450); Red Blood Count 4.33 10^6/ul (4.00-5.40); Red Cell Distribution Width 16 % (10.5-15); White Blood Count 4.2 10^3/ul (3.5-10.8)
[2018-07-05 06:40] LABS: BUN/Creatinine Ratio 27.9 (8-20); C Reactive Protein 7.37 mg/L (<8.01); Calcium 8.8 mg/dL (8.6-10.3); EGFR African American 120.7 (>60); EGFR Non-African American 99.7 (>60); Magnesium 1.9 mg/dL (1.9-2.7)
[2018-07-05] MEDS: Cyanocobalamin TAB* 500 MCG PO SCH (11:23)
[2018-07-05] MEDS: Magnesium Oxide TAB* 400 MG PO SCH (11:28)
[2018-07-05] MEDS: predniSONE TAB* 5 MG PO SCH (11:28)
[2018-07-05] MEDS: Acetaminophen TAB* 325 MG PO SCH (11:29)
[2018-07-05] MEDS: DULoxetine DR CAP* 30 MG CAP.DR PO SCH (11:29)
[2018-07-05] MEDS: Methimazole TAB* 5 MG PO SCH (11:29)
[2018-07-05] MEDS: Potassium Chloride LIQUID* 20 MEQ PACKET PO SCH (11:30)
--- NOTE | 2018-07-05 12:00 | TRS ---
DATE OF ADMISSION: 06/30/2018. DATE OF TRANSFER: 07/05/2018. TRANSFER DIAGNOSES: 1. Cellulitis. 2. Generalized weakness, deconditioning. 3. Wounds of the lower leg. 4. Type 2 diabetes mellitus, controlled. 5. Chronic immune thrombocytopenia. 6. Morbid obesity. 7. Chronic lymphedema of the lower extremities. 8. Chronic pain due to peripheral neuropathy, osteoarthritis, low back pain. 9. Hyperthyroidism, treated with Methimazole. 10. History of B12 deficiency. 11. Poor living circumstances. 12. History of nonobstructing kidney stone, left kidney. 13. Chronic steroid therapy for thrombocytopenia. 14. History of factor V Leiden. 15. History of edwin filter, still in place. 16. Osteoarthritis. 17. Depression. 18. Hypertension, treated. 19. Anxiety, treated. 20. History of hypertension. 21. History of sleep apnea, not currently using CPAP. 22. History of gastroesophageal reflux disease. 23. History of DVT and pulmonary emboli. 24. History of methicillin resistant staph aureus. 25. Lumbar spondylosis and levoscoliosis with a history of low back pain and sciatica. 26. Urinary incontinence. 27. Mild aortic stenosis. HISTORY: Saima Juares is a 63-year-old woman admitted for cellulitis of the lower extremities and inability to care for herself at home. Please see the dictated admission note for details of the present illness, past medical history , family history, social and personal history, review of systems, and physical examination. LABORATORY DATA: CBC on June 30: WBC 6.1, H and H 13.2/41, MCV 89, PLT 111k. CBC on July 02: WBC 3.8, H and H 11.7/37, MCV 90, PLT 111k. CBC on July 05: WBC 4.2, H and H 12.5/39, MCV 89, PLT 86k. D-dimer was elevated at 454, felt to be not high enough to be of a concern for DVT. Chemistries on June 30: Sodium 136, potassium 4.0, chloride 101, CO2 30, BUN and creatinine 11/0.65, glucose 116, rest of her comprehensive metabolic panel was within normal limits except for total protein 6.1, albumin 3.1, globulin was normal at 3.0. TSH was normal at 0.59. Vitamin B12 was normal at 778. CRP started at 29.73, was 22.20 on July 02, and was 7.37 on July 05. Urinalysis on July 02: Straw, clear, specific gravity 1.009, dipstick negative. Skin and soft tissue wound culture was negative for staph aureus and MRSA. The gram stain showed mixed organisms. The wound culture stated sensitivity testing is not routinely performed on cultures from nonsterile site with three or more organism with none predominating. IMAGING: Knee x-ray on 07/01/2018 showed limited study, soft tissue swelling, moderate to severe osteoarthritic change. CONSULTATIONS: 1. Orthopedics, Dr. Kinney on 07/01/2018. Assessment: Lymphedema with chronic pain. He felt it was her whole leg rather than just her knee that hurt. He felt that an injection of the knee would not help with her pain and he felt that a steroid was contraindicated in view of her infection. He did not think additional medication was appropriate. He thought treatment should be for the lymphedema. He said that the x-ray showed osteoarthritis, but did not think that he could do anything that would help her. 2. Psychiatry, Dr. Ward. Dr. Ward from psychiatry saw her and diagnosed her with treated depression and anxiety. He recommended increasing her Duloxetine from 60 mg to 90 mg daily (30 a.m., 60 p.m.). He thought this was also appropriate in view of her pain. 3. Wound consultation by TEX Diaz. Wounds were documented. There was no documentation for recommendations, however. These will be forwarded when they are obtained. HOSPITAL COURSE: The patient was brought into the hospital. She was continued on oral Clindamycin. Her legs were elevated. Labs were followed. Physical Therapy evaluated her. It was felt that she could use short-term rehab in a [facility] facility. Her other routine medications were continued. She was a full code. She was initially placed on Heparin for DVT prophylaxis. This was stopped because of her low platelet count. With physical therapy evaluation, initially she was felt to have weakness due to her lymphedema. It was felt that she would need PT prior to being discharged with skilled physical therapy. Throughout her hospitalization, she continued to have pain in the legs. She continued on her opioids. She repeated that she cannot walk across the room at home because of the clutter at home. This causes a decline in her mobility and stamina. She reported to me that she had been unable to move to another apartment because they did not want to take a chance on her, even though her landlady had said that she would rent to her again if she moved out, but not to her daughters. She ate well while in the hospital. She continued to be incontinent of urine. Her labs improved as noted above. She had the consultations as noted above. She continued to Omeprazole for GERD. She was seen by Social Work. It was felt that she would need a [facility] facility to take care of her at present. She was quite discouraged because of all her problems. She tolerated the increase in her Cymbalta. Her cellulitis did improve with decreased erythema of her legs and decrease in her CRP. Her blood sugars remained in the normal range, so her fingersticks and insulin coverage which were originally ordered were discontinued prior to discharge. MEDICATIONS: At the time of discharge, she is to be on the following medications: 1. Nystatin ointment daily for rash. 2. Metformin 500 mg twice daily. 3. Magnesium 400 mg daily (this was given to her for her low magnesium). 4. Duloxetine 30 mg in the morning, 60 mg in the evening. 5. Acetaminophen 500 mg q.8 hours prn pain. 6. Prednisone 5 mg daily. 7. KCL 40 mEq daily. 8. Oxycodone 20 mg q.4 hours prn pain. 9. Oxybutynin 10 mg extended release at bedtime. 10. Nystatin topical powder twice a day prn rash. 11. Methimazole 5 mg daily. 12. Gabapentin 600 mg six times a day. 13. B12 1,000 mcg daily. 14. Tums 300 mg prn. 15. Acetaminophen 500 mg every 8 hours prn. DISCHARGE INSTRUCTIONS: She should get physical therapy. She needs a Social Work consult. Discharge to home at this point is not a safe for her. She should also have occupational therapy. She should have her wounds dealt with and I will be sending the report on her wounds when I get the official report from the Wound consult. DISPOSITION: She is going to [facility]. She will be followed by the physician there. I will be seeing her when she is discharged from the senior care. DIET: Consistent carbohydrate. She does not need fingersticks monitored as her blood sugar is well-controlled. [id number]/[facility] #: [id number] [place]
[2018-07-05 12:26] VITALS: BP 99/49
== END 2018-07-05 14:40 | DRG 603 ==
LOC: ED 07:16 → MED 16:42 → OBSVTOIN 18:00
PROVIDERS: ADMIT Internal Medicine; ATTEND Internal Medicine Geriatric Medicine
DX: L03.115 Cellulitis of right lower limb (principal); D68.51 Activated protein C resistance; D69.3 Immune thrombocytopenic purpura; Z68.44 Body mass index [BMI] 60.0-69.9, adult; G89.29 Other chronic pain; E78.00 Pure hypercholesterolemia, unspecified; I10 Essential (primary) hypertension; J44.9 Chronic obstructive pulmonary disease, unspecified; G47.33 Obstructive sleep apnea (adult) (pediatric); K21.9 Gastro-esophageal reflux disease without esophagitis; M19.042 Primary osteoarthritis, left hand; M19.041 Primary osteoarthritis, right hand; M41.9 Scoliosis, unspecified; F32.9 Major depressive disorder, single episode, unspecified; G43.909 Migraine, unspecified, not intractable, without status migrainosus; E11.36 Type 2 diabetes mellitus with diabetic cataract; E66.01 Morbid (severe) obesity due to excess calories; I89.0 Lymphedema, not elsewhere classified; E05.90 Thyrotoxicosis, unspecified without thyrotoxic crisis or storm; E11.42 Type 2 diabetes mellitus with diabetic polyneuropathy; M47.816 Spondylosis without myelopathy or radiculopathy, lumbar region; E53.8 Deficiency of other specified B group vitamins; R32 Unspecified urinary incontinence; M25.562 Pain in left knee; M25.561 Pain in right knee; I87.8 Other specified disorders of veins; F41.1 Generalized anxiety disorder; Z88.8 Allergy status to other drugs, medicaments and biological substances; Z88.5 Allergy status to narcotic agent; Z91.048 Other nonmedicinal substance allergy status; Z86.718 Personal history of other venous thrombosis and embolism; Z86.711 Personal history of pulmonary embolism; Z87.891 Personal history of nicotine dependence; Z82.49 Family history of ischemic heart disease and other diseases of the circulatory system; Z87.442 Personal history of urinary calculi; Z87.440 Personal history of urinary (tract) infections; Z83.3 Family history of diabetes mellitus; Z88.1 Allergy status to other antibiotic agents; Z86.14 Personal history of Methicillin resistant Staphylococcus aureus infection
CPT/HCPCS: 36415; 80048; 80053; 81003; 82607; 82728; 83735; 84100; 84443; 85025; 85379; 86140; 87070; 87205; 87640; 87641; 99284; A9270-GY; G8978-GP-CL; G8979-GP-CK; J1170; J1644; J7512

== ENCOUNTER 2020-08-12 18:41 | Inpatient (IN) ==
[2020-08-12 21:44] LABS: ABS Basophils 0.1 10^3/ul (0-0.2); ABS Eosinophils 0.1 10^3/ul (0-0.6); ABS Lymphocytes 1.3 10^3/ul (1.0-4.8); ABS Neutrophils 8.6 10^3/ul (1.5-7.7); Eosinophil % 0.7 %; Hematocrit 41 % (35-47); Hemoglobin 13.6 g/dL (12.0-16.0); Lymphocyte % 11.5 %; Mean Corpuscular HGB Conc 34 g/dL (31-36); Mean Corpuscular Hemoglobin 30 pg (27-31); Mean Corpuscular Volume 91 fL (80-97); Mean Platelet Volume 9.2 fL (7.4-10.4); Platelet Count 138 10^3/uL (150-450); Red Blood Count 4.49 10^6 /uL (3.70-4.87); Red Cell Distribution Width 18 % (10-15); White Blood Count 11.1 10^3/uL (3.5-10.8)
[2020-08-12 21:59] LABS: Albumin 2.6 g/dL (3.2-5.2); Albumin/Globulin Ratio 0.7 (1-3); BUN/Creatinine Ratio 30.6 (8-20); C Reactive Protein 95.28 mg/L (<8.01); Calcium 8.4 mg/dL (8.6-10.3); EGFR African American 117.6 (>60); EGFR Non-African American 97.2 (>60); Globulin 3.6 g/dL (2-4); Potassium 3.4 mmol/L (3.5-5.0); Total Bilirubin 0.6 mg/dL (0.2-1.0); Total Protein 6.2 g/dL (6.4-8.9)
[2020-08-12] MEDS ORDERED: Potassium Chlor 20 meq TAB.ER PO ONE (22:34)
[2020-08-12 22:48] LABS: Erythrocyte Sed Rate 20 mm/Hr (0-29)
[2020-08-12] MEDS ORDERED: Vancomycin per Pharmacy 1 EA NOTE FOLLOW UP PRN (22:55)
[2020-08-12] MEDS ORDERED: Vancomycin 1,500 MG in NS 0.9% 250 ml 250 ML IVPB SCH (23:00)
[2020-08-12] MEDS ORDERED: Vancomycin 1,750 MG in NS 0.9% 500 ml BAG 500 ML IVPB ONE (23:00)
[2020-08-13] MEDS ORDERED: HYDROmorphone 0.5 MG/0.5 ML SYRINGE IV SLOW PU ONE (04:02)
[2020-08-13] MEDS ORDERED: NS 0.9% 1000 ml BAG 1,000 ML IV SCH (04:15)
[2020-08-13] MEDS: Heparin 5000 UNITS/ML 1 mL VIAL SUBCUT SCH ×3 (04:31→21:36)
[2020-08-13] MEDS: Vancomycin 750 MG in NS 0.9% 250 ML IVPB SCH ×3 (07:38→23:13)
[2020-08-13] MEDS: DULoxetine DR 60 mg CAP PO SCH (09:51)
[2020-08-13] MEDS ORDERED: HYDROmorphone 1 MG/1 ML SYRINGE IV SLOW PU ONE (10:46)
[2020-08-13] MEDS ORDERED: HYDROmorphone 1 MG/1 ML SYRINGE IV SLOW PU PRN (18:42)
[2020-08-13] MEDS: Collagenase 250 units/gm OINT 1 tube TOPICAL SCH (21:43)
[2020-08-13] MEDS ORDERED: NS 0.9% 1000 ml BAG 400 ML IV ONE (23:00)
[2020-08-14] MEDS: Heparin 5000 UNITS/ML 1 mL VIAL SUBCUT SCH ×3 (06:04→21:13)
[2020-08-14] MEDS ORDERED: Vancomycin Trough Check NOTE FOLLOW UP ONE (07:30)
[2020-08-14] MEDS: DULoxetine DR 60 mg CAP PO SCH (07:42)
[2020-08-14 08:15] LABS: Hematocrit 35 % (35-47); Hemoglobin 11.4 g/dL (12.0-16.0); Mean Corpuscular HGB Conc 33 g/dL (31-36); Mean Corpuscular Hemoglobin 31 pg (27-31); Mean Corpuscular Volume 93 fL (80-97); Platelet Count 102 10^3/uL (150-450); Red Blood Count 3.73 10^6 /uL (3.70-4.87); Red Cell Distribution Width 17 % (10-15); White Blood Count 5.9 10^3/uL (3.5-10.8)
[2020-08-14 08:41] LABS: Calcium 7.8 mg/dL (8.6-10.3); EGFR African American 144.1 (>60); EGFR Non-African American 119.1 (>60); Magnesium 1.3 mg/dL (1.9-2.7); Potassium 3.8 mmol/L (3.5-5.0)
[2020-08-14 08:46] LABS: Vancomycin Trough 13.6 mcg/mL
[2020-08-14] MEDS: Vancomycin 750 MG in NS 0.9% 250 ML IVPB SCH ×2 (09:35→17:16)
[2020-08-14] MEDS ORDERED: Magnesium Sulfate 2 gm BAG 2 GM/50 ML BAG IVPB ONE (10:22)
[2020-08-14] MEDS: Collagenase 250 units/gm OINT 1 tube TOPICAL SCH ×2 (11:43→22:47)
[2020-08-14] MEDS ORDERED: HYDROmorphone 0.5 MG/0.5 ML SYRINGE IV SLOW PU ONE (19:21)
[2020-08-14 23:04] LABS: Urine Appearance Cloudy; Urine Bilirubin Negative (Negative); Urine Blood Negative (Negative); Urine Color Yellow; Urine Glucose Negative (Negative); Urine Ketones Negative (Negative); Urine Nitrite Negative (Negative); Urine Protein Negative (Negative); Urine Specific Gravity 1.014 (1.010-1.030); Urine Urobilinogen Negative (Negative)
[2020-08-14 23:24] LABS: Urine Bacteria Absent (Absent); Urine Red Blood Cell Absent (Absent); Urine Squamous Epithelial Cell Present (Absent); Urine White Blood Cell 1+(6-10/hpf) (Absent)
[2020-08-15] MEDS: Vancomycin 750 MG in NS 0.9% 250 ML IVPB SCH ×4 (00:09→23:51)
[2020-08-15] MEDS: Heparin 5000 UNITS/ML 1 mL VIAL SUBCUT SCH ×3 (04:14→20:18)
[2020-08-15 06:27] LABS: Calcium 7.8 mg/dL (8.6-10.3); EGFR African American 150.8 (>60); EGFR Non-African American 124.6 (>60); Magnesium 1.5 mg/dL (1.9-2.7); Potassium 3.9 mmol/L (3.5-5.0)
[2020-08-15] MEDS ORDERED: Magnesium Sulfate IV 3 GM in NS 0.9% 100 ml BAG 100 ML IVPB ONE (07:30)
[2020-08-15] MEDS: DULoxetine DR 60 mg CAP PO SCH (07:35)
[2020-08-15] MEDS: HYDROmorphone 1 MG/1 ML SYRINGE IV SLOW PU SCH ×2 (11:20→20:16)
[2020-08-15] MEDS: Collagenase 250 units/gm OINT 1 tube TOPICAL SCH ×2 (11:32→20:49)
[2020-08-16] MEDS: Heparin 5000 UNITS/ML 1 mL VIAL SUBCUT SCH ×3 (04:41→20:33)
[2020-08-16] MEDS: Vancomycin 750 MG in NS 0.9% 250 ML IVPB SCH ×2 (08:02→16:05)
[2020-08-16] MEDS: DULoxetine DR 60 mg CAP PO SCH (08:10)
[2020-08-16] MEDS: Collagenase 250 units/gm OINT 1 tube TOPICAL SCH ×2 (08:11→23:04)
[2020-08-16] MEDS: HYDROmorphone 1 MG/1 ML SYRINGE IV SLOW PU SCH ×2 (08:12→22:34)
[2020-08-16 09:18] LABS: ABS Lymphocytes 0.7 10^3/ul (1.0-4.8); ABS Monocytes 0.6 10^3/ul (0-0.8); ABS Neutrophils 7.8 10^3/ul (1.5-7.7); Eosinophil % 0.5 %; Hematocrit 41 % (35-47); Hemoglobin 13.3 g/dL (12.0-16.0); Lymphocyte % 7.6 %; Mean Corpuscular HGB Conc 33 g/dL (31-36); Mean Corpuscular Hemoglobin 31 pg (27-31); Mean Corpuscular Volume 94 fL (80-97); Mean Platelet Volume 8.9 fL (7.4-10.4); Nucleated Red Blood Cells % 0.2; Platelet Count 136 10^3/uL (150-450); Red Blood Count 4.31 10^6 /uL (3.70-4.87); Red Cell Distribution Width 18 % (10-15); White Blood Count 9.2 10^3/uL (3.5-10.8)
[2020-08-16 09:54] LABS: Calcium 8.5 mg/dL (8.6-10.3); Potassium 3.9 mmol/L (3.5-5.0)
[2020-08-16 09:59] LABS: EGFR Non-African American 124.6 (>60)
[2020-08-16 10:00] LABS: EGFR African American 150.8 (>60)
[2020-08-16] MEDS ORDERED: Metoclopramide 5 MG/ML VIAL (10 mg) IV PRN (12:53)
[2020-08-16 13:53] LABS: Magnesium 1.7 mg/dL (1.9-2.7)
[2020-08-16] MEDS ORDERED: Magnesium Sulfate 2 gm BAG 2 GM/50 ML BAG IVPB ONE (18:15)
[2020-08-16] MEDS ORDERED: Naloxone 0.4 mg VIAL 0.4 mg/ml 1 ml VIAL IV PUSH ONE (20:50)
[2020-08-16] MEDS ORDERED: Naloxone 0.4 mg VIAL 0.4 mg/ml 1 ml VIAL ONE (20:51)
[2020-08-17] MEDS: Vancomycin 750 MG in NS 0.9% 250 ML IVPB SCH ×2 (00:04→10:37)
[2020-08-17] MEDS: Heparin 5000 UNITS/ML 1 mL VIAL SUBCUT SCH (04:53)
[2020-08-17] MEDS ORDERED: Vancomycin Trough Check NOTE FOLLOW UP ONE (07:30)
[2020-08-17] MEDS: DULoxetine DR 60 mg CAP PO SCH (08:44)
[2020-08-17 08:52] LABS: ABS Eosinophils 0.1 10^3/ul (0-0.6); ABS Lymphocytes 0.9 10^3/ul (1.0-4.8); ABS Monocytes 0.7 10^3/ul (0-0.8); ABS Neutrophils 4.1 10^3/ul (1.5-7.7); Hematocrit 35 % (35-47); Hemoglobin 11.3 g/dL (12.0-16.0); Lymphocyte % 15.1 %; Mean Corpuscular HGB Conc 32 g/dL (31-36); Mean Corpuscular Hemoglobin 31 pg (27-31); Mean Corpuscular Volume 95 fL (80-97); Mean Platelet Volume 8.7 fL (7.4-10.4); Platelet Count 119 10^3/uL (150-450); Red Cell Distribution Width 18 % (10-15); White Blood Count 5.8 10^3/uL (3.5-10.8)
[2020-08-17 09:09] LABS: Albumin 2.3 g/dL (3.2-5.2); Albumin/Globulin Ratio 0.8 (1-3); C Reactive Protein 79.87 mg/L (<8.01); Calcium 8.1 mg/dL (8.6-10.3); EGFR African American 170.3 (>60); EGFR Non-African American 140.7 (>60); Magnesium 1.6 mg/dL (1.9-2.7); Total Bilirubin 0.3 mg/dL (0.2-1.0); Total Protein 5.3 g/dL (6.4-8.9)
[2020-08-17 09:27] LABS: Vancomycin Trough 12.2 mcg/mL
[2020-08-17] MEDS ORDERED: Magnesium Sulfate 2 gm BAG 2 GM/50 ML BAG IVPB ONE ×2 (10:11→13:15)
[2020-08-17] MEDS: Enoxaparin 100 MG/ML SYR SUBCUT SCH ×2 (12:49→22:59)
[2020-08-17] MEDS: HYDROmorphone 1 MG/1 ML SYRINGE IV SLOW PU SCH (12:53)
[2020-08-17] MEDS: Collagenase 250 units/gm OINT 1 tube TOPICAL SCH (12:58)
[2020-08-17] MEDS: Warfarin DAILY REMINDER **NOTE FOLLOW UP SCH (17:53)
[2020-08-17] MEDS: Senna TAB 8.6 mg TAB PO SCH (20:38)
[2020-08-17] MEDS: Magnesium Hydroxide LIQ 30 ML UDC PO SCH (22:58)
[2020-08-18] MEDS: HYDROmorphone 1 MG/1 ML SYRINGE IV SLOW PU SCH ×2 (03:22→17:20)
[2020-08-18] MEDS: Collagenase 250 units/gm OINT 1 tube TOPICAL SCH ×2 (03:22→17:44)
[2020-08-18] MEDS ORDERED: Al Hydrox/Mg Hydrox/Simet LIQ 30 ML UDC PO ONE (04:37)
[2020-08-18 09:50] LABS: Hematocrit 34 % (35-47); Hemoglobin 11.3 g/dL (12.0-16.0); Mean Corpuscular HGB Conc 33 g/dL (31-36); Mean Corpuscular Hemoglobin 31 pg (27-31); Mean Corpuscular Volume 93 fL (80-97); Mean Platelet Volume 8.7 fL (7.4-10.4); Platelet Count 141 10^3/uL (150-450); Red Blood Count 3.62 10^6 /uL (3.70-4.87); Red Cell Distribution Width 17 % (10-15); White Blood Count 4.8 10^3/uL (3.5-10.8)
[2020-08-18 10:00] LABS: INR 1.01 (0.82-1.09)
[2020-08-18 10:15] LABS: Anion Gap 3 mmol/L (2-11); BUN/Creatinine Ratio 17.8 (8-20); Blood Urea Nitrogen 8 mg/dL (6-24); CO2 Carbon Dioxide 31 mmol/L (22-32); Calcium 8.1 mg/dL (8.6-10.3); Chloride 102 mmol/L (101-111); EGFR African American 170.3 (>60); EGFR Non-African American 140.7 (>60); Glucose 83 mg/dL (70-100); Potassium 3.8 mmol/L (3.5-5.0); Sodium 136 mmol/L (135-145)
[2020-08-18 10:16] LABS: Iron 35 ug/dL (50-212)
[2020-08-18] MEDS: DULoxetine DR 60 mg CAP PO SCH (10:33)
[2020-08-18] MEDS: Magnesium Hydroxide LIQ 30 ML UDC PO SCH ×2 (10:34→21:13)
[2020-08-18 10:41] LABS: Vitamin B12 474 pg/mL (180-914)
[2020-08-18] MEDS: Enoxaparin 100 MG/ML SYR SUBCUT SCH (12:38)
[2020-08-18] MEDS: Warfarin DAILY REMINDER **NOTE FOLLOW UP SCH (18:21)
[2020-08-18] MEDS: Senna TAB 8.6 mg TAB PO SCH (21:13)
[2020-08-18] MEDS: Calcium Carb (TUMS) 500 mg CHEW TAB PO PRN (21:13)
[2020-08-19] MEDS: Enoxaparin 100 MG/ML SYR SUBCUT SCH ×2 (00:11→10:51)
[2020-08-19] MEDS: Calcium Carb (TUMS) 500 mg CHEW TAB PO PRN (00:57)
[2020-08-19 01:02] LABS: % Iron Saturation 18 % (15-55); Total Iron Binding Capacity 197 mcg/dL (250-450); Transferrin 141 mg/dL (203-362); Unsaturated Iron Binding < 182 ug/dL
[2020-08-19 01:24] LABS: Ferritin 74.4 ng/mL (11-307)
[2020-08-19] MEDS: HYDROmorphone 1 MG/1 ML SYRINGE IV SLOW PU SCH ×2 (04:44→15:58)
[2020-08-19] MEDS: Collagenase 250 units/gm OINT 1 tube TOPICAL SCH ×3 (04:44→22:01)
[2020-08-19 09:30] LABS: Hematocrit 34 % (35-47); Hemoglobin 11.1 g/dL (12.0-16.0); Mean Corpuscular HGB Conc 33 g/dL (31-36); Mean Corpuscular Hemoglobin 31 pg (27-31); Mean Corpuscular Volume 94 fL (80-97); Mean Platelet Volume 8.4 fL (7.4-10.4); Platelet Count 137 10^3/uL (150-450); Red Blood Count 3.63 10^6 /uL (3.70-4.87); Red Cell Distribution Width 17 % (10-15); White Blood Count 4.6 10^3/uL (3.5-10.8)
[2020-08-19 09:37] LABS: INR 1.03 (0.82-1.09)
[2020-08-19 09:49] LABS: BUN/Creatinine Ratio 13.2 (8-20); EGFR Non-African American 116.5 (>60); Magnesium 1.6 mg/dL (1.9-2.7); Potassium 4.3 mmol/L (3.5-5.0)
[2020-08-19] MEDS ORDERED: Magnesium Sulfate IV 3 GM in NS 0.9% 100 ml BAG 100 ML IVPB ONE (09:53)
[2020-08-19] MEDS: DULoxetine DR 60 mg CAP PO SCH (10:48)
[2020-08-19] MEDS: Magnesium Hydroxide LIQ 30 ML UDC PO SCH ×2 (10:51→22:00)
[2020-08-19 12:06] LABS: Prealbumin 10 mg/dL (18-38)
[2020-08-19] MEDS: HYDROmorphone 0.5 MG/0.5 ML SYRINGE IV SLOW PU PRN (16:37)
[2020-08-19] MEDS ORDERED: Warfarin per PHARMACY **NOTE FOLLOW UP SCH (17:00)
[2020-08-19] MEDS: Warfarin DAILY REMINDER **NOTE FOLLOW UP SCH (18:05)
[2020-08-19] MEDS: Senna TAB 8.6 mg TAB PO SCH (22:00)
[2020-08-20] MEDS: Enoxaparin 100 MG/ML SYR SUBCUT SCH ×3 (00:19→23:23)
[2020-08-20] MEDS: HYDROmorphone 0.5 MG/0.5 ML SYRINGE IV SLOW PU PRN ×2 (04:53→16:53)
[2020-08-20 07:35] LABS: Hematocrit 35 % (35-47); Hemoglobin 11.1 g/dL (12.0-16.0); Mean Corpuscular HGB Conc 32 g/dL (31-36); Mean Corpuscular Hemoglobin 30 pg (27-31); Mean Corpuscular Volume 95 fL (80-97); Mean Platelet Volume 9.1 fL (7.4-10.4); Platelet Count 137 10^3/uL (150-450); Red Blood Count 3.67 10^6 /uL (3.70-4.87); Red Cell Distribution Width 17 % (10-15); White Blood Count 3.9 10^3/uL (3.5-10.8)
[2020-08-20] MEDS: DULoxetine DR 60 mg CAP PO SCH (10:17)
[2020-08-20] MEDS: Collagenase 250 units/gm OINT 1 tube TOPICAL SCH (10:20)
[2020-08-20] MEDS: Magnesium Hydroxide LIQ 30 ML UDC PO SCH ×2 (11:22→21:19)
[2020-08-20] MEDS ORDERED: COVID-19 VACCINE, MRNA(MODERNA)/PF 100 MCG/0.5 ML IM ONE (12:00)
[2020-08-20] MEDS ORDERED: Magnesium Sulfate 2 gm BAG 2 GM/50 ML BAG IVPB ONE (13:23)
[2020-08-20] MEDS: Warfarin DAILY REMINDER **NOTE FOLLOW UP SCH (19:39)
[2020-08-20] MEDS: Senna TAB 8.6 mg TAB PO SCH (21:19)
[2020-08-21] MEDS: HYDROmorphone 0.5 MG/0.5 ML SYRINGE IV SLOW PU PRN ×2 (03:37→16:51)
[2020-08-21] MEDS: Collagenase 250 units/gm OINT 1 tube TOPICAL SCH ×3 (03:38→17:16)
[2020-08-21 06:07] LABS: INR 1.16 (0.82-1.09)
[2020-08-21] MEDS: DULoxetine DR 60 mg CAP PO SCH (09:35)
[2020-08-21] MEDS: Magnesium Hydroxide LIQ 30 ML UDC PO SCH ×2 (09:40→20:41)
[2020-08-21] MEDS: Enoxaparin 100 MG/ML SYR SUBCUT SCH (12:34)
[2020-08-21] MEDS: Warfarin DAILY REMINDER **NOTE FOLLOW UP SCH (16:52)
[2020-08-21] MEDS: Senna TAB 8.6 mg TAB PO SCH (20:25)
[2020-08-22] MEDS: Enoxaparin 100 MG/ML SYR SUBCUT SCH ×2 (01:30→11:49)
[2020-08-22] MEDS: Collagenase 250 units/gm OINT 1 tube TOPICAL SCH ×3 (02:00→21:57)
[2020-08-22 06:44] LABS: INR 1.76 (0.82-1.09)
[2020-08-22] MEDS: DULoxetine DR 60 mg CAP PO SCH (09:29)
[2020-08-22] MEDS: Magnesium Hydroxide LIQ 30 ML UDC PO SCH ×2 (09:30→21:55)
[2020-08-22] MEDS: HYDROmorphone 0.5 MG/0.5 ML SYRINGE IV SLOW PU PRN ×2 (13:00→22:02)
[2020-08-22] MEDS: Warfarin DAILY REMINDER **NOTE FOLLOW UP SCH (17:01)
[2020-08-22] MEDS: Senna TAB 8.6 mg TAB PO SCH (21:54)
[2020-08-23] MEDS: Enoxaparin 100 MG/ML SYR SUBCUT SCH ×2 (00:14→13:14)
[2020-08-23 05:43] LABS: INR 2.4 (0.82-1.09)
[2020-08-23] MEDS ORDERED: Magnesium Sulfate 2 gm BAG 2 GM/50 ML BAG IVPB ONE (07:40)
[2020-08-23] MEDS: DULoxetine DR 60 mg CAP PO SCH (09:25)
[2020-08-23] MEDS: Magnesium Hydroxide LIQ 30 ML UDC PO SCH ×2 (09:27→21:45)
[2020-08-23] MEDS: HYDROmorphone 0.5 MG/0.5 ML SYRINGE IV SLOW PU PRN ×2 (12:27→21:47)
[2020-08-23] MEDS: Collagenase 250 units/gm OINT 1 tube TOPICAL SCH ×2 (12:31→21:45)
[2020-08-23] MEDS: Warfarin DAILY REMINDER **NOTE FOLLOW UP SCH (17:19)
[2020-08-23] MEDS: Senna TAB 8.6 mg TAB PO SCH (21:45)
[2020-08-24] MEDS: Calcium Carb (TUMS) 500 mg CHEW TAB PO PRN (08:39)
[2020-08-24] MEDS: Magnesium Hydroxide LIQ 30 ML UDC PO SCH ×2 (09:13→22:02)
[2020-08-24 09:24] LABS: INR 2.09 (0.82-1.09)
[2020-08-24] MEDS: DULoxetine DR 60 mg CAP PO SCH (10:51)
[2020-08-24] MEDS: HYDROmorphone 0.5 MG/0.5 ML SYRINGE IV SLOW PU PRN ×2 (11:03→22:05)
[2020-08-24] MEDS: Collagenase 250 units/gm OINT 1 tube TOPICAL SCH ×2 (11:42→22:04)
[2020-08-24] MEDS: Warfarin DAILY REMINDER **NOTE FOLLOW UP SCH (18:36)
[2020-08-24] MEDS: Senna TAB 8.6 mg TAB PO SCH (22:03)
[2020-08-25] MEDS: Calcium Carb (TUMS) 500 mg CHEW TAB PO PRN (01:03)
[2020-08-25 09:07] LABS: Mean Platelet Volume 9.7 fL (7.4-10.4); Platelet Count 122 10^3/uL (150-450)
[2020-08-25 09:13] LABS: INR 1.97 (0.82-1.09)
[2020-08-25] MEDS: Magnesium Hydroxide LIQ 30 ML UDC PO SCH ×2 (11:16→22:20)
[2020-08-25] MEDS: DULoxetine DR 60 mg CAP PO SCH (11:17)
[2020-08-25] MEDS: Nystatin TOP POWDER 15 GM BTL TOPICAL SCH ×2 (11:29→23:04)
[2020-08-25] MEDS: HYDROmorphone 0.5 MG/0.5 ML SYRINGE IV SLOW PU PRN ×2 (15:12→23:24)
[2020-08-25] MEDS: Collagenase 250 units/gm OINT 1 tube TOPICAL SCH ×2 (16:19→23:30)
[2020-08-25] MEDS: Warfarin DAILY REMINDER **NOTE FOLLOW UP SCH (18:41)
[2020-08-25] MEDS: Senna TAB 8.6 mg TAB PO SCH (22:20)
[2020-08-26 08:59] LABS: INR 2.12 (0.82-1.09)
[2020-08-26] MEDS: DULoxetine DR 60 mg CAP PO SCH (09:34)
[2020-08-26] MEDS: Magnesium Hydroxide LIQ 30 ML UDC PO SCH ×2 (09:38→22:29)
[2020-08-26] MEDS: Nystatin TOP POWDER 15 GM BTL TOPICAL SCH ×2 (09:39→22:29)
[2020-08-26] MEDS: HYDROmorphone 0.5 MG/0.5 ML SYRINGE IV SLOW PU PRN (15:16)
[2020-08-26] MEDS: Collagenase 250 units/gm OINT 1 tube TOPICAL SCH (15:30)
[2020-08-26] MEDS: Warfarin DAILY REMINDER **NOTE FOLLOW UP SCH (17:26)
[2020-08-26] MEDS: Senna TAB 8.6 mg TAB PO SCH (22:29)
[2020-08-27] MEDS: Collagenase 250 units/gm OINT 1 tube TOPICAL SCH ×2 (01:42→10:09)
[2020-08-27 05:30] LABS: INR 2.68 (0.82-1.09)
[2020-08-27] MEDS: DULoxetine DR 60 mg CAP PO SCH (09:56)
[2020-08-27] MEDS: Magnesium Hydroxide LIQ 30 ML UDC PO SCH (09:58)
[2020-08-27] MEDS: Nystatin TOP POWDER 15 GM BTL TOPICAL SCH (10:09)
[2020-08-27 12:14] VITALS: BP 108/56
== END 2020-08-27 14:40 | disposition home or self-care (01) | DRG 300 ==
LOC: ED 18:41 → MED 22:44 → SSU 08-25 21:06
PROVIDERS: ADMIT Internal Medicine; ATTEND Student in an Organized Health Care Education/Training Program

== ENCOUNTER 2021-01-09 20:29 | Inpatient (IN) ==
[2021-01-09] MEDS ORDERED: Lactated Ringers 1000 ml BAG 1,000 ML IV ONE (20:42)
[2021-01-09] MEDS ORDERED: Droperidol 5 MG/2 ML 2 ML VIAL IV ONE (20:42)
[2021-01-09 22:04] LABS: ABS Basophils 0.1 10^3/ul (0-0.2); ABS Eosinophils 0.2 10^3/ul (0-0.6); ABS Lymphocytes 1.6 10^3/ul (1.0-4.8); ABS Monocytes 0.9 10^3/ul (0-0.8); ABS Neutrophils 4.6 10^3/ul (1.5-7.7); Eosinophil % 2.8 %; Hematocrit 39 % (35-47); Hemoglobin 12.8 g/dL (12.0-16.0); Lymphocyte % 21.1 %; Mean Corpuscular HGB Conc 33 g/dL (31-36); Mean Corpuscular Hemoglobin 31 pg (27-31); Mean Corpuscular Volume 94 fL (80-97); Mean Platelet Volume 8.6 fL (7.4-10.4); Nucleated Red Blood Cells % 0.1; Platelet Count 204 10^3/uL (150-450); Red Cell Distribution Width 15 % (10-15); White Blood Count 7.3 10^3/uL (3.5-10.8)
[2021-01-09 22:10] LABS: INR 2.07 (0.86-1.15)
[2021-01-09 22:20] LABS: Albumin/Globulin Ratio 0.9 (1-3); C Reactive Protein 19.99 mg/L (<8.01); Calcium 7.9 mg/dL (8.6-10.3); Globulin 3.3 g/dL (2-4); Potassium 3.4 mmol/L (3.5-5.0); Total Bilirubin 0.2 mg/dL (0.2-1.0); Total Protein 6.3 g/dL (6.4-8.9)
[2021-01-09] MEDS ORDERED: Vancomycin per Pharmacy 1 EA NOTE FOLLOW UP SCH (23:45)
[2021-01-09] MEDS ORDERED: Enoxaparin 40 MG/0.4 ML SYR SUBCUT SCH (23:45)
[2021-01-09] MEDS ORDERED: Zosyn per Pharmacy NOTE FOLLOW UP SCH (23:45)
[2021-01-09] MEDS ORDERED: Ondansetron 4 mg VIAL 2 MG/ML 2 ml VIAL IV PRN (23:48)
[2021-01-09] MEDS ORDERED: Vancomycin 1,000 MG in NS 0.9% 250 ml 250 ML IVPB ONE (23:53)
[2021-01-09] MEDS ORDERED: Piperacillin/Tazobac ADVAN 3.375 GM in NS 0.9% 100 ml BAG 100 ML IV ONE (23:53)
[2021-01-10] MEDS ORDERED: Vancomycin 1,250 MG in NS 0.9% 250 ml 250 ML IVPB ONE (00:08)
[2021-01-10] MEDS ORDERED: Dextrose 50% Syringe 50 ml 25 GM/50 ML SYRINGE IV PUSH PRN (00:46)
[2021-01-10 00:48] LABS: Rapid COVID-19 Molecular Undetected (Undetected)
[2021-01-10] MEDS: Lactated Ringers 1000 ml BAG 1,000 ML IV SCH ×2 (04:04→18:15)
[2021-01-10 05:33] LABS: ABS Eosinophils 0.3 10^3/ul (0-0.6); ABS Lymphocytes 1.4 10^3/ul (1.0-4.8); ABS Monocytes 0.8 10^3/ul (0-0.8); ABS Neutrophils 4.2 10^3/ul (1.5-7.7); Eosinophil % 3.7 %; Hematocrit 36 % (35-47); Hemoglobin 11.9 g/dL (12.0-16.0); Lymphocyte % 20.8 %; Mean Corpuscular HGB Conc 33 g/dL (31-36); Mean Corpuscular Hemoglobin 32 pg (27-31); Mean Corpuscular Volume 96 fL (80-97); Mean Platelet Volume 8.7 fL (7.4-10.4); Platelet Count 163 10^3/uL (150-450); Red Blood Count 3.78 10^6 /uL (3.70-4.87); Red Cell Distribution Width 15 % (10-15); White Blood Count 6.8 10^3/uL (3.5-10.8)
[2021-01-10 05:53] LABS: Calcium 7.8 mg/dL (8.6-10.3); EGFR African American 144.1 (>60); EGFR Non-African American 119.1 (>60); Potassium 3.7 mmol/L (3.5-5.0)
[2021-01-10] MEDS ORDERED: Enoxaparin 40 MG/0.4 ML SYR SUBCUT SCH (06:00)
[2021-01-10] MEDS ORDERED: Warfarin per PHARMACY **NOTE FOLLOW UP SCH (06:00)
[2021-01-10 06:27] LABS: INR 2.42 (0.86-1.15)
[2021-01-10] MEDS: ZOSYN 3.375 GM Q8H per EXTENDED INFUSION IV SCH ×3 (06:44→22:39)
[2021-01-10] MEDS ORDERED: HYDROmorphone 0.5 MG/0.5 ML SYRINGE IV SLOW PU ONE (12:38)
[2021-01-10] MEDS: Vancomycin 1000 MG in NS 0.9% 250 ML IVPB SCH ×2 (13:31→21:13)
[2021-01-10 17:41] LABS: Urine Appearance Clear; Urine Bilirubin Negative (Negative); Urine Blood Negative (Negative); Urine Color Yellow; Urine Glucose Negative (Negative); Urine Ketones Negative (Negative); Urine Nitrite Negative (Negative); Urine Protein Negative (Negative); Urine Specific Gravity 1.026 (1.002-1.030); Urine Urobilinogen Negative (Negative)
[2021-01-10 17:45] LABS: Urine Bacteria 1+ (Absent); Urine Red Blood Cell Trace(0-2/hpf) (Absent); Urine Squamous Epithelial Cell Present (Absent); Urine White Blood Cell 1+(6-10/hpf) (Absent)
[2021-01-10] MEDS: Warfarin DAILY REMINDER **NOTE FOLLOW UP SCH (18:11)
[2021-01-11] MEDS: Vancomycin 1000 MG in NS 0.9% 250 ML IVPB SCH ×2 (04:24→07:17)
[2021-01-11 06:05] LABS: INR 2.39 (0.86-1.15)
[2021-01-11] MEDS ORDERED: Vancomycin Trough Check NOTE FOLLOW UP ONE (07:30)
[2021-01-11] MEDS ORDERED: Vancomycin 1000 MG in NS 0.9% 250 ML IVPB SCH (08:00)
[2021-01-11] MEDS ORDERED: ZOSYN 3.375 GM Q8H per EXTENDED INFUSION IV SCH (08:00)
[2021-01-11] MEDS: Potassium Chloride LIQUID 20 MEQ/15 ML LIQUID PO SCH ×2 (09:07→09:20)
[2021-01-11] MEDS: DULoxetine DR 60 mg CAP PO SCH (09:09)
[2021-01-11] MEDS: Piperacillin/Tazobac ADVAN 3.375 GM in NS 0.9% 100 ml BAG 100 ML IV SCH (10:15)
[2021-01-11] MEDS: Potassium Chlor 10 meq TAB PO SCH (10:16)
[2021-01-11] MEDS ORDERED: Piperacillin/Tazobac ADVAN 3.375 GM in NS 0.9% 100 ml BAG 100 ML IV SCH ×2 (12:00→20:00)
[2021-01-11] MEDS ORDERED: Vancomycin 750 MG in NS 0.9% 250 ML IVPB SCH (12:00)
[2021-01-11] MEDS ORDERED: Vancomycin 1,000 MG in NS 0.9% 250 ml 250 ML IVPB SCH (12:00)
[2021-01-11] MEDS: HYDROmorphone 1 MG/1 ML SYRINGE IV SLOW PU PRN (13:03)
[2021-01-11] MEDS: Nystatin TOP POWDER 15 GM BTL TOPICAL SCH ×2 (15:39→20:14)
[2021-01-11] MEDS: Warfarin DAILY REMINDER **NOTE FOLLOW UP SCH (17:13)
[2021-01-11] MEDS: Vancomycin 750 MG in NS 0.9% 250 ML IVPB SCH (20:13)
[2021-01-12] MEDS: Vancomycin 750 MG in NS 0.9% 250 ML IVPB SCH ×3 (02:43→19:09)
[2021-01-12] MEDS: Piperacillin/Tazobac ADVAN 3.375 GM in NS 0.9% 100 ml BAG 100 ML IV SCH ×3 (06:26→21:22)
[2021-01-12 08:41] LABS: INR 2.39 (0.86-1.15)
[2021-01-12 08:48] LABS: EGFR African American 150.8 (>60); EGFR Non-African American 124.6 (>60)
[2021-01-12] MEDS: DULoxetine DR 60 mg CAP PO SCH (09:51)
[2021-01-12] MEDS: Nystatin TOP POWDER 15 GM BTL TOPICAL SCH ×2 (09:52→21:22)
[2021-01-12] MEDS: Potassium Chlor 10 meq TAB PO SCH (09:53)
[2021-01-12] MEDS: HYDROmorphone 1 MG/1 ML SYRINGE IV SLOW PU PRN (10:10)
[2021-01-12] MEDS: Collagenase 250 units/gm OINT 1 tube TOPICAL SCH (10:10)
[2021-01-12] MEDS ORDERED: Vancomycin Trough Check NOTE FOLLOW UP ONE (11:30)
[2021-01-12] MEDS: Warfarin DAILY REMINDER **NOTE FOLLOW UP SCH (16:56)
[2021-01-13] MEDS: Vancomycin 750 MG in NS 0.9% 250 ML IVPB SCH ×2 (02:30→11:46)
[2021-01-13] MEDS: Piperacillin/Tazobac ADVAN 3.375 GM in NS 0.9% 100 ml BAG 100 ML IV SCH ×3 (05:40→21:58)
[2021-01-13 05:55] LABS: Calcium 8.3 mg/dL (8.6-10.3); EGFR African American 154.3 (>60); EGFR Non-African American 127.6 (>60)
[2021-01-13 05:58] LABS: INR 2.12 (0.86-1.15)
[2021-01-13] MEDS ORDERED: Perflutren Lipid Microsphere 3 ML VIAL ONE (07:38)
[2021-01-13] MEDS: HYDROmorphone 1 MG/1 ML SYRINGE IV SLOW PU PRN (07:57)
[2021-01-13] MEDS: DULoxetine DR 60 mg CAP PO SCH (08:01)
[2021-01-13] MEDS: Nystatin TOP POWDER 15 GM BTL TOPICAL SCH ×2 (08:01→22:28)
[2021-01-13] MEDS: Collagenase 250 units/gm OINT 1 tube TOPICAL SCH (08:01)
[2021-01-13] MEDS: Potassium Chlor 10 meq TAB PO SCH (08:02)
[2021-01-13] MEDS ORDERED: Vancomycin Trough Check NOTE FOLLOW UP ONE (10:00)
[2021-01-13] MEDS: Warfarin DAILY REMINDER **NOTE FOLLOW UP SCH (17:18)
[2021-01-13] MEDS: Vancomycin 1000 MG in NS 0.9% 250 ML IVPB SCH (18:01)
[2021-01-14] MEDS: Vancomycin 1000 MG in NS 0.9% 250 ML IVPB SCH ×2 (04:50→19:48)
[2021-01-14 05:38] LABS: INR 1.8 (0.86-1.15)
[2021-01-14] MEDS: Piperacillin/Tazobac ADVAN 3.375 GM in NS 0.9% 100 ml BAG 100 ML IV SCH ×3 (06:35→23:18)
[2021-01-14] MEDS: Potassium Chlor 10 meq TAB PO SCH (09:42)
[2021-01-14] MEDS: DULoxetine DR 60 mg CAP PO SCH (09:42)
[2021-01-14] MEDS: HYDROmorphone 1 MG/1 ML SYRINGE IV SLOW PU PRN (09:43)
[2021-01-14] MEDS: Collagenase 250 units/gm OINT 1 tube TOPICAL SCH (10:00)
[2021-01-14] MEDS: Nystatin TOP POWDER 15 GM BTL TOPICAL SCH ×2 (12:23→21:49)
[2021-01-14] MEDS ORDERED: Enoxaparin 100 MG/ML SYR SUBCUT SCH (13:00)
[2021-01-14] MEDS: Warfarin DAILY REMINDER **NOTE FOLLOW UP SCH (16:57)
[2021-01-14] MEDS: Enoxaparin 100 MG/ML SYR SUBCUT SCH (23:00)
[2021-01-15] MEDS: Piperacillin/Tazobac ADVAN 3.375 GM in NS 0.9% 100 ml BAG 100 ML IV SCH (04:59)
[2021-01-15] MEDS ORDERED: Vancomycin Trough Check NOTE FOLLOW UP ONE (05:30)
[2021-01-15 06:02] LABS: INR 1.6 (0.86-1.15)
[2021-01-15] MEDS ORDERED: HYDROmorphone 0.5 MG/0.5 ML SYRINGE IV SLOW PU ONE (06:09)
[2021-01-15 06:16] LABS: EGFR African American 107.6 (>60); EGFR Non-African American 88.9 (>60)
[2021-01-15 06:19] LABS: Vancomycin Trough 11.7 mcg/mL
[2021-01-15] MEDS ORDERED: fentaNYL 100 mcg/2 ml 50 MCG/ML VIAL ONE (08:11)
[2021-01-15] MEDS ORDERED: Naloxone 0.4 mg VIAL 0.4 mg/ml 1 ml VIAL ONE (08:11)
[2021-01-15] MEDS ORDERED: Midazolam 5 mg/5 ml VIAL 1 mg/ml 5 ml VIAL (5 mg) ONE (08:11)
[2021-01-15] MEDS ORDERED: Flumazenil 0.5 mg/5 ml 0.1 MG/ML 5 ml VIAL ONE (08:11)
[2021-01-15] MEDS ORDERED: HYDROmorphone 1 MG/1 ML SYRINGE ONE (09:29)
[2021-01-15] MEDS: HYDROmorphone 1 MG/1 ML SYRINGE IV SLOW PU PRN ×2 (09:34→14:47)
[2021-01-15] MEDS ORDERED: Phenylephrine IV 10 MG/ML 1 ml VIAL ONE (10:32)
[2021-01-15] MEDS ORDERED: EPHEDrine (Pressors) 50 MG/ML VIAL ONE (10:33)
[2021-01-15] MEDS: Potassium Chlor 10 meq TAB PO SCH (12:39)
[2021-01-15] MEDS: DULoxetine DR 60 mg CAP PO SCH (12:40)
[2021-01-15] MEDS: Enoxaparin 100 MG/ML SYR SUBCUT SCH (13:55)
[2021-01-15] MEDS: Vancomycin 1000 MG in NS 0.9% 250 ML IVPB SCH (14:47)
[2021-01-15] MEDS: Collagenase 250 units/gm OINT 1 tube TOPICAL SCH (14:47)
[2021-01-15] MEDS: Nystatin TOP POWDER 15 GM BTL TOPICAL SCH (15:23)
[2021-01-15 17:17] VITALS: BP 109/66
== END 2021-01-15 17:00 | disposition home health service (06) | DRG 638 ==
LOC: ED 20:29 → MED 01-10 01:02 → SUATTDRO 01-10 01:02 → MED 01-10 02:53
PROVIDERS: ADMIT Student in an Organized Health Care Education/Training Program; ATTEND Internal Medicine
PROC: O.CATEE (2021-01-15 11:15)

== ENCOUNTER 2021-01-22 12:21 | Inpatient (IN) ==
[2021-01-22 14:41] LABS: ALT 9 U/L (7-52); Albumin 3.5 g/dL (3.2-5.2); Albumin/Globulin Ratio 0.9 (1-3); Alkaline Phosphatase 79 U/L (35-149); Blood Urea Nitrogen 10 mg/dL (6-24); CO2 Carbon Dioxide 26 mmol/L (22-32); Calcium 9.5 mg/dL (8.6-10.3); Chloride 103 mmol/L (101-111); EGFR African American 117.6 (>60); EGFR Non-African American 97.2 (>60); Glucose 105 mg/dL (70-100); Lipase < 10 U/L (11.0-82.0); Sodium 136 mmol/L (135-145); Total Protein 7.5 g/dL (6.4-8.9)
[2021-01-22 14:46] LABS: Anion Gap 7 mmol/L (2-11)
[2021-01-22 15:07] LABS: ABS Lymphocytes 0.9 10^3/ul (1.0-4.8); ABS Monocytes 0.4 10^3/ul (0-0.8); ABS Neutrophils 4.3 10^3/ul (1.5-7.7); Eosinophil % 0.5 %; Hematocrit 46 % (35-47); Hemoglobin 15.1 g/dL (12.0-16.0); Lymphocyte % 15.7 %; Mean Corpuscular HGB Conc 33 g/dL (31-36); Mean Corpuscular Hemoglobin 31 pg (27-31); Mean Corpuscular Volume 95 fL (80-97); Mean Platelet Volume 10.5 fL (7.4-10.4); Nucleated Red Blood Cells % 0.2; Platelet Count 87 10^3/uL (150-450); Red Blood Count 4.85 10^6 /uL (3.70-4.87); Red Cell Distribution Width 15 % (10-15); White Blood Count 5.6 10^3/uL (3.5-10.8)
[2021-01-22] MEDS ORDERED: Iodixanol (CONTRAST) 320 MG/ML 100 ML SDV IV ONE (15:23)
[2021-01-22] MEDS ORDERED: Sodium Phosphate ADULT ENEMA 133 ML BTL PR ONE (16:50)
[2021-01-22 17:35] LABS: INR 2.47 (0.86-1.15)
[2021-01-22 17:37] LABS: Potassium Redraw 3.9 mmol/L (3.5-5.0)
[2021-01-22] MEDS ORDERED: Mineral Oil ENEMA 118 ML/BOTTLE BOTTLE PR ONE (23:52)
[2021-01-22] MEDS: Amoxicillin/Clavul 875/125 TAB (Augmentin 875 tab) PO SCH (23:54)
[2021-01-23] MEDS: Collagenase 250 units/gm OINT 1 tube TOPICAL SCH (01:55)
[2021-01-23] MEDS: HYDROmorphone 0.5 MG/0.5 ML SYRINGE IV SLOW PU PRN (01:55)
[2021-01-23 05:46] LABS: INR 2.43 (0.86-1.15)
[2021-01-23] MEDS: Vitamin THERAPEUTIC TAB PO SCH (10:14)
[2021-01-23] MEDS: Potassium Chlor 20 meq TAB.ER PO SCH (10:15)
[2021-01-23] MEDS: Amoxicillin/Clavul 875/125 TAB (Augmentin 875 tab) PO SCH ×2 (10:15→20:49)
[2021-01-23] MEDS: DULoxetine DR 60 mg CAP PO SCH (10:15)
[2021-01-24] MEDS: Collagenase 250 units/gm OINT 1 tube TOPICAL SCH ×2 (02:36→23:05)
[2021-01-24] MEDS: HYDROmorphone 0.5 MG/0.5 ML SYRINGE IV SLOW PU PRN ×2 (02:37→23:05)
[2021-01-24 05:47] LABS: INR 2.89 (0.86-1.15)
[2021-01-24] MEDS: Amoxicillin/Clavul 875/125 TAB (Augmentin 875 tab) PO SCH ×2 (09:33→23:04)
[2021-01-24] MEDS: Vitamin THERAPEUTIC TAB PO SCH (09:33)
[2021-01-24] MEDS: Potassium Chlor 20 meq TAB.ER PO SCH (09:33)
[2021-01-24] MEDS: DULoxetine DR 60 mg CAP PO SCH (09:34)
[2021-01-25 04:12] LABS: INR 1.98 (0.86-1.15)
[2021-01-25] MEDS: Amoxicillin/Clavul 875/125 TAB (Augmentin 875 tab) PO SCH (10:38)
[2021-01-25] MEDS: Potassium Chlor 20 meq TAB.ER PO SCH (10:39)
[2021-01-25] MEDS: DULoxetine DR 60 mg CAP PO SCH (10:39)
[2021-01-25] MEDS: Vitamin THERAPEUTIC TAB PO SCH (10:39)
[2021-01-25] MEDS: Collagenase 250 units/gm OINT 1 tube TOPICAL SCH (11:06)
[2021-01-26] MEDS: DULoxetine DR 60 mg CAP PO SCH (10:37)
[2021-01-26] MEDS: Potassium Chlor 20 meq TAB.ER PO SCH (10:37)
[2021-01-26] MEDS: Collagenase 250 units/gm OINT 1 tube TOPICAL SCH (10:38)
[2021-01-26] MEDS: Vitamin THERAPEUTIC TAB PO SCH (10:38)
[2021-01-26 12:26] LABS: INR 1.71 (0.86-1.15)
[2021-01-27 05:17] LABS: INR 1.39 (0.86-1.15)
[2021-01-27] MEDS: DULoxetine DR 60 mg CAP PO SCH (08:13)
[2021-01-27] MEDS: Potassium Chlor 20 meq TAB.ER PO SCH (08:16)
[2021-01-27] MEDS: Vitamin THERAPEUTIC TAB PO SCH (08:16)
[2021-01-27] MEDS ORDERED: Warfarin per PHARMACY **NOTE FOLLOW UP SCH (11:00)
[2021-01-27] MEDS: Collagenase 250 units/gm OINT 1 tube TOPICAL SCH (13:35)
[2021-01-27 13:51] LABS: ABS Eosinophils 0.1 10^3/ul (0-0.6); ABS Lymphocytes 1.5 10^3/ul (1.0-4.8); ABS Monocytes 0.7 10^3/ul (0-0.8); ABS Neutrophils 3.7 10^3/ul (1.5-7.7); Eosinophil % 2.4 %; Hematocrit 39 % (35-47); Hemoglobin 12.9 g/dL (12.0-16.0); Lymphocyte % 24.3 %; Mean Corpuscular HGB Conc 33 g/dL (31-36); Mean Corpuscular Hemoglobin 31 pg (27-31); Mean Corpuscular Volume 95 fL (80-97); Mean Platelet Volume 9.4 fL (7.4-10.4); Platelet Count 122 10^3/uL (150-450); Red Blood Count 4.15 10^6 /uL (3.70-4.87); Red Cell Distribution Width 15 % (10-15); White Blood Count 6.1 10^3/uL (3.5-10.8)
[2021-01-27] MEDS ORDERED: Warfarin DAILY REMINDER **NOTE FOLLOW UP SCH (17:00)
[2021-01-28 05:08] LABS: INR 1.56 (0.86-1.15)
[2021-01-28 07:38] VITALS: BP 109/62
[2021-01-28] MEDS: DULoxetine DR 60 mg CAP PO SCH (08:23)
[2021-01-28] MEDS: Vitamin THERAPEUTIC TAB PO SCH (08:24)
[2021-01-28] MEDS: Potassium Chlor 20 meq TAB.ER PO SCH (08:24)
[2021-01-28] MEDS: Collagenase 250 units/gm OINT 1 tube TOPICAL SCH (20:13)
== END 2021-01-28 11:35 | disposition home or self-care (01) | DRG 593 ==
LOC: ED 12:21 → SUATTDRO 16:44 → MED 16:44
PROVIDERS: ADMIT Nurse Practitioner Family; ATTEND Hospitalist

== ENCOUNTER 2021-04-13 18:54 | Inpatient (IN) ==
[2021-04-13 19:21] LABS: ABS Monocytes 0.9 10^3/ul (0-0.8); ABS Neutrophils 5.7 10^3/ul (1.5-7.7); Eosinophil % 0.3 %; Hematocrit 45 % (35-47); Hemoglobin 14.8 g/dL (12.0-16.0); Lymphocyte % 13.7 %; Mean Corpuscular HGB Conc 33 g/dL (31-36); Mean Corpuscular Hemoglobin 31 pg (27-31); Mean Corpuscular Volume 94 fL (80-97); Mean Platelet Volume 9.6 fL (7.4-10.4); Platelet Count 132 10^3/uL (150-450); Red Blood Count 4.85 10^6 /uL (3.70-4.87); Red Cell Distribution Width 17 % (10-15); White Blood Count 7.6 10^3/uL (3.5-10.8)
[2021-04-13] MEDS ORDERED: HYDROmorphone 0.5 MG/0.5 ML SYRINGE IV ONE (19:24)
[2021-04-13 19:39] LABS: Albumin 3.2 g/dL (3.2-5.2); Albumin/Globulin Ratio 0.9 (1-3); Calcium 9.2 mg/dL (8.6-10.3); Globulin 3.6 g/dL (2-4); Magnesium 1.6 mg/dL (1.9-2.7); Potassium 3.8 mmol/L (3.5-5.0); Total Bilirubin 0.2 mg/dL (0.2-1.0); Total Protein 6.8 g/dL (6.4-8.9); eGFR CKD-EPI 75.4 (>60)
[2021-04-13] MEDS ORDERED: Magnesium Sulfate 2 gm BAG 2 GM/50 ML BAG IVPB ONE (19:43)
[2021-04-13] MEDS ORDERED: Vancomycin 1,500 MG in NS 0.9% 250 ml 250 ML IVPB ONE (20:11)
[2021-04-13] MEDS ORDERED: Lactated Ringers 1000 ml BAG 1,000 ML IV ONE (20:12)
[2021-04-13] MEDS ORDERED: NS 0.9% 250 ml 250 ML ONE (20:18)
[2021-04-13 20:54] LABS: Rapid COVID-19 Molecular Undetected (Undetected)
[2021-04-13 21:40] LABS: INR 3.33 (0.86-1.15)
[2021-04-13] MEDS ORDERED: HYDROmorphone 1 MG/1 ML SYRINGE IV SLOW PU ONE (22:47)
[2021-04-13] MEDS ORDERED: Al Hydrox/Mg Hydrox/Simet LIQ 30 ML UDC PO PRN (22:52)
[2021-04-13] MEDS: Enoxaparin 40 MG/0.4 ML SYR SUBCUT SCH (23:31)
[2021-04-13 23:46] LABS: C Reactive Protein 13.43 mg/L (<8.01)
[2021-04-14 00:16] LABS: TSH Ultra Thyroid Stim Horm 3.75 mcIU/mL (0.34-5.60)
[2021-04-14] MEDS ORDERED: Dextrose 50% Syringe 50 ml 25 GM/50 ML SYRINGE IV PUSH PRN (00:27)
[2021-04-14] MEDS ORDERED: Calcium Carb (TUMS) 500 mg CHEW TAB PO PRN (01:00)
[2021-04-14] MEDS ORDERED: Piperacillin/Tazobac ADVAN 3.375 GM in NS 0.9% 100 ml BAG 100 ML IV ONE (02:17)
[2021-04-14] MEDS ORDERED: HYDROmorphone 0.5 MG/0.5 ML SYRINGE IV ONE ×3 (02:57→10:42)
[2021-04-14] MEDS ORDERED: Zosyn per Pharmacy NOTE FOLLOW UP SCH (03:00)
[2021-04-14] MEDS ORDERED: Vancomycin per Pharmacy 1 EA NOTE FOLLOW UP SCH (03:00)
[2021-04-14 06:03] LABS: ABS Eosinophils 0.1 10^3/ul (0-0.6); ABS Lymphocytes 1.4 10^3/ul (1.0-4.8); ABS Monocytes 0.8 10^3/ul (0-0.8); ABS Neutrophils 4.7 10^3/ul (1.5-7.7); Eosinophil % 1.1 %; Hematocrit 38 % (35-47); Hemoglobin 12.4 g/dL (12.0-16.0); Lymphocyte % 19.7 %; Mean Corpuscular HGB Conc 33 g/dL (31-36); Mean Corpuscular Hemoglobin 30 pg (27-31); Mean Corpuscular Volume 93 fL (80-97); Mean Platelet Volume 9.5 fL (7.4-10.4); Platelet Count 117 10^3/uL (150-450); Red Cell Distribution Width 16 % (10-15)
[2021-04-14 06:14] LABS: Albumin 2.7 g/dL (3.2-5.2); Albumin/Globulin Ratio 0.9 (1-3); Calcium 8.6 mg/dL (8.6-10.3); Magnesium 1.7 mg/dL (1.9-2.7); Potassium 3.7 mmol/L (3.5-5.0); Total Bilirubin 0.3 mg/dL (0.2-1.0); Total Protein 5.7 g/dL (6.4-8.9); eGFR CKD-EPI 98.6 (>60)
[2021-04-14] MEDS ORDERED: Magnesium Sulfate 2 gm BAG 2 GM/50 ML BAG IVPB ONE (06:23)
[2021-04-14] MEDS ORDERED: HYDROmorphone 1 MG/1 ML SYRINGE IV PRN (06:50)
[2021-04-14] MEDS ORDERED: ZOSYN 3.375 GM Q8H per EXTENDED INFUSION IV ONE (07:00)
[2021-04-14] MEDS ORDERED: ZOSYN 3.375 GM Q8H per EXTENDED INFUSION IV SCH (11:00)
[2021-04-14] MEDS: DULoxetine DR 60 mg CAP PO SCH (11:03)
[2021-04-14] MEDS: Vancomycin 750 MG in NS 0.9% 250 ML IVPB SCH ×2 (11:21→21:50)
[2021-04-14] MEDS: HYDROmorphone 1 MG/1 ML SYRINGE IV PRN ×3 (12:45→21:55)
[2021-04-14] MEDS ORDERED: Piperacillin/Tazobac 3.375 GM BAG ONE (16:37)
[2021-04-14] MEDS: ZOSYN 3.375 GM Q8H per EXTENDED INFUSION IV SCH (17:03)
[2021-04-14] MEDS ORDERED: Warfarin per PHARMACY **NOTE FOLLOW UP SCH (18:00)
[2021-04-14] MEDS: Enoxaparin 40 MG/0.4 ML SYR SUBCUT SCH (22:01)
[2021-04-15] MEDS: ZOSYN 3.375 GM Q8H per EXTENDED INFUSION IV SCH ×4 (00:53→23:50)
[2021-04-15] MEDS: HYDROmorphone 1 MG/1 ML SYRINGE IV PRN ×6 (02:35→23:51)
[2021-04-15 08:08] LABS: ABS Eosinophils 0.2 10^3/ul (0-0.6); ABS Monocytes 0.6 10^3/ul (0-0.8); Eosinophil % 3.4 %; Hematocrit 34 % (35-47); Lymphocyte % 20.3 %; Mean Corpuscular HGB Conc 33 g/dL (31-36); Mean Corpuscular Hemoglobin 31 pg (27-31); Mean Corpuscular Volume 94 fL (80-97); Mean Platelet Volume 8.1 fL (7.4-10.4); Platelet Count 92 10^3/uL (150-450); Red Blood Count 3.58 10^6 /uL (3.70-4.87); Red Cell Distribution Width 17 % (10-15); White Blood Count 4.8 10^3/uL (3.5-10.8)
[2021-04-15 08:10] LABS: Calcium 7.9 mg/dL (8.6-10.3); Magnesium 1.7 mg/dL (1.9-2.7); eGFR CKD-EPI 101.8 (>60)
[2021-04-15 08:17] LABS: INR 3.59 (0.86-1.15)
[2021-04-15] MEDS ORDERED: Vancomycin Trough Check NOTE FOLLOW UP ONE (08:30)
[2021-04-15] MEDS ORDERED: Magnesium Sulfate 2 gm BAG 2 GM/50 ML BAG IVPB ONE (10:49)
[2021-04-15] MEDS: DULoxetine DR 60 mg CAP PO SCH (10:53)
[2021-04-15] MEDS: Vancomycin 750 MG in NS 0.9% 250 ML IVPB SCH (13:50)
[2021-04-15] MEDS ORDERED: Vancomycin 750 MG in NS 0.9% 250 ML IVPB SCH (14:00)
[2021-04-15] MEDS ORDERED: Warfarin - No Order Today **NOTE FOLLOW UP ONE (17:00)
[2021-04-16] MEDS: HYDROmorphone 1 MG/1 ML SYRINGE IV PRN ×4 (04:29→16:09)
[2021-04-16 06:01] LABS: Calcium 8.1 mg/dL (8.6-10.3); Potassium 3.9 mmol/L (3.5-5.0); eGFR CKD-EPI 101.4 (>60)
[2021-04-16 06:04] LABS: ABS Eosinophils 0.1 10^3/ul (0-0.6); ABS Lymphocytes 0.8 10^3/ul (1.0-4.8); ABS Monocytes 0.6 10^3/ul (0-0.8); ABS Neutrophils 2.4 10^3/ul (1.5-7.7); Eosinophil % 3.1 %; Hematocrit 33 % (35-47); Hemoglobin 10.8 g/dL (12.0-16.0); Lymphocyte % 20.3 %; Mean Corpuscular HGB Conc 33 g/dL (31-36); Mean Corpuscular Hemoglobin 31 pg (27-31); Mean Corpuscular Volume 95 fL (80-97); Mean Platelet Volume 9.7 fL (7.4-10.4); Platelet Count 82 10^3/uL (150-450); Red Blood Count 3.53 10^6 /uL (3.70-4.87); Red Cell Distribution Width 17 % (10-15); White Blood Count 3.9 10^3/uL (3.5-10.8)
[2021-04-16 06:08] LABS: INR 2.23 (0.86-1.15)
[2021-04-16] MEDS ORDERED: Furosemide 20 mg/2 ml IV VIAL IV ONE (07:08)
[2021-04-16] MEDS: DULoxetine DR 60 mg CAP PO SCH (08:35)
[2021-04-16] MEDS: ZOSYN 3.375 GM Q8H per EXTENDED INFUSION IV SCH ×2 (08:53→16:09)
[2021-04-16] MEDS ORDERED: Iodixanol (CONTRAST) 320 MG/ML 100 ML SDV IV ONE (17:53)
[2021-04-16] MEDS: HYDROmorphone 1 MG/1 ML SYRINGE IV SLOW PU PRN (20:47)
[2021-04-17] MEDS: ZOSYN 3.375 GM Q8H per EXTENDED INFUSION IV SCH ×3 (01:12→17:01)
[2021-04-17] MEDS: HYDROmorphone 1 MG/1 ML SYRINGE IV SLOW PU PRN ×4 (02:47→20:44)
[2021-04-17 06:47] LABS: Hematocrit 37 % (35-47); Mean Corpuscular HGB Conc 32 g/dL (31-36); Mean Corpuscular Hemoglobin 30 pg (27-31); Mean Corpuscular Volume 95 fL (80-97); Mean Platelet Volume 10.2 fL (7.4-10.4); Platelet Count 76 10^3/uL (150-450); Red Blood Count 3.95 10^6 /uL (3.70-4.87); Red Cell Distribution Width 17 % (10-15)
[2021-04-17 06:53] LABS: INR 1.42 (0.86-1.15)
[2021-04-17 07:04] LABS: Calcium 8.9 mg/dL (8.6-10.3); Magnesium 1.8 mg/dL (1.9-2.7); Potassium 3.9 mmol/L (3.5-5.0); eGFR CKD-EPI 103.7 (>60)
[2021-04-17] MEDS: DULoxetine DR 60 mg CAP PO SCH (08:41)
[2021-04-17] MEDS ORDERED: Calcium Carb (TUMS) 500 mg CHEW TAB PO PRN (09:52)
[2021-04-17] MEDS ORDERED: Magnesium Hydroxide LIQ 30 ML UDC PO PRN (13:13)
[2021-04-17] MEDS ORDERED: Senna TAB 8.6 mg TAB PO PRN (13:13)
[2021-04-17] MEDS ORDERED: Vancomycin Trough Check NOTE FOLLOW UP ONE (13:30)
[2021-04-17] MEDS ORDERED: Iodixanol (CONTRAST) 320 MG/ML 100 ML SDV IV ONE (15:21)
[2021-04-18] MEDS: ZOSYN 3.375 GM Q8H per EXTENDED INFUSION IV SCH ×3 (00:53→16:54)
[2021-04-18] MEDS: HYDROmorphone 1 MG/1 ML SYRINGE IV SLOW PU PRN ×3 (03:00→17:03)
[2021-04-18] MEDS: DULoxetine DR 60 mg CAP PO SCH (08:27)
[2021-04-18 11:22] LABS: Mean Platelet Volume 8.5 fL (7.4-10.4); Platelet Count 77 10^3/uL (150-450)
[2021-04-18 11:26] LABS: INR 1.33 (0.86-1.15)
[2021-04-18] MEDS ORDERED: Senna TAB 8.6 mg TAB PO PRN (14:26)
[2021-04-18] MEDS ORDERED: Polyethylene Glycol 3350 17 GM PACKET PO PRN (14:26)
[2021-04-18] MEDS ORDERED: Magnesium Hydroxide LIQ 30 ML UDC PO PRN (14:26)
[2021-04-18] MEDS ORDERED: Magnesium Sulfate IV 3 GM in NS 0.9% 100 ml BAG 100 ML IVPB ONE (15:30)
[2021-04-18] MEDS ORDERED: Enoxaparin 40 MG/0.4 ML SYR SUBCUT SCH (21:00)
[2021-04-19] MEDS: HYDROmorphone 1 MG/1 ML SYRINGE IV SLOW PU PRN ×2 (00:10→22:19)
[2021-04-19] MEDS: ZOSYN 3.375 GM Q8H per EXTENDED INFUSION IV SCH ×2 (00:24→08:15)
[2021-04-19 06:58] LABS: Mean Platelet Volume 9.1 fL (7.4-10.4); Platelet Count 86 10^3/uL (150-450)
[2021-04-19 07:03] LABS: INR 1.35 (0.86-1.15)
[2021-04-19 10:31] LABS: PCO2 Arterial 53 mmHg (35-45)
[2021-04-19 10:42] LABS: PO2 Arterial 55 mmHg (80-100)
[2021-04-19] MEDS ORDERED: Metoclopramide 5 MG/ML VIAL (10 mg) IV SLOW PU ONE (10:54)
[2021-04-19] MEDS: DULoxetine DR 60 mg CAP PO SCH ×3 (12:22→14:27)
[2021-04-19] MEDS: Enoxaparin 100 MG/ML SYR SUBCUT SCH ×2 (12:26→23:10)
[2021-04-19] MEDS: Warfarin DAILY REMINDER **NOTE FOLLOW UP SCH (16:41)
[2021-04-19] MEDS: Amoxicillin/Clavul 875/125 TAB (Augmentin 875 tab) PO SCH (21:57)
[2021-04-20] MEDS: HYDROmorphone 1 MG/1 ML SYRINGE IV SLOW PU PRN ×3 (05:00→21:15)
[2021-04-20 05:24] LABS: INR 1.53 (0.86-1.15)
[2021-04-20 06:31] LABS: ABS Eosinophils 0.1 10^3/ul (0-0.6); ABS Monocytes 0.9 10^3/ul (0-0.8); ABS Neutrophils 4.7 10^3/ul (1.5-7.7); Eosinophil % 2.1 %; Hematocrit 35 % (35-47); Hemoglobin 11.5 g/dL (12.0-16.0); Lymphocyte % 15.1 %; Mean Corpuscular HGB Conc 33 g/dL (31-36); Mean Corpuscular Hemoglobin 31 pg (27-31); Mean Corpuscular Volume 94 fL (80-97); Mean Platelet Volume 10.1 fL (7.4-10.4); Platelet Count 91 10^3/uL (150-450); Red Blood Count 3.72 10^6 /uL (3.70-4.87); Red Cell Distribution Width 16 % (10-15); White Blood Count 6.9 10^3/uL (3.5-10.8)
[2021-04-20] MEDS: Enoxaparin 100 MG/ML SYR SUBCUT SCH (10:03)
[2021-04-20] MEDS: DULoxetine DR 60 mg CAP PO SCH (10:04)
[2021-04-20] MEDS: Amoxicillin/Clavul 875/125 TAB (Augmentin 875 tab) PO SCH ×2 (10:04→21:01)
[2021-04-20] MEDS: Warfarin DAILY REMINDER **NOTE FOLLOW UP SCH (18:23)
[2021-04-21] MEDS: Enoxaparin 100 MG/ML SYR SUBCUT SCH ×3 (00:36→13:10)
[2021-04-21] MEDS: HYDROmorphone 1 MG/1 ML SYRINGE IV SLOW PU PRN ×2 (03:44→09:02)
[2021-04-21 04:57] LABS: INR 1.59 (0.86-1.15)
[2021-04-21] MEDS: DULoxetine DR 60 mg CAP PO SCH (08:54)
[2021-04-21] MEDS: Amoxicillin/Clavul 875/125 TAB (Augmentin 875 tab) PO SCH (08:56)
[2021-04-21 15:11] VITALS: BP 107/56
[2021-04-21] MEDS: Warfarin DAILY REMINDER **NOTE FOLLOW UP SCH (17:28)
== END 2021-04-21 19:15 | disposition home or self-care (01) | DRG 871 ==
LOC: ED 18:54 → EDHOLD 22:52 → SUATTDRO 22:52 → MED 04-14 17:24
PROVIDERS: ADMIT Internal Medicine; ATTEND Internal Medicine

== ENCOUNTER 2021-05-19 22:07 | Inpatient (IN) ==
[2021-05-19] MEDS ORDERED: Piperacillin/Tazobac ADVAN 3.375 GM in NS 0.9% 100 ml BAG 100 ML IV ONE (22:56)
[2021-05-19] MEDS ORDERED: Vancomycin 1,000 MG in NS 0.9% 250 ml 250 ML IVPB SCH (23:00)
[2021-05-19] MEDS ORDERED: NS 0.9% 500 ml BAG 500 ML IV ONE (23:01)
[2021-05-19 23:23] LABS: Hematocrit 38 % (35-47); Mean Corpuscular HGB Conc 32 g/dL (31-36); Mean Corpuscular Hemoglobin 30 pg (27-31); Mean Corpuscular Volume 94 fL (80-97); Mean Platelet Volume 9.1 fL (7.4-10.4); Platelet Count 187 10^3/uL (150-450); Red Blood Count 4.05 10^6 /uL (3.70-4.87); Red Cell Distribution Width 16 % (10-15); White Blood Count 14.7 10^3/uL (3.5-10.8)
[2021-05-19 23:31] LABS: Activated Partial Thrombo Time 33.7 seconds (26.0-38.0); Fibrinogen 445.8 mg/dL (110.8-404.3); INR 1.07 (0.86-1.15)
[2021-05-19 23:34] LABS: ABS Eosinophils 0.1 10^3/ul (0-0.6); ABS Lymphocytes 1.9 10^3/ul (1.0-4.8); ABS Monocytes 1.6 10^3/ul (0-0.8); ABS Neutrophils 11.1 10^3/ul (1.5-7.7); Eosinophil % 0.4 %; Lymphocyte % 12.7 %; Nucleated Red Blood Cells % 0.2
[2021-05-19 23:37] LABS: PO2 Arterial 127 mmHg (80-100)
[2021-05-19 23:39] LABS: Albumin 3.2 g/dL (3.2-5.2); Albumin/Globulin Ratio 0.6 (1-3); C Reactive Protein 43.56 mg/L (<8.01); Calcium 10.5 mg/dL (8.6-10.3); Potassium 4.7 mmol/L (3.5-5.0); Total Bilirubin 0.3 mg/dL (0.2-1.0); Total Protein 8.2 g/dL (6.4-8.9); eGFR CKD-EPI 96.9 (>60)
[2021-05-19 23:41] LABS: Troponin I 0.01 ng/mL (<0.03)
[2021-05-19 23:44] LABS: PCO2 Arterial 83 mmHg (35-45)
[2021-05-20] MEDS ORDERED: Naloxone 0.4 mg VIAL 0.4 mg/ml 1 ml VIAL IV PUSH ONE (01:24)
[2021-05-20] MEDS ORDERED: Naloxone 4 mg VIAL 0.4 MG/ML 10 ml VIAL (4 mg) ONE (01:30)
[2021-05-20 01:46] LABS: TSH Ultra Thyroid Stim Horm 1.68 mcIU/mL (0.34-5.60)
[2021-05-20] MEDS ORDERED: Vancomycin 2,000 MG in NS 0.9% 500 ml BAG 500 ML IVPB ONE (02:00)
[2021-05-20] MEDS ORDERED: Naloxone 4 mg VIAL 0.4 MG/ML 10 ml VIAL (4 mg) IV ONE (02:00)
[2021-05-20] MEDS ORDERED: Vancomycin 1,750 MG in NS 0.9% 500 ml BAG 500 ML IVPB ONE (02:00)
[2021-05-20] MEDS ORDERED: Vancomycin per Pharmacy 1 EA NOTE FOLLOW UP SCH (02:00)
[2021-05-20] MEDS ORDERED: Metoclopramide 5 MG/ML VIAL (10 mg) IV SLOW PU ONE (02:00)
[2021-05-20] MEDS ORDERED: Zosyn per Pharmacy NOTE FOLLOW UP SCH (02:00)
[2021-05-20 02:01] LABS: Magnesium 1.5 mg/dL (1.9-2.7); Phosphorus 5.6 mg/dL (2.5-5.0)
[2021-05-20] MEDS ORDERED: Magnesium Sulf 4 GM/100 ML IV 4,000 MG/100 ML BAG IVPB ONE (02:20)
[2021-05-20 02:23] LABS: Urine Benzodiazepine Screen None Detected (None Detect); Urine Cannabinoids Screen None Detected (None Detect); Urine Opiates Screen Presumptive Positive (None Detect)
[2021-05-20 02:47] LABS: Urine Appearance Clear; Urine Bilirubin Negative (Negative); Urine Blood Negative (Negative); Urine Color Yellow; Urine Glucose Negative (Negative); Urine Ketones Negative (Negative); Urine Nitrite Negative (Negative); Urine Protein Negative (Negative); Urine Specific Gravity 1.027 (1.002-1.030); Urine Urobilinogen Negative (Negative)
[2021-05-20 03:40] LABS: PCO2 Arterial 41 mmHg (35-45); PO2 Arterial 152 mmHg (80-100)
[2021-05-20 03:49] LABS: ABS Lymphocytes 0.8 10^3/ul (1.0-4.8); ABS Monocytes 1.3 10^3/ul (0-0.8); ABS Neutrophils 8.9 10^3/ul (1.5-7.7); Eosinophil % 0.2 %; Hematocrit 34 % (35-47); Hemoglobin 10.9 g/dL (12.0-16.0); Lymphocyte % 6.9 %; Mean Corpuscular HGB Conc 32 g/dL (31-36); Mean Corpuscular Hemoglobin 30 pg (27-31); Mean Corpuscular Volume 94 fL (80-97); Mean Platelet Volume 8.9 fL (7.4-10.4); Nucleated Red Blood Cells % 0.1; Platelet Count 129 10^3/uL (150-450); Red Blood Count 3.65 10^6 /uL (3.70-4.87); Red Cell Distribution Width 16 % (10-15); White Blood Count 10.9 10^3/uL (3.5-10.8)
[2021-05-20 03:57] LABS: INR 1.12 (0.86-1.15)
[2021-05-20 04:05] LABS: Albumin 2.6 g/dL (3.2-5.2); Albumin/Globulin Ratio 0.6 (1-3); Calcium 9.4 mg/dL (8.6-10.3); Globulin 4.2 g/dL (2-4); Magnesium 1.4 mg/dL (1.9-2.7); Phosphorus 5.1 mg/dL (2.5-5.0); Potassium 4.4 mmol/L (3.5-5.0); Total Bilirubin 0.3 mg/dL (0.2-1.0); Total Protein 6.8 g/dL (6.4-8.9); eGFR CKD-EPI 99.4 (>60)
[2021-05-20] MEDS ORDERED: Lactated Ringers 500 ml BAG 500 ML IV ONE ×2 (04:14→17:28)
[2021-05-20] MEDS ORDERED: Calcium Carb (TUMS) 500 mg CHEW TAB PO PRN (05:00)
[2021-05-20] MEDS: ZOSYN 3.375 GM Q8H per EXTENDED INFUSION IV SCH ×3 (05:04→21:55)
[2021-05-20] MEDS ORDERED: Magnesium Sulfate 2 gm BAG 2 GM/50 ML BAG IVPB ONE (08:00)
[2021-05-20] MEDS: Vitamin THERAPEUTIC TAB PO SCH (08:17)
[2021-05-20] MEDS: Nystatin TOP POWDER 15 GM BTL TOPICAL SCH ×2 (10:49→23:09)
[2021-05-20] MEDS: Vancomycin 1,250 MG in NS 0.9% 250 ml 250 ML IVPB SCH (15:36)
[2021-05-20] MEDS: Warfarin DAILY REMINDER **NOTE FOLLOW UP SCH (18:05)
[2021-05-21] MEDS: Vancomycin 1,250 MG in NS 0.9% 250 ml 250 ML IVPB SCH ×2 (04:09→14:16)
[2021-05-21] MEDS: ZOSYN 3.375 GM Q8H per EXTENDED INFUSION IV SCH ×3 (04:17→19:31)
[2021-05-21 05:32] LABS: INR 1.09 (0.86-1.15)
[2021-05-21 05:41] LABS: ABS Eosinophils 0.1 10^3/ul (0-0.6); ABS Lymphocytes 0.5 10^3/ul (1.0-4.8); ABS Monocytes 0.4 10^3/ul (0-0.8); ABS Neutrophils 2.4 10^3/ul (1.5-7.7); Eosinophil % 2.1 %; Hematocrit 40 % (35-47); Hemoglobin 12.6 g/dL (12.0-16.0); Mean Corpuscular HGB Conc 32 g/dL (31-36); Mean Corpuscular Hemoglobin 30 pg (27-31); Mean Corpuscular Volume 94 fL (80-97); Mean Platelet Volume 8.5 fL (7.4-10.4); Nucleated Red Blood Cells % 0.1; Red Blood Count 4.22 10^6 /uL (3.70-4.87); Red Cell Distribution Width 16 % (10-15); White Blood Count 3.4 10^3/uL (3.5-10.8)
[2021-05-21 06:05] LABS: Platelet Count 73 10^3/uL (150-450)
[2021-05-21 06:09] LABS: Albumin 2.3 g/dL (3.2-5.2); Calcium 8.6 mg/dL (8.6-10.3); Magnesium 1.6 mg/dL (1.9-2.7); Potassium 3.9 mmol/L (3.5-5.0); Total Bilirubin 0.3 mg/dL (0.2-1.0)
[2021-05-21 06:15] LABS: Albumin/Globulin Ratio 0.7 (1-3); Globulin 3.3 g/dL (2-4); Phosphorus 2.8 mg/dL (2.5-5.0); Total Protein 5.6 g/dL (6.4-8.9); eGFR CKD-EPI 108.5 (>60)
[2021-05-21] MEDS ORDERED: Magnesium Sulfate 2 gm BAG 2 GM/50 ML BAG IVPB ONE (07:38)
[2021-05-21] MEDS: Vitamin THERAPEUTIC TAB PO SCH (08:09)
[2021-05-21] MEDS: Nystatin TOP POWDER 15 GM BTL TOPICAL SCH ×2 (08:10→21:59)
[2021-05-21] MEDS ORDERED: HYDROmorphone 1 MG/1 ML SYRINGE IV PRN (11:26)
[2021-05-21] MEDS ORDERED: Vancomycin Trough Check NOTE FOLLOW UP ONE (13:30)
[2021-05-21] MEDS: Warfarin DAILY REMINDER **NOTE FOLLOW UP SCH (17:46)
[2021-05-21] MEDS ORDERED: Warfarin per PHARMACY **NOTE FOLLOW UP SCH (18:00)
[2021-05-22] MEDS: Vancomycin 1,250 MG in NS 0.9% 250 ml 250 ML IVPB SCH ×2 (02:07→14:24)
[2021-05-22] MEDS: ZOSYN 3.375 GM Q8H per EXTENDED INFUSION IV SCH ×3 (03:55→21:15)
[2021-05-22 05:49] LABS: ABS Eosinophils 0.1 10^3/ul (0-0.6); ABS Lymphocytes 0.8 10^3/ul (1.0-4.8); ABS Monocytes 0.7 10^3/ul (0-0.8); Eosinophil % 2.9 %; Hematocrit 30 % (35-47); Hemoglobin 9.6 g/dL (12.0-16.0); Lymphocyte % 22.9 %; Mean Corpuscular HGB Conc 32 g/dL (31-36); Mean Corpuscular Hemoglobin 30 pg (27-31); Mean Corpuscular Volume 94 fL (80-97); Nucleated Red Blood Cells % 0.1; Platelet Count 107 10^3/uL (150-450); Red Cell Distribution Width 16 % (10-15); White Blood Count 3.6 10^3/uL (3.5-10.8)
[2021-05-22 05:57] LABS: INR 0.96 (0.86-1.15)
[2021-05-22 06:24] LABS: Albumin 2.5 g/dL (3.2-5.2); Albumin/Globulin Ratio 0.7 (1-3); Calcium 8.6 mg/dL (8.6-10.3); Globulin 3.6 g/dL (2-4); Magnesium 1.6 mg/dL (1.9-2.7); Phosphorus 2.9 mg/dL (2.5-5.0); Potassium 3.9 mmol/L (3.5-5.0); Total Bilirubin 0.3 mg/dL (0.2-1.0); Total Protein 6.1 g/dL (6.4-8.9); eGFR CKD-EPI 106.8 (>60)
[2021-05-22] MEDS: Vitamin THERAPEUTIC TAB PO SCH (08:17)
[2021-05-22] MEDS: Nystatin TOP POWDER 15 GM BTL TOPICAL SCH ×2 (08:18→21:17)
[2021-05-22] MEDS: HYDROmorphone 1 MG/1 ML SYRINGE IV SCH (16:33)
[2021-05-23] MEDS: Vancomycin 1,250 MG in NS 0.9% 250 ml 250 ML IVPB SCH ×2 (02:40→15:22)
[2021-05-23] MEDS: ZOSYN 3.375 GM Q8H per EXTENDED INFUSION IV SCH ×3 (04:34→19:44)
[2021-05-23 07:30] LABS: Calcium 9.5 mg/dL (8.6-10.3)
[2021-05-23 07:35] LABS: INR 0.97 (0.86-1.15); eGFR CKD-EPI 107.4 (>60)
[2021-05-23 07:50] LABS: Potassium 4.3 mmol/L (3.5-5.0)
[2021-05-23] MEDS: DULoxetine DR 60 mg CAP PO SCH (09:28)
[2021-05-23] MEDS: Vitamin THERAPEUTIC TAB PO SCH (09:28)
[2021-05-23 09:29] LABS: ABS Basophils 0.1 10^3/ul (0-0.2); ABS Eosinophils 0.1 10^3/ul (0-0.6); ABS Lymphocytes 1.2 10^3/ul (1.0-4.8); ABS Monocytes 0.9 10^3/ul (0-0.8); ABS Neutrophils 4.4 10^3/ul (1.5-7.7); Eosinophil % 1.7 %; Hematocrit 32 % (35-47); Hemoglobin 10.6 g/dL (12.0-16.0); Lymphocyte % 18.2 %; Mean Corpuscular HGB Conc 33 g/dL (31-36); Mean Corpuscular Hemoglobin 31 pg (27-31); Mean Corpuscular Volume 93 fL (80-97); Nucleated Red Blood Cells % 0.4; Red Blood Count 3.46 10^6 /uL (3.70-4.87); Red Cell Distribution Width 15 % (10-15); White Blood Count 6.7 10^3/uL (3.5-10.8)
[2021-05-23] MEDS: HYDROmorphone 1 MG/1 ML SYRINGE IV SCH (09:31)
[2021-05-23 10:34] LABS: Platelet Count Platelets clumped. 10^3/uL (150-450)
[2021-05-23] MEDS: Nystatin TOP POWDER 15 GM BTL TOPICAL SCH ×2 (11:14→19:49)
[2021-05-24] MEDS: Vancomycin 1,250 MG in NS 0.9% 250 ml 250 ML IVPB SCH (01:26)
[2021-05-24] MEDS: ZOSYN 3.375 GM Q8H per EXTENDED INFUSION IV SCH (04:34)
[2021-05-24 06:26] LABS: Hematocrit 30 % (35-47); Hemoglobin 9.9 g/dL (12.0-16.0); INR 1.03 (0.86-1.15); Mean Corpuscular HGB Conc 33 g/dL (31-36); Mean Corpuscular Hemoglobin 30 pg (27-31); Mean Corpuscular Volume 93 fL (80-97); Mean Platelet Volume 9.3 fL (7.4-10.4); Platelet Count 97 10^3/uL (150-450); Red Blood Count 3.27 10^6 /uL (3.70-4.87); Red Cell Distribution Width 16 % (10-15); White Blood Count 4.2 10^3/uL (3.5-10.8)
[2021-05-24 06:44] LABS: Calcium 9.5 mg/dL (8.6-10.3); Magnesium 1.6 mg/dL (1.9-2.7); Potassium 3.9 mmol/L (3.5-5.0); eGFR CKD-EPI 104.7 (>60)
[2021-05-24] MEDS ORDERED: Magnesium Sulfate 2 gm BAG 2 GM/50 ML BAG IVPB ONE (07:52)
[2021-05-24 08:30] LABS: C Reactive Protein 8.54 mg/L (<8.01)
[2021-05-24] MEDS: DULoxetine DR 60 mg CAP PO SCH (08:43)
[2021-05-24] MEDS: HYDROmorphone 1 MG/1 ML SYRINGE IV SCH (08:45)
[2021-05-24] MEDS: Nystatin TOP POWDER 15 GM BTL TOPICAL SCH ×2 (10:32→22:13)
[2021-05-24] MEDS: Vitamin THERAPEUTIC TAB PO SCH (10:32)
[2021-05-24] MEDS ORDERED: Vancomycin Trough Check NOTE FOLLOW UP ONE (13:30)
[2021-05-25 05:43] LABS: INR 1.17 (0.86-1.15)
[2021-05-25] MEDS: DULoxetine DR 60 mg CAP PO SCH (08:55)
[2021-05-25] MEDS: HYDROmorphone 1 MG/1 ML SYRINGE IV SCH (08:55)
[2021-05-25] MEDS: Vitamin THERAPEUTIC TAB PO SCH (08:57)
[2021-05-25] MEDS: Nystatin TOP POWDER 15 GM BTL TOPICAL SCH ×2 (08:58→22:30)
[2021-05-25 11:57] LABS: % Iron Saturation 29 % (14 - 50); Total Iron Binding Capacity 214 mcg/dL (250 - 400)
[2021-05-25] MEDS ORDERED: COVID-19 VACCINE, MRNA(MODERNA) BOOSTER/PF 50 MCG/0.25 ML IM ONE (15:00)
[2021-05-26] MEDS: DULoxetine DR 60 mg CAP PO SCH (08:35)
[2021-05-26] MEDS: Vitamin THERAPEUTIC TAB PO SCH (08:36)
[2021-05-26] MEDS: Nystatin TOP POWDER 15 GM BTL TOPICAL SCH ×2 (08:38→20:47)
[2021-05-26] MEDS: HYDROmorphone 1 MG/1 ML SYRINGE IV SCH (10:17)
[2021-05-27] MEDS: DULoxetine DR 60 mg CAP PO SCH (08:29)
[2021-05-27] MEDS: Vitamin THERAPEUTIC TAB PO SCH (08:31)
[2021-05-27] MEDS: Nystatin TOP POWDER 15 GM BTL TOPICAL SCH ×2 (08:44→21:49)
[2021-05-27] MEDS: HYDROmorphone 1 MG/1 ML SYRINGE IV SCH (13:42)
[2021-05-28 08:33] VITALS: BP 110/52
[2021-05-28] MEDS: DULoxetine DR 60 mg CAP PO SCH (10:09)
[2021-05-28] MEDS: Vitamin THERAPEUTIC TAB PO SCH (10:10)
[2021-05-28] MEDS: Nystatin TOP POWDER 15 GM BTL TOPICAL SCH (10:14)
[2021-05-28 10:49] LABS: INR 1.46 (0.86-1.15)
== END 2021-05-28 11:07 | disposition swing bed (61) | DRG 917 ==
LOC: ED 22:07 → ICU 05-20 01:05 → SUATTDRO 05-20 01:05 → ICU 05-20 02:53 → MEDTELE 05-20 17:32
PROVIDERS: ADMIT Internal Medicine; ATTEND Student in an Organized Health Care Education/Training Program

== ENCOUNTER 2021-05-28 11:11 | Inpatient (IN) ==
[2021-05-28] MEDS ORDERED: Warfarin per PHARMACY **NOTE FOLLOW UP SCH (12:00)
[2021-05-28] MEDS: Calcium Carb (TUMS) 500 mg CHEW TAB PO SCH ×3 (13:34→21:09)
[2021-05-28] MEDS: Warfarin DAILY REMINDER **NOTE FOLLOW UP SCH (17:17)
[2021-05-29 06:00] LABS: INR 1.47 (0.86-1.15)
[2021-05-29] MEDS: Calcium Carb (TUMS) 500 mg CHEW TAB PO SCH ×2 (08:28→20:53)
[2021-05-29] MEDS: DULoxetine DR 60 mg CAP PO SCH (08:31)
[2021-05-29] MEDS: Warfarin DAILY REMINDER **NOTE FOLLOW UP SCH (16:01)
[2021-05-30 04:56] LABS: INR 1.6 (0.86-1.15)
[2021-05-30] MEDS: DULoxetine DR 60 mg CAP PO SCH (08:02)
[2021-05-30] MEDS: Calcium Carb (TUMS) 500 mg CHEW TAB PO SCH ×2 (08:02→22:16)
[2021-05-30] MEDS: Warfarin DAILY REMINDER **NOTE FOLLOW UP SCH (17:45)
[2021-05-31 05:10] LABS: INR 1.56 (0.86-1.15)
[2021-05-31] MEDS: DULoxetine DR 60 mg CAP PO SCH (09:03)
[2021-05-31] MEDS: Calcium Carb (TUMS) 500 mg CHEW TAB PO SCH ×2 (09:03→22:47)
[2021-05-31] MEDS: Warfarin DAILY REMINDER **NOTE FOLLOW UP SCH (18:32)
[2021-06-01] MEDS: Calcium Carb (TUMS) 500 mg CHEW TAB PO SCH ×2 (09:18→22:07)
[2021-06-01] MEDS: DULoxetine DR 60 mg CAP PO SCH (09:19)
[2021-06-01 10:03] LABS: INR 1.92 (0.86-1.15)
[2021-06-01] MEDS: Warfarin DAILY REMINDER **NOTE FOLLOW UP SCH (18:15)
[2021-06-02] MEDS: DULoxetine DR 60 mg CAP PO SCH (08:00)
[2021-06-02] MEDS: Calcium Carb (TUMS) 500 mg CHEW TAB PO SCH ×2 (08:01→20:37)
[2021-06-02 10:46] LABS: INR 1.98 (0.86-1.15)
[2021-06-02] MEDS: Warfarin DAILY REMINDER **NOTE FOLLOW UP SCH (17:23)
[2021-06-03] MEDS: Calcium Carb (TUMS) 500 mg CHEW TAB PO SCH ×2 (08:59→19:53)
[2021-06-03] MEDS: DULoxetine DR 60 mg CAP PO SCH (09:00)
[2021-06-03 11:13] LABS: INR 2.15 (0.86-1.15)
[2021-06-03] MEDS: Warfarin DAILY REMINDER **NOTE FOLLOW UP SCH (16:56)
[2021-06-04] MEDS: DULoxetine DR 60 mg CAP PO SCH (09:24)
[2021-06-04] MEDS: Calcium Carb (TUMS) 500 mg CHEW TAB PO SCH ×2 (09:25→20:21)
[2021-06-04 09:30] LABS: INR 2.47 (0.86-1.15)
[2021-06-04] MEDS: Lidocaine PATCH 5% PATCH TRANSDERM SCH (15:05)
[2021-06-04] MEDS: Warfarin DAILY REMINDER **NOTE FOLLOW UP SCH (17:11)
[2021-06-04] MEDS: Lidocaine Patch REMOVE NOTE PATCH OFF SCH (20:21)
[2021-06-05 09:01] LABS: Hematocrit 31 % (35-47); Hemoglobin 10.1 g/dL (12.0-16.0); Mean Platelet Volume 9.5 fL (7.4-10.4); Platelet Count 102 10^3/uL (150-450)
[2021-06-05 09:05] LABS: INR 1.97 (0.86-1.15)
[2021-06-05] MEDS: Lidocaine PATCH 5% PATCH TRANSDERM SCH (09:19)
[2021-06-05] MEDS: DULoxetine DR 60 mg CAP PO SCH (09:19)
[2021-06-05] MEDS: Calcium Carb (TUMS) 500 mg CHEW TAB PO SCH ×2 (09:19→20:02)
[2021-06-05] MEDS: Warfarin DAILY REMINDER **NOTE FOLLOW UP SCH (16:29)
[2021-06-05] MEDS: Lidocaine Patch REMOVE NOTE PATCH OFF SCH (20:06)
[2021-06-06 07:00] LABS: INR 2.15 (0.86-1.15)
[2021-06-06] MEDS: DULoxetine DR 60 mg CAP PO SCH (08:20)
[2021-06-06] MEDS: Calcium Carb (TUMS) 500 mg CHEW TAB PO SCH ×2 (08:22→21:30)
[2021-06-06] MEDS: Lidocaine PATCH 5% PATCH TRANSDERM SCH (08:23)
[2021-06-06] MEDS: Warfarin DAILY REMINDER **NOTE FOLLOW UP SCH (17:41)
[2021-06-06] MEDS: Lidocaine Patch REMOVE NOTE PATCH OFF SCH (21:34)
[2021-06-07 06:46] LABS: INR 1.92 (0.86-1.15)
[2021-06-07] MEDS: DULoxetine DR 60 mg CAP PO SCH (08:56)
[2021-06-07] MEDS: Calcium Carb (TUMS) 500 mg CHEW TAB PO SCH ×2 (08:58→20:01)
[2021-06-07] MEDS: Lidocaine PATCH 5% PATCH TRANSDERM SCH (08:59)
[2021-06-07] MEDS: Warfarin DAILY REMINDER **NOTE FOLLOW UP SCH (18:07)
[2021-06-07] MEDS: Lidocaine Patch REMOVE NOTE PATCH OFF SCH (20:01)
[2021-06-07 20:47] VITALS: BP 105/77
[2021-06-08 07:04] LABS: INR 1.97 (0.86-1.15)
[2021-06-08] MEDS: Calcium Carb (TUMS) 500 mg CHEW TAB PO SCH (09:22)
[2021-06-08] MEDS: DULoxetine DR 60 mg CAP PO SCH (09:23)
[2021-06-08] MEDS: Lidocaine PATCH 5% PATCH TRANSDERM SCH (09:25)
== END 2021-06-08 10:12 | DRG 603 ==
LOC: SUATTDRO 11:11 → MEDTELE 11:11
PROVIDERS: ADMIT Student in an Organized Health Care Education/Training Program; ATTEND Internal Medicine

== ENCOUNTER 2021-07-21 20:13 | Inpatient (IN) ==
[2021-07-21] MEDS ORDERED: Piperacillin/Tazobac ADVAN 3.375 GM in NS 0.9% 100 ml BAG 100 ML IV ONE (20:32)
[2021-07-21] MEDS ORDERED: Vancomycin 1,000 MG in NS 0.9% 250 ml 250 ML IVPB ONE (20:32)
[2021-07-21 20:56] LABS: PCO2 Arterial 50 mmHg (35-45); PO2 Arterial 85 mmHg (80-100)
[2021-07-21 21:05] LABS: ABS Lymphocytes 0.5 10^3/ul (1.0-4.8); ABS Monocytes 0.8 10^3/ul (0-0.8); ABS Neutrophils 12.5 10^3/ul (1.5-7.7); Eosinophil % 0.3 %; Hematocrit 32 % (35-47); Hemoglobin 10.1 g/dL (12.0-16.0); Lymphocyte % 3.6 %; Mean Corpuscular HGB Conc 32 g/dL (31-36); Mean Corpuscular Hemoglobin 28 pg (27-31); Mean Corpuscular Volume 88 fL (80-97); Mean Platelet Volume 9.3 fL (7.4-10.4); Platelet Count 69 10^3/uL (150-450); Red Blood Count 3.59 10^6 /uL (3.70-4.87); Red Cell Distribution Width 16 % (10-15); White Blood Count 13.9 10^3/uL (3.5-10.8)
[2021-07-21 21:06] LABS: Activated Partial Thrombo Time 43.6 seconds (26.0-38.0); INR 3.13 (0.86-1.15)
[2021-07-21 21:17] LABS: Troponin I 0.04 ng/mL (<0.03)
[2021-07-21 21:33] LABS: ALT 9 U/L (7-52); AST 15 U/L (13-39); Albumin 3.1 g/dL (3.2-5.2); Albumin/Globulin Ratio 0.8 (1-3); Alkaline Phosphatase 102 U/L (35-149); Anion Gap 5 mmol/L (2-11); Blood Urea Nitrogen 12 mg/dL (6-24); C Reactive Protein 65.04 mg/L (<8.01); CO2 Carbon Dioxide 33 mmol/L (22-32); Calcium 8.3 mg/dL (8.6-10.3); Chloride 99 mmol/L (101-111); Creatine Kinase 46 U/L (10-223); Globulin 3.7 g/dL (2-4); Glucose 120 mg/dL (70-100); Potassium 3.6 mmol/L (3.5-5.0); Sodium 137 mmol/L (135-145); Total Protein 6.8 g/dL (6.4-8.9); eGFR CKD-EPI 90.3 (>60)
[2021-07-21] MEDS ORDERED: Lactated Ringers 1000 ml BAG 1,000 ML IV ONE (21:34)
[2021-07-21 21:47] LABS: Urine Appearance Cloudy; Urine Bilirubin Negative (Negative); Urine Blood Negative (Negative); Urine Color Yellow; Urine Glucose Negative (Negative); Urine Ketones Negative (Negative); Urine Nitrite Negative (Negative); Urine Protein Negative (Negative); Urine Specific Gravity 1.013 (1.002-1.030); Urine Urobilinogen Negative (Negative)
[2021-07-21] MEDS ORDERED: Iodixanol (CONTRAST) 320 MG/ML 100 ML SDV IV ONE (22:46)
[2021-07-21 23:59] LABS: Magnesium 1.4 mg/dL (1.9-2.7)
[2021-07-22] MEDS ORDERED: Magnesium Sulfate 2 gm BAG 2 GM/50 ML BAG IVPB ONE (00:12)
[2021-07-22] MEDS ORDERED: ZINC OXIDE 12.8% (TOPICAL) 60 GM TUBE TOPICAL PRN (00:16)
[2021-07-22] MEDS ORDERED: Sodium Phosphate ADULT ENEMA 133 ML BTL PR PRN (00:16)
[2021-07-22] MEDS ORDERED: Calcium Carb (TUMS) 500 mg CHEW TAB PO PRN (00:16)
[2021-07-22] MEDS ORDERED: Zosyn per Pharmacy NOTE FOLLOW UP PRN (00:47)
[2021-07-22] MEDS ORDERED: Vancomycin per Pharmacy 1 EA NOTE FOLLOW UP SCH (01:00)
[2021-07-22 01:24] LABS: TSH Ultra Thyroid Stim Horm 0.84 mcIU/mL (0.34-5.60)
[2021-07-22] MEDS ORDERED: Magnesium Sulfate IV 1GM/100ML 1 GM/100 ML BAG IV ONE (03:16)
[2021-07-22 03:19] LABS: Troponin I 0.04 ng/mL (<0.03)
[2021-07-22] MEDS: ZOSYN 3.375 GM Q8H per EXTENDED INFUSION IV SCH ×3 (03:52→22:04)
[2021-07-22] MEDS ORDERED: Piperacill/Tazo 40 MG/ML PEDS 3,000 MG/75 ML PREP IV SCH (05:00)
[2021-07-22] MEDS ORDERED: Warfarin per PHARMACY **NOTE FOLLOW UP SCH (05:00)
[2021-07-22] MEDS ORDERED: Lactated Ringers 500 ml BAG 500 ML IV ONE (05:58)
[2021-07-22 06:25] LABS: ABS Lymphocytes 0.6 10^3/ul (1.0-4.8); ABS Monocytes 0.6 10^3/ul (0-0.8); ABS Neutrophils 12.7 10^3/ul (1.5-7.7); Eosinophil % 0.2 %; Hematocrit 29 % (35-47); Hemoglobin 9.3 g/dL (12.0-16.0); Lymphocyte % 4.6 %; Mean Corpuscular HGB Conc 32 g/dL (31-36); Mean Corpuscular Hemoglobin 28 pg (27-31); Mean Corpuscular Volume 88 fL (80-97); Mean Platelet Volume 10.3 fL (7.4-10.4); Platelet Count 66 10^3/uL (150-450); Red Blood Count 3.34 10^6 /uL (3.70-4.87); Red Cell Distribution Width 16 % (10-15)
[2021-07-22 06:30] LABS: INR 2.68 (0.86-1.15)
[2021-07-22] MEDS ORDERED: Vancomycin 1,250 MG in NS 0.9% 250 ml 250 ML IVPB SCH (06:30)
[2021-07-22 07:11] LABS: Anion Gap 6 mmol/L (2-11); CO2 Carbon Dioxide 30 mmol/L (22-32); Calcium 8.1 mg/dL (8.6-10.3); Chloride 103 mmol/L (101-111); Potassium 3.7 mmol/L (3.5-5.0); Sodium 139 mmol/L (135-145)
[2021-07-22 07:17] LABS: Blood Urea Nitrogen 11 mg/dL (6-24); Glucose 105 mg/dL (70-100); eGFR CKD-EPI 97.5 (>60)
[2021-07-22] MEDS ORDERED: Potassium Chlor 20 meq TAB.ER PO ONE (07:49)
[2021-07-22 07:51] LABS: Troponin I 0.03 ng/mL (<0.03)
[2021-07-22] MEDS: DULoxetine DR 60 mg CAP PO SCH (07:52)
[2021-07-22] MEDS ORDERED: Furosemide 40 mg/4 ml IV VIAL IV ONE (08:56)
[2021-07-22] MEDS ORDERED: D5LR 1000 ml BAG 1,000 ML IV SCH (11:00)
[2021-07-22] MEDS ORDERED: Senna TAB 8.6 mg TAB PO PRN (13:49)
[2021-07-22 15:30] LABS: Total Iron Binding Capacity 305 mcg/dL (250-450); Transferrin 218 mg/dL (203-362)
[2021-07-22] MEDS: Linezolid 600 MG IVPREMIX(*) 600 MG/300 ML BAG IVPB SCH ×2 (15:43→23:05)
[2021-07-22] MEDS ORDERED: Warfarin DAILY REMINDER **NOTE FOLLOW UP SCH (17:00)
[2021-07-22 17:04] LABS: Total Iron Binding Capacity 283 mcg/dL (250-450); Transferrin 202 mg/dL (203-362)
[2021-07-22 17:13] LABS: % Iron Saturation 7 % (15-55); Iron < 20 ug/dL (50-212); Unsaturated Iron Binding 263 ug/dL
[2021-07-23] MEDS: ZOSYN 3.375 GM Q8H per EXTENDED INFUSION IV SCH ×4 (05:17→22:20)
[2021-07-23] MEDS ORDERED: Vancomycin Trough Check NOTE FOLLOW UP ONE (06:00)
[2021-07-23 06:26] LABS: INR 2.34 (0.86-1.15)
[2021-07-23 06:33] LABS: Calcium 8.3 mg/dL (8.6-10.3); Magnesium 1.7 mg/dL (1.9-2.7); Potassium 3.6 mmol/L (3.5-5.0)
[2021-07-23 06:44] LABS: ABS Eosinophils 0.2 10^3/ul (0-0.6); ABS Lymphocytes 0.4 10^3/ul (1.0-4.8); ABS Monocytes 0.6 10^3/ul (0-0.8); ABS Neutrophils 7.2 10^3/ul (1.5-7.7); Eosinophil % 2.4 %; Hematocrit 28 % (35-47); Hemoglobin 8.8 g/dL (12.0-16.0); Lymphocyte % 5.1 %; Mean Corpuscular HGB Conc 32 g/dL (31-36); Mean Corpuscular Hemoglobin 28 pg (27-31); Mean Corpuscular Volume 89 fL (80-97); Mean Platelet Volume 9.1 fL (7.4-10.4); Nucleated Red Blood Cells % 0.1; Platelet Count 48 10^3/uL (150-450); Red Blood Count 3.12 10^6 /uL (3.70-4.87); Red Cell Distribution Width 16 % (10-15); White Blood Count 8.5 10^3/uL (3.5-10.8)
[2021-07-23] MEDS ORDERED: Magnesium Sulf 4 GM/100 ML IV 4,000 MG/100 ML BAG IVPB ONE (07:18)
[2021-07-23] MEDS: DULoxetine DR 60 mg CAP PO SCH (08:27)
[2021-07-23] MEDS: Linezolid 600 MG IVPREMIX(*) 600 MG/300 ML BAG IVPB SCH (11:05)
[2021-07-23] MEDS: Collagenase 250 units/gm OINT 1 tube TOPICAL SCH (12:04)
[2021-07-23] MEDS ORDERED: Iodixanol (CONTRAST) 320 MG/ML 100 ML SDV IV ONE (12:22)
[2021-07-24] MEDS: ZOSYN 3.375 GM Q8H per EXTENDED INFUSION IV SCH ×3 (05:54→21:17)
[2021-07-24 06:52] LABS: Hematocrit 28 % (35-47); Hemoglobin 8.8 g/dL (12.0-16.0); Mean Corpuscular HGB Conc 32 g/dL (31-36); Mean Corpuscular Hemoglobin 28 pg (27-31); Mean Corpuscular Volume 88 fL (80-97); Red Blood Count 3.15 10^6 /uL (3.70-4.87); Red Cell Distribution Width 16 % (10-15); White Blood Count 5.2 10^3/uL (3.5-10.8)
[2021-07-24 06:53] LABS: ABS Eosinophils 0.2 10^3/ul (0-0.6); ABS Lymphocytes 0.6 10^3/ul (1.0-4.8); ABS Monocytes 0.6 10^3/ul (0-0.8); ABS Neutrophils 3.8 10^3/ul (1.5-7.7); Eosinophil % 4.2 %; Lymphocyte % 10.8 %; Mean Platelet Volume 10.1 fL (7.4-10.4); Platelet Count 57 10^3/uL (150-450)
[2021-07-24 06:56] LABS: INR 2.08 (0.86-1.15)
[2021-07-24 07:49] LABS: Calcium 8.4 mg/dL (8.6-10.3); Magnesium 1.8 mg/dL (1.9-2.7); Potassium 3.6 mmol/L (3.5-5.0)
[2021-07-24 07:54] LABS: eGFR CKD-EPI 100.6 (>60)
[2021-07-24] MEDS ORDERED: Magnesium Sulfate 2 gm BAG 2 GM/50 ML BAG IVPB ONE (08:10)
[2021-07-24] MEDS: DULoxetine DR 60 mg CAP PO SCH (09:51)
[2021-07-24] MEDS: Magnesium Hydroxide LIQ 30 ML UDC PO PRN (10:14)
[2021-07-24] MEDS ORDERED: Warfarin per PHARMACY **NOTE FOLLOW UP SCH (13:00)
[2021-07-24] MEDS: Collagenase 250 units/gm OINT 1 tube TOPICAL SCH (14:04)
[2021-07-24] MEDS: Warfarin DAILY REMINDER **NOTE FOLLOW UP SCH (17:21)
[2021-07-25] MEDS: ZOSYN 3.375 GM Q8H per EXTENDED INFUSION IV SCH ×3 (05:21→21:22)
[2021-07-25 06:18] LABS: Mean Platelet Volume 9.6 fL (7.4-10.4); Platelet Count 54 10^3/uL (150-450)
[2021-07-25 06:19] LABS: INR 2.04 (0.86-1.15)
[2021-07-25] MEDS ORDERED: Magnesium Sulfate IV 3 GM in NS 0.9% 100 ml BAG 100 ML IVPB ONE (07:03)
[2021-07-25] MEDS: DULoxetine DR 60 mg CAP PO SCH (07:37)
[2021-07-25] MEDS ORDERED: Magnesium Sulfate 2 GM IV (Premix) IVPB ONE (08:00)
[2021-07-25] MEDS ORDERED: Magnesium Sulfate 1 GM IV 1 GM/100 ML BAG IV ONE (09:00)
[2021-07-25] MEDS: Collagenase 250 units/gm OINT 1 tube TOPICAL SCH (09:10)
[2021-07-25] MEDS: Magnesium Hydroxide LIQ 30 ML UDC PO PRN (17:30)
[2021-07-25] MEDS: Warfarin DAILY REMINDER **NOTE FOLLOW UP SCH (17:34)
[2021-07-26] MEDS: ZOSYN 3.375 GM Q8H per EXTENDED INFUSION IV SCH ×3 (05:28→21:33)
[2021-07-26 06:17] LABS: INR 2.41 (0.86-1.15)
[2021-07-26] MEDS: DULoxetine DR 60 mg CAP PO SCH (08:32)
[2021-07-26 12:50] LABS: Rapid COVID-19 Molecular Undetected (Undetected)
[2021-07-26] MEDS: Magnesium Hydroxide LIQ 30 ML UDC PO PRN (13:50)
[2021-07-26] MEDS: Collagenase 250 units/gm OINT 1 tube TOPICAL SCH (13:51)
[2021-07-26] MEDS: Warfarin DAILY REMINDER **NOTE FOLLOW UP SCH (17:26)
[2021-07-27] MEDS: ZOSYN 3.375 GM Q8H per EXTENDED INFUSION IV SCH ×2 (05:39→14:34)
[2021-07-27 06:04] LABS: INR 1.9 (0.86-1.15)
[2021-07-27 06:40] LABS: Calcium 8.9 mg/dL (8.6-10.3); Magnesium 1.7 mg/dL (1.9-2.7)
[2021-07-27 06:41] LABS: eGFR CKD-EPI 97.5 (>60)
[2021-07-27] MEDS ORDERED: Magnesium Sulfate IV 3 GM in NS 0.9% 100 ml BAG 100 ML IVPB ONE (06:51)
[2021-07-27] MEDS ORDERED: Magnesium Sulfate 2 GM IV (Premix) IVPB ONE (07:00)
[2021-07-27] MEDS: Magnesium Hydroxide LIQ 30 ML UDC PO SCH ×2 (08:44→08:56)
[2021-07-27] MEDS: DULoxetine DR 60 mg CAP PO SCH (08:44)
[2021-07-27] MEDS: Magnesium Sulfate 1 GM IV 1 GM/100 ML BAG IV ONE ×2 (08:48→11:06)
[2021-07-27] MEDS ORDERED: Senna TAB 8.6 mg TAB PO SCH (09:00)
[2021-07-27] MEDS: Collagenase 250 units/gm OINT 1 tube TOPICAL SCH (11:14)
[2021-07-27 12:04] VITALS: BP 117/55
[2021-07-27 12:05] LABS: C Reactive Protein 22.71 mg/L (<8.01)
== END 2021-07-27 16:00 | DRG 871 ==
LOC: ED 20:13 → EDHOLD 07-22 00:10 → SUATTDRO 07-22 00:10 → ICU 07-22 01:45 → MED 07-22 12:45
PROVIDERS: ADMIT Internal Medicine; ATTEND Family Medicine

== ENCOUNTER 2021-08-30 09:07 | Observation (INO) ==
[2021-08-30 09:47] LABS: Hematocrit 25 % (35-47); Hemoglobin 8.1 g/dL (12.0-16.0); Mean Corpuscular HGB Conc 32 g/dL (31-36); Mean Corpuscular Hemoglobin 28 pg (27-31); Mean Corpuscular Volume 86 fL (80-97); Red Blood Count 2.95 10^6 /uL (3.70-4.87); Red Cell Distribution Width 18 % (10-15); White Blood Count 3.8 10^3/uL (3.5-10.8)
[2021-08-30 09:54] LABS: INR 3.07 (0.86-1.15)
[2021-08-30 10:23] LABS: ABS Eosinophils 0.1 10^3/ul (0-0.6); ABS Lymphocytes 0.8 10^3/ul (1.0-4.8); ABS Monocytes 0.6 10^3/ul (0-0.8); ABS Neutrophils 2.3 10^3/ul (1.5-7.7); Eosinophil % 2.6 %; Lymphocyte % 21.2 %; Mean Platelet Volume 10.4 fL (7.4-10.4); Platelet Count 60 10^3/uL (150-450)
[2021-08-30 10:27] LABS: Potassium 3.5 mmol/L (3.5-5.0)
[2021-08-30 10:56] LABS: Albumin 2.3 g/dL (3.2-5.2)
[2021-08-30 10:57] LABS: Total Bilirubin 0.3 mg/dL (0.2-1.0)
[2021-08-30 11:04] LABS: Albumin/Globulin Ratio 0.9 (1-3); Globulin 2.7 g/dL (2-4); eGFR CKD-EPI 102.3 (>60)
[2021-08-30] MEDS ORDERED: Iodixanol (CONTRAST) 320 MG/ML 100 ML SDV IV ONE (11:06)
[2021-08-30 11:08] LABS: Calcium 7.1 mg/dL (8.6-10.3)
[2021-08-30 13:36] LABS: PCO2 Arterial 58 mmHg (35-45); PO2 Arterial 143 mmHg (80-100)
[2021-08-30 14:20] LABS: C Reactive Protein 12.08 mg/L (<8.01); Magnesium 1.5 mg/dL (1.9-2.7)
[2021-08-30] MEDS ORDERED: Magnesium Sulfate IV 3 GM in NS 0.9% 100 ml BAG 100 ML IVPB ONE (14:34)
[2021-08-30] MEDS ORDERED: Potassium Chlor 20 meq TAB.ER PO ONE (14:34)
[2021-08-30] MEDS ORDERED: Furosemide 40 mg/4 ml IV VIAL IV SLOW PU ONE (14:34)
[2021-08-30] MEDS ORDERED: Magnesium Sulfate 2 GM IV (Premix) IVPB ONE (15:00)
[2021-08-30] MEDS ORDERED: Magnesium Hydroxide LIQ 30 ML UDC PO PRN (15:45)
[2021-08-30] MEDS ORDERED: Sodium Phosphate ADULT ENEMA 133 ML BTL PR PRN ×2 (15:45)
[2021-08-30] MEDS ORDERED: Magnesium Sulfate 1 GM IV 1 GM/100 ML BAG IV ONE (16:00)
[2021-08-30] MEDS ORDERED: Warfarin per PHARMACY **NOTE FOLLOW UP SCH (16:00)
[2021-08-30] MEDS: Mometasone/Formoter 100/5 MDI INH SCH (20:12)
[2021-08-30] MEDS: Calcium Carb (TUMS) 500 mg CHEW TAB PO SCH (20:30)
[2021-08-30] MEDS: Warfarin DAILY REMINDER **NOTE FOLLOW UP SCH (20:34)
[2021-08-31 05:57] LABS: ABS Eosinophils 0.1 10^3/ul (0-0.6); ABS Lymphocytes 0.7 10^3/ul (1.0-4.8); ABS Monocytes 0.5 10^3/ul (0-0.8); ABS Neutrophils 2.1 10^3/ul (1.5-7.7); Eosinophil % 2.7 %; Hematocrit 27 % (35-47); Hemoglobin 8.5 g/dL (12.0-16.0); Lymphocyte % 20.6 %; Mean Corpuscular HGB Conc 32 g/dL (31-36); Mean Corpuscular Hemoglobin 28 pg (27-31); Mean Corpuscular Volume 86 fL (80-97); Mean Platelet Volume 10.2 fL (7.4-10.4); Nucleated Red Blood Cells % 0.1; Platelet Count 54 10^3/uL (150-450); Red Blood Count 3.08 10^6 /uL (3.70-4.87); Red Cell Distribution Width 18 % (10-15); White Blood Count 3.3 10^3/uL (3.5-10.8)
[2021-08-31 06:00] LABS: INR 3.71 (0.86-1.15)
[2021-08-31 06:33] LABS: Calcium 8.3 mg/dL (8.6-10.3); Magnesium 1.8 mg/dL (1.9-2.7); Potassium 3.7 mmol/L (3.5-5.0)
[2021-08-31 06:41] LABS: eGFR CKD-EPI 99.4 (>60)
[2021-08-31] MEDS: Mometasone/Formoter 100/5 MDI INH SCH ×2 (09:00→20:46)
[2021-08-31] MEDS: Calcium Carb (TUMS) 500 mg CHEW TAB PO SCH ×2 (09:05→20:10)
[2021-08-31] MEDS: DULoxetine DR 60 mg CAP PO SCH (09:06)
[2021-08-31] MEDS: Lidocaine PATCH 5% PATCH TRANSDERM SCH (09:07)
[2021-08-31] MEDS ORDERED: Furosemide 40 mg/4 ml IV VIAL IV ONE ×2 (11:09→11:23)
[2021-08-31 12:40] LABS: High Sensitivity Troponin 1 Hr 4 pg/mL (<15)
[2021-08-31] MEDS: Warfarin DAILY REMINDER **NOTE FOLLOW UP SCH (16:15)
[2021-08-31] MEDS ORDERED: Warfarin - No Order Today **NOTE FOLLOW UP ONE (17:00)
[2021-09-01 06:38] LABS: INR 3.12 (0.86-1.15)
[2021-09-01 06:53] LABS: ABS Eosinophils 0.1 10^3/ul (0-0.6); ABS Lymphocytes 0.8 10^3/ul (1.0-4.8); ABS Monocytes 0.6 10^3/ul (0-0.8); ABS Neutrophils 1.7 10^3/ul (1.5-7.7); Eosinophil % 2.9 %; Hematocrit 26 % (35-47); Hemoglobin 8.4 g/dL (12.0-16.0); Mean Corpuscular HGB Conc 32 g/dL (31-36); Mean Corpuscular Hemoglobin 28 pg (27-31); Mean Corpuscular Volume 87 fL (80-97); Mean Platelet Volume 8.8 fL (7.4-10.4); Platelet Count 52 10^3/uL (150-450); Red Cell Distribution Width 19 % (10-15); White Blood Count 3.2 10^3/uL (3.5-10.8)
[2021-09-01 08:04] LABS: Blood Urea Nitrogen 14 mg/dL (6-24); CO2 Carbon Dioxide 37 mmol/L (22-32); Chloride 103 mmol/L (101-111); Glucose 106 mg/dL (70-100); Potassium 3.9 mmol/L (3.5-5.0); Sodium 138 mmol/L (135-145); eGFR CKD-EPI 93.3 (>60)
[2021-09-01 08:05] LABS: C Reactive Protein 15.09 mg/L (<8.01); Calcium 8.5 mg/dL (8.6-10.3)
[2021-09-01] MEDS: Lidocaine PATCH 5% PATCH TRANSDERM SCH (08:08)
[2021-09-01] MEDS: Calcium Carb (TUMS) 500 mg CHEW TAB PO SCH ×2 (08:12→21:44)
[2021-09-01] MEDS: DULoxetine DR 60 mg CAP PO SCH (08:15)
[2021-09-01] MEDS: Mometasone/Formoter 100/5 MDI INH SCH ×2 (08:29→19:30)
[2021-09-01] MEDS: Warfarin DAILY REMINDER **NOTE FOLLOW UP SCH (17:47)
[2021-09-02 06:49] LABS: INR 2.27 (0.86-1.15)
[2021-09-02 06:50] LABS: ABS Eosinophils 0.1 10^3/ul (0-0.6); ABS Lymphocytes 0.9 10^3/ul (1.0-4.8); ABS Monocytes 0.8 10^3/ul (0-0.8); ABS Neutrophils 2.1 10^3/ul (1.5-7.7); Eosinophil % 2.2 %; Hematocrit 26 % (35-47); Hemoglobin 8.3 g/dL (12.0-16.0); Lymphocyte % 22.9 %; Mean Corpuscular HGB Conc 32 g/dL (31-36); Mean Corpuscular Hemoglobin 28 pg (27-31); Mean Corpuscular Volume 87 fL (80-97); Mean Platelet Volume 10.7 fL (7.4-10.4); Nucleated Red Blood Cells % 0.1; Platelet Count 54 10^3/uL (150-450); Red Blood Count 2.95 10^6 /uL (3.70-4.87); Red Cell Distribution Width 19 % (10-15); White Blood Count 3.9 10^3/uL (3.5-10.8)
[2021-09-02] MEDS: Calcium Carb (TUMS) 500 mg CHEW TAB PO SCH (08:29)
[2021-09-02] MEDS: DULoxetine DR 60 mg CAP PO SCH (08:29)
[2021-09-02 08:30] LABS: Calcium 8.6 mg/dL (8.6-10.3); Potassium 3.8 mmol/L (3.5-5.0); eGFR CKD-EPI 94.9 (>60)
[2021-09-02] MEDS: Lidocaine PATCH 5% PATCH TRANSDERM SCH (08:30)
[2021-09-02] MEDS: Mometasone/Formoter 100/5 MDI INH SCH (08:38)
[2021-09-02] MEDS ORDERED: Collagenase 250 units/gm OINT 1 tube TOPICAL SCH (10:30)
[2021-09-02 11:26] VITALS: BP 108/58
== END 2021-09-02 14:00 ==
LOC: ED 09:07 → EDHOLD 09:07 → SUATTDRO 15:42 → MED 19:02
PROVIDERS: ADMIT Surgery Surgical Critical Care; ATTEND Internal Medicine

== ENCOUNTER 2021-09-30 16:19 | Inpatient (IN) ==
[2021-09-30 18:13] LABS: Hematocrit 23 % (35-47); Hemoglobin 7.3 g/dL (12.0-16.0); Mean Corpuscular HGB Conc 31 g/dL (31-36); Mean Corpuscular Hemoglobin 27 pg (27-31); Mean Corpuscular Volume 87 fL (80-97); Mean Platelet Volume 9.6 fL (7.4-10.4); Platelet Count 15 10^3/uL (150-450); Red Blood Count 2.67 10^6 /uL (3.70-4.87); Red Cell Distribution Width 22 % (10-15); White Blood Count 4.1 10^3/uL (3.5-10.8)
[2021-09-30 18:47] LABS: Albumin 3.4 g/dL (3.2-5.2); Albumin/Globulin Ratio 0.7 (1-3); Globulin 4.9 g/dL (2-4); Potassium 3.8 mmol/L (3.5-5.0); Total Bilirubin 0.5 mg/dL (0.2-1.0); Total Protein 8.3 g/dL (6.4-8.9); eGFR CKD-EPI 52.1 (>60)
[2021-09-30 18:58] LABS: Calcium 13.3 mg/dL (8.6-10.3)
[2021-09-30 19:10] LABS: Acanthocytes 1+; Hypochromasia 1+; Platelet Morphology Large; Polychromasia 1+
[2021-09-30 19:11] LABS: ABS Eosinophils 0.1 10^3/ul (0-0.6); ABS Lymphocytes 0.9 10^3/ul (1.0-4.8); ABS Monocytes 0.8 10^3/ul (0-0.8); ABS Neutrophils 2.3 10^3/ul (1.5-7.7); Eosinophil % 1.3 %; Nucleated Red Blood Cells % 0.2
[2021-09-30 19:27] LABS: PCO2 Arterial 57 mmHg (35-45); PO2 Arterial 87 mmHg (80-100)
[2021-09-30 19:35] LABS: High Sensitivity Troponin 1 Hr 6 pg/mL (<15)
[2021-09-30] MEDS ORDERED: NS 0.9% 1000 ml BAG 1,000 ML IV ONE (20:56)
[2021-09-30] MEDS ORDERED: Lactated Ringers 500 ml BAG 500 ML IV ONE (21:29)
[2021-09-30 21:41] LABS: Magnesium 1.7 mg/dL (1.9-2.7)
[2021-09-30 21:46] LABS: Phosphorus 3.9 mg/dL (2.5-5.0)
[2021-09-30] MEDS ORDERED: Furosemide 40 mg/4 ml IV VIAL IV SLOW PU ONE (21:50)
[2021-09-30 22:01] LABS: TSH Ultra Thyroid Stim Horm 0.45 mcIU/mL (0.34-5.60)
[2021-09-30] MEDS ORDERED: Magnesium Sulfate IV 3 GM in NS 0.9% 100 ml BAG 100 ML IVPB ONE (22:23)
[2021-09-30] MEDS ORDERED: Piperacillin/Tazobac ADVAN 3.375 GM in NS 0.9% 100 ml BAG 100 ML IV ONE (22:23)
[2021-09-30] MEDS ORDERED: Vancomycin 1,000 MG in NS 0.9% 250 ml 250 ML IVPB ONE (22:23)
[2021-09-30 22:27] LABS: Activated Partial Thrombo Time 24.3 seconds (26.0-38.0); INR 2.53 (0.86-1.15)
[2021-09-30] MEDS ORDERED: Zosyn per Pharmacy NOTE FOLLOW UP SCH (23:00)
[2021-09-30] MEDS ORDERED: Vancomycin per Pharmacy 1 EA NOTE FOLLOW UP SCH (23:00)
[2021-09-30] MEDS ORDERED: Magnesium Sulfate 2 GM IV (Premix) IVPB ONE (23:00)
[2021-09-30] MEDS ORDERED: Vancomycin 2,000 MG in NS 0.9% 500 ml BAG 500 ML IVPB ONE (23:30)
[2021-09-30] MEDS ORDERED: Piperacillin/Tazobac 3.375 GM BAG ONE (23:44)
[2021-10-01] MEDS ORDERED: Magnesium Sulfate 1 GM IV 1 GM/100 ML BAG IV ONE
[2021-10-01 00:43] LABS: Calcium (PTH Intact) 13.2 mg/dL (8.6-10.3)
[2021-10-01 01:25] LABS: Urine Appearance Clear; Urine Bilirubin Negative (Negative); Urine Blood 2+ (Negative); Urine Color Straw; Urine Glucose Negative (Negative); Urine Ketones Negative (Negative); Urine Nitrite Negative (Negative); Urine Protein Negative (Negative); Urine Specific Gravity 1.005 (1.002-1.030); Urine Urobilinogen Negative (Negative)
[2021-10-01 01:32] LABS: Urine Bacteria 1+ (Absent); Urine Red Blood Cell 3+(>10/hpf) (Absent); Urine Squamous Epithelial Cell Present (Absent); Urine White Blood Cell Trace(0-5/hpf) (Absent)
[2021-10-01] MEDS ORDERED: NS 0.9% 500 ml BAG 500 ML ONE (01:32)
[2021-10-01 07:01] LABS: PCO2 Arterial 56 mmHg (35-45); PO2 Arterial 76 mmHg (80-100)
[2021-10-01 07:13] LABS: ABS Lymphocytes 0.7 10^3/ul (1.0-4.8); ABS Monocytes 0.4 10^3/ul (0-0.8); ABS Neutrophils 1.7 10^3/ul (1.5-7.7); Eosinophil % 1.2 %; Hematocrit 21 % (35-47); Hemoglobin 6.5 g/dL (12.0-16.0); Lymphocyte % 24.4 %; Mean Corpuscular HGB Conc 32 g/dL (31-36); Mean Corpuscular Hemoglobin 28 pg (27-31); Mean Corpuscular Volume 88 fL (80-97); Mean Platelet Volume 9.5 fL (7.4-10.4); Nucleated Red Blood Cells % 0.2; Platelet Count 13 10^3/uL (150-450); Red Blood Count 2.32 10^6 /uL (3.70-4.87); Red Cell Distribution Width 22 % (10-15); White Blood Count 2.9 10^3/uL (3.5-10.8)
[2021-10-01] MEDS: Lidocaine PATCH 5% PATCH TRANSDERM SCH (08:06)
[2021-10-01] MEDS: Mometasone/Formoter 100/5 MDI INH SCH ×2 (08:06→23:41)
[2021-10-01 08:11] LABS: Calcium 12.7 mg/dL (8.6-10.3); Magnesium 2.1 mg/dL (1.9-2.7); Potassium 3.2 mmol/L (3.5-5.0); Total Bilirubin 0.6 mg/dL (0.2-1.0)
[2021-10-01] MEDS ORDERED: Furosemide 40 mg/4 ml IV VIAL IV ONE (08:21)
[2021-10-01 08:22] LABS: Albumin/Globulin Ratio 0.6 (1-3); Globulin 4.8 g/dL (2-4); Total Protein 7.8 g/dL (6.4-8.9); eGFR CKD-EPI 55.5 (>60)
[2021-10-01] MEDS ORDERED: NS 0.9% 1000 ml BAG 1,000 ML IV SCH (08:30)
[2021-10-01] MEDS: KCL 20 MEQ/100 ML IVPREMIX 20 MEQ/100 ML BAG IV SCH ×3 (10:23→15:40)
[2021-10-01] MEDS ORDERED: methylPREDNISolone SOD SUCC 40 mg/ml 1 ml VIAL IV SCH (12:00)
[2021-10-01] MEDS ORDERED: Dexamethasone IV 4 MG/ML 5 ML VIAL (20 MG) ONE (12:37)
[2021-10-01] MEDS: Pantoprazole VIAL 40 MG VIAL IV SCH (12:43)
[2021-10-01] MEDS ORDERED: ZOSYN 3.375 GM Q8H per EXTENDED INFUSION IV SCH (13:30)
[2021-10-01 13:53] LABS: Vitamin D Total 25(OH) 21.7 ng/mL (20-50)
[2021-10-01] MEDS ORDERED: Vancomycin 750 MG in NS 0.9% 250 ML IVPB SCH (14:00)
[2021-10-01] MEDS ORDERED: HYDROmorphone 1 MG/1 ML SYRINGE IV SLOW PU PRN (14:12)
[2021-10-01] MEDS ORDERED: HYDROmorphone 1 MG/1 ML SYRINGE ONE (14:21)
[2021-10-01 15:35] LABS: Hematocrit 23 % (35-47); Hemoglobin 7.4 g/dL (12.0-16.0)
[2021-10-01] MEDS: Dexamethasone IV 40 MG in NS 0.9% 50 ML 50 ML IVPB SCH (15:50)
[2021-10-01] MEDS: Collagenase 250 units/gm OINT 1 tube TOPICAL SCH (18:56)
[2021-10-02] MEDS: HYDROmorphone 0.5 MG/0.5 ML SYRINGE IV SLOW PU PRN ×2 (03:02→09:17)
[2021-10-02 05:39] LABS: ABS Lymphocytes 0.7 10^3/ul (1.0-4.8); ABS Monocytes 0.4 10^3/ul (0-0.8); ABS Neutrophils 3.2 10^3/ul (1.5-7.7); Eosinophil % 0.6 %; Hematocrit 21 % (35-47); Hemoglobin 6.9 g/dL (12.0-16.0); Lymphocyte % 16.6 %; Mean Corpuscular HGB Conc 33 g/dL (31-36); Mean Corpuscular Hemoglobin 28 pg (27-31); Mean Corpuscular Volume 85 fL (80-97); Mean Platelet Volume 9.9 fL (7.4-10.4); Nucleated Red Blood Cells % 0.1; Platelet Count 11 10^3/uL (150-450); Red Blood Count 2.47 10^6 /uL (3.70-4.87); Red Cell Distribution Width 21 % (10-15); White Blood Count 4.3 10^3/uL (3.5-10.8)
[2021-10-02 05:57] LABS: Potassium 3.7 mmol/L (3.5-5.0)
[2021-10-02 06:07] LABS: Calcium 12.1 mg/dL (8.6-10.3); Magnesium 1.7 mg/dL (1.9-2.7)
[2021-10-02 06:09] LABS: Phosphorus 4.5 mg/dL (2.5-5.0); eGFR CKD-EPI 52.6 (>60)
[2021-10-02] MEDS ORDERED: Potassium Chloride LIQUID 20 MEQ/15 ML LIQUID PO ONE (06:24)
[2021-10-02] MEDS ORDERED: Magnesium Sulfate 2 gm BAG 2 GM/50 ML BAG IVPB ONE (06:24)
[2021-10-02] MEDS: Pantoprazole VIAL 40 MG VIAL IV SCH (09:16)
[2021-10-02] MEDS: Lidocaine PATCH 5% PATCH TRANSDERM SCH (09:18)
[2021-10-02] MEDS: Mometasone/Formoter 100/5 MDI INH SCH ×2 (09:25→20:31)
[2021-10-02] MEDS ORDERED: Zoledronic Acid 4 MG in NS 0.9% 100 ml BAG 100 ML IVPB ONE (10:13)
[2021-10-02] MEDS ORDERED: Magnesium Hydroxide LIQ 30 ML UDC PO PRN (11:26)
[2021-10-02] MEDS: Collagenase 250 units/gm OINT 1 tube TOPICAL SCH (11:45)
[2021-10-02] MEDS: DULoxetine DR 60 mg CAP PO SCH (13:20)
[2021-10-02] MEDS ORDERED: Vancomycin Trough Check NOTE FOLLOW UP ONE ×2 (13:30)
[2021-10-02] MEDS: Dexamethasone IV 40 MG in NS 0.9% 50 ML 50 ML IVPB SCH (13:30)
[2021-10-02] MEDS ORDERED: Acetaminophen IV 1 GM/100ML 100 ML IV ONE (19:47)
[2021-10-02 21:22] LABS: eGFR CKD-EPI 48.6 (>60)
[2021-10-03] MEDS: Mometasone/Formoter 100/5 MDI INH SCH ×2 (08:06→21:12)
[2021-10-03] MEDS: DULoxetine DR 60 mg CAP PO SCH (08:42)
[2021-10-03] MEDS: Lidocaine PATCH 5% PATCH TRANSDERM SCH (08:43)
[2021-10-03 09:25] LABS: ABS Lymphocytes 0.4 10^3/ul (1.0-4.8); ABS Monocytes 0.4 10^3/ul (0-0.8); ABS Neutrophils 2.9 10^3/ul (1.5-7.7); Eosinophil % 0.1 %; Hematocrit 23 % (35-47); Hemoglobin 7.3 g/dL (12.0-16.0); Lymphocyte % 11.2 %; Mean Corpuscular HGB Conc 32 g/dL (31-36); Mean Corpuscular Hemoglobin 28 pg (27-31); Mean Corpuscular Volume 86 fL (80-97); Mean Platelet Volume 9.9 fL (7.4-10.4); Nucleated Red Blood Cells % 0.4; Platelet Count 15 10^3/uL (150-450); Red Blood Count 2.66 10^6 /uL (3.70-4.87); Red Cell Distribution Width 21 % (10-15); White Blood Count 3.7 10^3/uL (3.5-10.8)
[2021-10-03 09:51] LABS: Calcium 11.4 mg/dL (8.6-10.3); Potassium 3.3 mmol/L (3.5-5.0)
[2021-10-03 09:57] LABS: eGFR CKD-EPI 45.5 (>60)
[2021-10-03] MEDS: Dexamethasone IV 4 MG/ML 5 ML VIAL (20 MG) ONE ×2 (10:49→11:22)
[2021-10-03] MEDS: Collagenase 250 units/gm OINT 1 tube TOPICAL SCH (10:50)
[2021-10-03] MEDS ORDERED: Potassium Chlor 20 meq TAB.ER PO SCH (11:00)
[2021-10-03] MEDS: Dexamethasone IV 40 MG in NS 0.9% 50 ML 50 ML IVPB SCH (11:47)
[2021-10-03 17:15] LABS: ADAMTS13 Activity Assay 95 % (>/=70)
[2021-10-03] MEDS ORDERED: Dextrose 50% Syringe 50 ml 25 GM/50 ML SYRINGE IV PUSH PRN (22:27)
[2021-10-04] MEDS: DULoxetine DR 60 mg CAP PO SCH (08:28)
[2021-10-04] MEDS: Lidocaine PATCH 5% PATCH TRANSDERM SCH (08:29)
[2021-10-04 08:52] LABS: ABS Lymphocytes 0.4 10^3/ul (1.0-4.8); ABS Monocytes 0.5 10^3/ul (0-0.8); Eosinophil % 0.1 %; Hematocrit 23 % (35-47); Hemoglobin 7.6 g/dL (12.0-16.0); Mean Corpuscular HGB Conc 33 g/dL (31-36); Mean Corpuscular Hemoglobin 28 pg (27-31); Mean Corpuscular Volume 87 fL (80-97); Mean Platelet Volume 9.7 fL (7.4-10.4); Nucleated Red Blood Cells % 0.6; Platelet Count 15 10^3/uL (150-450); Potassium 3.1 mmol/L (3.5-5.0); Red Blood Count 2.67 10^6 /uL (3.70-4.87); Red Cell Distribution Width 21 % (10-15); White Blood Count 3.9 10^3/uL (3.5-10.8); eGFR CKD-EPI 57.4 (>60)
[2021-10-04] MEDS ORDERED: HYDROmorphone 1 MG/1 ML SYRINGE IV SLOW PU PRN (09:04)
[2021-10-04] MEDS: Mometasone/Formoter 100/5 MDI INH SCH ×2 (09:14→19:35)
[2021-10-04 10:38] LABS: Kappa Free Light Chain 39.2 mg/dL
[2021-10-04] MEDS: Dexamethasone IV 40 MG in NS 0.9% 50 ML 50 ML IVPB SCH (13:13)
[2021-10-04] MEDS: Collagenase 250 units/gm OINT 1 tube TOPICAL SCH (13:15)
[2021-10-04 17:19] LABS: Beta 2 Microglobulin 6.28 mcg/mL
[2021-10-04 17:27] LABS: Immunoglobulin A 76 mg/dL (61 - 356); Immunoglobulin G 2810 mg/dL (767 - 1590); Immunoglobulin M 31 mg/dL (37 - 286)
[2021-10-04] MEDS ORDERED: Potassium Chlor 20 meq TAB.ER PO ONE (23:09)
[2021-10-05 07:20] LABS: Hematocrit 22 % (35-47); Hemoglobin 7.3 g/dL (12.0-16.0); Mean Corpuscular HGB Conc 33 g/dL (31-36); Mean Corpuscular Hemoglobin 29 pg (27-31); Mean Corpuscular Volume 87 fL (80-97); Mean Platelet Volume 9.2 fL (7.4-10.4); Platelet Count 18 10^3/uL (150-450); Red Blood Count 2.56 10^6 /uL (3.70-4.87); Red Cell Distribution Width 21 % (10-15); White Blood Count 4.5 10^3/uL (3.5-10.8)
[2021-10-05] MEDS: Mometasone/Formoter 100/5 MDI INH SCH ×2 (08:04→19:17)
[2021-10-05 08:07] LABS: Albumin 3.2 g/dL (3.2-5.2); Albumin/Globulin Ratio 0.7 (1-3); Calcium 9.2 mg/dL (8.6-10.3); Globulin 4.7 g/dL (2-4); Magnesium 1.7 mg/dL (1.9-2.7); Potassium 3.5 mmol/L (3.5-5.0); Total Bilirubin 0.5 mg/dL (0.2-1.0); Total Protein 7.9 g/dL (6.4-8.9); eGFR CKD-EPI 74.4 (>60)
[2021-10-05 08:28] LABS: ABS Lymphocytes 0.5 10^3/ul (1.0-4.8); ABS Monocytes 0.5 10^3/ul (0-0.8); ABS Neutrophils 3.5 10^3/ul (1.5-7.7); Eosinophil % 0.3 %; Nucleated Red Blood Cells % 0.3
[2021-10-05] MEDS: DULoxetine DR 60 mg CAP PO SCH (09:51)
[2021-10-05] MEDS: Lidocaine PATCH 5% PATCH TRANSDERM SCH (09:56)
[2021-10-05] MEDS: Collagenase 250 units/gm OINT 1 tube TOPICAL SCH ×2 (09:56→11:20)
[2021-10-05 11:02] LABS: Ferritin 91.7 ng/mL (11-307)
[2021-10-05] MEDS: Dexamethasone IV 40 MG in NS 0.9% 50 ML 50 ML IVPB SCH (11:18)
[2021-10-05 13:07] LABS: Albumin 3.1 g/dL (3.4-4.7); Gamma Globulin 2.9 g/dL (0.6-1.6); Total Protein(PEP) 8.4 g/dL (6.3 - 7.9)
[2021-10-05 13:19] LABS: Albumin 2.8 g/dL (3.4-4.7); Albumin/Globulin Ratio 0.62; Gamma Globulin 2.6 g/dL (0.6-1.6); Total Protein(PEP) 7.4 g/dL (6.3 - 7.9)
[2021-10-05] MEDS ORDERED: Magnesium Sulfate 2 gm BAG 2 GM/50 ML BAG IVPB ONE (15:38)
[2021-10-06 06:26] LABS: Hematocrit 22 % (35-47); Hemoglobin 7.2 g/dL (12.0-16.0); Mean Corpuscular HGB Conc 32 g/dL (31-36); Mean Corpuscular Hemoglobin 28 pg (27-31); Mean Corpuscular Volume 86 fL (80-97); Red Blood Count 2.57 10^6 /uL (3.70-4.87); Red Cell Distribution Width 21 % (10-15); White Blood Count 3.7 10^3/uL (3.5-10.8)
[2021-10-06 06:27] LABS: ABS Lymphocytes 0.8 10^3/ul (1.0-4.8); ABS Monocytes 0.4 10^3/ul (0-0.8); ABS Neutrophils 2.5 10^3/ul (1.5-7.7); Eosinophil % 0.1 %; Lymphocyte % 21.3 %; Nucleated Red Blood Cells % 1.1
[2021-10-06 06:29] LABS: Calcium 8.4 mg/dL (8.6-10.3); Potassium 3.1 mmol/L (3.5-5.0); eGFR CKD-EPI 84.8 (>60)
[2021-10-06] MEDS: Lidocaine PATCH 5% PATCH TRANSDERM SCH (07:44)
[2021-10-06] MEDS: DULoxetine DR 60 mg CAP PO SCH (07:44)
[2021-10-06] MEDS: Collagenase 250 units/gm OINT 1 tube TOPICAL SCH (07:44)
[2021-10-06] MEDS: Mometasone/Formoter 100/5 MDI INH SCH ×2 (07:50→19:11)
[2021-10-06 08:35] LABS: Mean Platelet Volume 9.5 fL (7.4-10.4); Platelet Count 22 10^3/uL (150-450)
[2021-10-06] MEDS ORDERED: Potassium Chlor 10 meq TAB PO ONE ×2 (09:42→13:00)
[2021-10-06 15:14] LABS: Albumin 1.3 mg/dL; Albumin/Globulin Ratio 0.36; Gamma Globulin 1.7 mg/dL; Protein,Total, Random Urine 5 mg/dL
[2021-10-07] MEDS: Mometasone/Formoter 100/5 MDI INH SCH ×2 (07:31→19:36)
[2021-10-07 07:34] LABS: Flag, M-protein Isotype Positive (Negative)
[2021-10-07] MEDS: Lidocaine PATCH 5% PATCH TRANSDERM SCH (08:30)
[2021-10-07] MEDS: DULoxetine DR 60 mg CAP PO SCH (08:31)
[2021-10-07] MEDS: Collagenase 250 units/gm OINT 1 tube TOPICAL SCH (08:31)
[2021-10-07 10:00] LABS: ABS Lymphocytes 1.1 10^3/ul (1.0-4.8); ABS Monocytes 0.3 10^3/ul (0-0.8); ABS Neutrophils 2.5 10^3/ul (1.5-7.7); Eosinophil % 0.6 %; Hematocrit 27 % (35-47); Hemoglobin 8.3 g/dL (12.0-16.0); Lymphocyte % 28.4 %; Mean Corpuscular HGB Conc 31 g/dL (31-36); Mean Corpuscular Hemoglobin 27 pg (27-31); Mean Corpuscular Volume 87 fL (80-97); Mean Platelet Volume 9.5 fL (7.4-10.4); Nucleated Red Blood Cells % 0.5; Platelet Count 36 10^3/uL (150-450); Red Blood Count 3.08 10^6 /uL (3.70-4.87); Red Cell Distribution Width 22 % (10-15)
[2021-10-07 10:17] LABS: Calcium 7.9 mg/dL (8.6-10.3); Potassium 3.7 mmol/L (3.5-5.0); eGFR CKD-EPI 75.4 (>60)
[2021-10-08] MEDS: Mometasone/Formoter 100/5 MDI INH SCH ×2 (07:31→19:05)
[2021-10-08 08:21] LABS: Hematocrit 25 % (35-47); Hemoglobin 7.9 g/dL (12.0-16.0); Mean Corpuscular HGB Conc 32 g/dL (31-36); Mean Corpuscular Hemoglobin 28 pg (27-31); Mean Corpuscular Volume 88 fL (80-97); Mean Platelet Volume 9.1 fL (7.4-10.4); Platelet Count 34 10^3/uL (150-450); Red Cell Distribution Width 22 % (10-15); White Blood Count 3.5 10^3/uL (3.5-10.8)
[2021-10-08 08:34] LABS: Calcium 7.8 mg/dL (8.6-10.3); eGFR CKD-EPI 91.8 (>60)
[2021-10-08] MEDS ORDERED: Metoclopramide 5 MG/ML VIAL (10 mg) IV PRN (09:20)
[2021-10-08] MEDS ORDERED: Prochlorperazine 5 mg/ml 2 ml VIAL (10 mg) IV PRN (09:30)
[2021-10-08] MEDS: Lidocaine PATCH 5% PATCH TRANSDERM SCH (10:12)
[2021-10-08] MEDS: Collagenase 250 units/gm OINT 1 tube TOPICAL SCH (10:14)
[2021-10-08] MEDS: DULoxetine DR 60 mg CAP PO SCH (10:18)
[2021-10-08] MEDS: NS 0.9% 1000 ml BAG 1,000 ML IV SCH ×2 (12:16→21:28)
[2021-10-08] MEDS ORDERED: Bortezomib SQ USE 3.5 MG/1.4 ML VIAL SUBCUT ONE (13:30)
[2021-10-08] MEDS ORDERED: CYCLOPHOSPHAMIDE IVPB SCH (13:30)
[2021-10-08] MEDS ORDERED: NS 0.9% IVPB SCH (13:30)
[2021-10-09 06:45] LABS: INR 1.14 (0.86-1.15)
[2021-10-09 06:46] LABS: ABS Lymphocytes 0.7 10^3/ul (1.0-4.8); ABS Monocytes 0.4 10^3/ul (0-0.8); ABS Neutrophils 4.8 10^3/ul (1.5-7.7); Eosinophil % 0.2 %; Hematocrit 23 % (35-47); Hemoglobin 7.3 g/dL (12.0-16.0); Lymphocyte % 11.5 %; Mean Corpuscular HGB Conc 32 g/dL (31-36); Mean Corpuscular Hemoglobin 28 pg (27-31); Mean Corpuscular Volume 88 fL (80-97); Mean Platelet Volume 8.9 fL (7.4-10.4); Nucleated Red Blood Cells % 0.1; Platelet Count 39 10^3/uL (150-450); Red Blood Count 2.59 10^6 /uL (3.70-4.87); Red Cell Distribution Width 22 % (10-15); White Blood Count 5.9 10^3/uL (3.5-10.8)
[2021-10-09 07:03] LABS: Albumin 3.1 g/dL (3.2-5.2); Albumin/Globulin Ratio 0.7 (1-3); Calcium 7.4 mg/dL (8.6-10.3); Globulin 4.4 g/dL (2-4); Magnesium 1.7 mg/dL (1.9-2.7); Total Bilirubin 0.4 mg/dL (0.2-1.0); Total Protein 7.5 g/dL (6.4-8.9); eGFR CKD-EPI 98.6 (>60)
[2021-10-09] MEDS: Mometasone/Formoter 100/5 MDI INH SCH ×2 (07:54→19:33)
[2021-10-09] MEDS: Collagenase 250 units/gm OINT 1 tube TOPICAL SCH (09:20)
[2021-10-09] MEDS: DULoxetine DR 60 mg CAP PO SCH (09:21)
[2021-10-09] MEDS: Lidocaine PATCH 5% PATCH TRANSDERM SCH (09:22)
[2021-10-09] MEDS: NS 0.9% 1000 ml BAG 1,000 ML IV SCH (12:45)
[2021-10-10] MEDS: NS 0.9% 1000 ml BAG 1,000 ML IV SCH ×2 (05:32→17:47)
[2021-10-10] MEDS: Mometasone/Formoter 100/5 MDI INH SCH ×2 (07:31→19:55)
[2021-10-10] MEDS: Collagenase 250 units/gm OINT 1 tube TOPICAL SCH (09:07)
[2021-10-10] MEDS: DULoxetine DR 60 mg CAP PO SCH (09:07)
[2021-10-10] MEDS: Lidocaine PATCH 5% PATCH TRANSDERM SCH (09:08)
[2021-10-10 13:30] LABS: ABS Lymphocytes 0.7 10^3/ul (1.0-4.8); ABS Monocytes 0.6 10^3/ul (0-0.8); ABS Neutrophils 3.8 10^3/ul (1.5-7.7); Eosinophil % 0.2 %; Hematocrit 24 % (35-47); Hemoglobin 7.7 g/dL (12.0-16.0); Lymphocyte % 13.5 %; Mean Corpuscular HGB Conc 32 g/dL (31-36); Mean Corpuscular Hemoglobin 28 pg (27-31); Mean Corpuscular Volume 88 fL (80-97); Mean Platelet Volume 9.2 fL (7.4-10.4); Nucleated Red Blood Cells % 0.2; Platelet Count 50 10^3/uL (150-450); Red Cell Distribution Width 23 % (10-15); White Blood Count 5.1 10^3/uL (3.5-10.8)
[2021-10-10 13:33] LABS: Calcium 7.6 mg/dL (8.6-10.3); Magnesium 1.7 mg/dL (1.9-2.7); Potassium 3.6 mmol/L (3.5-5.0); eGFR CKD-EPI 100.2 (>60)
[2021-10-10] MEDS ORDERED: Magnesium Sulfate 2 gm BAG 2 GM/50 ML BAG IV ONE (18:00)
[2021-10-10] MEDS ORDERED: Magnesium Sulfate 1 GM IV 1 GM/100 ML BAG IV ONE (19:00)
[2021-10-11 06:06] LABS: ABS Monocytes 0.6 10^3/ul (0-0.8); ABS Neutrophils 2.6 10^3/ul (1.5-7.7); Eosinophil % 0.3 %; Hematocrit 23 % (35-47); Hemoglobin 7.5 g/dL (12.0-16.0); Lymphocyte % 23.7 %; Mean Corpuscular HGB Conc 32 g/dL (31-36); Mean Corpuscular Hemoglobin 29 pg (27-31); Mean Corpuscular Volume 88 fL (80-97); Mean Platelet Volume 8.7 fL (7.4-10.4); Nucleated Red Blood Cells % 0.1; Platelet Count 52 10^3/uL (150-450); Red Blood Count 2.64 10^6 /uL (3.70-4.87); Red Cell Distribution Width 23 % (10-15); White Blood Count 4.2 10^3/uL (3.5-10.8)
[2021-10-11 06:29] LABS: Calcium 7.7 mg/dL (8.6-10.3); Magnesium 2.3 mg/dL (1.9-2.7); eGFR CKD-EPI 96.9 (>60)
[2021-10-11] MEDS: Collagenase 250 units/gm OINT 1 tube TOPICAL SCH (08:13)
[2021-10-11] MEDS: Lidocaine PATCH 5% PATCH TRANSDERM SCH (08:14)
[2021-10-11] MEDS: DULoxetine DR 60 mg CAP PO SCH (08:14)
[2021-10-11] MEDS: Mometasone/Formoter 100/5 MDI INH SCH ×2 (08:18→21:19)
[2021-10-11] MEDS: Magic MouthWash2-BEN/MAAL/LIDO/NYST 240 ML BTL (alt formulation) SWISH SPIT SCH ×3 (13:39→21:02)
[2021-10-12] MEDS: Collagenase 250 units/gm OINT 1 tube TOPICAL SCH (08:15)
[2021-10-12] MEDS: Lidocaine PATCH 5% PATCH TRANSDERM SCH (08:15)
[2021-10-12] MEDS: Magic MouthWash2-BEN/MAAL/LIDO/NYST 240 ML BTL (alt formulation) SWISH SPIT SCH ×4 (08:16→20:40)
[2021-10-12] MEDS: DULoxetine DR 60 mg CAP PO SCH (08:16)
[2021-10-12] MEDS: Mometasone/Formoter 100/5 MDI INH SCH ×2 (09:01→21:16)
[2021-10-13 05:31] LABS: ABS Lymphocytes 0.7 10^3/ul (1.0-4.8); ABS Monocytes 0.4 10^3/ul (0-0.8); ABS Neutrophils 1.6 10^3/ul (1.5-7.7); Eosinophil % 1.1 %; Hematocrit 25 % (35-47); Hemoglobin 7.7 g/dL (12.0-16.0); Lymphocyte % 26.8 %; Mean Corpuscular HGB Conc 32 g/dL (31-36); Mean Corpuscular Hemoglobin 28 pg (27-31); Mean Corpuscular Volume 88 fL (80-97); Mean Platelet Volume 8.3 fL (7.4-10.4); Platelet Count 53 10^3/uL (150-450); Red Blood Count 2.79 10^6 /uL (3.70-4.87); Red Cell Distribution Width 22 % (10-15); White Blood Count 2.7 10^3/uL (3.5-10.8)
[2021-10-13 05:46] LABS: Calcium 8.3 mg/dL (8.6-10.3); Potassium 4.4 mmol/L (3.5-5.0); eGFR CKD-EPI 84.8 (>60)
[2021-10-13] MEDS: Mometasone/Formoter 100/5 MDI INH SCH ×2 (08:18→20:25)
[2021-10-13] MEDS: Magic MouthWash2-BEN/MAAL/LIDO/NYST 240 ML BTL (alt formulation) SWISH SPIT SCH ×4 (10:37→22:14)
[2021-10-13] MEDS: DULoxetine DR 60 mg CAP PO SCH (10:37)
[2021-10-13] MEDS: Lidocaine PATCH 5% PATCH TRANSDERM SCH (11:33)
[2021-10-13] MEDS: Collagenase 250 units/gm OINT 1 tube TOPICAL SCH (11:37)
[2021-10-14 06:12] LABS: ABS Lymphocytes 0.6 10^3/ul (1.0-4.8); ABS Monocytes 0.3 10^3/ul (0-0.8); ABS Neutrophils 1.7 10^3/ul (1.5-7.7); Eosinophil % 1.1 %; Hematocrit 26 % (35-47); Hemoglobin 8.3 g/dL (12.0-16.0); Lymphocyte % 21.6 %; Mean Corpuscular HGB Conc 32 g/dL (31-36); Mean Corpuscular Hemoglobin 28 pg (27-31); Mean Corpuscular Volume 88 fL (80-97); Mean Platelet Volume 8.9 fL (7.4-10.4); Nucleated Red Blood Cells % 1.6; Platelet Count 55 10^3/uL (150-450); Red Blood Count 2.95 10^6 /uL (3.70-4.87); Red Cell Distribution Width 23 % (10-15); White Blood Count 2.6 10^3/uL (3.5-10.8)
[2021-10-14 06:28] LABS: Calcium 8.3 mg/dL (8.6-10.3); Magnesium 1.9 mg/dL (1.9-2.7); eGFR CKD-EPI 91.8 (>60)
[2021-10-14] MEDS: Mometasone/Formoter 100/5 MDI INH SCH ×2 (08:23→19:11)
[2021-10-14] MEDS: Lidocaine PATCH 5% PATCH TRANSDERM SCH (09:49)
[2021-10-14] MEDS: DULoxetine DR 60 mg CAP PO SCH (09:50)
[2021-10-14] MEDS: Polyethylene Glycol 3350 17 GM PACKET PO SCH (09:51)
[2021-10-14] MEDS: Magic MouthWash2-BEN/MAAL/LIDO/NYST 240 ML BTL (alt formulation) SWISH SPIT SCH ×4 (09:51→23:23)
[2021-10-14] MEDS: Collagenase 250 units/gm OINT 1 tube TOPICAL SCH (09:52)
[2021-10-15 06:43] LABS: Albumin/Globulin Ratio 0.8 (1-3); Calcium 8.2 mg/dL (8.6-10.3); Globulin 3.8 g/dL (2-4); Potassium 3.9 mmol/L (3.5-5.0); Total Bilirubin 0.5 mg/dL (0.2-1.0); Total Protein 6.8 g/dL (6.4-8.9); eGFR CKD-EPI 96.9 (>60)
[2021-10-15 07:05] LABS: ABS Lymphocytes 0.5 10^3/ul (1.0-4.8); ABS Monocytes 0.4 10^3/ul (0-0.8); ABS Neutrophils 1.9 10^3/ul (1.5-7.7); Eosinophil % 1.2 %; Hematocrit 21 % (35-47); Hemoglobin 6.8 g/dL (12.0-16.0); Lymphocyte % 18.5 %; Mean Corpuscular HGB Conc 32 g/dL (31-36); Mean Corpuscular Hemoglobin 28 pg (27-31); Mean Corpuscular Volume 88 fL (80-97); Mean Platelet Volume 7.7 fL (7.4-10.4); Nucleated Red Blood Cells % 0.5; Platelet Count 43 10^3/uL (150-450); Red Blood Count 2.42 10^6 /uL (3.70-4.87); Red Cell Distribution Width 23 % (10-15); White Blood Count 2.9 10^3/uL (3.5-10.8)
[2021-10-15] MEDS: Mometasone/Formoter 100/5 MDI INH SCH ×2 (07:45→20:20)
[2021-10-15] MEDS: Lidocaine PATCH 5% PATCH TRANSDERM SCH (10:08)
[2021-10-15] MEDS: Polyethylene Glycol 3350 17 GM PACKET PO SCH ×2 (10:08→10:10)
[2021-10-15] MEDS: DULoxetine DR 60 mg CAP PO SCH (10:08)
[2021-10-15] MEDS: Collagenase 250 units/gm OINT 1 tube TOPICAL SCH (10:08)
[2021-10-15] MEDS: Magic MouthWash2-BEN/MAAL/LIDO/NYST 240 ML BTL (alt formulation) SWISH SPIT SCH ×4 (10:10→20:30)
[2021-10-15] MEDS ORDERED: NS 0.9% IVPB SCH (12:00)
[2021-10-15] MEDS ORDERED: CYCLOPHOSPHAMIDE IVPB SCH (12:00)
[2021-10-15] MEDS ORDERED: Bortezomib SQ USE 3.5 MG/1.4 ML VIAL SUBCUT ONE (12:00)
[2021-10-15 18:06] LABS: Hematocrit 26 % (35-47); Hemoglobin 8.3 g/dL (12.0-16.0)
[2021-10-16] MEDS: Mometasone/Formoter 100/5 MDI INH SCH ×2 (07:27→19:06)
[2021-10-16 08:56] LABS: ABS Lymphocytes 0.4 10^3/ul (1.0-4.8); ABS Monocytes 0.3 10^3/ul (0-0.8); ABS Neutrophils 3.5 10^3/ul (1.5-7.7); Hematocrit 24 % (35-47); Hemoglobin 7.8 g/dL (12.0-16.0); Mean Corpuscular HGB Conc 32 g/dL (31-36); Mean Corpuscular Hemoglobin 28 pg (27-31); Mean Corpuscular Volume 88 fL (80-97); Nucleated Red Blood Cells % 0.2; Platelet Count 45 10^3/uL (150-450); Red Blood Count 2.75 10^6 /uL (3.70-4.87); Red Cell Distribution Width 22 % (10-15); White Blood Count 4.2 10^3/uL (3.5-10.8)
[2021-10-16 09:32] LABS: Calcium 8.6 mg/dL (8.6-10.3); Potassium 3.9 mmol/L (3.5-5.0); eGFR CKD-EPI 105.2 (>60)
[2021-10-16] MEDS: Magic MouthWash2-BEN/MAAL/LIDO/NYST 240 ML BTL (alt formulation) SWISH SPIT SCH ×4 (11:17→21:13)
[2021-10-16] MEDS: Lidocaine PATCH 5% PATCH TRANSDERM SCH (11:18)
[2021-10-16] MEDS: Collagenase 250 units/gm OINT 1 tube TOPICAL SCH (11:18)
[2021-10-16] MEDS: Polyethylene Glycol 3350 17 GM PACKET PO SCH (11:18)
[2021-10-16] MEDS: DULoxetine DR 60 mg CAP PO SCH (11:18)
[2021-10-16] MEDS ORDERED: Dextrose 50% Syringe 50 ml 25 GM/50 ML SYRINGE IV PUSH PRN (21:37)
[2021-10-17] MEDS: Mometasone/Formoter 100/5 MDI INH SCH ×2 (08:11→19:18)
[2021-10-17] MEDS: DULoxetine DR 60 mg CAP PO SCH (09:03)
[2021-10-17] MEDS: Magic MouthWash2-BEN/MAAL/LIDO/NYST 240 ML BTL (alt formulation) SWISH SPIT SCH ×4 (09:03→20:52)
[2021-10-17] MEDS: Lidocaine PATCH 5% PATCH TRANSDERM SCH (09:03)
[2021-10-17] MEDS: Polyethylene Glycol 3350 17 GM PACKET PO SCH (09:04)
[2021-10-17] MEDS: Collagenase 250 units/gm OINT 1 tube TOPICAL SCH (09:05)
[2021-10-18] MEDS: Mometasone/Formoter 100/5 MDI INH SCH ×2 (07:45→20:30)
[2021-10-18] MEDS: Lidocaine PATCH 5% PATCH TRANSDERM SCH (08:12)
[2021-10-18] MEDS: Polyethylene Glycol 3350 17 GM PACKET PO SCH (08:12)
[2021-10-18] MEDS: DULoxetine DR 60 mg CAP PO SCH (08:14)
[2021-10-18] MEDS: Magic MouthWash2-BEN/MAAL/LIDO/NYST 240 ML BTL (alt formulation) SWISH SPIT SCH ×4 (08:14→23:20)
[2021-10-18] MEDS: Collagenase 250 units/gm OINT 1 tube TOPICAL SCH (10:21)
[2021-10-19 06:57] LABS: ABS Lymphocytes 0.6 10^3/ul (1.0-4.8); ABS Monocytes 0.5 10^3/ul (0-0.8); ABS Neutrophils 1.7 10^3/ul (1.5-7.7); Eosinophil % 0.4 %; Hematocrit 25 % (35-47); Hemoglobin 8.3 g/dL (12.0-16.0); Mean Corpuscular HGB Conc 33 g/dL (31-36); Mean Corpuscular Hemoglobin 30 pg (27-31); Mean Corpuscular Volume 90 fL (80-97); Mean Platelet Volume 8.5 fL (7.4-10.4); Nucleated Red Blood Cells % 0.3; Platelet Count 39 10^3/uL (150-450); Red Blood Count 2.79 10^6 /uL (3.70-4.87); Red Cell Distribution Width 23 % (10-15); White Blood Count 2.7 10^3/uL (3.5-10.8)
[2021-10-19 07:17] LABS: Calcium 8.4 mg/dL (8.6-10.3); Potassium 4.1 mmol/L (3.5-5.0); eGFR CKD-EPI 96.9 (>60)
[2021-10-19] MEDS: Mometasone/Formoter 100/5 MDI INH SCH (07:56)
[2021-10-19 08:06] VITALS: BP 104/52
[2021-10-19] MEDS: Polyethylene Glycol 3350 17 GM PACKET PO SCH (08:11)
[2021-10-19] MEDS: Lidocaine PATCH 5% PATCH TRANSDERM SCH (08:12)
[2021-10-19] MEDS: DULoxetine DR 60 mg CAP PO SCH (08:13)
[2021-10-19] MEDS: Magic MouthWash2-BEN/MAAL/LIDO/NYST 240 ML BTL (alt formulation) SWISH SPIT SCH (08:14)
[2021-10-19 08:38] LABS: Rapid COVID-19 Molecular Undetected (Undetected)
== END 2021-10-19 10:30 | DRG 189 ==
LOC: ED 16:19 → EDHOLD 21:12 → SUATTDRO 21:12 → ICU 10-01 12:57 → MED 10-02 17:22
PROVIDERS: ADMIT Internal Medicine; ATTEND Internal Medicine

== ENCOUNTER 2022-01-01 15:05 | Inpatient (IN) ==
[2022-01-01] MEDS ORDERED: Piperacillin/Tazobac ADVAN 3.375 GM in NS 0.9% 100 ml BAG 100 ML IV ONE (15:32)
[2022-01-01] MEDS ORDERED: Vancomycin 1,000 MG in NS 0.9% 250 ml 250 ML IVPB ONE (15:32)
[2022-01-01] MEDS ORDERED: Lactated Ringers 1000 ml BAG 1,000 ML IV ONE (15:33)
[2022-01-01] MEDS ORDERED: fentaNYL 100 mcg/2 ml 50 MCG/ML VIAL IV SLOW PU ONE (15:34)
[2022-01-01 15:57] LABS: ABS Lymphocytes 0.2 10^3/ul (1.0-4.8); ABS Monocytes 0.7 10^3/ul (0-0.8); ABS Neutrophils 6.8 10^3/ul (1.5-7.7); Eosinophil % 0.1 %; Hematocrit 32 % (35-47); Hemoglobin 10.2 g/dL (12.0-16.0); Lymphocyte % 1.9 %; Mean Corpuscular HGB Conc 32 g/dL (31-36); Mean Corpuscular Hemoglobin 30 pg (27-31); Mean Corpuscular Volume 94 fL (80-97); Nucleated Red Blood Cells % 0.3; Platelet Count 196 10^3/uL (150-450); Red Blood Count 3.38 10^6 /uL (3.70-4.87); Red Cell Distribution Width 21 % (10-15); White Blood Count 7.8 10^3/uL (3.5-10.8)
[2022-01-01 16:28] LABS: Urine Appearance Clear; Urine Bilirubin Negative (Negative); Urine Color Straw; Urine Glucose Negative (Negative)
[2022-01-01 16:29] LABS: Urine Blood Negative (Negative); Urine Ketones Negative (Negative); Urine Nitrite Negative (Negative); Urine Protein Negative (Negative); Urine Urobilinogen 0.2 (Negative) (Negative); Urine pH 7.5 (5.0-9.0)
[2022-01-01 16:32] LABS: Activated Partial Thrombo Time 62.2 seconds (26.0-38.0); INR 4.76 (0.89-1.11)
[2022-01-01 17:50] LABS: High Sensitivity Troponin 1 Hr 14 pg/mL (<15)
[2022-01-01 18:19] LABS: Albumin 2.6 g/dL (3.2-5.2)
[2022-01-01 18:25] LABS: Albumin/Globulin Ratio 1.2 (1-3); C Reactive Protein 134.36 mg/L (<8.01); Globulin 2.1 g/dL (2-4); Total Protein 4.7 g/dL (6.4-8.9)
[2022-01-01 18:37] LABS: Calcium 7.6 mg/dL (8.6-10.3); Total Bilirubin 0.3 mg/dL (0.2-1.0); eGFR CKD-EPI 103.7 (>60)
[2022-01-01] MEDS ORDERED: Dextrose 50% Syringe 50 ml 25 GM/50 ML SYRINGE IV PUSH PRN (19:59)
[2022-01-01] MEDS ORDERED: Zosyn per Pharmacy NOTE FOLLOW UP SCH (20:00)
[2022-01-01] MEDS ORDERED: Vancomycin per Pharmacy 1 EA NOTE FOLLOW UP SCH (20:00)
[2022-01-01] MEDS ORDERED: ZOSYN 3.375 GM per EXTENDED INFUSION IV ONE (20:15)
[2022-01-01] MEDS ORDERED: Calcium Carb (TUMS) 500 mg CHEW TAB PO PRN (20:23)
[2022-01-01] MEDS ORDERED: Sodium Phosphate ADULT ENEMA 133 ML BTL PR PRN (20:23)
[2022-01-01] MEDS ORDERED: Magnesium Hydroxide LIQ 30 ML UDC PO PRN (20:23)
[2022-01-01] MEDS ORDERED: ACETIC ACID 5% TOPICAL PRN (20:23)
[2022-01-01] MEDS: Lidocaine PATCH 5% PATCH TRANSDERM SCH (21:54)
[2022-01-01] MEDS: Mometasone/Formoter 100/5 MDI INH SCH (23:40)
[2022-01-02] MEDS ORDERED: Piperacillin/Tazobac ADVAN 3.375 GM in NS 0.9% 100 ml BAG 100 ML IV ONE (01:00)
[2022-01-02] MEDS ORDERED: Vancomycin 1,000 MG in NS 0.9% 250 ml 250 ML IVPB ONE (01:00)
[2022-01-02] MEDS: Vancomycin 1,750 MG in NS 0.9% 500 ml BAG 500 ML IVPB SCH ×2 (06:07→16:49)
[2022-01-02 06:16] LABS: ABS Lymphocytes 0.2 10^3/ul (1.0-4.8); ABS Monocytes 0.4 10^3/ul (0-0.8); ABS Neutrophils 4.6 10^3/ul (1.5-7.7); Eosinophil % 0.4 %; Hematocrit 29 % (35-47); Hemoglobin 9.5 g/dL (12.0-16.0); Lymphocyte % 3.5 %; Mean Corpuscular HGB Conc 32 g/dL (31-36); Mean Corpuscular Hemoglobin 31 pg (27-31); Mean Corpuscular Volume 95 fL (80-97); Mean Platelet Volume 7.3 fL (7.4-10.4); Nucleated Red Blood Cells % 0.3; Platelet Count 174 10^3/uL (150-450); Red Blood Count 3.11 10^6 /uL (3.70-4.87); Red Cell Distribution Width 21 % (10-15); White Blood Count 5.2 10^3/uL (3.5-10.8)
[2022-01-02 06:31] LABS: INR 3.88 (0.89-1.11)
[2022-01-02 07:07] LABS: Calcium 7.3 mg/dL (8.6-10.3); Magnesium 1.9 mg/dL (1.9-2.7); Potassium 3.9 mmol/L (3.5-5.0)
[2022-01-02 07:11] LABS: Phosphorus 2.7 mg/dL (2.5-5.0); eGFR CKD-EPI 107.4 (>60)
[2022-01-02] MEDS: Mometasone/Formoter 100/5 MDI INH SCH ×2 (07:11→18:46)
[2022-01-02] MEDS: ZOSYN 3.375 GM Q8H per EXTENDED INFUSION IV SCH ×3 (08:18→21:20)
[2022-01-02] MEDS: Lidocaine PATCH 5% PATCH TRANSDERM SCH (11:00)
[2022-01-02] MEDS: DULoxetine DR 30 mg CAP PO SCH (11:00)
[2022-01-02] MEDS: [UNRECOGNIZED DRUG - OTHER] PO SCH (11:16)
[2022-01-03] MEDS: Vancomycin 1,750 MG in NS 0.9% 500 ml BAG 500 ML IVPB SCH (04:36)
[2022-01-03] MEDS: ZOSYN 3.375 GM Q8H per EXTENDED INFUSION IV SCH ×3 (06:18→21:09)
[2022-01-03 06:31] LABS: ABS Eosinophils 0.1 10^3/ul (0-0.6); ABS Lymphocytes 0.2 10^3/ul (1.0-4.8); ABS Monocytes 0.3 10^3/ul (0-0.8); ABS Neutrophils 3.5 10^3/ul (1.5-7.7); Eosinophil % 1.5 %; Hematocrit 29 % (35-47); Hemoglobin 9.2 g/dL (12.0-16.0); Lymphocyte % 4.7 %; Mean Corpuscular HGB Conc 32 g/dL (31-36); Mean Corpuscular Hemoglobin 30 pg (27-31); Mean Corpuscular Volume 95 fL (80-97); Mean Platelet Volume 7.5 fL (7.4-10.4); Nucleated Red Blood Cells % 0.3; Platelet Count 190 10^3/uL (150-450); Red Blood Count 3.05 10^6 /uL (3.70-4.87); Red Cell Distribution Width 20 % (10-15)
[2022-01-03 06:41] LABS: INR 3.74 (0.89-1.11)
[2022-01-03 07:27] LABS: Calcium 7.4 mg/dL (8.6-10.3); Potassium 4.1 mmol/L (3.5-5.0); TSH Ultra Thyroid Stim Horm 1.26 mcIU/mL (0.34-5.60); eGFR CKD-EPI 104.2 (>60)
[2022-01-03] MEDS: Mometasone/Formoter 100/5 MDI INH SCH ×2 (07:46→19:38)
[2022-01-03] MEDS: DULoxetine DR 30 mg CAP PO SCH (08:25)
[2022-01-03] MEDS: Lidocaine PATCH 5% PATCH TRANSDERM SCH (08:26)
[2022-01-03] MEDS: [UNRECOGNIZED DRUG - OTHER] PO SCH (08:31)
[2022-01-03] MEDS ORDERED: ACETIC ACID 0.25% TOPICAL PRN (12:00)
[2022-01-03] MEDS ORDERED: Polyethylene Glycol 3350 17 GM PACKET PO PRN (12:50)
[2022-01-03] MEDS ORDERED: Vancomycin Trough Check NOTE FOLLOW UP ONE (16:30)
[2022-01-04] MEDS: ZOSYN 3.375 GM Q8H per EXTENDED INFUSION IV SCH ×2 (05:12→14:20)
[2022-01-04 05:34] LABS: ABS Eosinophils 0.1 10^3/ul (0-0.6); ABS Lymphocytes 0.2 10^3/ul (1.0-4.8); ABS Monocytes 0.3 10^3/ul (0-0.8); ABS Neutrophils 2.9 10^3/ul (1.5-7.7); Eosinophil % 1.7 %; Hematocrit 29 % (35-47); Hemoglobin 9.5 g/dL (12.0-16.0); Lymphocyte % 5.9 %; Mean Corpuscular HGB Conc 33 g/dL (31-36); Mean Corpuscular Hemoglobin 31 pg (27-31); Mean Corpuscular Volume 95 fL (80-97); Mean Platelet Volume 7.5 fL (7.4-10.4); Nucleated Red Blood Cells % 0.3; Platelet Count 214 10^3/uL (150-450); Red Blood Count 3.08 10^6 /uL (3.70-4.87); Red Cell Distribution Width 21 % (10-15); White Blood Count 3.5 10^3/uL (3.5-10.8)
[2022-01-04 05:37] LABS: INR 2.13 (0.89-1.11)
[2022-01-04 06:15] LABS: Calcium 7.9 mg/dL (8.6-10.3); Potassium 4.4 mmol/L (3.5-5.0); eGFR CKD-EPI 102.7 (>60)
[2022-01-04] MEDS: Mometasone/Formoter 100/5 MDI INH SCH ×2 (07:28→20:04)
[2022-01-04] MEDS: DULoxetine DR 30 mg CAP PO SCH (09:07)
[2022-01-04] MEDS: Lidocaine PATCH 5% PATCH TRANSDERM SCH (09:13)
[2022-01-04] MEDS ORDERED: [UNRECOGNIZED DRUG - OTHER] IV ONE (10:00)
[2022-01-04] MEDS ORDERED: IMMUNE GLOB IV ONE (10:00)
[2022-01-04] MEDS ORDERED: PRIVIGEN IV ONE (10:00)
[2022-01-04] MEDS ORDERED: fentaNYL PATCH 12 MCG/HR 1 PATCH TRANSDERM SCH (15:00)
[2022-01-04] MEDS: fentaNYL Patch Check Q Shift NOTE FOLLOW UP SCH (19:08)
[2022-01-05 06:08] LABS: ABS Eosinophils 0.1 10^3/ul (0-0.6); ABS Lymphocytes 0.2 10^3/ul (1.0-4.8); ABS Monocytes 0.3 10^3/ul (0-0.8); ABS Neutrophils 2.2 10^3/ul (1.5-7.7); Eosinophil % 1.9 %; Hematocrit 30 % (35-47); Hemoglobin 9.9 g/dL (12.0-16.0); Lymphocyte % 7.7 %; Mean Corpuscular HGB Conc 33 g/dL (31-36); Mean Corpuscular Hemoglobin 31 pg (27-31); Mean Corpuscular Volume 95 fL (80-97); Nucleated Red Blood Cells % 0.3; Platelet Count 263 10^3/uL (150-450); Red Cell Distribution Width 20 % (10-15); White Blood Count 2.8 10^3/uL (3.5-10.8)
[2022-01-05 06:36] LABS: Calcium 8.2 mg/dL (8.6-10.3); Potassium 4.2 mmol/L (3.5-5.0); eGFR CKD-EPI 106.8 (>60)
[2022-01-05] MEDS: fentaNYL Patch Check Q Shift NOTE FOLLOW UP SCH ×2 (07:17→21:49)
[2022-01-05] MEDS: Mometasone/Formoter 100/5 MDI INH SCH ×2 (08:14→20:09)
[2022-01-05] MEDS ORDERED: Warfarin per PHARMACY **NOTE FOLLOW UP SCH (09:00)
[2022-01-05] MEDS: DULoxetine DR 30 mg CAP PO SCH (09:36)
[2022-01-05] MEDS: Lidocaine PATCH 5% PATCH TRANSDERM SCH (09:37)
[2022-01-05 13:40] LABS: INR 1.29 (0.89-1.11)
[2022-01-05] MEDS ORDERED: fentaNYL PATCH 25 MCG/HR 1 PATCH TRANSDERM SCH (17:00)
[2022-01-06 04:50] LABS: ABS Lymphocytes 0.3 10^3/ul (1.0-4.8); ABS Monocytes 0.6 10^3/ul (0-0.8); ABS Neutrophils 3.2 10^3/ul (1.5-7.7); Eosinophil % 1.1 %; Hematocrit 30 % (35-47); Hemoglobin 9.7 g/dL (12.0-16.0); Lymphocyte % 6.4 %; Mean Corpuscular HGB Conc 32 g/dL (31-36); Mean Corpuscular Hemoglobin 30 pg (27-31); Mean Corpuscular Volume 94 fL (80-97); Mean Platelet Volume 7.5 fL (7.4-10.4); Nucleated Red Blood Cells % 0.2; Platelet Count 302 10^3/uL (150-450); Red Blood Count 3.21 10^6 /uL (3.70-4.87); Red Cell Distribution Width 20 % (10-15); White Blood Count 4.1 10^3/uL (3.5-10.8)
[2022-01-06 05:00] LABS: INR 1.34 (0.89-1.11)
[2022-01-06 05:34] LABS: Potassium 4.5 mmol/L (3.5-5.0); eGFR CKD-EPI 106.8 (>60)
[2022-01-06] MEDS: fentaNYL Patch Check Q Shift NOTE FOLLOW UP SCH (07:05)
[2022-01-06] MEDS: Mometasone/Formoter 100/5 MDI INH SCH (07:18)
[2022-01-06] MEDS: DULoxetine DR 30 mg CAP PO SCH (08:49)
[2022-01-06] MEDS: Lidocaine PATCH 5% PATCH TRANSDERM SCH (08:51)
[2022-01-06 13:44] VITALS: BP 121/63
[2022-01-06 13:56] LABS: Rapid COVID-19 Molecular Undetected (Undetected)
[2022-01-06] MEDS ORDERED: Warfarin DAILY REMINDER **NOTE FOLLOW UP SCH (17:00)
== END 2022-01-06 13:30 | DRG 872 ==
LOC: ED 15:05 → EDHOLD 19:48 → SUATTDRO 19:48 → MEDTELE 23:25
PROVIDERS: ADMIT Student in an Organized Health Care Education/Training Program; ATTEND Internal Medicine

== ENCOUNTER 2022-02-08 09:42 | Inpatient (IN) ==
[2022-02-08] MEDS ORDERED: Lactated Ringers 1000 ml BAG 1,000 ML IV ONE ×3 (10:00→11:43)
[2022-02-08] MEDS ORDERED: Piperacillin/Tazobac ADVAN 3.375 GM in NS 0.9% 100 ml BAG 100 ML IV ONE (10:03)
[2022-02-08] MEDS ORDERED: Vancomycin 1,500 MG in NS 0.9% 250 ml 250 ML IVPB ONE (10:03)
[2022-02-08 10:29] LABS: ABS Lymphocytes 0.3 10^3/ul (1.0-4.8); ABS Neutrophils 4.3 10^3/ul (1.5-7.7); Eosinophil % 0.8 %; Hematocrit 32 % (35-47); Hemoglobin 10.5 g/dL (12.0-16.0); Mean Corpuscular HGB Conc 32 g/dL (31-36); Mean Corpuscular Hemoglobin 30 pg (27-31); Mean Corpuscular Volume 94 fL (80-97); Mean Platelet Volume 8.6 fL (7.4-10.4); Platelet Count 211 10^3/uL (150-450); Red Blood Count 3.46 10^6 /uL (3.70-4.87); Red Cell Distribution Width 20 % (10-15); White Blood Count 5.6 10^3/uL (3.5-10.8)
[2022-02-08 10:56] LABS: Activated Partial Thrombo Time 31.3 seconds (26.0-38.0); INR 1.07 (0.89-1.11)
[2022-02-08 11:02] LABS: Albumin/Globulin Ratio 1.5 (1-3); C Reactive Protein 87.68 mg/L (<8.01); Calcium 8.4 mg/dL (8.6-10.3); Potassium 4.2 mmol/L (3.5-5.0); Total Bilirubin 0.5 mg/dL (0.2-1.0); eGFR CKD-EPI 102.3 (>60)
[2022-02-08] MEDS ORDERED: Norepinephrine 16MCG/ML BAGD5W 4,000 MCG/250 ML BAG IV ONE (11:43)
[2022-02-08 11:54] LABS: High Sensitivity Troponin 1 Hr 9 pg/mL (<15)
[2022-02-08] MEDS ORDERED: Norepinephrine 16MCG/ML BAG NS 4,000 MCG/250 ML BAG IV SCH ×2 (12:00→16:29)
[2022-02-08] MEDS ORDERED: Calcium Carb (TUMS) 500 mg CHEW TAB PO PRN (12:26)
[2022-02-08 12:52] LABS: Urine Appearance Clear; Urine Bilirubin Negative (Negative); Urine Blood Negative (Negative); Urine Color Yellow; Urine Glucose Negative (Negative); Urine Ketones Negative (Negative); Urine Specific Gravity 1.015 (1.005-1.030); Urine pH 8.5 (5.0-9.0)
[2022-02-08 12:53] LABS: Urine Nitrite Positive (Negative); Urine Protein 1+ (30 mg/dL) (Negative); Urine Urobilinogen 1.0 (Negative) (Negative)
[2022-02-08] MEDS ORDERED: Vancomycin per Pharmacy 1 EA NOTE FOLLOW UP SCH (13:00)
[2022-02-08] MEDS ORDERED: Warfarin per PHARMACY **NOTE FOLLOW UP SCH (13:00)
[2022-02-08] MEDS ORDERED: Zosyn per Pharmacy NOTE FOLLOW UP SCH (13:00)
[2022-02-08 13:22] LABS: Urine Bacteria 3+ (Absent); Urine Red Blood Cell Trace(0-2/hpf) (Absent); Urine Squamous Epithelial Cell Present (Absent); Urine White Blood Cell 2+(11-20/hpf) (Absent)
[2022-02-08] MEDS: Hydrocortisone INJ 100 MG/2ML 2 ML VIAL IV SCH ×2 (14:03→21:24)
[2022-02-08] MEDS: ZOSYN 3.375 GM Q8H per EXTENDED INFUSION IV SCH ×2 (14:04→21:56)
[2022-02-08] MEDS: Acetaminophen IV 1 GM/100ML 1,000 MG/100 ML BAG IV SCH ×3 (17:30→23:09)
[2022-02-09] MEDS: Vancomycin 1000 MG in NS 0.9% 250 ML IVPB SCH ×3 (00:40→23:59)
[2022-02-09] MEDS ORDERED: Norepinephrine 16MCG/ML BAGD5W 4,000 MCG/250 ML BAG IV SCH (01:00)
[2022-02-09] MEDS: Hydrocortisone INJ 100 MG/2ML 2 ML VIAL IV SCH ×4 (05:18→23:40)
[2022-02-09 05:23] LABS: ABS Lymphocytes 0.2 10^3/ul (1.0-4.8); ABS Monocytes 0.4 10^3/ul (0-0.8); ABS Neutrophils 3.2 10^3/ul (1.5-7.7); Hematocrit 30 % (35-47); Hemoglobin 9.3 g/dL (12.0-16.0); Lymphocyte % 5.9 %; Mean Corpuscular HGB Conc 31 g/dL (31-36); Mean Corpuscular Hemoglobin 29 pg (27-31); Mean Corpuscular Volume 94 fL (80-97); Mean Platelet Volume 8.1 fL (7.4-10.4); Nucleated Red Blood Cells % 0.1; Platelet Count 209 10^3/uL (150-450); Red Blood Count 3.17 10^6 /uL (3.70-4.87); Red Cell Distribution Width 19 % (10-15); White Blood Count 3.9 10^3/uL (3.5-10.8)
[2022-02-09 05:29] LABS: INR 1.18 (0.89-1.11)
[2022-02-09 06:03] LABS: Albumin 2.5 g/dL (3.2-5.2); Albumin/Globulin Ratio 1.2 (1-3); Calcium 7.7 mg/dL (8.6-10.3); Globulin 2.1 g/dL (2-4); Magnesium 1.7 mg/dL (1.9-2.7); Phosphorus 2.7 mg/dL (2.5-5.0); Potassium 3.7 mmol/L (3.5-5.0); Total Bilirubin 0.3 mg/dL (0.2-1.0); Total Protein 4.6 g/dL (6.4-8.9); eGFR CKD-EPI 105.7 (>60)
[2022-02-09] MEDS: ZOSYN 3.375 GM Q8H per EXTENDED INFUSION IV SCH ×3 (06:19→23:39)
[2022-02-09] MEDS: Acetaminophen IV 1 GM/100ML 1,000 MG/100 ML BAG IV SCH ×3 (07:30→23:39)
[2022-02-09] MEDS ORDERED: Magnesium Sulfate 2 gm BAG 2 GM/50 ML BAG IVPB ONE (07:35)
[2022-02-09] MEDS: DULoxetine DR 60 mg CAP PO SCH (07:56)
[2022-02-10] MEDS: Hydrocortisone INJ 100 MG/2ML 2 ML VIAL IV SCH ×3 (05:16→22:54)
[2022-02-10 05:19] LABS: ABS Lymphocytes 0.1 10^3/ul (1.0-4.8); ABS Monocytes 0.2 10^3/ul (0-0.8); ABS Neutrophils 2.1 10^3/ul (1.5-7.7); Eosinophil % 0.3 %; Hematocrit 30 % (35-47); Hemoglobin 9.5 g/dL (12.0-16.0); Lymphocyte % 4.5 %; Mean Corpuscular HGB Conc 31 g/dL (31-36); Mean Corpuscular Hemoglobin 29 pg (27-31); Mean Corpuscular Volume 94 fL (80-97); Mean Platelet Volume 7.5 fL (7.4-10.4); Platelet Count 219 10^3/uL (150-450); Red Blood Count 3.23 10^6 /uL (3.70-4.87); Red Cell Distribution Width 20 % (10-15); White Blood Count 2.5 10^3/uL (3.5-10.8)
[2022-02-10 05:24] LABS: INR 1.56 (0.89-1.11)
[2022-02-10] MEDS: ZOSYN 3.375 GM Q8H per EXTENDED INFUSION IV SCH ×3 (05:54→22:57)
[2022-02-10 06:00] LABS: Calcium 7.7 mg/dL (8.6-10.3); Potassium 3.7 mmol/L (3.5-5.0); eGFR CKD-EPI 103.7 (>60)
[2022-02-10] MEDS ORDERED: Magnesium Sulfate 2 gm BAG 2 GM/50 ML BAG IVPB ONE (07:47)
[2022-02-10] MEDS: Acetaminophen IV 1 GM/100ML 1,000 MG/100 ML BAG IV SCH ×3 (08:15→22:29)
[2022-02-10] MEDS: DULoxetine DR 60 mg CAP PO SCH (08:43)
[2022-02-10] MEDS ORDERED: Vancomycin Trough Check NOTE FOLLOW UP ONE (11:30)
[2022-02-10] MEDS: Enoxaparin 100 MG/ML SYR SUBCUT SCH ×2 (12:40→23:44)
[2022-02-11] MEDS: Hydrocortisone INJ 100 MG/2ML 2 ML VIAL IV SCH ×3 (05:27→21:50)
[2022-02-11] MEDS: Acetaminophen IV 1 GM/100ML 1,000 MG/100 ML BAG IV SCH ×3 (05:29→21:51)
[2022-02-11 05:49] LABS: ABS Lymphocytes 0.2 10^3/ul (1.0-4.8); ABS Monocytes 0.4 10^3/ul (0-0.8); ABS Neutrophils 2.2 10^3/ul (1.5-7.7); Eosinophil % 0.8 %; Hematocrit 32 % (35-47); Lymphocyte % 8.2 %; Mean Corpuscular HGB Conc 31 g/dL (31-36); Mean Corpuscular Hemoglobin 30 pg (27-31); Mean Corpuscular Volume 95 fL (80-97); Mean Platelet Volume 7.6 fL (7.4-10.4); Nucleated Red Blood Cells % 0.2; Platelet Count 260 10^3/uL (150-450); Red Blood Count 3.36 10^6 /uL (3.70-4.87); Red Cell Distribution Width 19 % (10-15); White Blood Count 2.8 10^3/uL (3.5-10.8)
[2022-02-11] MEDS: ZOSYN 3.375 GM Q8H per EXTENDED INFUSION IV SCH ×2 (05:59→14:56)
[2022-02-11 06:05] LABS: INR 2.19 (0.89-1.11)
[2022-02-11 06:51] LABS: Calcium 8.1 mg/dL (8.6-10.3); Magnesium 2.3 mg/dL (1.9-2.7); Phosphorus 2.6 mg/dL (2.5-5.0); Potassium 3.8 mmol/L (3.5-5.0); eGFR CKD-EPI 103.7 (>60)
[2022-02-11] MEDS ORDERED: Collagenase 250 units/gm OINT 1 tube TOPICAL SCH (09:00)
[2022-02-11] MEDS: DULoxetine DR 60 mg CAP PO SCH (10:35)
[2022-02-11] MEDS: Collagenase 250 units/gm OINT 1 tube TOPICAL SCH (11:35)
[2022-02-11] MEDS: Enoxaparin 100 MG/ML SYR SUBCUT SCH ×2 (13:38→22:56)
[2022-02-11] MEDS: ceFAZolin 1 GM in Dextrose 1 GM/50 ML BAG IVPB SCH (18:29)
[2022-02-12] MEDS: ceFAZolin 1 GM in Dextrose 1 GM/50 ML BAG IVPB SCH ×3 (02:18→17:52)
[2022-02-12] MEDS: Hydrocortisone INJ 100 MG/2ML 2 ML VIAL IV SCH ×2 (05:23→14:06)
[2022-02-12] MEDS: Acetaminophen IV 1 GM/100ML 1,000 MG/100 ML BAG IV SCH ×3 (05:23→21:33)
[2022-02-12 05:47] LABS: ABS Eosinophils 0.1 10^3/ul (0-0.6); ABS Lymphocytes 0.3 10^3/ul (1.0-4.8); ABS Monocytes 0.6 10^3/ul (0-0.8); ABS Neutrophils 2.6 10^3/ul (1.5-7.7); Hematocrit 31 % (35-47); Hemoglobin 9.8 g/dL (12.0-16.0); Lymphocyte % 9.5 %; Mean Corpuscular HGB Conc 31 g/dL (31-36); Mean Corpuscular Hemoglobin 29 pg (27-31); Mean Corpuscular Volume 94 fL (80-97); Mean Platelet Volume 7.2 fL (7.4-10.4); Nucleated Red Blood Cells % 0.1; Platelet Count 267 10^3/uL (150-450); Red Blood Count 3.34 10^6 /uL (3.70-4.87); Red Cell Distribution Width 19 % (10-15); White Blood Count 3.7 10^3/uL (3.5-10.8)
[2022-02-12 05:55] LABS: INR 2.25 (0.89-1.11)
[2022-02-12 06:19] LABS: Calcium 7.9 mg/dL (8.6-10.3); Potassium 3.7 mmol/L (3.5-5.0); eGFR CKD-EPI 102.7 (>60)
[2022-02-12] MEDS: DULoxetine DR 60 mg CAP PO SCH (07:54)
[2022-02-12] MEDS: Collagenase 250 units/gm OINT 1 tube TOPICAL SCH (13:25)
[2022-02-13] MEDS: ceFAZolin 1 GM in Dextrose 1 GM/50 ML BAG IVPB SCH ×3 (02:35→17:33)
[2022-02-13] MEDS: Acetaminophen IV 1 GM/100ML 1,000 MG/100 ML BAG IV SCH (05:12)
[2022-02-13 06:29] LABS: ABS Eosinophils 0.1 10^3/ul (0-0.6); ABS Lymphocytes 0.4 10^3/ul (1.0-4.8); ABS Monocytes 0.7 10^3/ul (0-0.8); ABS Neutrophils 2.5 10^3/ul (1.5-7.7); Eosinophil % 3.4 %; Hematocrit 33 % (35-47); Hemoglobin 10.6 g/dL (12.0-16.0); Lymphocyte % 10.5 %; Mean Corpuscular HGB Conc 32 g/dL (31-36); Mean Corpuscular Hemoglobin 30 pg (27-31); Mean Corpuscular Volume 95 fL (80-97); Mean Platelet Volume 7.4 fL (7.4-10.4); Nucleated Red Blood Cells % 0.4; Platelet Count 271 10^3/uL (150-450); Red Cell Distribution Width 19 % (10-15); White Blood Count 3.7 10^3/uL (3.5-10.8)
[2022-02-13 06:37] LABS: INR 1.91 (0.89-1.11)
[2022-02-13 06:45] LABS: Anion Gap 3 mmol/L (2-11); Blood Urea Nitrogen 11 mg/dL (6-24); CO2 Carbon Dioxide 35 mmol/L (22-32); Calcium 8.2 mg/dL (8.6-10.3); Chloride 103 mmol/L (101-111); Glucose 95 mg/dL (70-100); Potassium 3.9 mmol/L (3.5-5.0); Sodium 141 mmol/L (135-145); eGFR CKD-EPI 106.2 (>60)
[2022-02-13] MEDS: DULoxetine DR 60 mg CAP PO SCH (10:17)
[2022-02-13 14:55] LABS: Alcohol, S < 13 mg/dL (<13)
[2022-02-13] MEDS: Collagenase 250 units/gm OINT 1 tube TOPICAL SCH (16:22)
[2022-02-13] MEDS ORDERED: Warfarin DAILY REMINDER **NOTE FOLLOW UP SCH (17:00)
[2022-02-13] MEDS: Mometasone/Formoter 100/5 MDI INH SCH (19:46)
[2022-02-13] MEDS ORDERED: Enoxaparin 100 MG/ML SYR SUBCUT ONE (20:46)
[2022-02-14] MEDS: ceFAZolin 1 GM in Dextrose 1 GM/50 ML BAG IVPB SCH ×2 (02:21→10:47)
[2022-02-14 06:10] LABS: ABS Eosinophils 0.2 10^3/ul (0-0.6); ABS Lymphocytes 0.4 10^3/ul (1.0-4.8); ABS Monocytes 0.6 10^3/ul (0-0.8); ABS Neutrophils 2.7 10^3/ul (1.5-7.7); Hematocrit 35 % (35-47); Lymphocyte % 10.2 %; Mean Corpuscular HGB Conc 31 g/dL (31-36); Mean Corpuscular Hemoglobin 29 pg (27-31); Mean Corpuscular Volume 94 fL (80-97); Mean Platelet Volume 7.4 fL (7.4-10.4); Nucleated Red Blood Cells % 0.4; Platelet Count 303 10^3/uL (150-450); Red Blood Count 3.77 10^6 /uL (3.70-4.87); Red Cell Distribution Width 19 % (10-15); White Blood Count 3.9 10^3/uL (3.5-10.8)
[2022-02-14 06:21] LABS: INR 1.75 (0.89-1.11)
[2022-02-14 07:12] LABS: Calcium 8.4 mg/dL (8.6-10.3); Potassium 4.4 mmol/L (3.5-5.0); eGFR CKD-EPI 102.7 (>60)
[2022-02-14] MEDS: Mometasone/Formoter 100/5 MDI INH SCH (08:32)
[2022-02-14] MEDS ORDERED: fentaNYL PATCH 25 MCG/HR 1 PATCH TRANSDERM SCH (09:00)
[2022-02-14] MEDS: DULoxetine DR 60 mg CAP PO SCH (09:13)
[2022-02-14 11:50] VITALS: BP 123/67
[2022-02-14 12:46] LABS: Rapid COVID-19 Molecular Undetected (Undetected)
[2022-02-14] MEDS: Collagenase 250 units/gm OINT 1 tube TOPICAL SCH (15:04)
[2022-02-14] MEDS ORDERED: fentaNYL Patch Check Q Shift NOTE FOLLOW UP SCH (19:00)
== END 2022-02-14 16:30 | DRG 871 ==
LOC: ED 09:42 → EDHOLD 12:09 → SUATTDRO 12:09 → ICU 13:45 → MED 02-10 09:17
PROVIDERS: ADMIT Internal Medicine Critical Care Medicine; ATTEND Pediatrics

== ENCOUNTER 2022-04-29 19:59 | Inpatient (IN) ==
[2022-04-29] MEDS ORDERED: Acetaminophen IV 1 GM/100ML 1,000 MG/100 ML BAG IV ONE (20:27)
[2022-04-29] MEDS ORDERED: Lactated Ringers 1000 ml BAG 1,000 ML IV ONE ×2 (20:27→22:58)
[2022-04-29] MEDS ORDERED: Cefepime 2 GM in Dextrose 2 GM/50 ML BAG IV ONE (20:28)
[2022-04-29] MEDS ORDERED: Vancomycin 1,000 MG in NS 0.9% 250 ml 250 ML IVPB ONE (20:28)
[2022-04-29 20:45] LABS: ABS Lymphocytes 0.1 10^3/ul (1.0-4.8); ABS Monocytes 0.6 10^3/ul (0-0.8); ABS Neutrophils 16.5 10^3/ul (1.5-7.7); Hematocrit 41 % (35-47); Lymphocyte % 0.7 %; Mean Corpuscular HGB Conc 32 g/dL (31-36); Mean Corpuscular Hemoglobin 29 pg (27-31); Mean Corpuscular Volume 89 fL (80-97); Mean Platelet Volume 8.7 fL (7.4-10.4); Platelet Count 159 10^3/uL (150-450); Red Blood Count 4.56 10^6 /uL (3.70-4.87); Red Cell Distribution Width 16 % (10-15); White Blood Count 17.3 10^3/uL (3.5-10.8)
[2022-04-29 20:54] LABS: Activated Partial Thrombo Time 38.2 seconds (26.0-38.0); INR 2.71 (0.89-1.11)
[2022-04-29 21:17] LABS: Albumin 3.8 g/dL (3.2-5.2); Albumin/Globulin Ratio 1.3 (1-3); C Reactive Protein 29.26 mg/L (<8.01); Calcium 9.1 mg/dL (8.6-10.3); Globulin 2.9 g/dL (2-4); Total Bilirubin 0.3 mg/dL (0.2-1.0); Total Protein 6.7 g/dL (6.4-8.9); eGFR CKD-EPI 96.6 (>60)
[2022-04-29] MEDS ORDERED: Iodixanol (CONTRAST) 320 MG/ML 100 ML SDV IV ONE (22:14)
[2022-04-29 22:15] LABS: High Sensitivity Troponin 1 Hr 25 pg/mL (<15)
[2022-04-30] MEDS ORDERED: Vancomycin 2,000 MG in NS 0.9% 500 ml BAG 500 ML IVPB ONE (01:00)
[2022-04-30] MEDS ORDERED: Dexamethasone IV 4 MG/ML VIAL 1 ml VIAL IV SLOW PU ONE (01:25)
[2022-04-30] MEDS ORDERED: Norepinephrine 16MCG/ML BAG NS 4,000 MCG/250 ML BAG IV SCH (02:00)
[2022-04-30 02:14] LABS: Magnesium 1.6 mg/dL (1.9-2.7); Phosphorus 3.2 mg/dL (2.5-5.0)
[2022-04-30] MEDS ORDERED: Magnesium Sulfate 2 gm BAG 2 GM/50 ML BAG IVPB ONE (02:49)
[2022-04-30] MEDS ORDERED: Vancomycin per Pharmacy 1 EA NOTE FOLLOW UP SCH (03:00)
[2022-04-30] MEDS ORDERED: Dextrose 50% Syringe 50 ml 25 GM/50 ML SYRINGE IV PUSH PRN ×2 (03:02→20:21)
[2022-04-30] MEDS ORDERED: Sodium Phosphate ADULT ENEMA 133 ML BTL PR PRN (03:36)
[2022-04-30] MEDS ORDERED: Calcium Carb (TUMS) 500 mg CHEW TAB PO PRN (03:36)
[2022-04-30] MEDS ORDERED: Nicotine GUM 2MG FRUIT FLAVOR PO PRN (03:36)
[2022-04-30] MEDS ORDERED: Lactated Ringers 1000 ml BAG 1,000 ML IV ONE (03:47)
[2022-04-30 04:42] LABS: Hematocrit 37 % (35-47); Hemoglobin 11.7 g/dL (12.0-16.0); Mean Corpuscular HGB Conc 32 g/dL (31-36); Mean Corpuscular Hemoglobin 28 pg (27-31); Mean Corpuscular Volume 90 fL (80-97); Mean Platelet Volume 7.7 fL (7.4-10.4); Platelet Count 177 10^3/uL (150-450); Red Blood Count 4.12 10^6 /uL (3.70-4.87); Red Cell Distribution Width 16 % (10-15); White Blood Count 30.8 10^3/uL (3.5-10.8)
[2022-04-30 04:56] LABS: Urine Bacteria 1+ (Absent); Urine Red Blood Cell 1+(3-5/hpf) (Absent); Urine Squamous Epithelial Cell Present (Absent); Urine White Blood Cell 1+(6-10/hpf) (Absent)
[2022-04-30 04:57] LABS: Urine Appearance Clear; Urine Bilirubin Negative (Negative); Urine Blood Trace (Intact) (Negative); Urine Color Yellow; Urine Glucose Negative (Negative); Urine Ketones Negative (Negative); Urine Nitrite Positive (Negative); Urine Protein Negative (Negative); Urine Urobilinogen 0.2 (Negative) (Negative)
[2022-04-30 04:59] LABS: T4, Total 7.06 mcg/dL (6.09-12.23)
[2022-04-30] MEDS ORDERED: Azithromycin 500 mg/250 ml NS 500 MG/250 ML BAG IVPB SCH (05:00)
[2022-04-30 05:02] LABS: TSH Ultra Thyroid Stim Horm 0.9 mcIU/mL (0.34-5.60)
[2022-04-30 05:44] LABS: Calcium 8.8 mg/dL (8.6-10.3); Magnesium 1.6 mg/dL (1.9-2.7); Potassium 4.4 mmol/L (3.5-5.0)
[2022-04-30 05:48] LABS: ABS Basophils 0.4 10^3/ul (0-0.2); ABS Lymphocytes 0.1 10^3/ul (1.0-4.8); ABS Monocytes 0.8 10^3/ul (0-0.8); ABS Neutrophils 29.5 10^3/ul (1.5-7.7); Lymphocyte % 0.5 %
[2022-04-30] MEDS: Hydrocortisone INJ 100 MG/2ML 2 ML VIAL IV SCH ×3 (07:17→19:34)
[2022-04-30] MEDS: fentaNYL PATCH 25 MCG/HR 1 PATCH TRANSDERM SCH (07:35)
[2022-04-30] MEDS: fentaNYL PATCH 12 MCG/HR 1 PATCH TRANSDERM SCH (07:35)
[2022-04-30] MEDS: fentaNYL Patch Check Q Shift NOTE FOLLOW UP SCH ×2 (07:39→18:58)
[2022-04-30] MEDS: Mometasone/Formoter 100/5 MDI INH SCH ×2 (08:06→20:01)
[2022-04-30 08:55] LABS: INR 3.37 (0.89-1.11)
[2022-04-30] MEDS: Vitamin THERAPEUTIC TAB PO SCH (09:05)
[2022-04-30] MEDS: DULoxetine DR 60 mg CAP PO SCH (09:06)
[2022-04-30] MEDS: Collagenase 250 units/gm OINT 1 tube TOPICAL SCH (14:52)
[2022-04-30] MEDS ORDERED: Vancomycin 1,500 MG in NS 0.9% 250 ml 250 ML IVPB SCH (15:00)
[2022-04-30] MEDS ORDERED: Warfarin - No Order Today **NOTE FOLLOW UP ONE (17:00)
[2022-04-30] MEDS: Warfarin per PHARMACY **NOTE FOLLOW UP SCH (17:36)
[2022-04-30] MEDS: Cefepime 2 GM in Dextrose 2 GM/50 ML BAG IV SCH (21:02)
[2022-04-30] MEDS ORDERED: Cefepime 2 GM in Dextrose 2 GM/50 ML BAG IV SCH (22:00)
[2022-05-01] MEDS: Vancomycin 1,500 MG in NS 0.9% 250 ml 250 ML IVPB SCH ×2 (04:03→15:50)
[2022-05-01] MEDS: Hydrocortisone INJ 100 MG/2ML 2 ML VIAL IV SCH ×4 (04:03→22:11)
[2022-05-01 04:39] LABS: Hematocrit 32 % (35-47); Hemoglobin 9.9 g/dL (12.0-16.0); Mean Corpuscular HGB Conc 31 g/dL (31-36); Mean Corpuscular Hemoglobin 28 pg (27-31); Mean Corpuscular Volume 90 fL (80-97); Mean Platelet Volume 8.1 fL (7.4-10.4); Platelet Count 139 10^3/uL (150-450); Red Blood Count 3.49 10^6 /uL (3.70-4.87); Red Cell Distribution Width 15 % (10-15); White Blood Count 15.8 10^3/uL (3.5-10.8)
[2022-05-01 04:43] LABS: INR 2.54 (0.89-1.11)
[2022-05-01 05:16] LABS: Calcium 8.4 mg/dL (8.6-10.3); Magnesium 2.2 mg/dL (1.9-2.7); Potassium 3.7 mmol/L (3.5-5.0); eGFR CKD-EPI 102.6 (>60)
[2022-05-01] MEDS ORDERED: Potassium Chlor 20 meq TAB.ER PO ONE (06:20)
[2022-05-01] MEDS: fentaNYL Patch Check Q Shift NOTE FOLLOW UP SCH ×2 (06:59→19:01)
[2022-05-01] MEDS: Mometasone/Formoter 100/5 MDI INH SCH ×2 (07:32→22:03)
[2022-05-01] MEDS: DULoxetine DR 60 mg CAP PO SCH (08:46)
[2022-05-01] MEDS: Vitamin THERAPEUTIC TAB PO SCH (08:46)
[2022-05-01] MEDS: Azithromycin 500 mg/250 ml NS 500 MG/250 ML BAG IVPB SCH (08:51)
[2022-05-01] MEDS: Cefepime 2 GM in Dextrose 2 GM/50 ML BAG IV SCH ×2 (10:19→22:19)
[2022-05-01] MEDS: Collagenase 250 units/gm OINT 1 tube TOPICAL SCH (12:43)
[2022-05-01] MEDS ORDERED: Vancomycin Trough Check NOTE FOLLOW UP ONE (14:30)
[2022-05-01 15:18] LABS: Vancomycin Trough 12.5 mcg/mL; eGFR CKD-EPI 101.7 (>60)
[2022-05-01] MEDS: Warfarin per PHARMACY **NOTE FOLLOW UP SCH (17:27)
[2022-05-02] MEDS: Vancomycin 1,500 MG in NS 0.9% 250 ml 250 ML IVPB SCH ×4 (03:06→17:22)
[2022-05-02] MEDS: Hydrocortisone INJ 100 MG/2ML 2 ML VIAL IV SCH (04:19)
[2022-05-02 06:06] LABS: ABS Lymphocytes 0.2 10^3/ul (1.0-4.8); ABS Monocytes 0.6 10^3/ul (0-0.8); ABS Neutrophils 12.7 10^3/ul (1.5-7.7); Eosinophil % 0.1 %; Hematocrit 33 % (35-47); Hemoglobin 10.5 g/dL (12.0-16.0); Lymphocyte % 1.5 %; Mean Corpuscular HGB Conc 31 g/dL (31-36); Mean Corpuscular Hemoglobin 29 pg (27-31); Mean Corpuscular Volume 91 fL (80-97); Mean Platelet Volume 8.4 fL (7.4-10.4); Platelet Count 151 10^3/uL (150-450); Red Blood Count 3.66 10^6 /uL (3.70-4.87); Red Cell Distribution Width 15 % (10-15); White Blood Count 13.6 10^3/uL (3.5-10.8)
[2022-05-02 06:12] LABS: INR 1.62 (0.89-1.11)
[2022-05-02 06:26] LABS: Calcium 8.6 mg/dL (8.6-10.3); Magnesium 2.1 mg/dL (1.9-2.7); Potassium 3.9 mmol/L (3.5-5.0); eGFR CKD-EPI 102.1 (>60)
[2022-05-02] MEDS: Mometasone/Formoter 100/5 MDI INH SCH ×2 (06:57→20:06)
[2022-05-02] MEDS: fentaNYL Patch Check Q Shift NOTE FOLLOW UP SCH ×2 (06:58→20:46)
[2022-05-02] MEDS: Vitamin THERAPEUTIC TAB PO SCH (08:50)
[2022-05-02] MEDS: DULoxetine DR 60 mg CAP PO SCH (08:52)
[2022-05-02] MEDS: Azithromycin 500 mg/250 ml NS 500 MG/250 ML BAG IVPB SCH (09:00)
[2022-05-02] MEDS: Cefepime 2 GM in Dextrose 2 GM/50 ML BAG IV SCH ×2 (10:21→21:03)
[2022-05-02] MEDS: Collagenase 250 units/gm OINT 1 tube TOPICAL SCH (15:46)
[2022-05-02] MEDS: Warfarin per PHARMACY **NOTE FOLLOW UP SCH (17:30)
[2022-05-03] MEDS: Vancomycin 1,500 MG in NS 0.9% 250 ml 250 ML IVPB SCH (05:54)
[2022-05-03] MEDS: fentaNYL PATCH 12 MCG/HR 1 PATCH TRANSDERM SCH (05:59)
[2022-05-03] MEDS: fentaNYL PATCH 25 MCG/HR 1 PATCH TRANSDERM SCH (06:02)
[2022-05-03 06:05] LABS: ABS Eosinophils 0.1 10^3/ul (0-0.6); ABS Lymphocytes 0.3 10^3/ul (1.0-4.8); ABS Monocytes 0.6 10^3/ul (0-0.8); Eosinophil % 1.4 %; Hematocrit 34 % (35-47); Hemoglobin 11.1 g/dL (12.0-16.0); Lymphocyte % 5.6 %; Mean Corpuscular HGB Conc 33 g/dL (31-36); Mean Corpuscular Hemoglobin 30 pg (27-31); Mean Corpuscular Volume 90 fL (80-97); Mean Platelet Volume 7.9 fL (7.4-10.4); Platelet Count 153 10^3/uL (150-450); Red Blood Count 3.75 10^6 /uL (3.70-4.87); Red Cell Distribution Width 16 % (10-15)
[2022-05-03 06:45] LABS: Calcium 8.5 mg/dL (8.6-10.3); Potassium 4.3 mmol/L (3.5-5.0)
[2022-05-03] MEDS: fentaNYL Patch Check Q Shift NOTE FOLLOW UP SCH (07:30)
[2022-05-03] MEDS: Mometasone/Formoter 100/5 MDI INH SCH (08:07)
[2022-05-03] MEDS: DULoxetine DR 60 mg CAP PO SCH (10:53)
[2022-05-03] MEDS: Vitamin THERAPEUTIC TAB PO SCH (10:53)
[2022-05-03] MEDS: Collagenase 250 units/gm OINT 1 tube TOPICAL SCH (11:06)
[2022-05-03] MEDS: Cefepime 2 GM in Dextrose 2 GM/50 ML BAG IV SCH (11:25)
[2022-05-03 11:46] VITALS: BP 123/80
[2022-05-03 12:55] LABS: INR 2.16 (0.88-1.18)
[2022-05-04] MEDS ORDERED: Vancomycin Trough Check NOTE FOLLOW UP ONE (05:30)
== END 2022-05-03 15:05 | DRG 871 ==
LOC: ED 19:59 → EDHOLD 04-30 02:49 → SUATTDRO 04-30 02:49 → EDHOLD 04-30 06:36 → ICU 04-30 07:51 → SSU 05-01 15:24
PROVIDERS: ADMIT Internal Medicine Critical Care Medicine; ATTEND Internal Medicine

== ENCOUNTER 2022-06-16 15:48 | Inpatient (IN) ==
[2022-06-16 17:55] LABS: Hematocrit 32 % (35-47); Hemoglobin 9.8 g/dL (12.0-16.0); Mean Corpuscular HGB Conc 31 g/dL (31-36); Mean Corpuscular Hemoglobin 28 pg (27-31); Mean Corpuscular Volume 91 fL (80-97); Red Blood Count 3.49 10^6 /uL (3.70-4.87); Red Cell Distribution Width 18 % (10-15); White Blood Count 4.9 10^3/uL (3.5-10.8)
[2022-06-16 18:16] LABS: High Sens Troponin Baseline 26 pg/mL (<15)
[2022-06-16 18:56] LABS: ABS Lymphocytes 0.3 10^3/ul (1.0-4.8); ABS Monocytes 0.9 10^3/ul (0-0.8); ABS Neutrophils 3.6 10^3/ul (1.5-7.7); Eosinophil % 0.9 %; Lymphocyte % 6.8 %; Mean Platelet Volume 7.6 fL (7.4-10.4); Nucleated Red Blood Cells % 0.5; Platelet Count 59 10^3/uL (150-450)
[2022-06-16 18:57] LABS: Albumin 2.9 g/dL (3.2-5.2)
[2022-06-16 19:03] LABS: Albumin/Globulin Ratio 0.9 (1-3); Globulin 3.2 g/dL (2-4); Total Protein 6.1 g/dL (6.4-8.9)
[2022-06-16 19:08] LABS: ALT 9 U/L (7-52); AST 17 U/L (13-39); Alkaline Phosphatase 86 U/L (35-149); Blood Urea Nitrogen 9 mg/dL (6-24); CO2 Carbon Dioxide 36 mmol/L (22-32); Calcium 8.3 mg/dL (8.6-10.3); Chloride 102 mmol/L (101-111); Creatinine, Serum 0.53 mg/dL (0.51-0.95); Glucose 116 mg/dL (70-100); Potassium 3.9 mmol/L (3.5-5.0); Sodium 138 mmol/L (135-145); eGFR CKD-EPI 102.6 (>60)
[2022-06-16 19:18] LABS: High Sensitivity Troponin 1 Hr 27 pg/mL (<15)
[2022-06-16 20:10] LABS: INR 4.26 (0.88-1.18)
[2022-06-16 20:30] LABS: PCO2 Arterial 61 mmHg (35-45); PO2 Arterial 113 mmHg (80-100)
[2022-06-16] MEDS ORDERED: Furosemide 40 mg/4 ml IV VIAL IV SLOW PU ONE (21:13)
[2022-06-16] MEDS ORDERED: Nitroglycerin 0.4 mg/hr PATCH (10 mg) TRANSDERM ONE (21:13)
[2022-06-16] MEDS ORDERED: Al Hydrox/Mg Hydrox/Simet LIQ 30 ML UDC PO PRN (21:58)
[2022-06-16] MEDS ORDERED: Dextrose 50% Syringe 50 ml 25 GM/50 ML SYRINGE IV PUSH PRN (22:00)
[2022-06-16] MEDS ORDERED: Albuterol/Ipratropium NEB.SOL (2.5/0.5 MG) 3 ML NEB.SOLN INH PRN (22:06)
[2022-06-16] MEDS ORDERED: Fluticasone-Salmeterol 100-50 DISKUS NF INH ONE (22:14)
[2022-06-16 22:45] LABS: INR 4.4 (0.88-1.18)
[2022-06-16 22:58] LABS: PCO2 Arterial 47 mmHg (35-45); PO2 Arterial 164 mmHg (80-100)
[2022-06-17 05:22] LABS: Urine Appearance Clear; Urine Bilirubin Negative (Negative); Urine Blood Negative (Negative); Urine Color Colorless; Urine Glucose Negative (Negative); Urine Ketones Negative (Negative); Urine Nitrite Negative (Negative); Urine Protein Negative (Negative); Urine Specific Gravity 1.005 (1.002-1.030); Urine Urobilinogen Negative (Negative)
[2022-06-17 05:48] LABS: INR 4.31 (0.88-1.18)
[2022-06-17 05:51] LABS: ABS Lymphocytes 0.3 10^3/ul (1.0-4.8); ABS Neutrophils 3.3 10^3/ul (1.5-7.7); Hematocrit 31 % (35-47); Hemoglobin 9.7 g/dL (12.0-16.0); Lymphocyte % 7.3 %; Mean Corpuscular HGB Conc 32 g/dL (31-36); Mean Corpuscular Hemoglobin 29 pg (27-31); Mean Corpuscular Volume 90 fL (80-97); Mean Platelet Volume 8.1 fL (7.4-10.4); Nucleated Red Blood Cells % 0.3; Platelet Count 60 10^3/uL (150-450); Red Blood Count 3.38 10^6 /uL (3.70-4.87); Red Cell Distribution Width 18 % (10-15); White Blood Count 4.6 10^3/uL (3.5-10.8)
[2022-06-17 06:18] LABS: Albumin 2.9 g/dL (3.2-5.2); Albumin/Globulin Ratio 0.9 (1-3); Calcium 8.1 mg/dL (8.6-10.3); Creatinine, Serum 0.49 mg/dL (0.51-0.95); Globulin 3.3 g/dL (2-4); Magnesium 1.5 mg/dL (1.9-2.7); Potassium 3.8 mmol/L (3.5-5.0); Total Bilirubin 0.5 mg/dL (0.2-1.0); Total Protein 6.2 g/dL (6.4-8.9); eGFR CKD-EPI 104.5 (>60)
[2022-06-17 06:33] LABS: TSH Ultra Thyroid Stim Horm 0.59 mcIU/mL (0.34-5.60)
[2022-06-17 06:34] LABS: Free T3 2.8 pg/mL (2.5-3.9)
[2022-06-17 06:35] LABS: Free T4 0.8 ng/dL (0.61-1.12)
[2022-06-17] MEDS: Mometasone/Formoter 100/5 MDI INH SCH ×2 (06:45→18:15)
[2022-06-17] MEDS ORDERED: Magnesium Sulfate 2 gm BAG 2 GM/50 ML BAG IVPB ONE (06:49)
[2022-06-17] MEDS: DULoxetine DR 60 mg CAP PO SCH (08:16)
[2022-06-17] MEDS: Multivitamins/Minerals TAB PO SCH (08:17)
[2022-06-17] MEDS ORDERED: Furosemide 40 mg/4 ml IV VIAL IV ONE (12:23)
[2022-06-17] MEDS ORDERED: Warfarin per PHARMACY **NOTE FOLLOW UP SCH (18:00)
[2022-06-18 06:00] LABS: Hematocrit 31 % (35-47); Hemoglobin 9.8 g/dL (12.0-16.0); Mean Corpuscular HGB Conc 32 g/dL (31-36); Mean Corpuscular Hemoglobin 29 pg (27-31); Mean Corpuscular Volume 90 fL (80-97); Mean Platelet Volume 8.2 fL (7.4-10.4); Platelet Count 58 10^3/uL (150-450); Red Blood Count 3.42 10^6 /uL (3.70-4.87); Red Cell Distribution Width 17 % (10-15); White Blood Count 4.8 10^3/uL (3.5-10.8)
[2022-06-18 06:01] LABS: INR 3.24 (0.88-1.18)
[2022-06-18 06:46] LABS: ABS Eosinophils 0.1 10^3/ul (0-0.6); ABS Lymphocytes 0.3 10^3/ul (1.0-4.8); ABS Monocytes 1.1 10^3/ul (0-0.8); ABS Neutrophils 3.3 10^3/ul (1.5-7.7); Eosinophil % 1.4 %; Lymphocyte % 6.4 %; Nucleated Red Blood Cells % 0.2; Potassium 3.7 mmol/L (3.5-5.0)
[2022-06-18 06:47] LABS: Calcium 8.2 mg/dL (8.6-10.3)
[2022-06-18 06:49] LABS: Magnesium 1.7 mg/dL (1.9-2.7)
[2022-06-18 06:56] LABS: Creatinine, Serum 0.57 mg/dL (0.51-0.95); eGFR CKD-EPI 100.8 (>60)
[2022-06-18] MEDS: Mometasone/Formoter 100/5 MDI INH SCH ×2 (07:09→20:11)
[2022-06-18] MEDS ORDERED: Magnesium Sulfate 2 gm BAG 2 GM/50 ML BAG IVPB ONE (07:14)
[2022-06-18] MEDS: DULoxetine DR 60 mg CAP PO SCH (08:17)
[2022-06-18] MEDS: Multivitamins/Minerals TAB PO SCH (08:17)
[2022-06-18] MEDS ORDERED: Furosemide 40 mg/4 ml IV VIAL IV ONE ×2 (09:27→15:52)
[2022-06-18] MEDS: Warfarin DAILY REMINDER **NOTE FOLLOW UP SCH (17:08)
[2022-06-19] MEDS: Mometasone/Formoter 100/5 MDI INH SCH ×2 (07:14→19:32)
[2022-06-19] MEDS ORDERED: Furosemide 40 mg/4 ml IV VIAL IV ONE (08:33)
[2022-06-19] MEDS: DULoxetine DR 60 mg CAP PO SCH (08:44)
[2022-06-19] MEDS: Multivitamins/Minerals TAB PO SCH (08:45)
[2022-06-19] MEDS ORDERED: Magnesium Hydroxide LIQ 30 ML UDC PO PRN (09:56)
[2022-06-19 12:52] LABS: Hematocrit 30 % (35-47); Hemoglobin 9.5 g/dL (12.0-16.0); Mean Corpuscular HGB Conc 32 g/dL (31-36); Mean Corpuscular Hemoglobin 29 pg (27-31); Mean Corpuscular Volume 90 fL (80-97); Mean Platelet Volume 7.6 fL (7.4-10.4); Platelet Count 57 10^3/uL (150-450); Red Cell Distribution Width 18 % (10-15)
[2022-06-19 12:55] LABS: INR 2.28 (0.88-1.18)
[2022-06-19 13:16] LABS: Anisocytosis 1+; Tear Drop Cells 1+
[2022-06-19 13:17] LABS: Basophilic Stippling 1+; Polychromasia 1+
[2022-06-19 13:18] LABS: ABS Lymphocytes 0.4 10^3/ul (1.0-4.8); ABS Monocytes 0.9 10^3/ul (0-0.8); ABS Neutrophils 2.6 10^3/ul (1.5-7.7); Eosinophil % 1.1 %; Lymphocyte % 10.4 %; Nucleated Red Blood Cells % 0.5
[2022-06-19 13:42] LABS: Calcium 8.2 mg/dL (8.6-10.3); Magnesium 1.5 mg/dL (1.9-2.7); Potassium 3.3 mmol/L (3.5-5.0)
[2022-06-19 13:47] LABS: Creatinine, Serum 0.54 mg/dL (0.51-0.95); eGFR CKD-EPI 102.1 (>60)
[2022-06-19] MEDS ORDERED: Magnesium Sulfate 2 gm BAG 2 GM/50 ML BAG IVPB ONE (14:48)
[2022-06-19] MEDS: KCL 20 MEQ/100 ML IVPREMIX 20 MEQ/100 ML BAG IV SCH ×2 (15:19→21:57)
[2022-06-19] MEDS ORDERED: Magnesium Sulf 4 GM/100 ML IV 4,000 MG/100 ML BAG IVPB ONE (16:00)
[2022-06-19] MEDS: Warfarin DAILY REMINDER **NOTE FOLLOW UP SCH (16:38)
[2022-06-20 07:09] LABS: ABS Eosinophils 0.1 10^3/ul (0-0.6); ABS Lymphocytes 0.3 10^3/ul (1.0-4.8); ABS Monocytes 1.1 10^3/ul (0-0.8); ABS Neutrophils 2.7 10^3/ul (1.5-7.7); Eosinophil % 1.4 %; Hematocrit 30 % (35-47); Hemoglobin 9.4 g/dL (12.0-16.0); Lymphocyte % 7.7 %; Mean Corpuscular HGB Conc 32 g/dL (31-36); Mean Corpuscular Hemoglobin 28 pg (27-31); Mean Corpuscular Volume 90 fL (80-97); Mean Platelet Volume 8.3 fL (7.4-10.4); Nucleated Red Blood Cells % 0.5; Platelet Count 60 10^3/uL (150-450); Red Cell Distribution Width 18 % (10-15); White Blood Count 4.2 10^3/uL (3.5-10.8)
[2022-06-20] MEDS: Mometasone/Formoter 100/5 MDI INH SCH ×2 (07:09→19:28)
[2022-06-20 07:13] LABS: INR 2.04 (0.88-1.18)
[2022-06-20 07:18] LABS: Calcium 8.2 mg/dL (8.6-10.3); Creatinine, Serum 0.52 mg/dL (0.51-0.95); Potassium 3.9 mmol/L (3.5-5.0)
[2022-06-20] MEDS ORDERED: Furosemide 40 mg/4 ml IV VIAL IV ONE (07:47)
[2022-06-20] MEDS ORDERED: Lidocaine 2.5%/Prilocain 2.5% 5 GM TUBE TOPICAL ONE (09:30)
[2022-06-20] MEDS ORDERED: Lidocaine 4% CREAM (LMX) 5 GM TUBE TOPICAL ONE (10:00)
[2022-06-20] MEDS: DULoxetine DR 60 mg CAP PO SCH (10:30)
[2022-06-20] MEDS: Multivitamins/Minerals TAB PO SCH (10:30)
[2022-06-20] MEDS: Warfarin DAILY REMINDER **NOTE FOLLOW UP SCH (17:56)
[2022-06-20 22:29] LABS: Rapid COVID-19 Molecular Undetected (Undetected)
[2022-06-21 06:08] LABS: ABS Eosinophils 0.1 10^3/ul (0-0.6); ABS Lymphocytes 0.4 10^3/ul (1.0-4.8); ABS Monocytes 1.1 10^3/ul (0-0.8); ABS Neutrophils 2.9 10^3/ul (1.5-7.7); Eosinophil % 1.3 %; Hematocrit 29 % (35-47); Hemoglobin 9.3 g/dL (12.0-16.0); Lymphocyte % 8.5 %; Mean Corpuscular HGB Conc 32 g/dL (31-36); Mean Corpuscular Hemoglobin 29 pg (27-31); Mean Corpuscular Volume 90 fL (80-97); Mean Platelet Volume 9.8 fL (7.4-10.4); Nucleated Red Blood Cells % 0.3; Platelet Count 68 10^3/uL (150-450); Red Blood Count 3.25 10^6 /uL (3.70-4.87); Red Cell Distribution Width 18 % (10-15); White Blood Count 4.5 10^3/uL (3.5-10.8)
[2022-06-21 06:16] LABS: INR 1.64 (0.88-1.18)
[2022-06-21 06:28] LABS: Calcium 8.5 mg/dL (8.6-10.3); Creatinine, Serum 0.56 mg/dL (0.51-0.95); Magnesium 1.6 mg/dL (1.9-2.7); Potassium 3.6 mmol/L (3.5-5.0); eGFR CKD-EPI 101.2 (>60)
[2022-06-21] MEDS: Mometasone/Formoter 100/5 MDI INH SCH (07:18)
[2022-06-21] MEDS ORDERED: Potassium Chlor 20 meq TAB.ER PO ONE (07:23)
[2022-06-21] MEDS: DULoxetine DR 60 mg CAP PO SCH (09:34)
[2022-06-21] MEDS: Multivitamins/Minerals TAB PO SCH (09:36)
[2022-06-21 09:57] VITALS: BP 120/56
[2022-06-23 12:32] LABS: Kappa Free Light Chain 49.7 mg/dL
[2022-06-24 00:05] LABS: Albumin 2.7 g/dL (3.4-4.7); Albumin/Globulin Ratio 0.66; Gamma Globulin 1.9 g/dL (0.6-1.6); Total Protein(PEP) 6.7 g/dL (6.3 - 7.9)
[2022-06-28 18:27] LABS: Immunoglobulin A 20 mg/dL (61 - 356); Immunoglobulin G 2020 mg/dL (767 - 1590); Immunoglobulin M 29 mg/dL (37 - 286)
== END 2022-06-21 10:15 | DRG 291 ==
LOC: ED 15:48 → EDHOLD 21:37 → SUATTDRO 21:37 → ICU 23:15 → MEDTELE 06-17 07:17
PROVIDERS: ADMIT Internal Medicine Critical Care Medicine; ATTEND Internal Medicine

== ENCOUNTER 2022-07-05 10:19 | Inpatient (IN) ==
[2022-07-05] MEDS ORDERED: Albuterol/Ipratropium NEB.SOL (2.5/0.5 MG) 3 ML NEB.SOLN INH ONE ×2 (10:28→10:50)
[2022-07-05] MEDS ORDERED: Dexamethasone IV 4 MG/ML VIAL 1 ml VIAL IV SLOW PU ONE (10:28)
[2022-07-05 10:57] LABS: Hematocrit 28 % (35-47); Hemoglobin 8.6 g/dL (12.0-16.0); Mean Corpuscular HGB Conc 31 g/dL (31-36); Mean Corpuscular Hemoglobin 28 pg (27-31); Mean Corpuscular Volume 90 fL (80-97); Mean Platelet Volume 8.2 fL (7.4-10.4); Platelet Count 33 10^3/uL (150-450); Red Blood Count 3.05 10^6 /uL (3.70-4.87); Red Cell Distribution Width 19 % (10-15); White Blood Count 7.2 10^3/uL (3.5-10.8)
[2022-07-05 11:05] LABS: Activated Partial Thrombo Time 37.2 seconds (26.0-38.0); INR 1.9 (0.88-1.18)
[2022-07-05 11:32] LABS: Albumin 3.3 g/dL (3.2-5.2); CO2 Carbon Dioxide 36 mmol/L (22-32); Calcium 8.2 mg/dL (8.6-10.3); Chloride 101 mmol/L (101-111); Potassium 4.4 mmol/L (3.5-5.0); Sodium 137 mmol/L (135-145)
[2022-07-05 11:36] LABS: PCO2 Arterial 62 mmHg (35-45); PO2 Arterial 186 mmHg (80-100)
[2022-07-05 11:38] LABS: ALT 9 U/L (7-52); AST 22 U/L (13-39); Albumin/Globulin Ratio 0.8 (1-3); Alkaline Phosphatase 89 U/L (35-149); Blood Urea Nitrogen 10 mg/dL (6-24); C Reactive Protein 41.71 mg/L (<8.01); Creatinine, Serum 0.64 mg/dL (0.51-0.95); Globulin 4.4 g/dL (2-4); Glucose 140 mg/dL (70-100); Total Protein 7.7 g/dL (6.4-8.9)
[2022-07-05 12:05] LABS: RBC Morphology Normal (Normal)
[2022-07-05 12:06] LABS: ABS Eosinophils 0.1 10^3/ul (0-0.6); ABS Lymphocytes 1.4 10^3/ul (1.0-4.8); ABS Monocytes 2.2 10^3/ul (0-0.8); ABS Neutrophils 3.4 10^3/ul (1.5-7.7); Eosinophil % 1.1 %; Nucleated Red Blood Cells % 0.5
[2022-07-05 12:12] LABS: High Sens Troponin Baseline 11 pg/mL (<15)
[2022-07-05 12:18] LABS: High Sensitivity Troponin 1 Hr 19 pg/mL (<15)
[2022-07-05 13:00] LABS: Urine Appearance Cloudy; Urine Bilirubin Negative (Negative); Urine Blood 1+ (Negative); Urine Color Yellow; Urine Glucose Negative (Negative); Urine Ketones Trace (Negative); Urine Nitrite Negative (Negative); Urine Protein 1+(30 mg/dL) (Negative); Urine Specific Gravity 1.018 (1.002-1.030); Urine Urobilinogen Negative (Negative)
[2022-07-05 13:04] LABS: Urine Bacteria 1+ (Absent); Urine Red Blood Cell Trace(0-2/hpf) (Absent); Urine Squamous Epithelial Cell Present (Absent); Urine White Blood Cell 1+(6-10/hpf) (Absent)
[2022-07-05] MEDS ORDERED: Furosemide 40 mg/4 ml IV VIAL IV ONE (13:42)
[2022-07-05] MEDS ORDERED: Magnesium Hydroxide LIQ 30 ML UDC PO PRN (14:47)
[2022-07-05] MEDS ORDERED: Calcium Carb (TUMS) 500 mg CHEW TAB PO PRN (14:47)
[2022-07-05] MEDS ORDERED: Albuterol/Ipratropium NEB.SOL (2.5/0.5 MG) 3 ML NEB.SOLN INH PRN (14:57)
[2022-07-05] MEDS ORDERED: Dextrose 50% Syringe 50 ml 25 GM/50 ML SYRINGE IV PUSH PRN (16:30)
[2022-07-05] MEDS ORDERED: Warfarin per PHARMACY **NOTE FOLLOW UP SCH (17:00)
[2022-07-05] MEDS ORDERED: Furosemide 20 mg/2 ml IV VIAL IV SLOW PU ONE (17:36)
[2022-07-05] MEDS: Mometasone/Formoter 100/5 MDI INH SCH (20:08)
[2022-07-06 06:34] LABS: ABS Lymphocytes 0.3 10^3/ul (1.0-4.8); ABS Neutrophils 2.5 10^3/ul (1.5-7.7); ABS Nucleated RBC 0.1 10^3/ul; Eosinophil % 0.2 %; Hematocrit 21 % (35-47); Hemoglobin 6.8 g/dL (12.0-16.0); Lymphocyte % 8.8 %; Mean Corpuscular HGB Conc 32 g/dL (31-36); Mean Corpuscular Hemoglobin 29 pg (27-31); Mean Corpuscular Volume 89 fL (80-97); Mean Platelet Volume 8.3 fL (7.4-10.4); Nucleated Red Blood Cells % 2.2; Platelet Count 25 10^3/uL (150-450); Red Blood Count 2.37 10^6 /uL (3.70-4.87); Red Cell Distribution Width 19 % (10-15); White Blood Count 3.8 10^3/uL (3.5-10.8)
[2022-07-06 06:36] LABS: INR 2.35 (0.88-1.18)
[2022-07-06 06:51] LABS: Calcium 7.8 mg/dL (8.6-10.3); Creatinine, Serum 0.53 mg/dL (0.51-0.95); Magnesium 1.6 mg/dL (1.9-2.7); Potassium 3.3 mmol/L (3.5-5.0); eGFR CKD-EPI 102.6 (>60)
[2022-07-06] MEDS ORDERED: Magnesium Sulfate IV 3 GM in NS 0.9% 100 ml BAG 100 ML IVPB ONE (07:33)
[2022-07-06] MEDS ORDERED: Potassium Chlor 20 meq TAB.ER PO ONE (07:33)
[2022-07-06] MEDS: Mometasone/Formoter 100/5 MDI INH SCH ×2 (07:36→20:35)
[2022-07-06] MEDS ORDERED: Piperacillin/Tazobac ADVAN 3.375 GM in NS 0.9% 100 ml BAG 100 ML IV ONE (09:24)
[2022-07-06 09:31] LABS: Hematocrit 20 % (35-47); Hemoglobin 6.5 g/dL (12.0-16.0)
[2022-07-06] MEDS ORDERED: Zosyn per Pharmacy NOTE FOLLOW UP PRN (09:40)
[2022-07-06 10:27] LABS: Ferritin 142.2 ng/mL (11-307)
[2022-07-06] MEDS: DULoxetine DR 60 mg CAP PO SCH (10:34)
[2022-07-06] MEDS: ZOSYN 3.375 GM Q8H per EXTENDED INFUSION IV SCH ×2 (15:15→23:33)
[2022-07-06] MEDS ORDERED: Warfarin DAILY REMINDER **NOTE FOLLOW UP SCH (17:00)
[2022-07-06 17:29] LABS: Hematocrit 25 % (35-47)
[2022-07-07 05:43] LABS: Hematocrit 24 % (35-47); Hemoglobin 7.6 g/dL (12.0-16.0); Mean Corpuscular HGB Conc 32 g/dL (31-36); Mean Corpuscular Hemoglobin 28 pg (27-31); Mean Corpuscular Volume 90 fL (80-97); Platelet Count 25 10^3/uL (150-450); Red Blood Count 2.68 10^6 /uL (3.70-4.87); Red Cell Distribution Width 19 % (10-15); White Blood Count 4.3 10^3/uL (3.5-10.8)
[2022-07-07 05:45] LABS: INR 2.12 (0.88-1.18)
[2022-07-07 06:06] LABS: Calcium 7.8 mg/dL (8.6-10.3); Creatinine, Serum 0.61 mg/dL (0.51-0.95); Potassium 3.7 mmol/L (3.5-5.0); eGFR CKD-EPI 99.2 (>60)
[2022-07-07 06:49] LABS: ABS Lymphocytes 0.5 10^3/ul (1.0-4.8); ABS Monocytes 0.9 10^3/ul (0-0.8); ABS Neutrophils 2.9 10^3/ul (1.5-7.7); ABS Nucleated RBC 0.1 10^3/ul; Eosinophil % 0.8 %; Lymphocyte % 12.3 %
[2022-07-07 07:19] LABS: Anisocytosis 2+
[2022-07-07] MEDS: Mometasone/Formoter 100/5 MDI INH SCH ×2 (08:03→19:47)
[2022-07-07] MEDS: ZOSYN 3.375 GM Q8H per EXTENDED INFUSION IV SCH ×3 (08:54→22:47)
[2022-07-07] MEDS: Dexamethasone IV 40 MG in NS 0.9% 50 ML 50 ML IVPB SCH (09:03)
[2022-07-07] MEDS: DULoxetine DR 60 mg CAP PO SCH (09:16)
[2022-07-07] MEDS ORDERED: Magnesium Hydroxide LIQ 30 ML UDC PO PRN (11:03)
[2022-07-07] MEDS ORDERED: Furosemide 20 mg/2 ml IV VIAL IV SLOW PU ONE (15:00)
[2022-07-07 17:14] LABS: Hematocrit 27 % (35-47); Hemoglobin 8.6 g/dL (12.0-16.0)
[2022-07-08 06:50] LABS: ABS Lymphocytes 0.4 10^3/ul (1.0-4.8); ABS Monocytes 1.2 10^3/ul (0-0.8); Eosinophil % 0.3 %; Hematocrit 27 % (35-47); Hemoglobin 8.8 g/dL (12.0-16.0); Lymphocyte % 7.6 %; Mean Corpuscular HGB Conc 33 g/dL (31-36); Mean Corpuscular Hemoglobin 29 pg (27-31); Mean Corpuscular Volume 90 fL (80-97); Platelet Count 22 10^3/uL (150-450); Red Cell Distribution Width 18 % (10-15); White Blood Count 5.6 10^3/uL (3.5-10.8)
[2022-07-08 06:53] LABS: Nucleated Red Blood Cells % 0.2
[2022-07-08 07:19] LABS: Creatinine, Serum 0.57 mg/dL (0.51-0.95); Potassium 3.8 mmol/L (3.5-5.0); eGFR CKD-EPI 100.8 (>60)
[2022-07-08] MEDS: Mometasone/Formoter 100/5 MDI INH SCH ×2 (08:06→19:59)
[2022-07-08] MEDS: ZOSYN 3.375 GM Q8H per EXTENDED INFUSION IV SCH ×3 (09:16→23:59)
[2022-07-08] MEDS: DULoxetine DR 60 mg CAP PO SCH (09:17)
[2022-07-08] MEDS ORDERED: Furosemide 40 mg/4 ml IV VIAL IV SLOW PU ONE (09:52)
[2022-07-08] MEDS: Dexamethasone IV 40 MG in NS 0.9% 50 ML 50 ML IVPB SCH (13:58)
[2022-07-08 15:55] LABS: INR 1.4 (0.88-1.18)
[2022-07-08] MEDS ORDERED: Vancomycin per Pharmacy 1 EA NOTE FOLLOW UP PRN (18:13)
[2022-07-08] MEDS ORDERED: Vancomycin 2,000 MG in NS 0.9% 500 ml BAG 500 ML IVPB ONE (22:00)
[2022-07-09] MEDS ORDERED: Vancomycin 1,000 MG in NS 0.9% 250 ml 250 ML IVPB ONE (06:00)
[2022-07-09] MEDS: Mometasone/Formoter 100/5 MDI INH SCH ×2 (07:36→19:54)
[2022-07-09] MEDS: Dexamethasone IV 40 MG in NS 0.9% 50 ML 50 ML IVPB SCH (10:26)
[2022-07-09] MEDS: DULoxetine DR 60 mg CAP PO SCH (10:26)
[2022-07-09] MEDS ORDERED: Furosemide 40 mg/4 ml IV VIAL IV ONE (13:51)
[2022-07-09] MEDS: Vancomycin 1,250 MG in NS 0.9% 250 ml 250 ML IVPB SCH (16:28)
[2022-07-10] MEDS: Vancomycin 1,250 MG in NS 0.9% 250 ml 250 ML IVPB SCH ×2 (03:44→17:39)
[2022-07-10 06:06] LABS: Hematocrit 28 % (35-47); Hemoglobin 9.2 g/dL (12.0-16.0); Mean Corpuscular HGB Conc 33 g/dL (31-36); Mean Corpuscular Hemoglobin 29 pg (27-31); Mean Corpuscular Volume 89 fL (80-97); Mean Platelet Volume 8.6 fL (7.4-10.4); Platelet Count 31 10^3/uL (150-450); Red Blood Count 3.19 10^6 /uL (3.70-4.87); Red Cell Distribution Width 18 % (10-15); White Blood Count 6.3 10^3/uL (3.5-10.8)
[2022-07-10 06:10] LABS: INR 1.23 (0.88-1.18)
[2022-07-10 06:17] LABS: Blood Urea Nitrogen 22 mg/dL (6-24); CO2 Carbon Dioxide 38 mmol/L (22-32); Calcium 8.7 mg/dL (8.6-10.3); Chloride 99 mmol/L (101-111); Creatinine, Serum 0.58 mg/dL (0.51-0.95); Glucose 157 mg/dL (70-100); Potassium 3.8 mmol/L (3.5-5.0); Sodium 137 mmol/L (135-145); eGFR CKD-EPI 100.4 (>60)
[2022-07-10 06:21] LABS: ABS Lymphocytes 0.8 10^3/ul (1.0-4.8); ABS Monocytes 1.2 10^3/ul (0-0.8); ABS Neutrophils 4.2 10^3/ul (1.5-7.7); Eosinophil % 0.2 %; Lymphocyte % 13.4 %; Nucleated Red Blood Cells % 0.7
[2022-07-10] MEDS ORDERED: Potassium Chlor 20 meq TAB.ER PO ONE (07:14)
[2022-07-10] MEDS ORDERED: Senna TAB 8.6 mg TAB PO PRN (07:18)
[2022-07-10] MEDS: Mometasone/Formoter 100/5 MDI INH SCH ×2 (07:36→19:08)
[2022-07-10 08:43] LABS: Magnesium 2.1 mg/dL (1.9-2.7)
[2022-07-10] MEDS: DULoxetine DR 60 mg CAP PO SCH (10:20)
[2022-07-10] MEDS: Dexamethasone IV 40 MG in NS 0.9% 50 ML 50 ML IVPB SCH (10:51)
[2022-07-10] MEDS ORDERED: Vancomycin Trough Check NOTE FOLLOW UP ONE (15:30)
[2022-07-11] MEDS: Vancomycin 1,250 MG in NS 0.9% 250 ml 250 ML IVPB SCH (04:07)
[2022-07-11 06:55] LABS: Hematocrit 28 % (35-47); Mean Corpuscular HGB Conc 33 g/dL (31-36); Mean Corpuscular Hemoglobin 29 pg (27-31); Mean Corpuscular Volume 90 fL (80-97); Mean Platelet Volume 7.9 fL (7.4-10.4); Platelet Count 26 10^3/uL (150-450); Red Blood Count 3.07 10^6 /uL (3.70-4.87); Red Cell Distribution Width 18 % (10-15)
[2022-07-11 06:56] LABS: INR 1.19 (0.88-1.18)
[2022-07-11 07:08] LABS: Blood Urea Nitrogen 26 mg/dL (6-24); CO2 Carbon Dioxide 36 mmol/L (22-32); Calcium 8.3 mg/dL (8.6-10.3); Chloride 98 mmol/L (101-111); Creatinine, Serum 0.55 mg/dL (0.51-0.95); Glucose 150 mg/dL (70-100); Magnesium 1.9 mg/dL (1.9-2.7); Potassium 3.8 mmol/L (3.5-5.0); Sodium 134 mmol/L (135-145); eGFR CKD-EPI 101.7 (>60)
[2022-07-11] MEDS: Mometasone/Formoter 100/5 MDI INH SCH ×2 (07:16→19:25)
[2022-07-11 07:40] LABS: Basophilic Stippling 1+; Polychromasia 1+
[2022-07-11 07:41] LABS: ABS Lymphocytes 0.9 10^3/ul (1.0-4.8); ABS Monocytes 1.4 10^3/ul (0-0.8); ABS Neutrophils 4.6 10^3/ul (1.5-7.7); ABS Nucleated RBC 0.1 10^3/ul; Eosinophil % 0.2 %; Lymphocyte % 13.6 %
[2022-07-11] MEDS ORDERED: Magnesium Sulfate IV 1GM/100ML 1 GM/100 ML BAG IV ONE (09:30)
[2022-07-11] MEDS ORDERED: KCL 20 MEQ/100 ML IVPREMIX 20 MEQ/100 ML BAG IV ONE (09:30)
[2022-07-11] MEDS: DULoxetine DR 60 mg CAP PO SCH (10:34)
[2022-07-11] MEDS ORDERED: Vancomycin Trough Check NOTE FOLLOW UP ONE (15:30)
[2022-07-11] MEDS: Chlorhexidine MOUTHWASH 0.12% 15 ML UDC SWISH SPIT SCH (23:04)
[2022-07-11] MEDS: Mupirocin 2% OINT TUBE TOPICAL SCH (23:07)
[2022-07-12 05:12] LABS: Rapid COVID-19 Molecular Undetected (Undetected)
[2022-07-12 05:42] LABS: ABS Lymphocytes 0.9 10^3/ul (1.0-4.8); ABS Neutrophils 3.3 10^3/ul (1.5-7.7); ABS Nucleated RBC 0.2 10^3/ul; Eosinophil % 0.7 %; Hematocrit 31 % (35-47); Hemoglobin 10.1 g/dL (12.0-16.0); Lymphocyte % 16.7 %; Mean Corpuscular HGB Conc 33 g/dL (31-36); Mean Corpuscular Hemoglobin 29 pg (27-31); Mean Corpuscular Volume 89 fL (80-97); Mean Platelet Volume 8.2 fL (7.4-10.4); Nucleated Red Blood Cells % 2.8; Platelet Count 31 10^3/uL (150-450); Red Blood Count 3.47 10^6 /uL (3.70-4.87); Red Cell Distribution Width 19 % (10-15); White Blood Count 5.2 10^3/uL (3.5-10.8)
[2022-07-12 06:16] LABS: Blood Urea Nitrogen 27 mg/dL (6-24); CO2 Carbon Dioxide 38 mmol/L (22-32); Calcium 8.5 mg/dL (8.6-10.3); Chloride 98 mmol/L (101-111); Creatinine, Serum 0.57 mg/dL (0.51-0.95); Glucose 101 mg/dL (70-100); Potassium 4.2 mmol/L (3.5-5.0); Sodium 136 mmol/L (135-145); eGFR CKD-EPI 100.8 (>60)
[2022-07-12] MEDS: Mometasone/Formoter 100/5 MDI INH SCH (07:27)
[2022-07-12] MEDS: Chlorhexidine MOUTHWASH 0.12% 15 ML UDC SWISH SPIT SCH ×3 (09:04→22:23)
[2022-07-12] MEDS: DULoxetine DR 60 mg CAP PO SCH (09:05)
[2022-07-12] MEDS: Mupirocin 2% OINT TUBE TOPICAL SCH ×2 (09:08→21:57)
[2022-07-12 11:32] LABS: Kappa Free Light Chain 43.8 mg/dL
[2022-07-12 12:01] LABS: Immunoglobulin G 2410 mg/dL (767 - 1590); Immunoglobulin M 29 mg/dL (37 - 286)
[2022-07-12] MEDS ORDERED: fentaNYL 100 mcg/2 ml 50 MCG/ML VIAL ONE (12:40)
[2022-07-12] MEDS ORDERED: Midazolam 2 mg/2 ml VIAL 1 mg/ml 2 ml VIAL (2 mg) ONE (12:40)
[2022-07-13] MEDS: Mometasone/Formoter 100/5 MDI INH SCH ×2 (04:00→08:01)
[2022-07-13] MEDS: Chlorhexidine MOUTHWASH 0.12% 15 ML UDC SWISH SPIT SCH (08:55)
[2022-07-13] MEDS: Mupirocin 2% OINT TUBE TOPICAL SCH (08:55)
[2022-07-13] MEDS: DULoxetine DR 60 mg CAP PO SCH (08:56)
[2022-07-13 11:16] VITALS: BP 131/52
[2022-07-13 13:04] LABS: Albumin 3.1 g/dL (3.4-4.7); Albumin/Globulin Ratio 0.68; Gamma Globulin 2.3 g/dL (0.6-1.6); Total Protein(PEP) 7.7 g/dL (6.3 - 7.9)
[2022-07-13 13:05] LABS: Albumin/Globulin Ratio 0.17; Gamma Globulin 18.4 mg/dL; Protein,Total, Random Urine 40 mg/dL
== END 2022-07-13 12:35 | DRG 189 ==
LOC: EDHOLD 10:19 → ED 10:19 → SUATTDRO 14:16 → MEDTELE 21:11 → SUATTDRO 07-06 14:14
PROVIDERS: ADMIT Internal Medicine; ATTEND Internal Medicine

== ENCOUNTER 2022-07-21 09:30 | Inpatient (IN) ==
[2022-07-21 10:28] LABS: Activated Partial Thrombo Time 26.9 seconds (26.0-38.0); INR 1.08 (0.88-1.18)
[2022-07-21 10:33] LABS: High Sens Troponin Baseline 8 pg/mL (<15)
[2022-07-21 10:40] LABS: Hematocrit 23 % (35-47); Hemoglobin 7.8 g/dL (12.0-16.0); Mean Corpuscular HGB Conc 33 g/dL (31-36); Mean Corpuscular Hemoglobin 30 pg (27-31); Mean Corpuscular Volume 89 fL (80-97); Mean Platelet Volume 9.2 fL (7.4-10.4); Platelet Count 11 10^3/uL (150-450); Red Blood Count 2.63 10^6 /uL (3.70-4.87); Red Cell Distribution Width 19 % (10-15); White Blood Count 7.3 10^3/uL (3.5-10.8)
[2022-07-21 10:47] LABS: ALT 9 U/L (7-52); AST 25 U/L (13-39); Albumin 3.2 g/dL (3.2-5.2); Albumin/Globulin Ratio 0.8 (1-3); Alkaline Phosphatase 93 U/L (35-149); Blood Urea Nitrogen 17 mg/dL (6-24); C Reactive Protein 77.59 mg/L (<8.01); CO2 Carbon Dioxide 40 mmol/L (22-32); Calcium 8.4 mg/dL (8.6-10.3); Chloride 98 mmol/L (101-111); Creatinine, Serum 0.61 mg/dL (0.51-0.95); Globulin 4.1 g/dL (2-4); Glucose 133 mg/dL (70-100); Potassium 3.8 mmol/L (3.5-5.0); Sodium 136 mmol/L (135-145); Total Protein 7.3 g/dL (6.4-8.9); eGFR CKD-EPI 99.2 (>60)
[2022-07-21 11:19] LABS: RBC Morphology Normal (Normal)
[2022-07-21 11:22] LABS: ABS Eosinophils 0.1 10^3/ul (0-0.6); ABS Lymphocytes 1.1 10^3/ul (1.0-4.8); ABS Monocytes 1.9 10^3/ul (0-0.8); ABS Neutrophils 4.2 10^3/ul (1.5-7.7); ABS Nucleated RBC 0.2 10^3/ul; Eosinophil % 0.8 %; Lymphocyte % 15.2 %
[2022-07-21 12:25] LABS: High Sensitivity Troponin 1 Hr 8 pg/mL (<15)
[2022-07-21 13:37] LABS: PCO2 Arterial 51 mmHg (35-45); PO2 Arterial 101 mmHg (80-100)
[2022-07-21] MEDS: Furosemide 40 mg/4 ml IV VIAL IV SLOW PU ONE ×2 (15:09→15:36)
[2022-07-21] MEDS ORDERED: Magnesium Hydroxide LIQ 30 ML UDC PO PRN (16:25)
[2022-07-21] MEDS ORDERED: Albuterol 2.5mg/3 ml (0.083%) NEB.SOLN INH PRN (16:25)
[2022-07-21] MEDS ORDERED: Acetaminophen IV 1 GM/100ML 1,000 MG/100 ML BAG IV PRN (16:29)
[2022-07-21] MEDS ORDERED: Dextrose 50% Syringe 50 ml 25 GM/50 ML SYRINGE IV PUSH PRN (17:35)
[2022-07-21] MEDS ORDERED: Albuterol/Ipratropium NEB.SOL (2.5/0.5 MG) 3 ML NEB.SOLN INH PRN (17:44)
[2022-07-21] MEDS: Mometasone/Formoter 100/5 MDI INH SCH (19:55)
[2022-07-21] MEDS ORDERED: Thiamine 100 MG/ML 2 ml VIAL 100 MG in NS 0.9% 50 ML 50 ML IV SCH (21:00)
[2022-07-21 23:59] LABS: Urine Appearance Clear; Urine Bilirubin Negative (Negative); Urine Blood Negative (Negative); Urine Color Yellow; Urine Glucose Negative (Negative); Urine Ketones Trace (Negative); Urine Nitrite Positive (Negative); Urine Protein Negative (Negative); Urine Specific Gravity 1.012 (1.002-1.030); Urine Urobilinogen Positive (Negative)
[2022-07-22 00:06] LABS: Urine Bacteria 1+ (Absent); Urine Red Blood Cell Absent (Absent); Urine Squamous Epithelial Cell Present (Absent); Urine White Blood Cell Trace(0-5/hpf) (Absent)
[2022-07-22] MEDS: Mometasone/Formoter 100/5 MDI INH SCH ×2 (07:25→19:07)
[2022-07-22] MEDS: Nystatin TOP POWDER 15 GM BTL TOPICAL SCH ×4 (07:34→20:32)
[2022-07-22 07:48] LABS: Hematocrit 23 % (35-47); Hemoglobin 7.6 g/dL (12.0-16.0); Mean Corpuscular HGB Conc 33 g/dL (31-36); Mean Corpuscular Hemoglobin 30 pg (27-31); Mean Corpuscular Volume 89 fL (80-97); Mean Platelet Volume 9.4 fL (7.4-10.4); Platelet Count 8 10^3/uL (150-450); Red Blood Count 2.57 10^6 /uL (3.70-4.87); Red Cell Distribution Width 19 % (10-15); White Blood Count 6.8 10^3/uL (3.5-10.8)
[2022-07-22 08:10] LABS: Calcium 8.1 mg/dL (8.6-10.3); Magnesium 1.6 mg/dL (1.9-2.7); Potassium 3.2 mmol/L (3.5-5.0)
[2022-07-22 08:11] LABS: Creatinine, Serum 0.6 mg/dL (0.51-0.95); eGFR CKD-EPI 99.5 (>60)
[2022-07-22] MEDS: DULoxetine DR 60 mg CAP PO SCH (08:38)
[2022-07-22] MEDS ORDERED: Alteplase (CATHFLO) 2 MG VIAL IV ONE (09:00)
[2022-07-22] MEDS ORDERED: Dexamethasone IV 4 MG/ML VIAL 1 ml VIAL IV SLOW PU SCH (09:00)
[2022-07-22] MEDS ORDERED: Magnesium Sulfate 2 gm BAG 2 GM/50 ML BAG IVPB ONE (09:08)
[2022-07-22] MEDS ORDERED: Potassium Chloride LIQUID 20 MEQ/15 ML LIQUID PO ONE (09:08)
[2022-07-22] MEDS ORDERED: Vancomycin 1,500 MG in NS 0.9% 250 ml 250 ML IVPB ONE (10:03)
[2022-07-22 10:05] LABS: Anisocytosis 1+
[2022-07-22 10:08] LABS: ABS Eosinophils 0.1 10^3/ul (0-0.6); ABS Lymphocytes 1.2 10^3/ul (1.0-4.8); ABS Monocytes 1.8 10^3/ul (0-0.8); ABS Neutrophils 3.7 10^3/ul (1.5-7.7); ABS Nucleated RBC 0.1 10^3/ul; Eosinophil % 0.9 %; Lymphocyte % 17.7 %; Nucleated Red Blood Cells % 1.7
[2022-07-22] MEDS ORDERED: Vancomycin per Pharmacy 1 EA NOTE FOLLOW UP SCH (11:00)
[2022-07-22] MEDS: Chlorhexidine MOUTHWASH 0.12% 15 ML UDC SWISH SPIT SCH (12:16)
[2022-07-22] MEDS: Dexamethasone IV 40 MG in NS 0.9% 50 ML 50 ML IVPB SCH (12:34)
[2022-07-22] MEDS ORDERED: Iodixanol (CONTRAST) 320 MG/ML 100 ML SDV IV ONE (15:29)
[2022-07-22 18:22] LABS: ABS Eosinophils 0.1 10^3/ul (0-0.6); ABS Lymphocytes 0.6 10^3/ul (1.0-4.8); ABS Monocytes 1.1 10^3/ul (0-0.8); Eosinophil % 0.8 %; Hematocrit 21 % (35-47); Hemoglobin 6.9 g/dL (12.0-16.0); Lymphocyte % 8.8 %; Mean Corpuscular HGB Conc 33 g/dL (31-36); Mean Corpuscular Hemoglobin 29 pg (27-31); Mean Corpuscular Volume 87 fL (80-97); Mean Platelet Volume 8.7 fL (7.4-10.4); Nucleated Red Blood Cells % 0.4; Platelet Count 11 10^3/uL (150-450); Red Blood Count 2.43 10^6 /uL (3.70-4.87); Red Cell Distribution Width 20 % (10-15); White Blood Count 6.9 10^3/uL (3.5-10.8)
[2022-07-23] MEDS: Vancomycin 1,250 MG in NS 0.9% 250 ml 250 ML IVPB SCH ×2 (02:22→14:56)
[2022-07-23] MEDS ORDERED: HYDROmorphone 0.5 MG/0.5 ML SYRINGE IV SLOW PU ONE (02:41)
[2022-07-23 05:44] LABS: INR 1.14 (0.88-1.18)
[2022-07-23 05:53] LABS: Calcium 7.8 mg/dL (8.6-10.3); Creatinine, Serum 0.47 mg/dL (0.51-0.95); Magnesium 2.2 mg/dL (1.9-2.7); Phosphorus 2.8 mg/dL (2.5-5.0); Potassium 3.3 mmol/L (3.5-5.0); eGFR CKD-EPI 105.6 (>60)
[2022-07-23 05:59] LABS: Hematocrit 21 % (35-47); Hemoglobin 7.1 g/dL (12.0-16.0); Mean Corpuscular HGB Conc 33 g/dL (31-36); Mean Corpuscular Hemoglobin 29 pg (27-31); Mean Corpuscular Volume 88 fL (80-97); Mean Platelet Volume 9.6 fL (7.4-10.4); Platelet Count 8 10^3/uL (150-450); Red Blood Count 2.43 10^6 /uL (3.70-4.87); Red Cell Distribution Width 19 % (10-15); White Blood Count 8.8 10^3/uL (3.5-10.8)
[2022-07-23 07:05] LABS: RBC Morphology Normal (Normal)
[2022-07-23 07:06] LABS: ABS Lymphocytes 1.1 10^3/ul (1.0-4.8); ABS Monocytes 1.5 10^3/ul (0-0.8); ABS Neutrophils 6.2 10^3/ul (1.5-7.7); Eosinophil % 0.4 %; Lymphocyte % 12.6 %; Nucleated Red Blood Cells % 0.2
[2022-07-23] MEDS: Mometasone/Formoter 100/5 MDI INH SCH ×2 (07:45→19:29)
[2022-07-23] MEDS: Chlorhexidine MOUTHWASH 0.12% 15 ML UDC SWISH SPIT SCH (08:35)
[2022-07-23] MEDS: Nystatin TOP POWDER 15 GM BTL TOPICAL SCH ×3 (08:37→23:10)
[2022-07-23] MEDS: DULoxetine DR 60 mg CAP PO SCH (08:37)
[2022-07-23] MEDS: Dexamethasone IV 40 MG in NS 0.9% 50 ML 50 ML IVPB SCH (08:39)
[2022-07-23] MEDS ORDERED: Potassium Chloride LIQUID 20 MEQ/15 ML LIQUID PO SCH (09:00)
[2022-07-23] MEDS: Potassium Chlor 20 meq TAB.ER PO SCH ×2 (12:27→14:56)
[2022-07-23] MEDS ORDERED: Immune Globulin IV Order (CPOE ENTRY PROTOCOL) IV SCH (18:00)
[2022-07-23 19:58] LABS: Platelet Count 9 10^3/uL (150-450)
[2022-07-23] MEDS: [UNRECOGNIZED DRUG - OTHER] IV SCH ×2 (20:20→20:42)
[2022-07-23] MEDS: IMMUNE GLOBULIN IV SCH ×2 (20:20→20:42)
[2022-07-23 20:44] LABS: ABS Lymphocytes 1.4 10^3/ul (1.0-4.8); ABS Monocytes 1.8 10^3/ul (0-0.8); ABS Neutrophils 7.2 10^3/ul (1.5-7.7); ABS Nucleated RBC 0.1 10^3/ul; Eosinophil % 0.4 %; Hematocrit 22 % (35-47); Hemoglobin 7.6 g/dL (12.0-16.0); Lymphocyte % 13.2 %; Mean Corpuscular HGB Conc 34 g/dL (31-36); Mean Corpuscular Hemoglobin 30 pg (27-31); Mean Corpuscular Volume 88 fL (80-97); Mean Platelet Volume 9.3 fL (7.4-10.4); Nucleated Red Blood Cells % 0.9; Platelet Count 10 10^3/uL (150-450); Red Blood Count 2.56 10^6 /uL (3.70-4.87); Red Cell Distribution Width 18 % (10-15); White Blood Count 10.5 10^3/uL (3.5-10.8)
[2022-07-24] MEDS: Vancomycin 1,250 MG in NS 0.9% 250 ml 250 ML IVPB SCH ×2 (02:22→14:56)
[2022-07-24 06:03] LABS: Hematocrit 25 % (35-47); Hemoglobin 8.1 g/dL (12.0-16.0); Mean Corpuscular HGB Conc 33 g/dL (31-36); Mean Corpuscular Hemoglobin 30 pg (27-31); Mean Corpuscular Volume 90 fL (80-97); Mean Platelet Volume 8.9 fL (7.4-10.4); Platelet Count 12 10^3/uL (150-450); Red Blood Count 2.73 10^6 /uL (3.70-4.87); Red Cell Distribution Width 18 % (10-15); White Blood Count 12.9 10^3/uL (3.5-10.8)
[2022-07-24 06:28] LABS: Creatinine, Serum 0.51 mg/dL (0.51-0.95); Magnesium 2.2 mg/dL (1.9-2.7); Phosphorus 2.2 mg/dL (2.5-5.0); eGFR CKD-EPI 103.5 (>60)
[2022-07-24 06:32] LABS: ABS Eosinophils 0.1 10^3/ul (0-0.6); ABS Lymphocytes 1.9 10^3/ul (1.0-4.8); ABS Monocytes 2.7 10^3/ul (0-0.8); ABS Neutrophils 8.2 10^3/ul (1.5-7.7); ABS Nucleated RBC 0.1 10^3/ul; Eosinophil % 0.6 %; Lymphocyte % 14.6 %; Nucleated Red Blood Cells % 0.4
[2022-07-24] MEDS: Mometasone/Formoter 100/5 MDI INH SCH ×2 (07:24→19:13)
[2022-07-24] MEDS ORDERED: Sodium Phosphate IV 0 MMOL in NS 0.9% 250 ml 250 ML IV ONE (07:28)
[2022-07-24 07:45] LABS: PCO2 Arterial 47 mmHg (35-45); PO2 Arterial 103 mmHg (80-100)
[2022-07-24 08:41] LABS: INR 1.15 (0.88-1.18)
[2022-07-24] MEDS ORDERED: Zosyn per Pharmacy NOTE FOLLOW UP SCH (09:00)
[2022-07-24] MEDS ORDERED: Piperacillin/Tazobac ADVAN 3.375 GM in NS 0.9% 100 ml BAG 100 ML IV ONE (09:00)
[2022-07-24] MEDS: Dexamethasone IV 40 MG in NS 0.9% 50 ML 50 ML IVPB SCH (09:17)
[2022-07-24] MEDS: DULoxetine DR 60 mg CAP PO SCH (11:08)
[2022-07-24] MEDS: Potassium & Sodium Phos 250 mg = 1 PACKET PO ONE ×2 (11:08→11:13)
[2022-07-24] MEDS: Nystatin TOP POWDER 15 GM BTL TOPICAL SCH ×3 (11:09→21:37)
[2022-07-24] MEDS: Chlorhexidine MOUTHWASH 0.12% 15 ML UDC SWISH SPIT SCH (11:10)
[2022-07-24] MEDS ORDERED: Furosemide 20 mg/2 ml IV VIAL IV ONE (12:03)
[2022-07-24] MEDS ORDERED: Vancomycin Trough Check NOTE FOLLOW UP ONE ×2 (13:30)
[2022-07-24] MEDS: ZOSYN 3.375 GM Q8H per EXTENDED INFUSION IV SCH (16:51)
[2022-07-24] MEDS: Magic MouthWash1-BEN/MAAL/LIDO 180 ML BTL SWISH SPIT PRN (21:39)
[2022-07-24] MEDS: Immune Glob 10%-20GM GAMMAGLIQ 20 GM, Immune Glob 10%-10GM GAMMAGLIQ 10 GM, Immune Glob... IV SCH (22:54)
[2022-07-25] MEDS: ZOSYN 3.375 GM Q8H per EXTENDED INFUSION IV SCH ×2 (01:15→11:00)
[2022-07-25] MEDS: Magic MouthWash1-BEN/MAAL/LIDO 180 ML BTL SWISH SPIT PRN ×2 (05:58→10:15)
[2022-07-25] MEDS ORDERED: Vancomycin 1000 MG in NS 0.9% 250 ML IVPB SCH (06:00)
[2022-07-25 06:04] LABS: Hematocrit 21 % (35-47); Hemoglobin 7.1 g/dL (12.0-16.0); Mean Corpuscular HGB Conc 34 g/dL (31-36); Mean Corpuscular Hemoglobin 32 pg (27-31); Mean Corpuscular Volume 93 fL (80-97); Mean Platelet Volume 8.6 fL (7.4-10.4); Platelet Count 10 10^3/uL (150-450); Red Blood Count 2.24 10^6 /uL (3.70-4.87); Red Cell Distribution Width 19 % (10-15); White Blood Count 13.3 10^3/uL (3.5-10.8)
[2022-07-25 06:08] LABS: INR 1.21 (0.88-1.18)
[2022-07-25 06:19] LABS: Calcium 7.6 mg/dL (8.6-10.3); Creatinine, Serum 0.57 mg/dL (0.51-0.95); Potassium 3.3 mmol/L (3.5-5.0); eGFR CKD-EPI 100.8 (>60)
[2022-07-25 07:42] LABS: ABS Basophils 0.1 10^3/ul (0-0.2); ABS Eosinophils 0.1 10^3/ul (0-0.6); ABS Lymphocytes 0.8 10^3/ul (1.0-4.8); ABS Monocytes 2.9 10^3/ul (0-0.8); ABS Neutrophils 9.5 10^3/ul (1.5-7.7); ABS Nucleated RBC 0.3 10^3/ul; Anisocytosis 1+; Basophilic Stippling 1+; Eosinophil % 0.7 %; Lymphocyte % 5.7 %; Nucleated Red Blood Cells % 2.2; Polychromasia 1+
[2022-07-25] MEDS: Potassium Chloride LIQUID 20 MEQ/15 ML LIQUID PO ONE ×2 (07:42→08:55)
[2022-07-25] MEDS: Mometasone/Formoter 100/5 MDI INH SCH ×2 (07:53→20:16)
[2022-07-25 08:00] LABS: C Reactive Protein 16.02 mg/L (<8.01)
[2022-07-25] MEDS ORDERED: Lidocaine PATCH 5% PATCH TRANSDERM ONE (08:01)
[2022-07-25] MEDS ORDERED: KCL 20 MEQ/100 ML IVPREMIX 20 MEQ/100 ML BAG IV SCH (09:00)
[2022-07-25] MEDS ORDERED: ZOSYN 3.375 GM Q8H per EXTENDED INFUSION IV SCH (09:00)
[2022-07-25] MEDS: DULoxetine DR 60 mg CAP PO SCH (09:07)
[2022-07-25] MEDS: Potassium & Sodium Phos 250 mg = 1 PACKET PO SCH ×3 (09:08→16:47)
[2022-07-25] MEDS: Chlorhexidine MOUTHWASH 0.12% 15 ML UDC SWISH SPIT SCH ×2 (09:08→09:43)
[2022-07-25] MEDS: Dexamethasone IV 40 MG in NS 0.9% 50 ML 50 ML IVPB SCH (10:11)
[2022-07-25] MEDS: Nystatin TOP POWDER 15 GM BTL TOPICAL SCH ×3 (10:14→22:00)
[2022-07-25] MEDS ORDERED: Furosemide 20 mg/2 ml IV VIAL IV SLOW PU ONE (10:24)
[2022-07-25] MEDS ORDERED: HYDROmorphone 0.5 MG/0.5 ML SYRINGE IV SLOW PU ONE (11:26)
[2022-07-25] MEDS ORDERED: Furosemide 20 mg/2 ml IV VIAL IV ONE (11:32)
[2022-07-25] MEDS: KCL 20 MEQ/100 ML IVPREMIX 20 MEQ/100 ML BAG IV SCH ×3 (11:49→16:28)
[2022-07-25 20:13] LABS: ABS Eosinophils 0.1 10^3/ul (0-0.6); ABS Lymphocytes 2.6 10^3/ul (1.0-4.8); ABS Monocytes 2.8 10^3/ul (0-0.8); ABS Neutrophils 11.3 10^3/ul (1.5-7.7); ABS Nucleated RBC 0.8 10^3/ul; Eosinophil % 0.5 %; Hematocrit 23 % (35-47); Hemoglobin 7.6 g/dL (12.0-16.0); Lymphocyte % 15.3 %; Mean Corpuscular HGB Conc 34 g/dL (31-36); Mean Corpuscular Hemoglobin 31 pg (27-31); Mean Corpuscular Volume 93 fL (80-97); Nucleated Red Blood Cells % 4.8; Platelet Count 11 10^3/uL (150-450); Red Blood Count 2.42 10^6 /uL (3.70-4.87); Red Cell Distribution Width 20 % (10-15); White Blood Count 16.8 10^3/uL (3.5-10.8)
[2022-07-25] MEDS: Immune Glob 10%-20GM GAMMAGLIQ 20 GM, Immune Glob 10%-10GM GAMMAGLIQ 10 GM, Immune Glob... IV SCH (23:45)
[2022-07-26 06:22] LABS: INR 1.2 (0.88-1.18)
[2022-07-26 06:50] LABS: Calcium 7.7 mg/dL (8.6-10.3); Creatinine, Serum 0.57 mg/dL (0.51-0.95); Magnesium 2.2 mg/dL (1.9-2.7); Potassium 3.7 mmol/L (3.5-5.0); eGFR CKD-EPI 100.8 (>60)
[2022-07-26] MEDS: Mometasone/Formoter 100/5 MDI INH SCH ×2 (08:17→18:59)
[2022-07-26] MEDS: Chlorhexidine MOUTHWASH 0.12% 15 ML UDC SWISH SPIT SCH (08:31)
[2022-07-26] MEDS ORDERED: HYDROmorphone 0.5 MG/0.5 ML SYRINGE IV ONE (08:35)
[2022-07-26] MEDS: DULoxetine DR 60 mg CAP PO SCH (09:10)
[2022-07-26] MEDS: Nystatin TOP POWDER 15 GM BTL TOPICAL SCH ×3 (09:11→20:23)
[2022-07-26 10:44] LABS: PCO2 Arterial 37 mmHg (35-45)
[2022-07-26 10:46] LABS: PO2 Arterial 56 mmHg (80-100)
[2022-07-26] MEDS ORDERED: Furosemide 20 mg/2 ml IV VIAL IV ONE (11:56)
[2022-07-26] MEDS ORDERED: Piperacillin/Tazobac ADVAN 3.375 GM in NS 0.9% 100 ml BAG 100 ML IV ONE (17:22)
[2022-07-26] MEDS ORDERED: Vancomycin Trough Check NOTE FOLLOW UP ONE (17:30)
[2022-07-26] MEDS ORDERED: Zosyn per Pharmacy NOTE FOLLOW UP SCH (18:00)
[2022-07-26] MEDS ORDERED: Azithromycin 500 mg/250 ml NS 500 MG/250 ML BAG IVPB SCH (18:00)
[2022-07-26] MEDS: ZOSYN 3.375 GM Q8H per EXTENDED INFUSION IV SCH (21:54)
[2022-07-26 22:57] LABS: PCO2 Arterial 48 mmHg (35-45); PO2 Arterial 99 mmHg (80-100)
[2022-07-26] MEDS: Immune Glob 10%-20GM GAMMAGLIQ 20 GM, Immune Glob 10%-10GM GAMMAGLIQ 10 GM, Immune Glob... IV SCH (23:55)
[2022-07-27] MEDS: ZOSYN 3.375 GM Q8H per EXTENDED INFUSION IV SCH ×3 (05:31→20:45)
[2022-07-27 05:32] LABS: Hematocrit 19 % (35-47); Hemoglobin 6.4 g/dL (12.0-16.0); Mean Corpuscular HGB Conc 34 g/dL (31-36); Mean Corpuscular Hemoglobin 31 pg (27-31); Mean Corpuscular Volume 92 fL (80-97); Mean Platelet Volume 11.8 fL (7.4-10.4); Platelet Count 6 10^3/uL (150-450); Red Blood Count 2.05 10^6 /uL (3.70-4.87); Red Cell Distribution Width 21 % (10-15); White Blood Count 9.2 10^3/uL (3.5-10.8)
[2022-07-27 06:13] LABS: Potassium 3.2 mmol/L (3.5-5.0)
[2022-07-27 06:14] LABS: Anisocytosis 2+; Calcium 7.5 mg/dL (8.6-10.3); Creatinine, Serum 0.59 mg/dL (0.51-0.95)
[2022-07-27 06:15] LABS: Basophilic Stippling 1+; Polychromasia 1+
[2022-07-27 06:18] LABS: ABS Basophils 0.1 10^3/ul (0-0.2); ABS Eosinophils 0.1 10^3/ul (0-0.6); ABS Lymphocytes 1.2 10^3/ul (1.0-4.8); ABS Monocytes 1.5 10^3/ul (0-0.8); ABS Neutrophils 6.4 10^3/ul (1.5-7.7); ABS Nucleated RBC 0.6 10^3/ul; Eosinophil % 0.9 %; Lymphocyte % 12.6 %; Nucleated Red Blood Cells % 6.2
[2022-07-27] MEDS: KCL 20 MEQ/100 ML IVPREMIX 20 MEQ/100 ML BAG IV SCH ×4 (07:49→14:10)
[2022-07-27] MEDS: Mometasone/Formoter 100/5 MDI INH SCH ×2 (08:00→19:30)
[2022-07-27] MEDS ORDERED: HYDROmorphone 0.5 MG/0.5 ML SYRINGE IV ONE (08:54)
[2022-07-27] MEDS: Chlorhexidine MOUTHWASH 0.12% 15 ML UDC SWISH SPIT SCH (09:18)
[2022-07-27] MEDS: DULoxetine DR 60 mg CAP PO SCH (09:21)
[2022-07-27] MEDS: Nystatin TOP POWDER 15 GM BTL TOPICAL SCH ×3 (09:21→20:01)
[2022-07-27 12:44] LABS: ABS Eosinophils 0.1 10^3/ul (0-0.6); ABS Monocytes 1.9 10^3/ul (0-0.8); ABS Neutrophils 6.1 10^3/ul (1.5-7.7); ABS Nucleated RBC 0.5 10^3/ul; Eosinophil % 0.7 %; Hematocrit 19 % (35-47); Hemoglobin 6.6 g/dL (12.0-16.0); Lymphocyte % 10.7 %; Mean Corpuscular HGB Conc 34 g/dL (31-36); Mean Corpuscular Hemoglobin 31 pg (27-31); Mean Corpuscular Volume 91 fL (80-97); Mean Platelet Volume 8.8 fL (7.4-10.4); Platelet Count 12 10^3/uL (150-450); Red Blood Count 2.13 10^6 /uL (3.70-4.87); Red Cell Distribution Width 21 % (10-15)
[2022-07-27] MEDS: HYDROmorphone 0.5 MG/0.5 ML SYRINGE IV SLOW PU PRN ×2 (18:09→22:09)
[2022-07-27] MEDS: Immune Glob 10%-20GM GAMMAGLIQ 20 GM, Immune Glob 10%-10GM GAMMAGLIQ 10 GM, Immune Glob... IV SCH (22:40)
[2022-07-28] MEDS: ZOSYN 3.375 GM Q8H per EXTENDED INFUSION IV SCH (05:46)
[2022-07-28 06:57] LABS: Hematocrit 20 % (35-47); Hemoglobin 6.9 g/dL (12.0-16.0); Mean Corpuscular HGB Conc 36 g/dL (31-36); Mean Corpuscular Hemoglobin 32 pg (27-31); Mean Corpuscular Volume 90 fL (80-97); Mean Platelet Volume 9.3 fL (7.4-10.4); Platelet Count 8 10^3/uL (150-450); Red Blood Count 2.16 10^6 /uL (3.70-4.87); Red Cell Distribution Width 19 % (10-15); White Blood Count 8.6 10^3/uL (3.5-10.8)
[2022-07-28 07:10] LABS: Calcium 7.7 mg/dL (8.6-10.3); Creatinine, Serum 0.56 mg/dL (0.51-0.95); Potassium 3.6 mmol/L (3.5-5.0); eGFR CKD-EPI 101.2 (>60)
[2022-07-28] MEDS: Mometasone/Formoter 100/5 MDI INH SCH ×2 (07:53→19:49)
[2022-07-28] MEDS: HYDROmorphone 0.5 MG/0.5 ML SYRINGE IV SLOW PU PRN ×4 (08:32→23:27)
[2022-07-28] MEDS: DULoxetine DR 60 mg CAP PO SCH (08:34)
[2022-07-28] MEDS: Chlorhexidine MOUTHWASH 0.12% 15 ML UDC SWISH SPIT SCH (08:35)
[2022-07-28] MEDS: Nystatin TOP POWDER 15 GM BTL TOPICAL SCH ×3 (08:35→19:27)
[2022-07-28 08:53] LABS: ABS Eosinophils 0.1 10^3/ul (0-0.6); ABS Lymphocytes 1.5 10^3/ul (1.0-4.8); ABS Monocytes 1.7 10^3/ul (0-0.8); ABS Neutrophils 5.3 10^3/ul (1.5-7.7); ABS Nucleated RBC 0.3 10^3/ul; Eosinophil % 1.1 %; Lymphocyte % 17.8 %; Nucleated Red Blood Cells % 3.8
[2022-07-28 08:54] LABS: Anisocytosis 2+; Polychromasia 1+
[2022-07-28] MEDS ORDERED: Azithromycin 500 mg/250 ml NS 500 MG/250 ML BAG IVPB SCH (11:00)
[2022-07-29] MEDS: HYDROmorphone 0.5 MG/0.5 ML SYRINGE IV SLOW PU PRN ×5 (06:12→23:06)
[2022-07-29] MEDS: Mometasone/Formoter 100/5 MDI INH SCH ×2 (08:27→20:17)
[2022-07-29] MEDS: Magic MouthWash1-BEN/MAAL/LIDO 180 ML BTL SWISH SPIT PRN ×2 (09:13→21:50)
[2022-07-29] MEDS: Chlorhexidine MOUTHWASH 0.12% 15 ML UDC SWISH SPIT SCH (09:17)
[2022-07-29] MEDS: DULoxetine DR 60 mg CAP PO SCH (09:17)
[2022-07-29] MEDS: Nystatin TOP POWDER 15 GM BTL TOPICAL SCH ×3 (09:17→21:50)
[2022-07-29 16:48] LABS: Fungitell Qualitative Result Positive (Negative); Fungitell Quantitative Value >500 pg/mL (<60 pg/mL)
[2022-07-29 22:28] VITALS: BP 123/75
[2022-07-30] MEDS: Mometasone/Formoter 100/5 MDI INH SCH ×2 (07:47→19:29)
[2022-07-30] MEDS: HYDROmorphone 0.5 MG/0.5 ML SYRINGE IV SLOW PU PRN ×4 (10:00→22:32)
[2022-07-30] MEDS: DULoxetine DR 60 mg CAP PO SCH (10:03)
[2022-07-30] MEDS: Chlorhexidine MOUTHWASH 0.12% 15 ML UDC SWISH SPIT SCH (10:05)
[2022-07-30] MEDS: Nystatin TOP POWDER 15 GM BTL TOPICAL SCH ×3 (10:05→20:10)
[2022-07-30] MEDS: Magic MouthWash1-BEN/MAAL/LIDO 180 ML BTL SWISH SPIT PRN (10:06)
[2022-07-31] MEDS: Mometasone/Formoter 100/5 MDI INH SCH ×2 (07:24→19:48)
[2022-07-31] MEDS: HYDROmorphone 0.5 MG/0.5 ML SYRINGE IV SLOW PU PRN ×4 (10:15→23:32)
[2022-07-31] MEDS: DULoxetine DR 60 mg CAP PO SCH (10:19)
[2022-07-31] MEDS: Nystatin TOP POWDER 15 GM BTL TOPICAL SCH ×3 (10:20→19:59)
[2022-07-31] MEDS: Chlorhexidine MOUTHWASH 0.12% 15 ML UDC SWISH SPIT SCH (10:20)
[2022-07-31] MEDS: Magic MouthWash1-BEN/MAAL/LIDO 180 ML BTL SWISH SPIT PRN ×2 (10:27→19:46)
[2022-07-31 11:30] LABS: Rapid COVID-19 Molecular Undetected (Undetected)
[2022-08-01] MEDS: HYDROmorphone 0.5 MG/0.5 ML SYRINGE IV SLOW PU PRN ×2 (03:55→08:33)
[2022-08-01] MEDS: Mometasone/Formoter 100/5 MDI INH SCH (07:34)
[2022-08-01] MEDS: DULoxetine DR 60 mg CAP PO SCH (09:33)
[2022-08-01] MEDS: Nystatin TOP POWDER 15 GM BTL TOPICAL SCH (09:35)
[2022-08-01] MEDS: Magic MouthWash1-BEN/MAAL/LIDO 180 ML BTL SWISH SPIT PRN ×2 (09:35→09:40)
[2022-08-01] MEDS: Chlorhexidine MOUTHWASH 0.12% 15 ML UDC SWISH SPIT SCH (09:40)
== END 2022-08-01 12:40 | disposition hospice, inpatient (51) | DRG 840 ==
LOC: ED 09:30 → EDHOLD 16:17 → SUATTDRO 16:17 → ICU 16:57 → MED 21:47
PROVIDERS: ADMIT Internal Medicine Critical Care Medicine; ATTEND Internal Medicine